=== PATIENT | female | born 1985 | race Caucasian/White ===

== ENCOUNTER 2023-08-30 12:51 | Outpatient (CLI) | payer OTHER, SELFPAY ==
--- NOTE | ~2023-08-30 | CT_ITS ---
EXAMINATION: CT brain wo con DATE: 08/30/2023 13:06 INDICATION: Head injury TECHNIQUE: Computed tomography (CT) of the head was performed without intravenous contrast. Sagittal and coronal reconstructions were performed. The mA was adjusted according to patient size. Iterative reconstruction technique was employed. The dose-length product was 645.69 mGy-cm. COMPARISON: None FINDINGS: No fracture. No acute intracranial hemorrhage, acute infarction or abnormal extra axial fluid collect ion. Ventricles are normal and symmetric. No mass/mass effect. The orbits, paranasal sinuses and mast oid air cells are normal. IMPRESSION: 1. Normal head CT. Reviewed, dictated and finalized at location A. IMPRESSION: 1. Normal head CT.
== END 2023-08-30 12:52 ==
PROVIDERS: PCP Physician Assistant; Visit Provider Physician Assistant
DX: S09.90XA Unspecified injury of head, initial encounter (principal); X58.XXXA Exposure to other specified factors, initial encounter
CPT/HCPCS: 70450

== ENCOUNTER 2024-01-24 11:50 | Outpatient (CLI) | payer OTHER, SELFPAY ==
--- NOTE | 2024-01-24 12:30 | ECG_ITS ---
Test Date: 2024-01-24 12:40:45 Measurements Intervals [place] Rate: 63 P: 43 [place]: 117 QRS: 28 QRSD: 87 T: 9 QT: 393 QTc: 403 Interpretive Statements SINUS RHYTHM WITH SHORT [place] INTERVAL WARNING: DATA QUALITY MAY AFFECT INTERPRETATION No previous ECG available for comparison Electronically Signed On 01-24-2024 16:20:16 MOBILE QA TESTER by Elian Larsen
[2024-01-24 14:17] LABS: Basophils Absolute Auto 0.1 K/mm3 (0.0-0.1); Basophils Percent Auto 0.7 % (0.2-1.2); Eosinophils Absolute Auto 0.1 K/mm3 (0-0.3); Eosinophils Percent Auto 0.8 % (0-4.4); Hematocrit 42.5 % (37.0-47.0); Hemoglobin 14.6 g/dL (12.0-15.0); Immature Granulocyte Absolute 0.03 K/mm3 (0.00-0.031); Immature Granulocyte Percent A 0.4 % (0-0.5); Lymphocytes Absolute Auto 2.58 K/mm3 (0.9-3.2); Lymphocytes Percent Auto 30.3 % (18.3-44.2); Mean Corpuscular HGB Conc 34.4 g/dl (32-36); Mean Corpuscular Hemoglobin 31.1 pg (26-34); Mean Corpuscular Volume 90.6 fl (80-100); Mean Platelet Volume 9.5 fl (7.4-10.4); Monocytes Absolute Auto 0.6 K/mm3 (0.1-0.6); Monocytes Percent Auto 6.8 % (2.6-8.5); Neutrophils Absolute Auto 5.2 K/mm3 (1.3-6.7); Platelet Count Result 283 k/mm3 (150-375); Red Blood Count 4.69 M/mm3 (4.2-5.4); Red Cell Distribution Width 11.9 % (11.5-14.5); White Blood Count 8.5 K/mm3 (4.5-10.0)
[2024-01-24 14:33] LABS: Alanine Aminotransferase 20 U/L (6-35); Albumin Level 4.9 g/dL (3.5-5.1); Alkaline Phosphatase 57 U/L (38-126); Anion Gap 7 mmol/L (4-12); Aspartate Amino Transferase 29 U/L (14-36); Bilirubin,Total 2.3 mg/dL (0.2-1.3); Blood Urea Nitrogen 11 mg/dL (7-17); Calcium 9.6 mg/dL (8.4-10.2); Carbon Dioxide 26 mmol/L (22-30); Chloride 105 mmol/L (98-107); Estimated Glomerular Filt Rate > 60; Glucose 80 mg/dL (65-110); Potassium 4.1 mmol/L (3.4-5.0); Sodium 138 mmol/L (137-145)
[2024-01-24 14:36] LABS: INR 1.1; Prothrombin Time 14.1 Seconds (11.1-14.7)
== END 2024-01-24 11:51 | disposition home or self-care (01) ==
LOC: ANHSURGERY 11:54
PROVIDERS: PCP Physician Assistant; Visit Provider Urology
DX: Z01.818 Encounter for other preprocedural examination (principal); N81.4 Uterovaginal prolapse, unspecified
CPT/HCPCS: 36415; 80053; 85025; 85610; 85730; 86850; 86900; 86901; 93005

== ENCOUNTER 2024-02-05 00:21 | Day surgery (SDC) | payer OTHER, SELFPAY ==
--- NOTE | 2024-01-24 09:03 | PC.NURSE ---
Report to the Outpatient Waiting Room, entrance under the green pavilion located off [facility], at time _6am on date 02/05/24 . Planned Procedure Time: _7:30 am .? Time changes happen often and if your time is changed the preop area will call you the afternoon before. - You and your visitor will be asked to self-screen and do not enter if you have any COVID symptoms. Please call surgeon if you need to reschedule. - A mask is optional within the hospital at this time. Patients may have clear liquids (water, carbonated beverages, clear teas, apple juice) until 3 hours prior to surgery ( 4:30 am)with a maximum of 20 ounces. - No food from midnight until time of surgery and no smoking. This includes no chewing gum, candy or mints. - Infants may have breast milk until 4 hours before surgery, infant formula 6 hours prior to surgery. - Children will be allowed to drink immediately following surgery.? If applicable, please bring a bottle or sippy cup to assist with drinking. Juice, water, soda, and popsicles are readily available.? For infants on formula, please bring formula the day of surgery.? Pacifiers are allowed. Take only the following medications with a SIP of water on the morning of surgery: ___none DO NOT STOP ANY OF YOUR OTHER PRESCRIPTION MEDICATIONS PRIOR TO SURGERY EXCEPT THE FOLLOWING Medications to discontinue per physician none Please no make-up, nail persian, hairspray, perfume, deodorant, or body powder the day of surgery.? No jewelry (including any body piercings) or valuables the day of surgery, leave them at home.? Please take a shower or bath the night before, or the morning of, surgery with an antibacterial soap.? Wear comfortable, loose fitting clothing.? Children are encouraged to wear pajamas. - Jewelry must be removed prior to entering the operating room.? Rings and piercings that are not removed may be cut off. - The hospital will not accept responsibility for valuables.? - Please leave all valuables, including medications, at home the day of surgery. If you are going home after surgery, a licensed dedicated driver must drive you home.? - NO public transportation without another adult if you receive anesthesia. - We recommend that an adult stay with you for 24 hours following discharge. - We also recommend that you do not drive, make important decision, drink alcoholic beverages, or take any drugs that were not prescribed by your health care provider for at least 24 hours after your discharge time. Follow any additional instructions given to you from your surgeon. VERBAL AND WRITTEN instructions given to __PATIENT and asked if any additional questions and then verbalized understanding. Patient advised to call surgeon office or pre surgery nurse liaison [phone] if any additional questions.
--- NOTE | 2024-01-24 09:09 | PC.NURSE ---
Report to the Outpatient Waiting Room, entrance under the green pavilion located off [facility], at time _6AM on date __02/05/24 . Planned Procedure Time: .? Time changes happen often and if your time is changed the preop area will call you the afternoon before. - You and your visitor will be asked to self-screen and do not enter if you have any COVID symptoms. Please call surgeon if you need to reschedule. - A mask is optional within the hospital at this time. Patients may have clear liquids (water, carbonated beverages, clear teas, apple juice) until 3 hours prior to surgery with a maximum of 20 ounces. - No food from midnight until time of surgery and no smoking. This includes no chewing gum, candy or mints. - Infants may have breast milk until 4 hours before surgery, infant formula 6 hours prior to surgery. - Children will be allowed to drink immediately following surgery.? If applicable, please bring a bottle or sippy cup to assist with drinking. Juice, water, soda, and popsicles are readily available.? For infants on formula, please bring formula the day of surgery.? Pacifiers are allowed. Take only the following medications with a SIP of water on the morning of surgery: DO NOT STOP ANY OF YOUR OTHER PRESCRIPTION MEDICATIONS PRIOR TO SURGERY EXCEPT THE FOLLOWING Medications to discontinue per physician Date to take last dose Please no make-up, nail maori, hairspray, perfume, deodorant, or body powder the day of surgery.? No jewelry (including any body piercings) or valuables the day of surgery, leave them at home.? Please take a shower or bath the night before, or the morning of, surgery with an antibacterial soap.? Wear comfortable, loose fitting clothing.? Children are encouraged to wear pajamas. - Jewelry must be removed prior to entering the operating room.? Rings and piercings that are not removed may be cut off. - The hospital will not accept responsibility for valuables.? - Please leave all valuables, including medications, at home the day of surgery. If you are going home after surgery, a licensed long haul truck driver must drive you home.? - NO public transportation without another adult if you receive anesthesia. - We recommend that an adult stay with you for 24 hours following discharge. - We also recommend that you do not drive, make important decision, drink alcoholic beverages, or take any drugs that were not prescribed by your health care provider for at least 24 hours after your discharge time. For Pediatric surgeries, we recommend two adults accompany the child home. Follow any additional instructions given to you from your surgeon. Telephone instructions given to and asked if any additional questions and then verbalized understanding. Patient advised to call surgeon office or pre surgery nurse liaison [phone] if any additional questions.
--- NOTE | 2024-01-24 09:09 | PC.NURSE ---
Report to the Outpatient Waiting Room, entrance under the green pavilion located off [facility], at time __,[id number] on date . Planned Procedure Time: .? Time changes happen often and if your time is changed the preop area will call you the afternoon before. - You and your visitor will be asked to self-screen and do not enter if you have any COVID symptoms. Please call surgeon if you need to reschedule. - A mask is optional within the hospital at this time. Patients may have clear liquids (water, carbonated beverages, clear teas, apple juice) until 3 hours prior to surgery with a maximum of 20 ounces. - No food from midnight until time of surgery and no smoking. This includes no chewing gum, candy or mints. - Infants may have breast milk until 4 hours before surgery, formula 6 hours prior to surgery. - Children will be allowed to drink immediately following surgery.? If applicable, please bring a bottle or sippy cup to assist with drinking. Juice, water, soda, and popsicles are readily available.? For infants on formula, please bring formula the day of surgery.? Pacifiers are allowed. Take only the following medications with a SIP of water on the morning of surgery: DO NOT STOP ANY OF YOUR OTHER PRESCRIPTION MEDICATIONS PRIOR TO SURGERY EXCEPT THE FOLLOWING Medications to discontinue per physician Date to take last dose Please no make-up, nail citizen of [place], hairspray, perfume, deodorant, or body powder the day of surgery.? No jewelry (including any body piercings) or valuables the day of surgery, leave them at home.? Please take a shower or bath the night before, or the morning of, surgery with an antibacterial soap.? Wear comfortable, loose fitting clothing.? Children are encouraged to wear pajamas. - Jewelry must be removed prior to entering the operating room.? Rings and piercings that are not removed may be cut off. - The hospital will not accept responsibility for valuables.? - Please leave all valuables, including medications, at home the day of surgery. If you are going home after surgery, a licensed solid waste truck driver must drive you home.? - NO public transportation without another adult if you receive anesthesia. - We recommend that an adult stay with you for 24 hours following discharge. - We also recommend that you do not drive, make important decision, drink alcoholic beverages, or take any drugs that were not prescribed by your health care provider for at least 24 hours after your discharge time. For Pediatric surgeries, we recommend two adults accompany the child home. Follow any additional instructions given to you from your surgeon. Telephone instructions given to and asked if any additional questions and then verbalized understanding. Patient advised to call surgeon office or pre surgery nurse liaison [phone] if any additional questions.
[2024-01-24 11:57] VITALS: BMI 27.3
[2024-01-24 12:29] VITALS: BP 139/86; PULSE 68; RESP 18; TEMP 37; O2SAT 100
--- NOTE | 2024-02-04 04:44 | P.HP_ITS ---
H&P: HPI History of Present Illness Date/Time: 02/04/24 04:44 Chief Complaint: uterine prolapse Narrative: uterine prolapse. Worsening for years Review of Systems Review of Systems: All systems reviewed & are unremarkable except as noted in HPI and below PMFSH Surgical History Surgical History H/O removal of cyst [place] teeth extracted Family History Family History Other Carcinoma of colon Diabetes mellitus Hypertension Melanoma Social History Social History Smoking status: Never smoker Alcohol intake: current Alcohol use details: socially Substance use: never Substance use type: does not use Do You Feel Safe in your Home?: Yes Lack of Transportation: No Lack of Food: Never True Current Housing: I Have Housing Concerned About Future Housing: No Difficulty Paying Gas/Electric Bills: No Difficulty Paying for Meds: No Currently Unemployed: No Education: Master's Degree or Higher Difficulty w/ Childcare or Family Care: No Living arrangements: with family Occupation/Education: occupation Gender identity (if verbalized by the patient): Female Sexual Orientation (if Verbalized by the Patient): Straight or Heterosexual Spiritual care concerns: No Meds Home Medications and Allergies Home Medications ?Medication ?Instructions ?Recorded ?Confirmed ?Type No Home Medications 06/02/21 01/24/24 History Allergies Allergy/AdvReac Type Severity Reaction Status Date / Time No Known Allergies Allergy Verified 01/24/24 11:58 Exam Narrative: apex at +1 Assessment and Plan Assessment and plan (1) Uterine prolapse: Code(s): N81.4 - Uterovaginal prolapse, unspecified Status: Acute Assessment and Plan: Robotic Colpopexy. Have previously discussed issues surrounding POP repair in young patients. Risks, benefits and alternatives discussed
--- NOTE | 2024-02-04 13:21 | P.HP_ITS ---
H&P: HPI History of Present Illness Date/Time: 02/04/24 13:21 Chief Complaint: prolapse Narrative: Debi is a 38yo P2002, who presents for surgical management of prolapse. She has a normal pap 07/2023. She denies any issues. 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 She is sexually active w/o issue; has vasectomy. She denies a [place] breast issues. Has known prolapse and has seen Dr. Cruz and was recommended to have sacrocolpopexy. No major issues emptying bladder/rectum or bulge symptoms now. Review of Systems Constitutional: Constitutional: Denies chills, Denies fever(s) and Denies headache(s) Eyes: Eyes: Denies change in vision ENT: Denies dizziness and Denies headache(s) Cardiovascular: Cardiovascular: Denies chest pain and Denies dyspnea Respiratory: Respiratory: Denies cough and Denies dyspnea Gastrointestinal: Gastrointestinal: Denies abdominal pain and Denies change in stool character Genitourinary: Genitourinary: Denies abnormal menses, Denies pelvic pain, Reports prolapse symptoms, Denies urinary incontinence, Denies vaginal discharge, Denies vaginal odor and Denies vaginal pruritus Neurologic: Denies dizziness and Denies headache(s) Psychiatric: Psychiatric: Denies anxiety and Denies depression [facility] Surgical History Surgical History H/O removal of cyst [place] teeth extracted Family History Family History Other Carcinoma of colon Diabetes mellitus Hypertension Melanoma Social History Social History Smoking status: Never smoker Alcohol intake: current Alcohol use details: socially Substance use: never Substance use type: does not use Do You Feel Safe in your Home?: Yes Lack of Transportation: No Lack of Food: Never True Current Housing: I Have Housing Concerned About Future Housing: No Difficulty Paying Gas/Electric Bills: No Difficulty Paying for Meds: No Currently Unemployed: No Education: Master's Degree or Higher Difficulty w/ Childcare or Family Care: No Living arrangements: with family Occupation/Education: occupation Gender identity (if verbalized by the patient): Female Sexual Orientation (if Verbalized by the Patient): Straight or Heterosexual Spiritual care concerns: No Meds Home Medications and Allergies Home Medications ?Medication ?Instructions ?Recorded ?Confirmed ?Type No Home Medications 06/02/21 01/24/24 History Allergies Allergy/AdvReac Type Severity Reaction Status Date / Time No Known Allergies Allergy Verified 01/24/24 11:58 Exam Const: General: cooperative, healthy appearing, comfortable and no acute distress Orientation/consciousness: patient oriented x3 Resp: Effort & Inspection: normal respiratory effort Cardio: Rate: regular rate GI: Inspection: normal to inspection GI Palp: No abdominal tenderness and Yes Soft to palpation : Other: deferred to OR Skin: General skin exam: normal color Neuro: General: patient oriented x3 Extrem: General: normal to inspection Psych: Appearance: grossly normal Affect: normal affect Attitude: cooperative Assessment and Plan Assessment and plan (1) Uterine prolapse: Code(s): N81.4 - Uterovaginal prolapse, unspecified Status: Acute Plan - Proceed with robotic assisted laparoscopic supracervical hysterectomy with bilateral salpingectomy - This is a combined case with Dr. Cruz who will fix her prolapse - Risks and benefits of surgery discussed in detail including but not limited to pain, bleeding, injury to nearby structures (bowel, bladder, ureter, ovary, blood vessels, nerves) or infection (skin, vaginal, pelvic). - I have also discussed the recommended time off and natural course of healing/downtime
[2024-02-05] VITALS (9 sets, daily range): BP systolic 120–135; BP diastolic 70–106; PULSE 66–99; RESP 16–18; TEMP 36.4–36.5; O2SAT 97–100
--- NOTE | 2024-02-05 06:25 | WPDHPUPDATE1 ---
History and Physical Update Update Date/Time: 02/05/24 06:25 History and Physical has been reviewed, including an updated exam of the patient. There are NO changes in the patient's condition. Risks, benefits, and alternatives have been discussed and questions answered. Patient agrees to proceed with procedure.
[2024-02-05] MEDS: KETOROLAC 15 MG/ML VIAL (*BKC) IV PUSH (06:35)
[2024-02-05] MEDS: LACTATED RINGERS 1,000 ML 30 ML IV CONT ×2 (06:40→10:48)
[2024-02-05] MEDS: ACETAMINOPHEN 500 MG TABLET 1000 MG PO (06:45)
[2024-02-05 06:59] LABS: BEDSIDEPREGUCG Negative (Negative)
--- NOTE | 2024-02-05 07:08 | WPDANESEPPF ---
Anes - Initial Pre Proc Eval Procedure: Operation Date: 02/05/24 07:30 Proposed Procedures p Robotic Sacrocolpopexy, Urethral Sling - Ayan Cruz MD s Robotic Assisted Laparoscopic Supracervical Hysterectomy with Bilateral Salpingectomy - Adilene Li MD Date/Time: 02/05/24 07:08 Surgeon: Ayan Cruz MD Pre Op Diagnosis: complete uterine prolapse, stress incont Patient Data Age: 38 Gender: F Height: 1.63 m Weight: 71.2 kg Last Vital Signs Temp 97.6 F 02/05/24 06:15 Pulse 84 02/05/24 06:15 Resp 16 02/05/24 06:15 BP 128/77 02/05/24 06:15 Pulse Ox 99 02/05/24 06:15 O2 Del Method Room Air 02/05/24 06:15 Allergies Allergy/AdvReac Type Severity Reaction Status Date / Time No Known Allergies Allergy Verified 02/05/24 06:48 Home Medications ?Medication ?Instructions ?Recorded ?Confirmed ?Type No Home Medications 06/02/21 01/24/24 History Laboratory Tests 02/05/24 06:57 POC Urine HCG, Qual Negative (Negative) Patient hx anesthesia problems: none Family hx anesthesia problems: none Results Review: All pre-operative results and documents have been reviewed as part of the pre-operative evaluation. [facility] Surgical History Surgical History H/O removal of cyst [place] teeth extracted Family History Family History Other Carcinoma of colon Diabetes mellitus Hypertension Melanoma Social History Social History Smoking status: Never smoker Alcohol intake: current Alcohol use details: socially Substance use: never Substance use type: does not use Do You Feel Safe in your Home?: Yes Lack of Transportation: No Lack of Food: Never True Current Housing: I Have Housing Concerned About Future Housing: No Difficulty Paying Gas/Electric Bills: No Difficulty Paying for Meds: No Currently Unemployed: No Education: Master's Degree or Higher Difficulty w/ Childcare or Family Care: No Living arrangements: with family Occupation/Education: occupation Gender identity (if verbalized by the patient): Female Sexual Orientation (if Verbalized by the Patient): Straight or Heterosexual Anes - Eval Final PreProcedure Day of Procedure 02/05/24 07:08 Patient weight: normal Heart: regular rate and rhythm Lungs: clear to auscultation Airway: Mallampati scale class II Neurological: alert and oriented Last oral intake: >/= 8 hours ASA classification: I Emergent: no Anesthetic plan: proceed Anesthesia type and monitoring: general ETT and standard monitoring Results Review: All pre-operative results and documents have been reviewed as part of the pre-operative evaluation. Pt active doing [employer] HIIT workouts, no cp or sob. Informed Consent: The patient's anesthetic plan and its attendant risks and benefits were discussed with the patient/family/POA. Questions were solicited and answers provided to the satisfaction of the patient/family/POA.
--- NOTE | 2024-02-05 07:13 | WPDHPUPDATE1 ---
History and Physical Update Update Date/Time: 02/05/24 07:13 History and Physical has been reviewed, including an updated exam of the patient. There are NO changes in the patient's condition. Risks, benefits, and alternatives have been discussed and questions answered. Patient agrees to proceed with robotic assisted laparoscopic supracervical hysterectomy with bilateral salpingectomy.
[2024-02-05] MEDS: ceFAZolin 2 GM/D5W 50 ML 2 GM/50 ML BAG IVPB (07:40)
[2024-02-05] MEDS: metroNIDAZOLE 500 MG/ISO 100ML 500 MG/100 ML BAG 100 MG IVPB (07:50)
[2024-02-05] MEDS: BUPIVACAINE/EPINEPHRINE 0.5% 30 ML VIAL INFILTRATE (07:58)
--- NOTE | 2024-02-05 09:10 | W.PM.PROC2 ---
Procedure Note - Detailed Date of Procedure 02/05/24 Pre-op Diagnosis complete uterine prolapse Post-op Diagnosis Same Procedure Performed Robotic assisted supracervical hysterectomy with bilateral salpingectomy Surgeon Adilene Li MD Junior Project Coordinator Pablo Anesthesia General Findings Uterine prolapse; slightly enlarged uterus with posterior fibroid. Normal bilateral fallopian tubes and ovaries. Good hemostasis at end of case. Description of Procedure Debi was taken to the operating room where she was placed under general anesthesia without issues. She received 2 g Ancef and 500mg Metronidazole. She was then prepped and draped in the usual sterile fashion in the dorsal lithotomy position with her legs in low Mayco stirrups, her arms tucked at her side, with a strap over her chest. A time-out was performed with both Dr. Cruz and I in the room. Dr. Cruz then scrubbed in and placed the 5 laparoscopic ports. The patient was then placed in steep Trendelenburg, with the legs slightly lowered. Dr. Cruz then docked the robot and placed the instruments intra-abdominally under direct visualization. A White catheter was then placed and a sponge on a stick was placed within the vagina. I then went to the robotic console. I then started my hysterectomy on the right side. The ureter was easily identified transperitoneally and well out of the surgical field. The fallopian tube was elevated and the mesosalpinx was coagulated and transected. The round ligament was clamped, coagulated, and transected. The uterine ovarian artery was then serially clamped, coagulated, and transected with good hemostasis. The broad ligament was then dissected anteriorly and posteriorly skeletonizing the uterine artery. The bladder flap was then developed on the left side and carried around the right, anteriorly. The uterine artery was then serially clamped and coagulated. Once the vessel was adequately coagulated, it was then transected with good hemostasis. The same procedure was then performed on the left side without complications. All pedicles were found to be hemostatic. The uterus was noted to be devascularized. The bladder flap was verified out of the surgical field and the uterus was then cut into 4 pieces. The remaining uterus stump was then transected from the cervix. Good hemostasis was noted. The uterus and bilateral fallopian tubes were placed within a bag. All pedicles were once again examined and found to be hemostatic. Dr. Cruz then took over the robot and continued his case to repair the prolapse. At the end of the case, my EBL was 100cc. Estimated Blood Loss 100 Pathology Yes (uterus and bilateral fallpian tubes) Complications No immediate complications Condition Stable Disposition No change [facility] Billing Surgery - Charge Forward: Surgery Billing
--- NOTE | 2024-02-05 10:29 | P.OP_ITS ---
Procedure Note - Detailed Date of Procedure 02/05/24 Pre-op Diagnosis complete uterine prolapse Post-op Diagnosis Same Procedure Performed Robotic sacral colpopexy, cystoscopy Surgeon Ayan Cruz MD Anesthesia General Indications Woman with with uterine prolapse without stress incontinence. She desires calabrese rgical correction. She is here for the above. She understands risks of bleeding, infection, diskitis, damage to surrounding organs, bowel injury, bowel obstruction, mesh related complications including exposure and extrusion, postoperative voiding dysfunction including incontinence and retention, need for ancillary procedures, dyspareunia, recurrence of prolapse, and other perioperative intraoperative postoperative complications. She agrees to proceed. Findings See below Description of Procedure She was correctly identified. Informed consent obtained. She from the operating room. She was given general anesthesia. She was given appropriate perioperative antibiotics. She was placed a low lithotomy position. Pressure points were padded. A time-out performed. I marked out the skin 3 fingerbreadths cephalad to the umbilicus. I anesthetized the skin. I incised the skin. I dissected down to the fascia. I grasped the fascia with Flynn clamps. I entered the fascia sharply in a Stewart type technique. I placed sutures for later fascial closure. I placed a midline trocar. I examined the abdomen. There is no sign of any injury. Under direct vision I placed 2 additional trocars in the right upper quadrant and 2 additional trocars the left upper quadrant. She was placed in steep Trendelenburg. The robot was docked. Her popcorn candy maker completed their portion of the procedure. Please see that operative report for details. I then sat at the console. The Sizer in the vagina created plane on the anterior and posterior vaginal wall. I took great care not to injure the vagina, bladder, or rectum. I introduced the mesh into the abdomen. I sewed the anterior leaflet of mesh on the anterior vaginal wall. I sewed the posterior leaflet of mesh on the posterior vaginal wall. This was done with several sutures of 2 0 Kouts-Magdaleno. I reflected the colon laterally. I opened the posterior peritoneum over the sacral promontory. I carried this into the cul-de-sac. I freed up the edges for later retroperitonealization. I located the anterior longitudinal ligament the sacrum. I cleaned off all fatty tissues. I then tensioned my mesh appropriately. I did a vaginal exam the bedside. I assured prolapse reduction without undue tension. I then sewed the proximal bryce flet of mesh onto the anterior longitudinal ligament of the sacrum with 4 sutures of 2 0 Kouts-Magdaleno. I then used a 2 0 Monocryl to completely and meticulously retroperitonealized all mesh. I allowed the colon to go back to its normal anatomic location. There is no sign of any impingement. The specimen was then removed. All ports removed. Fascia was tied down. Additional sutures were placed fully close the fascia Skin was closed with Monocryl and surgical glue. I then performed cystoscopy. There was no tumors or surgical artifact. Both ureters were seen to excrete clear yellow urine. There is no surgical artifact in the bladder or urethra. I cut the excess sling material. Close incision with glue. She was awakened and transferred to PACU in stable condition. Implants Sacral colpopexy mesh Estimated Blood Loss 20 Packing No Pathology None sent Complications No immediate complications Condition Stable Disposition PACU
[2024-02-05] MEDS: fentaNYL CITRATE INJ (*CRX) 100 MCG/2 ML VIAL 25 MCG IV PUSH (11:11)
[2024-02-05] MEDS: ONDANSETRON INJ 4 MG/2 ML VIAL IV PUSH (11:11)
[2024-02-05] MEDS: oxyCODONE HCL (*CRX) 5 MG TAB IR PO (11:56)
--- OUTSIDE RECORDS SUMMARY | 2024-02-12 02:17 | XMS_ITS | Referral Summary ---
Author Organization [facility] Address [address] [place] [id number] Care Team Providers Care Elementary Art Teacher Name Role Phone Lay Hurst Primary Care Pr ovider Allergies No known active allergies Medications norethindrone (MICRONOR) 0.35 mg tablet norethindrone (contraceptive) 0.35 mg tablet TAKE 1 TAB BY MOUTH DAILY. 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 Gender Identity Not on file Sexual Orientation Not on file Last Filed Vital Signs Vital Sign Reading Time Taken Comments Blood Pressure - - Pulse - - Temperature - - Respiratory Rate - - Oxygen Saturation - - Inhaled Oxygen Concentration - - Weight 65.8 kg (145 lb) 05/09/2022 10:41 AM CDT Height 162.6 cm (5' 4 ) 05/09/2022 10:41 AM CDT Body Mass Index 24.89 05/09/2022 10:41 AM CDT Plan of Treatment Not on file Insurance [facility] PPO [facility] H[facility] Care Teams Elementary Art Teacher Relationship Specialty Start Date End Date Lay Hurst PA PCP - General Physician Appointment Setter 02/24/22
--- OUTSIDE RECORDS SUMMARY | 2024-02-12 02:17 | XMS_ITS | Clinical Summary ---
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 Gender Identity Not on file Sexual Orientation Not on file Plan of Treatment Health Maintenance Due Date Last Done Comments Hepatitis C Virus (HCV) Screening 1985 Hepatitis B Immunization (1 of 3 - 19+ 3-dose series) 2004 HPV/Cotest 2015 Cervical Cancer Screening (CCS) 01/25/2021 Pap Smear 01/25/2021 01/25/2018 Influenza Immunization (#1) 10/14/202311/13, 12/05/2017, 02/12/2014, Additional history exists SARS-COV-2 Immunization ( season) 2023 01/26/2021, 06/23/2020, 06/02/2020 Respiratory Syncytial Virus (RSV) Immunization (Adult) (1 - 1-dose 75+ series) 2060 DTaP/Tdap/Td Immunization Discontinued 01/19/2011 TdaP Immunization Completed 01/19/2011 Meningococcal Immunization (ACWY) Aged Out No longer eligible based on patient's age to complete this topic Pneumococcal Immunization Combined Aged Out No longer eligible based on patient's age to complete this topic Rotavirus Immunization Aged Out No lo nger eligible based on patient's age to complete this topic
--- OUTSIDE RECORDS SUMMARY | 2024-02-12 02:17 | XMS_ITS | Encounter Summary ---
Author Organization [facility] Address [address] [place] [address] Phone Care Team Providers Care Sales Executive Name Role Phone Lay Hurst Primary Care Pr ovider Reason for Visit * Reason Comments Follow-up Encounter Details Date Type Department Care Team (Latest Contact Info) Description 05/09/2022 10:15 AM CDT Office Visit [facility] Orthopaedic Surgery [address] [place] [address] [place] [address] [place], [place] [id number] Right lateral epicondylitis (Primary Dx) Social History Tobacco Use Types Packs/Day Years Used Date Smoking Tobacco: Never Smokeless Tobacco: Never Tobacco Cessation:Counseling Given: Not Answered Comments Unknown Sex and Gender Information Value Date Recorded Sex Assigned at Not on file Legal Sex Female 2:29 AM RN VISITING Gender Identity Not on file Sexual Orientation Not on file documented as of this encounter Last Filed Vital Signs Vital Sign Reading Time Taken Comments Blood Pressure - - Pulse - - Temperature - - Respiratory Rate - - Oxygen Saturation - - Inhaled Oxygen Concentration - - Weight 65.8 kg (145 lb) 05/09/2022 10:41 AM CDT Height 162.6 cm (5' 4 ) 05/09/2022 10:41 AM CDT Body Mass Index 24.89 05/09/2022 10:41 AM CDT documented in this encounter Patient Instructions * Patient Instructions* Senthil Wade PA - 05/09/2022 10:15 AM CDT Debi Carrera 1985 1. Right lateral epicondylitis RECOMMENDATIONS: Stop the [id number] anti-inflammatory medication like ibuprofen. Begin meloxicam 15 mg once daily with food for the next 10-14 days to control pain and inflammation. Ice the elbow region 15-20 minutes at the end the day and after activities. Maintain exercises for range of motion stretching and strengthening of the right elbow. Use the tennis elbow band with daily activities. Modify activities trying to avoid repetitive use the right upper extremity if possible. Follow up in 6 weeks if symptoms persist. If your symptoms worsen, please reach your provider through the office at . If you need to reschedule your appointment, please call [phone]. Diana Wade PA-C [facility] Department of Orthopaedics Working in collaborative practice with Denis Sherman M.D. documented in this encounter Ordered Prescriptions Prescription Sig Dispense Quantity Refills Last Filled Start Date End Date meloxicam (MOBIC) 15 mg tablet Take 1 tablet (15 mg total) by mouth daily with breakfast Take 1 daily with food 30 tablet 05/09/2022 documented in this encounter Progress Notes * Senthil Wade PA - 05/09/2022 10:15 AM CDT RETURN PATIENT VISIT INTERVAL HISTORY Debi Carrera is a 37 y.o. who presents today in follow up of her right elbow lateral epicondylitis. She is been treating conservatively with ibuprofen which she mentions that she does not take on a regular basis. When she does take it does provide her some relief. She is iced on occasion she is beenusing a tennis elbow band. She is maintain some stretching and strengthening exercises at home. Overall she reports mild improvement over the past several weeks. States overall she is maybe 50% improved. She reports her symptoms are mostly nuisance like. States the sharp pain has improved. PAST MEDICAL HISTORY She has no past medical history on file. REVIEW OF MEDICATIONS She has a current medication list which includes the following prescription(s): norethindrone. ALLERGIES She has No Known Allergies. REVIEW OF SYSTEMS No change since last visit. PHYSICAL EXAMINATION CONSTITUTIONAL: Well-appearing, in no apparent distress EYES: No scleral icterus or conjunctival hemorrhage CARDIOVASCULAR: Skin warm and well-perfused, no peripheral edema RESPIRATORY: Breathing unlabored without accessory muscle use PSYCHIATRIC: Alert, cooperative, appropriate mood and affect SKIN: No lesions or rashes on exposed skin. MUSCULOSKELETAL: The right elbow is without swelling ecchymosis or deformity. She is minimal tenderness over the lateral epicondyle. She is adequate range of motion the elbow to flexion extension supination pronation. She is good strength 5/5 to resisted elbow flexion extension supination pronation. Her symptoms are mildly reproduced with resisted wrist extension and supination of the forearm along with mild discomfort with resisted middle finger extension with the arm extended. NEUROLOGIC: Sensation is intact distally in the involved extremity. VASCULAR: Brisk capillary refill is intact distally in the involved extremity. REVIEW OF IMAGING/STUDIES None taken today. IMPRESSION/DIAGNOSIS Right elbow lateral epicondylitis TREATMENT/PLAN I spoke with the patient today regarding her condition and reviewed all treatment options. She would like to stay conservative. I have asked her to stop her ibuprofen and try a course of meloxicam 15mg once daily with food for the next 10-14 days. I recommended icing the elbow 15-20 minutes at theend of the day and after activities. We discussed use of a tennis elbow band with daily activities.I have offered formal therapy she declined she would just like to do exercises on her own at home. She voiced comfortable doing the stretching and strengthening exercises. I have asked her to modify activities avoiding repetitive use the right upper extremity if possible. I will see her back in 6 weeks for re-evaluation if symptoms persist. The patient is in agreement with above treatment plan and all questions are answered today. Diana Wade PA-C [facility] Department of Orthopaedics Working in collaboration with Denis Sherman M.D. Portions of this note were dictated using [employer] Direct speech recognition software. Please excuse any supervisor whipped topping errors. documented in this encounter Plan of Treatment Not on file documented as of this encounter Visit Diagnoses Diagnosis Right lateral epicondylitis- Primary documented in this encounter Care Teams Sales Executive Relationship Specialty Start Date End Date MenLay man PA PCP - General Physician Mentally Retarded Teacher 02/24/22 documented as of this encounter
--- OUTSIDE RECORDS SUMMARY | 2024-02-12 02:17 | XMS_ITS | Data Portability ---
Author Organization [facility] The Editorialist, Main Office Address [address] [place] [address] Assessment No assessment recorded. Plan of Treatment Reminders Order Date Submit Date Provider Last Modified By Organization Details Last Modified Time Details Appointments None recorded . Lab TSH + free T4, serum 023 01/23/20 JUAN [facility], [address] [facility], [address], [place], [address], 3 17:05:07 lipid panel, serum 023 01/23/20 23 [email or web address] [facility], [address] [facility], [facility] [address], [place], [address], 3 17:04:51 HbA1c (hemoglo bin A1c), blood 023 01/23/20 23 [email or web address] [facility], [address] [facility], [address], [place], [address], 3 17:04:42 CMP, serum or plasma 023 01/23/20 23 [email or web address] [facility], [address] [facility], [address], [place], [address], 3 17:03:58 CBC w/ auto diff 023 01/23/20 23 [email or web address] [facility], [address] [facility], [address], [place], [address], 3 17:04:22 Referral None recorded . Procedures None recorded . Surgeries None recorded . Imaging None recorded . Medication Orders None recorded . Patient TargetsNo targets recorded. Patient InstructionsNo instructions recorded. Reason for Referral None Reported. Results Created Date Observation Date Name Description Value Unit Range Abnormal Flag Note LastModifiedBy Organization Detail LastModifiedTime 05/26/19 21 05/26/2020 pap, LB + HR HPV diagnosis: danial mcintosh NEGAT MICKI FOR INTRA EPITH ELIAL LESIO N OR [place] . Not Available [facility] [place], [address], 05/27/2020 07:10:41 05/26/19 21 05/26/2020 pap, LB + HR HPV specimen adequacy: danial mcintosh Satis facto ry for evalu ation . Endoc ervic al and/o r squam ous metap lasti c cells (endo cervi dequan compo nent) are prese nt. Not Available [facility] [address] [place], [address], 05/27/2020 07:10:41 05/26/19 21 05/26/2020 pap, LB + HR HPV clinician provided ICD10: danial mcintosh Z01.4 19 Not Available [facility] [place], [address], 05/27/2020 07:10:41 05/26/19 21 05/26/2020 pap, LB + HR HPV performed by: Snehal Esquivel (ASCP ) Not Available [facility] [place], [address], 05/27/2020 07:10:41 05/26/19 21 05/26/2020 pap, LB + HR HPV . . [facility] [address] [facility] [place], [address], 05/27/2020 07:10:41 05/26/19 21 05/26/2020 pap, LB + HR HPV note: danial mcintosh The Pap smear is a scree arline test chris bear to aid in the detec tion of jose elias ligna nt and malig nant condi tions of the uteri ne cervi x. It is not a diagn ostic proce dure and shoul d not be used as the sole means of detec ting cervi dequan cance r. Both false -posi tive and false -nega tive repor ts do occur . Not Available [facility] [address] [place], [address], 05/27/2020 07:10:41 05/26/19 21 05/26/2020 pap, LB + HR HPV test methodology: commen t This liqui d based ThinP rep(R ) pap test was marily bear with the use of an image guide jim bradley. Not Available [facility] [address] [place], [address], 05/27/2020 07:10:41 05/26/19 21 05/27/2020 pap, LB + HR HPV HPV aptima negati ve negati ve This nucle ic acid ampli ficat ion test detec ts fourt een high- risk HPV types (16,1 8,31, 33,35 ,39,4 5,51, 52,56 ,58,5 9,66, 68) witho ut diffe renti ation . Not Available [facility] [place], [address], 05/27/2020 07:10:41 07/15/19 21 07/14/2020 XR, toe(s ) No observ ation record ed. [id number], [place], [address], 04/12/2022 17:28:33 11/01/19 23 10/31/2022 MAMMO , marily nunn, digit al, bilat eral No observ ation record ed. [email or web address] Not Available 2022 13:05:29 Result Notes None recorded. 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 Procedures Surgical History Date Name Laterality Status Provider Name and Address Organization Details Recorded Time 02/12/19 08 Date of Last Colonoscopy completed Not Available [facility] 04/12/2022 17:28:01 02/12/19 08 other completed Not Available [facility] 3 17:28:01 02/12/19 08 Colonoscopy completed Not Available [facility] 04/13/19 23 17:28:01 [place] Teeth completed Not Available [facility] 04/12/2022 17:28:01 Cyst Removal completed Not Available [facility] 04/12/2022 17:28:01 Imaging Results Imaging Date Name Status LastModified by Organiz ation Details LastModified Time 07/14/2020 XR, toe(s) completed [id number] , [place], [address], 04/12/2022 17:28:33 10/31/2022 MAMMO, screening, digital, bilateral completed [email or web address] Information not available 01/22/2023 13:05:29 Procedure Notes None recorded. Medical Equipment None Reported. Allergies No known drug allergies Medications Name Sig Start Date Stop Date Status Note LastModified by Organization Details LastModified Time amoxicillin 500 mg capsule TAKE 2 CAPSULE BY MOUTH TWICE A DAY FOR 10 DAYS. 10/26 completed Not Available Not Available Not Available azithromyci n 250 mg tablet TAKE 2 TABLETS BY MOUTH TODAY, THEN TAKE 1 TABLET DAILY FOR 4 DAYS 10/26 completed Not Available Not Available Not Available benzonatate 200 mg capsule TAKE 1 CAPSULE THREE TIMES A DAY NEEDED 10/26 completed Not Available Not Available Not Available valacyclovi r 1 gram tablet TAKE 2 TABS BY MOUTH EVERY 12 HOURS X 1 DAY NEEDED FOR COLD SORE ONSET active Not Available Not Available No t Available meloxicam 15 mg tablet TAKE 1 TABLET (15 MG TOTAL) BY MOUTH DAILY WITH BREAKFAST TAKE 1 DAILY WITH FOOD active Not Available Not Available No t Available diphenoxyla te-atropine 2.5 mg-0.025 mg tablet TAKE 1 TABLET BY MOUTH 4 TIMES A DAY NEEDED FOR DIARRHEA 10/27 completed Not Available Not Available Not Available phenazopyri dine 100 mg tablet TAKE 2 TABLETS BY ORAL ROUTE 3 TIMES PER DAY FOR 2 DAYS 01/19 completed Not Available Not Available Not Available Cheratussin AC 10 mg-100 mg/5 mL oral liquid TAKE 5 ML BY MOUTH EVERY 4 TO 6 HOURS NEEDED 10/26 completed Not Available Not Available Not Available methylpredn isolone 4 mg tablets in a dose pack TAKE DIRECTED 10/26 completed Not Available Not Available Not Available norethindro ne (contracept micki) 0.35 mg tablet TAKE 1 TAB BY MOUTH DAILY. active Not Available Not Available No t Available doxycycline hyclate 100 mg tablet TAKE ONE TAB DAILY AT DINNER TIME WITH FOOD X 1 MONTH 01/18 completed Not Available Not Available Not Available nitrofurant oin monohydrate /macrocryst als 100 mg capsule TAKE 100 MILLIGRAM S BY ORAL ROUTE EVERY 12 HOURS FOR 5 DAYS 01/19 completed Not Available Not Available Not Available OneTouch Delica Lancets 33 gauge USE TO TEST BLOOD SUGAR 4 TIMES A DAY NEEDED active Not Available Not Available No t Available Orsythia 0.1 mg-20 mcg tablet TAKE 1 TABLET BY MOUTH EVERY DAY 10/27 completed Not Available Not Available Not Available OneTouch Verio test strips USE TO TEST BLOOD SUGAR 4 TIMES A DAY NEEDED active Not Available Not Available No t Available Vitals Date Recorded Body mass index (BMI) Body height Body weight Systolic blood pressure Diastolic blood pressure Provider Name and Address Organization Details Last Updated DateTime 05/25/2020 29 kg/m2 162.56 cm 48448.83 g 108 mm[Hg] 74 mm[Hg] Not Available [facility] 3 17:28:04 Date Recorded Body mass index (BMI) Body height Oxygen saturation Oxygen saturation in Arterial blood by Pulse oximetry Heart rate Body temperature Body weight Systolic blood pressure Diastolic blood pressure Provider Name and Address Organization Details Last Updated DateTime 2 26.6 kg/m2 162.56 cm 98 % 98 % 72 /min 97.6 [degF] 82642.8 2 g 110 mm[Hg] 68 mm[Hg] Not Available [facility] 3 17:28:04 Date Recorded Body height Body temperature Body mass index (BMI) Body weight Respiratory rate Oxygen saturation Oxygen saturation in Arterial blood by Pulse oximetry Heart rate Systolic blood pressure Diastolic blood pressure Provider Name and Address Organization Details Last Updated DateTime 3 162.56 cm 97.3 [degF] 26.6 kg/m2 47003.8 2 g 16 /min 99 % 99 % 78 /min 120 mm[Hg] 70 mm[Hg] Aurea HortamanLORRAINECharito [facility] [employer] 3 12:56:11 Date Recorded Systolic blood pressure Diastolic blood pressure Provider Name and Address Organization Details Last Updated DateTime 01/22/2023 126 mm[Hg] 70 mm[Hg] ANDREW Perez [address] [facility], [facility] [address], [place], [address], [place] [facility] 01/22/2023 13:19:13 Social History Question Answer Notes LastModified by Organizat ion Details LastModified Time Tobacco Smoking Status Never Smoker Not Available [facility] 04/12/2022 17:27:59 Do You Have An Advance Directive? No [id number] Information not available 04/12/2022 What Is Your Level Of Alcohol Consumption? Moderate MIGRATION.[id number] 2771 Information not available 04/12/2022 What Is Your Level Of Caffeine Consumption? None MIGRATION.[id number] 7679 Information not available 04/12/2022 How Much Tobacco Do You Chew? None MIGRATION.[id number] 8122 Information not available 04/12/2022 In The 14 Days Before Symptom Onset, Have You Had Close Contact With A Laboratory-confir med COVID-19 While That Case Was Ill? No MIGRATION.[id number] 7432 Information not available 04/12/2022 In The 14 Days Before Symptom Onset, Have You Had Close Contact With A Person Who Is Under Investigation For COVID-19 While That Person Was Ill? No MIGRATION.627430 4868 Information not available 04/12/2022 Are You Currently Employed? Yes [email or web address] Information not available 01/18/2023 What Type Of Diet Are You Following? REGULAR MIGRATION.[id number] 8379 Information not available 04/12/2022 Which Illicit Or Recreational Drugs Have You Used? No MIGRATION.480956 9384 Information not available 04/12/2022 Do You Or Have You Ever Used E-cigarettes Or Vape? 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 No MIGRATION.708887 6066 Information not available 04/12/2022 Are There Any Guns Present In Your Home? Yes MIGRATION.847150 5822 Information not available 04/12/2022 Do You Use Insect Repellent Routinely? No MIGRATION.411372 0055 Information not available 04/12/2022 Do You Have A Medical Power Of College Hire? No MIGRATION.268549 2557 Information not available 04/12/2022 What Is Your Relationship Status? MIGRATION.791202 1037 Information not available 04/12/2022 Do You Use Your Seat Belt Or Car Seat Routinely? Yes [email or web address] Information not available 01/18/2023 Do You Have Smoke And Carbon Monoxide Detectors In Your Home? Yes MIGRATION.186736 9434 Information not available 04/12/2022 Do You Or Have You Ever Used Smokeless Tobacco? Never Used Smokeless Tobacco MIGRATION.175883 0747 Information not available 04/12/2022 How Much Tobacco Do You Smoke? No MIGRATION.255439 8790 Information not available 04/12/2022 Do You Use Any Illicit Or Recreational Drugs? No MIGRATION.671632 8561 Information not available 04/12/2022 Do You Use Sunscreen Routinely? Yes MIGRATION.582974 9529 Information not available 04/12/2022 Have You Recently Traveled Abroad? No MIGRATION.186159 9829 Information not available 04/12/2022 Do You Have Any Dietary Restrictions? No MIGRATION.651644 1606 Information not available 04/12/2022 Do You Or Have You Ever Used Any Other Forms Of Tobacco Or Nicotine? No MIGRATION.396797 9751 Information not available 04/12/2022 Sex: Unknown Functional Status Question Answer Note LastModified by Organizat ion Details LastModified Time What is your exercise level? Occasional [id number] 26 Information not available 04/12/2022 Mental Status None recorded. Family History Relationship Description Onset Age of this Age Resolved Age Notes LastModified by Organization Details LastModified Time Paternal Grandfather Malignant tumor of colon [id number] Not available 04/12/2022 17:28:01 Unspecified Relation Diabetes mellitus MIGRATION.970 [id number] Not available 04/12/2022 17:28:02 Unspecified Relation Hypertensive disorder MIGRATION.060 [id number] Not available 04/12/2022 17:28:02 Mother Osteoporosis no hx of fractu res MIGRATION.255 [id number] Not available 04/12/2022 17:28:02 Medical History Condition Response DIABETES, TYPE Y HYPERTENSION Y Gynecological History Statement/Question Response Abnormal Pap N Date of Last Colonoscopy 02/12/2007 Date of LMP 05/19/2020 Date of Last Pap Smear Current Control Method Partner Vas ectomy Age at Menarche 12 Most Recent Mammogram Breast Problems no Obstetrics History GPAL:G 2 P 2 0 0 2 Type Value Full Term 2 Living 2 Total 2 Immunizations Vaccine Type Date Status Note Provider Nam e and Address Organization Details Recorded Time influenza, unspecified formulation 5 completed Not Available [facility] 04/12/2022 17:28:31 influenza, unspecified formulation 4 completed Not Available [facility] 04/12/2022 17:28:31 tetanus toxoid, unspecified formulation 0 completed Not Available [facility] 04/12/2022 17:28:31 Influenza, split virus, quadrivalent, PF 2 completed Not Available [facility] 04/12/2022 17:28:32 Influenza, split virus, quadrivalent, PF 9 completed Not Available [facility] 04/12/2022 17:28:32 Influenza, split virus, quadrivalent, PF 8 completed Not Available [facility] 04/12/2022 17:28:32 Past Encounters Encounter ID Performer Location Encounter Start Date Encounter Closed Date Diagnosis/Indication Diagnosis SNOMED-CT Code Diagnosis ICD10 Code [id number] _ATHENA_M IGRATION_ DEFAULT_1 _1 , 05/25/2020 00:00:00 05/25/2020 13:41:44 [id number] [facility] [place] [address] [place] [address] 01/19/2022 00:00:00 02/10/2022 00:54:04 [id number] ANDREW Perez [facility] [place] [address] [place] [address] 01/22/2023 12:50:46 01/22/2023 13:36:36 Adult health examination 783646654 Z00.00 Past pregn la history of gestational diabetes mellitus 894321090 Z86.32 Cholesterol screening 27 0482013 Z13.220 Thyroid di sorder screening 167092780 Z13.29 Health Concerns Section Related Observation LastModified by Organization Detai ls LastModified Time None Recorded Concern Status LastModified by Organization Details LastModified Time None Recorded Advance Directives Directive N: Payers Encounter Date Sequence Insurance Name Policy Number Policy Cazares Covered Member ID Cazares Member ID Guarantor Name 01/22/2023 1 [employer] [id number] Debi Carrera [id number] Debi Carrera Notes Date Note Type Note Provider Name and Address Organization Details Recorded Time 01/22/2023 text/html Generic HPI TemplateReported bypatient.Notes:Pt is here for her check up and has no chronic problems. ANDREW Perez [address] [place] [address] [address], [place], [address], [place] - [facility] [employer] 02/08/2023 09:26:03 OBGyn Episode No OBEpisode recorded.
--- OUTSIDE RECORDS SUMMARY | 2024-02-12 02:17 | XMS_ITS | Encounter Summary ---
Author Organization [facility] Healthcare Address [address] [place] [address] Care Team Providers Care Care Team Assistant Name Role Phone Lay Hurst Primary Care Pr ovider Reason for Referral * Diagnostic Imaging (Routine) - Closed Specialty Diagnoses / Procedures Referred By Donta mcintosh Referred To Contact Diagnoses Screening mammogram for breast cancer Procedures Screening Mammogram Bilateral W Lay Cates PA Phone: tel: fax: [facility] [id number] [place] [address] Referral ID Status Reason Start Date Expiration Date Visits Re quested Visits Authorized [id number] Closed 10/31/2022 11/30/2023 1 1 Reason for Visit * Diagnostic Imaging (Routine) - Closed Specialty Diagnoses / Procedures Referred By Donta mcintosh Referred To Contact Diagnoses Screening mammogram for breast cancer Procedures Screening Mammogram Bilateral W Lay Cates PA Phone: tel: fax: [facility] [id number] [place] [address] Referral ID Status Reason Start Date Expiration Date Visits Re quested Visits Authorized [id number] Closed 10/31/2022 11/30/2023 1 1 Encounter Details Date Type Department Care Team (Latest Contact Info) Description 10/31/2022 10:46 AM CDT - 10/31/2022 11:59 PM CDT Hospital Encounter [facility] Mammography [place], [place] [phone] Screening mammogram for breast cancer Discharge Disposition: Discharge to home or self care Social History Tobacco Use Types Packs/Day Years Used Date Smoking Tobacco: Never Smokeless Tobacco: Never Comments Unknown Sex and Gender Information Value Date Recorded Sex Assigned at Not on file 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 documented as of this encounter Discharge Disposition Disposition Code Departure Means Destination Discharge to home or self care documented in this encounter Plan of Treatment Not on file documented as of this encounter Procedures Procedure Name Priority Date/Time Associated Diagnosis Comments SCREENING MAMMOGRAM BILATERAL W SETH Schedule Routine, Read Routine (OP Routine) 10/31/2022 11:03 AM CDT Screening mammogram for breast cancer documented in this encounter Results * Screening Mammogram Bilateral W Seth (10/31/2022 11:03 AM CDT) Anatomical Region Laterality Modality Breast Bilateral Mammography Narrative 10/31/2022 3:19 PM CDT Examination: Screening Mammogram Bilateral W Seth: 10/31/22 Clinical: Screening mammogram for breast cancer. ?? Prior Study Comparisons: None. ??This is a baseline study. Findings: Bilateral No significant masses, malignant type calcifications, skin thickening, nipple retraction, or significant lymphadenopathy is noted in either breast. ??The CAD review showed no significant findings. The breasts are heterogeneously dense, which may obscure small masses. The patient will be notified of results by letter. Impression: BI-RADS?? ATLAS category (overall): 1 - Negative ?? There is no mammographic evidence of malignancy. Routine Screening Mammogram in 1 Yr is recommended for bilateral Overall Assessment: 1 - Negative us Lay MORALES IMG MAMMO PROCED URES Final Result documented in this encounter Visit Diagnoses Diagnosis Screening mammogram for breast cancer documented in this encounter Care Teams Care Team Assistant Relationship Specialty Start Date End Date Lay Hurst PA PCP - General Physician Rn Cvicu 02/24/22 documented as of this encounter
--- OUTSIDE RECORDS SUMMARY | 2024-02-12 02:17 | XMS_ITS | Clinical Summary ---
Author Organization [facility] Address [address] [place] [address] Care Team Providers Care Bush Regenerator Name Role Phone Lay Hurst Primary Care [...] diagnosis of hypertension 12/18/2011 Pilonidal cyst 05/31/2007 Family History Medical History Relation Name Comments Arthritis Father Heart disease Father Hypertension Father Diabetes Mother Heart disease Mother Hypertension Mother Cancer Other 1 Cancer - (Added by TW Conv) Colon cancer Other 2 Malignant Neopl asm, Colon - paternal grandfather - colon cancer; aunt - lung cancer; grandmother - skin cancer ; heart disease (Added by TW Conv) Relation Name Status Comments Father Mother Other 1 Other 2 Social History Tobacco Use Types Packs/Day Years Used Date Smoking Tobacco: Never Smokeless Tobacco: Never Tobacco Cessation:Counseling Given: Not Answered Comments Unknown Sex and Gender Information Value Date Recorded Sex Assigned at Not on file 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 Gender Identity Not on file Sexual Orientation Not on file Obstetrics History Last Filed Vital Signs Vital Sign Reading Time Taken Comments Blood Pressure - - Pulse - - Temperature - - Respiratory Rate - - Oxygen Saturation - - Inhaled Oxygen Concentration - - Weight 65.8 kg (145 lb) 05/09/2022 10:41 AM CDT Height 162.6 cm (5' 4 ) 05/09/2022 10:41 AM CDT Body Mass Index 24.89 05/09/2022 10:41 AM CDT Plan of Treatment Health Maintenance Due Date Last Done Comments Cervical Cancer Screening 1985 Depression Screening 1985 Hepatitis C Screening 1985 Varicella Vaccines (1 of 2 - 13+ 2-dose series) 1998 Hepatitis B Screening 2003 Regular Well Visit/Exam 18-64 2003 DTaP/Tdap/Td Vaccine (2 - Td or Tdap) 01/19/2021 01/19/2011 Covid-19 Vaccine (2023-2 5 season) 2023 01/26/2021, 06/23/2020, 06/02/2020 Influenza Vaccine (#1) 2023 4, 09/27/2011 HPV Vaccines Aged Out No longer eligi ble based on patient's age to complete this topic Pneumococcal vaccine <65 Aged Out No longer eligible based on patient's age to complete this topic Insurance [facility] [place] [facility] Care Teams Bush Regenerator Relationship Specialty Start Date End Date Lay Hurst PA PCP - General Physician Eligibility Worker 02/24/22
--- OUTSIDE RECORDS SUMMARY | 2024-02-12 02:17 | XMS_ITS | Encounter Summary ---
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 Name Role Phone Unavailable Primary Care Provider Unavailabl e Encounter Details Date Type Department Care Team (Latest Contact Info) Description 01/26/2021 12:30 PM HOME HEALTH SPECIALIST Immunization [place] [facility] Mobile Immunization [address] [place] [address] Need for vaccination (Primary Dx) Social History Tobacco Use Types Packs/Day Years Used Date Smoking Tobacco: Never Assessed Comments Unknown Sex and Gender Information Value Date Recorded Sex Assigned at Not on file Legal Sex Female 12:22 PM 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
--- OUTSIDE RECORDS SUMMARY | 2024-02-12 02:18 | XMS_ITS | Encounter Summary ---
Author Organization [facility] Address [address] [place] [address] Care Team Providers Care Work Order Clerk Name Role Phone Ervin Tejada MD Primary Care Provider [phone] Reason for Referral * Outpatient Services (Routine) - Closed Specialty Diagnoses / Procedures Referred By Donta t Referred To Contact Radiology Diagnoses Abnormal maternal glucose tolerance, antepartum Procedures US OB LIMITED + NST Ervin Gregg MD NO ADDRESS ON FILE [facility] Maternal And Hc Ground Fl [address] [place] [address] Referral ID Status Reason Start Date Expiration Date Visits Requested Visits Authorized [id number] Closed Performing Department To Schedule (STL) 05/26/2014 06/26/2015 1 1 Reason for Visit * Outpatient Services (Routine) - Closed Specialty Diagnoses / Procedures Referred By Donta cmintosh Referred To Contact Radiology Diagnoses Abnormal maternal glucose tolerance, antepartum Procedures US OB LIMITED + NST Ervin Gregg MD NO ADDRESS ON FILE [facility] Maternal And Hc Ground Fl [address] [place] [address] Referral ID Status Reason Start Date Expiration Date Visits Requested Visits Authorized [id number] Closed Performing Department To Schedule (STL) 05/26/2014 06/26/2015 1 1 Encounter Details Date Type Department Care Team (Latest Contact Info) Description 06/11/2014 8:18 AM CDT - 06/11/2014 11:59 PM CDT Hospital Encounter [facility] [address] [place] [address] Ervin Gregg MD NO ADDRESS ON FILE Discharge Disposition: Home or Self Care Social History Tobacco Use Types Packs/Day Years Used Date Smoking Tobacco: Never Smokeless Tobacco: Never Alcohol Use Standard Drinks/Week Comments No 0 (1 standard drink = 0.6 oz pur e alcohol) social Comments Yes Sex and Gender Information Value Date Recorded Sex Assigned at Not on file Gender Identity Not on file Sexual Orientation Not on file documented as of this encounter Plan of Treatment Not on file documented as of this encounter Procedures Procedure Name Priority Date/Time Associated Diagnosis Comments OB LIMITED + NST Routine 06/11/2014 9 :13 AM CDT Abnormal maternal glucose tolerance, antepartum documented in this encounter Results * US OB LIMITED + NST (06/11/2014 9:13 AM CDT) Anatomical Region Laterality Modality Pelvis Ultrasound 06/11/2014 8:39 AM CDT Impressions 06/11/2014 9:15 AM CDT IMPRESSION ----- Reactive NST. Narrative 06/11/2014 9:15 AM CDT Modified BPP Study ----- Pat. Name: DEBI CARRERA Study Date: 06/11/2014 8:39am Pat. NO: [id number] Referring ??: GEMMA AGUILERA MD Site: [facility] Net[employer] Admin: : 1985 Age: 29 ----- INDICATION ----- Gestational Diabetes-Insulin. Poor Obstetrical History. Small for Dates. CODING ----- Diagnosis ? 648.83: Diabetes - Gestational. ?V23.49: Poor OB History. ?656.53: Small for Dates. Procedures ?08613: NST/ monitoring. ?33182: Limited 1 or more - VON, FHR, position (modifier 59 for MBPP). HISTORY ----- OB History ?: 2. Para: 1. ?T1L1. ?Children born living (T): 1. MATERNAL ASSESSMENT ----- Physical Exam ? Weight 72 kg. BMI 27.10 kg/m?. Blood pressure 109 / 65 mmHg. Heart rate 71 bpm. METHOD ----- EFM, Transabdominal ultrasound examination. ----- Carlson . Number of fetuses: 1. DATING ----- Stated dating by: Outside US [place] by stated dating 37 w + 2 d FRANTZ by stated dating : 06/30/2014 Assigned: Dating performed on 06/11/2014, based on the stated dating (by Outside US) Assigned GA 37 w + 2 d Assigned FRANTZ: 06/30/2014 GENERAL EVALUATION ----- Cardiac activity: present. movements: visualized. Presentation: cephalic. NON STRESS TEST ----- Reactive FHR: yes. Baseline rate 130 bpm. Duration 28 min. Acceleration: 15 bpm for 15 sec. Deceleration: absent. Uterine activity: irritability. AMNIOTIC FLUID ASSESSMENT ----- MVP 4.7 cm. VON 13.3 cm. Q1 4.1 cm, Q2 3.3 cm, Q3 4.7 cm, Q4 1.3 cm. COMMENT ----- Patient states positive movement and a few mild contractions. Patient denies vaginal bleeding or leaking of amniotic fluid. Patient states fasting blood sugar 88 today. Rescheduled twice a week. Procedure Note Ervin Gregg MD - 06/11/2014 Modified BPP Study ----- Pat. Name:Laura CARRERA Date:06/11/2014 8:39am Pat. NO: [id number] :GEMMA AGUILERA MD [facility]1985Age:29 ----- INDICATION ----- Gestational Diabetes-Insulin. Poor Obstetrical History. Small for Dates. CODING ----- Diagnosis 648.83: Diabetes - Gestational. V23.49: Poor OB History. 656.53: Small for Dates. Procedures 17291: NST/ monitoring. 06241: Limited 1 or more - VON, FHR, position(modifier 59 for MBPP). HISTORY ----- OB History : 2. Para: 1. T1L1. Children born living (T): 1. MATERNAL ASSESSMENT ----- Physical Exam Weight 72 kg. BMI 27.10 kg/m?. Blood pressure 109/ 65 mmHg. Heart rate 71 bpm. METHOD ----- EFM, Transabdominal ultrasound examination. ----- Carlson . Number of fetuses: 1. DATING ----- Stated dating by:Outside GA by stated dating 37 w + 2 d FRANTZ by stated dating :06/30/2014 Assigned:Dating performed on 06/11/2014, based on the stated dating ([facility]) Assigned GA37 w + 2 d Assigned FRANTZ:06/30/2014 GENERAL EVALUATION ----- Cardiac activity: present. movements: visualized. Presentation: cephalic. NON STRESS TEST ----- Reactive FHR: yes. Baseline rate 130 bpm. Duration 28 min. Acceleration:15 bpm for 15 sec. Deceleration: absent. Uterine activity: irritability. AMNIOTIC FLUID ASSESSMENT ----- MVP 4.7 cm. VON 13.3 cm. Q1 4.1 cm, Q2 3.3 cm, Q3 4.7 cm, Q4 1.3 cm. COMMENT ----- Patient states positive movement and a few mild contractions.Patient denies vaginal bleeding or leaking of amniotic fluid. Patient states fasting blood sugar 88 today. Rescheduled twice a week. IMPRESSION IMPRESSION ----- Reactive NST. Ervin Gregg MD ORDERABLES documented in this encounter Visit Diagnoses Diagnosis Abnormal maternal glucose tolerance, antepartum documented in this encounter Care Teams Work Order Clerk Relationship Specialty Start Date End Date Ervin Tejada MD PCP - General 01/17/08 documented as of this encounter
--- OUTSIDE RECORDS SUMMARY | 2024-02-12 02:18 | XMS_ITS | Encounter Summary ---
Author Organization [facility] Address [address] [place] [address] Care Team Providers Care Director Of Ancillary Services Name Role Phone Ervin Tejada MD Primary Care Provider [phone] Reason for Referral * Outpatient Services (Routine) - Closed Specialty Diagnoses / Procedures Referred By Donta t Referred To Contact Radiology Diagnoses Abnormal maternal glucose tolerance, antepartum Procedures US OB LIMITED + NST Ervin Gregg MD NO ADDRESS ON FILE [facility] Maternal And Hc Ground Fl [address] [place] [address] Referral ID Status Reason Start Date Expiration Date Visits Requested Visits Authorized [id number] Closed Performing Department To Schedule (STL) 05/26/2014 06/26/2015 1 1 Reason for Visit * Outpatient Services (Routine) - Closed Specialty Diagnoses / Procedures Referred By Donta mcintosh Referred To Contact Radiology Diagnoses Abnormal maternal glucose tolerance, antepartum Procedures US OB LIMITED + NST Ervin Gregg MD NO ADDRESS ON FILE [facility] Maternal And Hc Ground Fl [address] [place] [address] Referral ID Status Reason Start Date Expiration Date Visits Requested Visits Authorized [id number] Closed Performing Department To Schedule (STL) 05/26/2014 06/26/2015 1 1 Encounter Details Date Type Department Care Team (Latest Contact Info) Description 06/08/2014 7:41 AM CDT - 06/08/2014 11:59 PM CDT Hospital Encounter [facility] [address] [place] [address] Ervin Gregg MD NO ADDRESS [...] Procedure Name Priority Date/Time Associated Diagnosis Comments US OB LIMITED + NST Routine 06/08/2014 9 :04 AM CDT Abnormal maternal glucose tolerance, antepartum documented in this encounter Results * US OB LIMITED + NST (06/08/2014 9:04 AM CDT) Anatomical Region Laterality Modality Pelvis Ultrasound 06/08/2014 8:29 AM CDT Impressions 06/08/2014 9:50 AM CDT IMPRESSION ----- AMNIOTIC FLUID IS NORMAL NON-STRESS TEST IS REACTIVE. Narrative 06/08/2014 9:50 AM CDT Modified BPP Study ----- Pat. Name: FREA, DEBI Study Date: 06/08/2014 8:29am Pat. NO: [id number] Referring ??: GEMMA AGUILERA MD Site: [facility] Privacy Officer: : 1985 Age: 29 ----- INDICATION ----- Gestational Diabetes-Insulin. Small AC 14%. CODING ----- Diagnosis ? 648.83: Diabetes - Gestational. ?656.53: Small for Dates. ?V23.49: Poor OB History. Procedures ?73342: NST/ monitoring. ?49210: Limited 1 or more - VON, FHR, position (modifier 59 for MBPP). HISTORY ----- OB History ?: 2. Para: 1. ?T1L1. ?Children born living (T): 1. MATERNAL ASSESSMENT ----- Physical Exam ? Weight 73 kg. BMI 27.48 kg/m?. Blood pressure 111 / 70 mmHg. Heart rate 77 bpm. METHOD ----- EFM, Transabdominal ultrasound examination. ----- Carlson . Number of fetuses: 1. DATING ----- Stated dating by: Outside US [place] by stated dating 36 w + 6 d FRANTZ by stated dating : 06/30/2014 Assigned: Dating performed on 06/08/2014, based on the stated dating (by Outside US) Assigned GA 36 w + 6 d Assigned FRANTZ: 06/30/2014 GENERAL EVALUATION ----- Cardiac activity: present. Presentation: cephalic. NON STRESS TEST ----- Reactive FHR: yes. Baseline rate 125 bpm. Duration 35 min. Acceleration: 15 bpm for 15 sec. Deceleration: absent. Uterine activity: absent. AMNIOTIC FLUID ASSESSMENT ----- MVP 4.1 cm. VON 13.5 cm. Q1 4.1 cm, Q2 2.6 cm, Q3 3.5 cm, Q4 3.3 cm. COMMENT ----- Patient states positive movement and denies contractions, vaginal bleeding or leaking of amniotic fluid. breathing observed during VON. Report sent with patient to physician appointment. Rescheduled twice a week. FOLLOW-UP ----- MBPP SCHEDULED TWICE WEEKLY. Procedure Note iLly Coles MD - 06/08/2014 Modified BPP Study ----- Pat. Name:Laura CARRERA Date:06/08/2014 8:29am Pat. NO: [id number] :GEMMA AGUILERA MD [facility]1985Age:29 ----- INDICATION ----- Gestational Diabetes-Insulin. Small AC 14%. CODING ----- Diagnosis 648.83: Diabetes - Gestational. 656.53: Small for Dates. V23.49: Poor OB History. Procedures 99293: NST/ monitoring. 53656: Limited 1 or more - VON, FHR, position(modifier 59 for MBPP). HISTORY ----- OB History : 2. Para: 1. T1L1. Children born living (T): 1. MATERNAL ASSESSMENT ----- Physical Exam Weight 73 kg. BMI 27.48 kg/m?. Blood pressure 111/ 70 mmHg. Heart rate 77 bpm. METHOD ----- EFM, Transabdominal ultrasound examination. ----- Carlson . Number of fetuses: 1. DATING ----- Stated dating by:Outside GA by stated dating 36 w + 6 d FRANTZ by stated dating :06/30/2014 Assigned:D[facility] 06[facility]08/2014[facility] Ass[facility] GA36 w + 6 d Assigned FRANTZ:06/30/2014 GENERAL EVALUATION ----- Cardiac activity: present. Presentation: cephalic. NON STRESS TEST ----- Reactive FHR: yes. Baseline rate 125 bpm. Duration 35 min. Acceleration:15 bpm for 15 sec. Deceleration: absent. Uterine activity: absent. AMNIOTIC FLUID ASSESSMENT ----- MVP 4.1 cm. VON 13.5 cm. Q1 4.1 cm, Q2 2.6 cm, Q3 3.5 cm, Q4 3.3 cm. COMMENT ----- Patient states positive movement and denies contractions, vaginalbleeding or leaking of amniotic fluid. breathing observed during VON. Report sent with patient to physician appointment.Rescheduled twice a week. FOLLOW-UP ----- MBPP SCHEDULED TWICE WEEKLY. IMPRESSION IMPRESSION ----- AMNIOTIC FLUID IS NORMAL NON-STRESS TEST IS REACTIVE. Ervin Gregg MD ORDERABLES documented in this encounter Visit Diagnoses Diagnosis Abnormal maternal glucose tolerance, antepartum documented in this encounter Care Teams Director Of Ancillary Services Relationship Specialty Start Date End Date Ervin Tejada MD PCP - General 01/17/08 documented as of this encounter
--- OUTSIDE RECORDS SUMMARY | 2024-02-12 02:18 | XMS_ITS | Encounter Summary ---
Author Organization [facility] Address [address] [place] [address] Care Team Providers Care Phlebotomy Manager Name Role Phone Ervin Tejada MD Primary Care Provider [phone] Reason for Referral * Outpatient Services (Routine) - Closed Specialty Diagnoses / Procedures Referred By Contac t Referred To Contact Radiology Diagnoses Abnormal maternal glucose tolerance, antepartum Procedures US MONITORING NST Sriram Grimes MD NO ADDRESS ON FILE [facility] Maternal And Hc Ground Fl [address] [place] [address] Referral ID Status Reason Start Date Expiration Date Visits Re quested Visits Authorized [id number] Closed 05/25/2014 06/25/2015 1 1 Reason for Visit * Outpatient Services (Routine) - Closed Specialty Diagnoses / Procedures Referred By Contac t Referred To Contact Radiology Diagnoses Abnormal maternal glucose tolerance, antepartum Procedures US MONITORING NST Sriram Grimes MD NO ADDRESS ON FILE [facility] Maternal And Hc Ground Fl [address] [place] [address] Referral ID Status Reason Start Date Expiration Date Visits Re quested Visits Authorized [id number] Closed 05/25/2014 06/25/2015 1 1 Encounter Details Date Type Department Care Team (Latest Contact Info) Description 05/26/2014 8:06 AM CDT - 05/26/2014 11:59 PM CDT Hospital Encounter [facility] Maternal and Ground Floor [address] [place] [address] Sriram Grimes MD NO ADDRESS ON FILE Discharge Disposition: [...] Name Priority Date/Time Associated Diagnosis Comments US MONITORING NST Routine 05/26/2014 9:32 AM CDT Abnormal maternal glucose tolerance, antepartum documented in this encounter Results * US MONITORING NST (05/26/2014 9:32 AM CDT) Anatomical Region Laterality Modality Ultrasound 05/26/2014 9:27 AM CDT Impressions 05/26/2014 9:33 AM CDT IMPRESSION ----- NON-STRESS TEST IS REACTIVE. Narrative 05/26/2014 9:33 AM CDT Non Stress Test Study ----- Pat. Name: DEBI CARRERA Study Date: 05/26/2014 9:27am Pat. NO: [id number] Referring ??MD: GEMMA AGUILERA MD Site: [facility] Real Estate Associate Attorney: : 1985 Age: 29 ----- INDICATION ----- Gestational Diabetes. History Gestational Hypertension. CODING ----- Diagnosis ? 648.83: Diabetes - Gestational. ?V23.49: Poor OB History. Procedures ?61807: NST/ monitoring. HISTORY ----- OB History ?: 2. Para: 1. ?T1L1. ?Children born living (T): 1. MATERNAL ASSESSMENT ----- Physical Exam ? Weight 73 kg. BMI 27.46 kg/m?. Blood pressure 116 / 68 mmHg. Heart rate 76 bpm. METHOD ----- EFM. ----- Carlson . Number of fetuses: 1. DATING ----- Stated dating by: Outside US [place] by stated dating 35 w + 0 d FRANTZ by stated dating : 06/30/2014 Assigned: Dating performed on 05/26/2014, based on the stated dating (by Outside US) Assigned GA 35 w + 0 d Assigned FRANTZ: 06/30/2014 NON STRESS TEST ----- Reactive FHR: yes. Baseline rate 120 bpm. Duration 34 min. Acceleration: 15 bpm for 15 sec. Deceleration: absent. Uterine activity: absent. COMMENT ----- Patient states positive movement and a few mild contractions. Patient denies vaginal bleeding or leaking of amniotic fluid. Patient states fasting blood sugar 85 today. Rescheduled twice a week. Procedure Note Sriram Grimes MD - 05/26/2014 Non Stress Test Study ----- Pat. Name:Laura CARRERA Date:05/26/2014 9:27am Pat. NO: [id number] :GEMMA AGUILERA MD [facility]1985Age:29 ----- INDICATION ----- Gestational Diabetes. History Gestational Hypertension. CODING ----- Diagnosis 648.83: Diabetes - Gestational. V23.49: Poor OB History. Procedures 98927: NST/ monitoring. HISTORY ----- OB History : 2. Para: 1. T1L1. Children born living (T): 1. MATERNAL ASSESSMENT ----- Physical Exam Weight 73 kg. BMI 27.46 kg/m?. Blood pressure 116/ 68 mmHg. Heart rate 76 bpm. METHOD ----- EFM. ----- Carlson . Number of fetuses: 1. DATING ----- Stated dating by:Outside GA by stated dating 35 w + 0 d FRANTZ by stated dating :06/30/2014 Assigned:Dating [facility] 05/26/2014[facility] Ass[facility] GA35 w + 0 d Assigned FRANTZ:06/30/2014 NON STRESS TEST ----- Reactive FHR: yes. Baseline rate 120 bpm. Duration 34 min. Acceleration:15 bpm for 15 sec. Deceleration: absent. Uterine activity: absent. COMMENT ----- Patient states positive movement and a few mild contractions.Patient denies vaginal bleeding or leaking of amniotic fluid. Patient states fasting blood sugar 85 today. Rescheduled twice a week. IMPRESSION IMPRESSION ----- NON-STRESS TEST IS REACTIVE. Sriram Grimes MD ORDERABLES documented in this encounter Visit Diagnoses Diagnosis Abnormal maternal glucose tolerance, antepartum documented in this encounter Care Teams Phlebotomy Manager Relationship Specialty Start Date End Date Ervin Tejada MD PCP - General 01/17/08 documented as of this encounter
--- OUTSIDE RECORDS SUMMARY | 2024-02-12 02:18 | XMS_ITS | Encounter Summary ---
Author Organization [facility] Address [address] [place] [address] Care Team Providers Care Raw Sampler Name Role Phone Ervin Tejada MD Primary Care Provider [phone] Reason for Visit * Reason Comments Routine Visit Encounter Details Date Type Department Care Team (Latest Contact Info) Description 06/09/2014 9:15 AM CDT visit [facility] ENGINEER - [address] [place] [address] Hazel Larsen, [facility] [address] [place] [address] Supervision of other normal , third trimester (Primary Dx) Social History Tobacco Use Types [...] Sign Reading Time Taken Comments Blood Pressure 112/70 06/09/2014 7:00 AM CDT Pulse - - Temperature - - Respiratory Rate - - Oxygen Saturation - - Inhaled Oxygen Concentration - - Weight 72.1 kg (159 lb) 06/09/2014 7:00 AM CDT Height 162.6 cm (5' 4 ) 06/09/2014 7:00 AM CDT Body Mass Index 27.29 06/09/2014 7:00 AM CDT documented in this encounter Progress Notes * Hazel Larsen CNM - 06/09/2014 9:31 AM CDT S: Here for return OB visit. Denies contractions, vaginal bleeding, vaginal discharge or LOF. Denies DREW, dizziness, blurred vision or SOB. Reports positive movement. O: IUP at 37w0d See flowsheet A/P: Supervision of other normal GDM - NPH 16u. Twice weekly mBPP GBS negative F/U in 1 week Labor Precautions reviewed, kick counts reviewed documented in this encounter Plan of Treatment Not on file documented as of this encounter Visit Diagnoses Diagnosis Supervision of other normal , third trimester- Primary documented in this encounter Care Teams Raw Sampler Relationship Specialty Start Date End Date Ervin Tejada MD PCP - General 01/17/08 documented as of this encounter
--- OUTSIDE RECORDS SUMMARY | 2024-02-12 02:18 | XMS_ITS | Encounter Summary ---
Author Organization [facility] Address [address] [place] [address] Care Team Providers Care Machine Designer Name Role Phone Ervin Tejada MD Primary Care Provider [phone] Reason for Referral * Outpatient Services (Routine) - Closed Specialty Diagnoses / Procedures Referred By Juan Pabloac t Referred To Contact Radiology Diagnoses Abnormal maternal glucose tolerance, antepartum Procedures US OB LIMITED + NST Ervin Gregg MD NO ADDRESS ON FILE [facility] Fl [address] [place] [address] Referral ID Status Reason Start Date Expiration Date Visits Requested Visits Authorized [id number] Closed Performing Department To Schedule (STL) 05/26/2014 06/26/2015 1 1 Reason for Visit * Outpatient Services (Routine) - Closed Specialty Diagnoses / Procedures Referred By Donta mcintosh Referred To Contact Radiology Diagnoses Abnormal maternal glucose tolerance, antepartum Procedures US OB LIMITED + NST Ervin Gregg MD NO ADDRESS ON FILE [facility] Fl [address] [place] [address] Referral ID Status Reason Start Date Expiration Date Visits Requested Visits Authorized [id number] Closed Performing Department To Schedule (STL) 05/26/2014 06/26/2015 1 1 Encounter Details Date Type Department Care Team (Latest Contact Info) Description 06/04/2014 2:50 PM CDT - 06/04/2014 11:59 PM CDT Hospital [facility] [address] [place] [address] Ervin Gregg MD NO ADDRESS [...] Comments US OB LIMITED + NST Routine 06/04/2014 4 :04 PM CDT Abnormal maternal glucose tolerance, antepartum documented in this encounter Results * US OB LIMITED + NST (06/04/2014 4:04 PM CDT) Anatomical Region Laterality Modality Pelvis Ultrasound 06/04/2014 3:36 PM CDT Impressions 06/04/2014 3:55 PM CDT IMPRESSION ----- NST reactive. AFV normal. Narrative 06/04/2014 3:55 PM CDT Modified BPP Study ----- Pat. Name: DEBI CARRERA Study Date: 06/04/2014 3:36pm Pat. NO: [id number] Referring ??: GEMMA AGUILERA MD Site: [facility] Lead Radiation Therapist: : 1985 Age: 29 ----- INDICATION ----- Gestational Diabetes Poor Growth (A/C 14%). CODING ----- Diagnosis ? 648.83: Diabetes - Gestational. ?656.53: Small for Dates. Procedures ?65522: NST/ monitoring. ?05589: Limited 1 or more - VON, FHR, position (modifier 59 for MBPP). HISTORY ----- OB History ?: 2. Para: 1. ?T1L1. ?Children born living (T): 1. MATERNAL ASSESSMENT ----- Physical Exam ? Weight 73 kg. BMI 27.48 kg/m?. Blood pressure 114 / 69 mmHg. Heart rate 76 bpm. METHOD ----- EFM, Transabdominal ultrasound examination. Good view. ----- Carlson . Number of fetuses: 1. DATING ----- Stated dating by: Outside US [place] by stated dating 36 w + 2 d FRANTZ by stated dating : 06/30/2014 Assigned: Dating performed on 06/04/2014, based on the stated dating (by Outside US) Assigned GA 36 w + 2 d Assigned FRANTZ: 06/30/2014 GENERAL EVALUATION ----- Cardiac activity: present. movements: visualized. Presentation: cephalic. NON STRESS TEST ----- Reactive FHR: yes. Baseline rate 125 bpm. Duration 23 min. Acceleration: 15 bpm for 15 sec. Deceleration: absent. Uterine activity: present, 1 contraction noted. Variability: moderate (6-25 bpm). AMNIOTIC FLUID ASSESSMENT ----- MVP 4.7 cm. VON 13.2 cm. Q1 1.1 cm, Q2 3.1 cm, Q3 4.4 cm, Q4 4.7 cm. COMMENT ----- Nursing notes:,?Patient states fetus is active. ?Patient denies vaginal bleeding or leaking of amniotic fluid.,?Pt. feeling an occasional mild contraction. FBS = 102 this am. Patient scheduled twice weekly. Procedure Note Guillermo Garcia MD - 06/04/2014 Modified BPP Study ----- Pat. Name:Laura CARRERA Date:06/04/2014 3:36pm Pat. NO: [id number] MD:GEMMA AGUILERA MD Site:[facility]: :1985Age:29 ----- INDICATION ----- Gestational Diabetes Poor Growth (A/C 14%). CODING ----- Diagnosis 648.83: Diabetes - Gestational. 656.53: Small for Dates. Procedures 67929: NST/ monitoring. 59209: Limited 1 or more - VON, FHR, position(modifier 59 for MBPP). HISTORY ----- OB History : 2. Para: 1. T1L1. Children born living (T): 1. MATERNAL ASSESSMENT ----- Physical Exam Weight 73 kg. BMI 27.48 kg/m?. Blood pressure 114/ 69 mmHg. Heart rate 76 bpm. METHOD ----- EFM, Transabdominal ultrasound examination. Good view. ----- Carlson . Number of fetuses: 1. DATING ----- Stated dating by:Outside GA by stated dating 36 w + 2 d FRANTZ by stated dating :06/30/2014 Assigned:Dating performed on 06/04/2014, based on the stated dating ([facility]) Assigned GA36 w + 2 d Assigned FRANTZ:06/30/2014 GENERAL EVALUATION ----- Cardiac activity: present. movements: visualized. Presentation: cephalic. NON STRESS TEST ----- Reactive FHR: yes. Baseline rate 125 bpm. Duration 23 min. Acceleration:15 bpm for 15 sec. Deceleration: absent. Uterine activity: present, 1 contraction noted. Variability: moderate (6-25 bpm). AMNIOTIC FLUID ASSESSMENT ----- MVP 4.7 cm. VON 13.2 cm. Q1 1.1 cm, Q2 3.1 cm, Q3 4.4 cm, Q4 4.7 cm. COMMENT ----- Nursing notes:,?Patient states fetus is active. ?Patient denies vaginalbleeding or leaking of amniotic fluid.,?Pt. feeling an occasional mild contraction. FBS = 102 this am. Patient scheduled twice weekly. IMPRESSION IMPRESSION ----- NST reactive. AFV normal. Ervin Gregg MD ORDERABLES documented in this encounter Visit Diagnoses Diagnosis Abnormal maternal glucose tolerance, antepartum documented in this encounter Care Teams Machine Designer Relationship Specialty Start Date End Date Ervin Tejada MD PCP - General 01/17/08 documented as of this encounter
--- OUTSIDE RECORDS SUMMARY | 2024-02-12 02:18 | XMS_ITS | Encounter Summary ---
Author Organization [facility] Address [address] [place] [address] Care Team Providers Care Environmental Solutions Engineer Name Role Phone Ervin Tejada MD Primary Care Provider [phone] Reason for Referral * Outpatient Services (Routine) - Closed Specialty Diagnoses / Procedures Referred By Donta t Referred To Contact Radiology Diagnoses Abnormal maternal glucose tolerance, antepartum Procedures US OB LIMITED + NST Ervin Gregg MD NO ADDRESS ON FILE [facility] Maternal [facility] Hc Ground Fl [address] [place] [address] Referral ID Status Reason Start Date Expiration Date Visits Requested Visits Authorized [id number] Closed Performing Department To Schedule (STL) 05/26/2014 06/26/2015 1 1 Reason for Visit * Outpatient Services (Routine) - Closed Specialty Diagnoses / Procedures Referred By Donta mcintosh Referred To Contact Radiology Diagnoses Abnormal maternal glucose tolerance, antepartum Procedures US OB LIMITED + NST Ervin Gregg MD NO ADDRESS ON FILE [facility] Hc Ground Fl [address] [place] [address] Referral ID Status Reason Start Date Expiration Date Visits Requested Visits Authorized [id number] Closed Performing Department To Schedule (STL) 05/26/2014 06/26/2015 1 1 Encounter Details Date Type Department Care Team (Latest Contact Info) Description 06/01/2014 7:48 AM CDT - 06/01/2014 11:59 PM CDT [facility] [address] [place] [address] Ervin Gregg MD NO ADDRESS [...] Comments US OB LIMITED + NST Routine 06/01/2014 8 :42 AM CDT Abnormal maternal glucose tolerance, antepartum documented in this encounter Results * US OB LIMITED + NST (06/01/2014 8:42 AM CDT) Anatomical Region Laterality Modality Pelvis Ultrasound 06/01/2014 8:35 AM CDT Impressions 06/01/2014 9:00 AM CDT IMPRESSION ----- NST reactive. AFV normal. Narrative 06/01/2014 9:00 AM CDT Modified BPP Study ----- Pat. Name: DEBI CARRERA Study Date: 06/01/2014 8:35am Pat. NO: [id number] Referring ??: GEMMA AGUILERA MD Site: [facility] Unhairer: : 1985 Age: 29 ----- INDICATION ----- Gestational Diabetes Poor Growth (A/C 14%). CODING ----- Diagnosis ? 648.83: Diabetes - Gestational. ?656.53: Small for Dates. Procedures ?98711: Limited 1 or more - VON, FHR, position (modifier 59 for MBPP). ?86512: NST/ monitoring. HISTORY ----- OB History ?: 2. Para: 1. ?T1L1. ?Children born living (T): 1. MATERNAL ASSESSMENT ----- Physical Exam ? Weight 73 kg. Blood pressure 120 / 73 mmHg. Heart rate 78 bpm. METHOD ----- EFM, Transabdominal ultrasound examination. Good view. ----- Carlson . Number of fetuses: 1. DATING ----- Stated dating by: Outside US [place] by stated dating 35 w + 6 d FRANTZ by stated dating : 06/30/2014 Assigned: Dating performed on 06/01/2014, based on the stated dating (by Outside US) Assigned GA 35 w + 6 d Assigned FRANTZ: 06/30/2014 GENERAL EVALUATION ----- Cardiac activity: present. movements: not visualized. Presentation: cephalic. NON STRESS TEST ----- Reactive FHR: yes. Baseline rate 130 bpm. Duration 26 min. Acceleration: 15 bpm for 15 sec. Deceleration: absent. Uterine activity: absent. AMNIOTIC FLUID ASSESSMENT ----- Amount of AF: normal amount. MVP 4.3 cm. VON 12.5 cm. Q1 4.3 cm, Q2 4.1 cm, Q3 1.6 cm, Q4 2.5 cm. COMMENT ----- Patient reports + movement and no bleeding, leaking or agustina. Fasting blood sugar was 89, continues with insulin. Patient scheduled twice weekly. Procedure Note Guillermo Garcia MD - 07/01/2014 Modified BPP Study ----- Pat. Name:Laura CARRERA Date:06/01/2014 8:35am Pat. NO: [id number] MD:GEMMA AGUILERA [facility]1985Age:29 ----- INDICATION ----- Gestational Diabetes Poor Growth (A/C 14%). CODING ----- Diagnosis 648.83: Diabetes - Gestational. 656.53: Small for Dates. Procedures 37066: Limited 1 or more - VON, FHR, position(modifier 59 for MBPP). 88742: NST/ monitoring. HISTORY ----- OB History : 2. Para: 1. T1L1. Children born living (T): 1. MATERNAL ASSESSMENT ----- Physical Exam Weight 73 kg. Blood pressure 120 / 73 mmHg. Heartrate 78 bpm. METHOD ----- EFM, Transabdominal ultrasound examination. Good view. ----- Carlson . Number of fetuses: 1. DATING ----- Stated dating by:Outside US [place] by stated dating 35 w + 6 d FRANTZ by stated dating :06/30/2014 Assigned:Dating performed on 06/01/2014, based on the stated dating ([facility]) Assigned GA35 w + 6 d Assigned FRANTZ:06/30/2014 GENERAL EVALUATION ----- Cardiac activity: present. movements: not visualized. Presentation: cephalic. NON STRESS TEST ----- Reactive FHR: yes. Baseline rate 130 bpm. Duration 26 min. Acceleration:15 bpm for 15 sec. Deceleration: absent. Uterine activity: absent. AMNIOTIC FLUID ASSESSMENT ----- Amount of AF: normal amount. MVP 4.3 cm. VON 12.5 cm. Q1 4.3 cm, Q2 4.1 cm, Q3 1.6 cm, Q4 2.5 cm. COMMENT ----- Patient reports + movement and no bleeding, leaking or agustina.Fasting blood sugar was 89, continues with insulin. Patient scheduled twice weekly. IMPRESSION IMPRESSION ----- NST reactive. AFV normal. Ervin Gregg MD ORDERABLES documented in this encounter Visit Diagnoses Diagnosis Abnormal maternal glucose tolerance, antepartum documented in this encounter Care Teams Environmental Solutions Engineer Relationship Specialty Start Date End Date Ervin Tejada MD PCP - General 01/17/08 documented as of this encounter
--- OUTSIDE RECORDS SUMMARY | 2024-02-12 02:18 | XMS_ITS | Encounter Summary ---
Author Organization [facility] Address [address] [place] [address] Care Team Providers Care Vehicle Delivery Worker Name Role Phone Ervin Tejada MD Primary Care Provider [phone] Reason for Visit * Outpatient Services (Routine) - Closed Specialty Diagnoses / Procedures Referred By Donta t Referred To Contact Laboratory Diagnoses - Procedures LAB Merrick Mir MD [address] [place] [address] [place] [phone] [facility] [place] [address] [place] [address] Referral ID Status Reason Start Date Expiration Date Visits Re quested Visits Authorized [id number] Closed 08/31/2014 10/01/2015 1 1 Encounter Details Date Type Department Care Team (Latest Contact Info) Description 08/31/2014 9:00 AM CDT - 08/31/2014 11:59 PM T Hospital Encounter [facility] Laboratory Services [place] [address] [place] [address] Merrick Mir MD [address] [place] [address] [place] [address] Discharge Disposition: Home or Self Care Social History Tobacco Use Types Packs/Day Years Used Date Smoking Tobacco: Never Smokeless Tobacco: Never Alcohol Use Standard Drinks/Week Comments No 0 (1 standard drink = 0.6 oz pur e alcohol) social Sex and Gender Information Value Date Recorded Sex Assigned at Not on file Gender Identity Not on file Sexual Orientation Not on file documented as of this encounter Plan of Treatment Scheduled Orders Name Type Priority Associated Diagnoses Orde r Schedule GLUCOSE TOLERANCE NON GESTATIONAL 2 HR Lab Routine exam Added to HDF configuration to grandchildren will have ORD item 7061 populate with time. for 1 Occurrences starting 08/31/2014 until 08/31/2014 documented as of this encounter Procedures Procedure Name Priority Date/Time Associated Diagnosis Comments GLUCOSE MERCEDES NON-GEST FOR DIABETES 2 HR Routine 08/31/2014 11:09 AM CDT exam GLUCOSE TOLERANCE,FASTING NON GEST Routine 08/31/2014 9:07 AM CDT exam documented in this encounter Results * (ABNORMAL) GLUCOSE MERCEDES NON-GEST FOR DIABETES 2 HR (08/31/2014 11:09 AM CDT) GLUCOSE, 2HR, NON-GEST 207(H) 50 - 139 mg/dL 08/31/2014 3:22 PM CDT [facility] [employer] [place] [facility] Blood Venipuncture - L ab Collect / Unknown 08/31/2014 11:09 AM CDT 08/31/2014 11:09 AM CDT Narrative [facility] - 08/31/2014 3:22 PM CDT Based on 75 g dose Type 1 or 2 Diabetes Mellitus Criteria ??Fasting (Baseline) ?>=126 mg/dL ??or ??2 hour specimen ? >=200 mg/dL Impaired Glucose Metabolism Criteria ??Fasting (Baseline) ?100 - 125 mg/dL or ??2 hour specimen ? 140 - 199 mg/dL Merrick Mir MD CHEMISTRY ORDERABLES Performing Organization Address City/[facility] Co de Phone Number [facility] [employer] [place] [facility]# [id number] [address] [place] [address] * (ABNORMAL) GLUCOSE TOLERANCE,FASTING NON GEST (08/31/2014 9:07 AM CDT) GLUCOSE, FASTING, NON-GEST 62(L) 74 - 99 mg/dL 08/31/2014 12:01 PM CDT [facility] Blood Venipuncture - L ab Collect / Unknown 08/31/2014 9:07 AM CDT 08/31/2014 11:17 AM CDT Merrick Mir MD CHEMISTRY ORDERABLES Performing Organization Address [facility] Co de Phone Number [facility] [employer] [place] [facility]# [id number] [address] [place] [address] documented in this encounter Visit Diagnoses Diagnosis exam Routine follow-up documented in this encounter Care Teams Vehicle Delivery Worker Relationship Specialty Start Date End Date Ervin Tejada MD PCP - General 01/17/08 documented as of this encounter
--- OUTSIDE RECORDS SUMMARY | 2024-02-12 02:18 | XMS_ITS | Encounter Summary ---
Author Organization [facility] Address [address] [place] [address] Care Team Providers Care Chief Client Officer Name Role Phone Ervin Tejada MD Primary Care Provider [phone] Reason for Visit * Reason Comments Routine Visit Encounter Details Date Type Department Care Team (Latest Contact Info) Description 06/02/2014 3:30 PM CDT visit [facility] JEWELRY DRILL OPERATOR - [address] [address] Merrick Mir MD [address] [place] [address] [place] [phone] Supervision of other normal , third trimester [...] Sign Reading Time Taken Comments Blood Pressure 110/70 06/02/2014 3:32 PM CDT Pulse - - Temperature - - Respiratory Rate - - Oxygen Saturation - - Inhaled Oxygen Concentration - - Weight 73 kg (161 lb) 06/02/2014 3:32 PM CDT Height 162.6 cm (5' 4 ) 06/02/2014 3:32 PM CDT Body Mass Index 27.64 06/02/2014 3:32 PM CDT documented in this encounter Progress Notes * Merrick Mir MD - 06/02/2014 3:48 PM CDT NPH 12u; growth 27%; GBS done; BADW documented in this encounter Plan of Treatment Not on file documented as of this encounter Results * (BROTH-ENRICHED) GROUP B STREP DETECTION (06/02/2014 3:41 PM CDT) CULTURE No Group B Streptococcus detected by culture or PCR 06/04/2014 9:44 AM CDT [facility] Other, specify (Vaginal) Collection / Unknown 06/02/2014 3:41 PM CDT 06/02/2014 8:18 PM CDT Merrick Mir MD MICROBIOLOGY - GENER AL ORDERABLES [facility] CLIA# [id number] [address] [facility] [address] [address] documented in this encounter Visit Diagnoses Diagnosis Supervision of other normal , third trimester- Primary documented in this encounter Care Teams Chief Client Officer Relationship Specialty Start Date End Date Ervin Tejada MD PCP - General 01/17/08 documented as of this encounter
--- OUTSIDE RECORDS SUMMARY | 2024-02-12 02:18 | XMS_ITS | Encounter Summary ---
Author Organization [facility] Address [address] [place] [address] Care Team Providers Care Field Cashier Name Role Phone Ervin Tejada MD Primary Care Provider [phone] Encounter Details Date Type Department Care Team (Latest Contact Info) Description 06/02/2014 8:17 PM CDT - 06/02/2014 11:59 PM CDT Hospital Encounter [facility] Laboratory Services [id number] [place] [address] Merrick Mir MD [address] [address] Discharge Disposition: Home or Self Care [...] Procedure Name Priority Date/Time Associated Diagnosis Comments (BROTH-ENRICHED) GROUP B STREP DETECTION Routine 06/02/2014 3:41 PM CDT Supervision of other normal , third trimester documented in this encounter Results * (BROTH-ENRICHED) GROUP B STREP DETECTION (06/02/2014 3:41 PM CDT) CULTURE No Group B Streptococcus detected by culture or PCR 06/04/2014 9:44 AM CDT [facility] Other, specify (Vaginal) Collection / Unknown 06/02/2014 3:41 PM CDT 06/02/2014 8:18 PM CDT Merrick Mir MD MICROBIOLOGY - GENER AL ORDERABLES [facility] SERVICES [facility]# [id number] [address] [place] [address] documented in this encounter Visit Diagnoses Diagnosis Supervision of other normal , third trimester documented in this encounter Care Teams Field Cashier Relationship Specialty Start Date End Date Ervin Tejada MD PCP - General 01/17/08 documented as of this encounter
--- OUTSIDE RECORDS SUMMARY | 2024-02-12 02:18 | XMS_ITS | Encounter Summary ---
Author Organization [facility] Address [address] [place] [address] Care Team Providers Care Crutch Maker Name Role Phone Ervin Tejada MD Primary Care Provider [phone] Reason for Visit * Auth/Cert - Closed Specialty Diagnoses / Procedures Referred By Contac t Referred To Contact Obstetrics Diagnoses CTX [facility] [address]c [address] [place] [address] Referral ID Status Reason Start Date Expiration Date Visits Re quested Visits Authorized [id number] Closed 1 1 Encounter Details Date Type Department Care Team (Late st Contact Info) Description 06/21/2014 2:29 PM CDT - 06/23/2014 11:27 AM CDT Hospital Encounter [facility] Mother/Baby [address]C [address] [place] [address] Merrick Mir MD [facility] [address] [place] [phone] Lluvia Olvera MD [facility] [address] [address] Discharge Disposition: Home or Self Care Social [...] Sign Reading Time Taken Comments Blood Pressure 100/64 06/23/2014 8:00 AM CDT Pulse 78 06/23/2014 8:00 AM CDT Temperature 36.6 ??C (97.9 ??F) 06/23/2014 8:00 AM CD T Respiratory Rate 18 06/23/2014 8:00 AM CDT Oxygen Saturation 100% 06/21/2014 3:06 PM CDT Inhaled Oxygen Concentration - - Weight - - Height - - Body Mass Index - - documented in this encounter Discharge Summaries * Silver Houston MD - 06/23/2014 7:34 AM CDT Physician Discharge Summary - Vaginal Delivery Patient: Debi Montoya Frea / 29 y.o. / female : 1985 Admit date: 06/21/2014 Discharge date: 06/23/2014 Attending Physician: Adeola Principal and Secondary Diagnosis 1. 29 y.o. at 38w5d 2. Gest DM Principal and Secondary Procedures 1. spontaneous vaginal Pertinent History & Physical See H&P. Hospital Course Patient was admitted to labor and delivery. She underwent a vaginal delivery. Please see delivery note for further details. Post- the patient was voiding spontaneously, tolerating a regular diet, ambulating, and analgesia controlled with oral pain medications. She was discharged home in a stable condition post- day #2. Discharge Labs Lab Results Component Value Date/Time WBC 8.6 04/14/2014 8:00 AM HGB 12.8 04/14/2014 8:00 AM HCT 36.9 04/14/2014 8:00 AM PLT 197 04/14/2014 8:00 AM MCV 89.3 04/14/2014 8:00 AM Lab Results Component Value Date/Time ABO/RH TYPE B Positive 11/12/2013 10:45 AM Immunization History Administered Date(s) Administered ??? Influenza Vaccine 09/27/2011 ??? Influenza Vaccine Quad Split 3+ Yrs Pf Im 12/19/2013 ? ? TDAP Vaccine > 7 YO IM 01/19/2011 Discharge Condition: stable. Disposition She is discharged to home. She was advised to call if she developed fever, signs of infection, or change in bleeding. Appropriate instructions were reviewed with the patient including no lifting >10 lbs & nothing per vagina x 6 wks. She'll followup in the office in 6 wks. Discharge Medications Medication List START taking these medications ibuprofen 600 mg tablet Commonly known as: MOTRIN Take 1 Tab (600 mg) by mouth every 6 hours as needed for Pain. Signed by: Silver Houston Quantity: 40 Tab Refills: 0 oxyCODONE-acetaminophen 5-325 mg tablet Commonly known as: PERCOCET Take 1 Tab by mouth every 4 hours as needed for Pain, Moderate (For Pain Scale 4-6). Max Daily Amount: 6 Tabs Signed by: Silver Houston Quantity: 20 Tab Refills: 0 sennosides-docusate sodium 8.6-50 mg tablet Commonly known as: SENNA-S Take 1 Tab by mouth 2 times daily as needed for Constipation. Signed by: Silver Houston Quantity: 20 Tab Refills: 0 CONTINUE taking these medications PNV #26-IRON PS-FOLIC ACID-DHA ORAL Take 1 Tab by mouth. Refills: 0 Where to Get Your Medications Information on where to get these meds is not yet available. Ask your nurse or doctor. - ibuprofen 600 mg tablet - oxyCODONE-acetaminophen 5-325 mg tablet - sennosides-docusate sodium 8.6-50 mg tablet documented in this encounter Discharge Instructions * Discharge Instructions* Jacqueline Freed RN - 06/23/2014 8:02 AM CDT PRESCRIPTIONS Prescriptions given? Yes ACTIVITY/EXERCISE Recovery is a progressive process. It may take 6 to 8 weeks to return to pre- activity levels. Take time to rest each day. Limit visitors for the first few weeks. If you smoke you are advised to quit. Avoid second-hand smoke exposure and do not let people smoke in your home. Ask your health care provider for advice if you need assistance to stop smoking. EPISIOTOMY/STITCHES The stitches are absorbable and do not need to be removed. Rinse area with warm water after going to the bathroom. Gently dry perineal area from front to back. Change perineal pads frequently. You may use a plastic sitz bath kit or sit in a tub of 6 to 8 inches of warm water for 30 minutes 1 to 3 times per day. You may apply Tucks when you change your pad. BREAST CARE Wear a well fitting support bra, day and night. IF : ?? Wash breasts with warm water only during your daily shower ?? Do not wash breast before or after each feeding as this may cause dry, cracked nipples ?? For sore nipples, apply colostrum or breast milk to promote healing. Purified lanolin may also be applied to nipple and cover with breast pad. Lanolin does not need to be washed off prior to next feeding. ?? If breasts are engorged, regularly remove milk from the breasts every 1 1/2 - 3 hours (via or use of a hospital grade pump). For additional comfort, apply cold compresses for 10 - 15minutes as needed. ?? If using breast pads, change with each feeding ?? For advice call: [phone] IF BOTTLE FEEDING ?? Avoid breast stimulation, such as showers and pumping breasts. ?? If breasts are painful and engorged, apply ice packs for 15 - 20 minutes to the breasts or underthe arms. VAGINAL DISCHARGE Bleeding diminishes in amount each day. The color will change from red to pink to yellow-white. Thedischarge may last 2 - 5 weeks. It may increase and become bright red with activity but rest shouldrelieve this. Do not douche or use tampons. HEMORRHOIDS If they appear in or at the time of delivery, they will slowly disappear. Use of Tucks, sitz baths, or local medication will give relief. Avoid constipation. ABDOMINAL CRAMPS After- pains may be felt when . Talk with your doctor about pain medication. MENSTRUATION You may start to menstruate in 6 - 10 weeks if you are not or within 6 months if you are . The first two periods are often irregular and may be very heavy with clots. It may take a few months to establish a regular cycle and it may be somewhat different in length from before . SEXUAL INTERCOURSE You may resume intercourse after approximately four weeks or when the perineal area is not tender and vaginal bleeding has subsided. control measures should be used when you resume sexual intercourse. SIGNS/SYMPTOMS TO REPORT Call your doctor if you have any of the following: ?? Fever higher than 100 degrees or chills ?? Fainting ?? Frequency or burning with urination ?? Heavy (more than 1 pad per hour), prolonged or foul smelling vaginal bleeding or discharge ?? Swelling, redness, tenderness in breasts ?? Swelling, redness, tenderness in legs ?? Severe mood swings ?? Thoughts of harming yourself or your baby ?? documented in this encounter Progress Notes * Jacqueline Freed RN - 06/23/2014 11:00 AM CDT Debi Carrera will be discharged via wheelchair to home. Debi Carrera is accompanied by spouse and will be transported via private vehicle. * Silver Houston MD - 06/23/2014 7:32 AM CDT Ambulating. Voiding. Tolerating diet. Good pain control. Blood pressure 118/68, pulse 80, temperature 97.7 ??F (36.5 ??C), temperature source Oral, resp. rate 18, last menstrual period 09/23/2013, SpO2 100 %, currently . abd soft Fundus firm Ext non tender PPD#2 doing well Home today Instructions given Questions answered * Jacob Gama MD - 06/22/2014 8:03 AM CDT Progress Note Subjective: Day 1: Vaginal Delivery The patient feels well. The patient denies emotional concerns. Pain is well controlled with currentmedications. The baby is well. Baby is feeding via breast. The patient is ambulating well. The patient is tolerating a normal diet. Objective: BP 120/60 Pulse 65 Temp(Src) 98.2 ??F (36.8 ??C) (Oral) Resp 18 SpO2 100% LMP 09/23/2013 ? Yes General: alert, in no distress Abdomen: benign non-tender, without masses or organomegaly palpable Uterine Fundus: firm DVT Evaluation: No evidence of DVT seen on physical exam. Results for orders placed during the hospital encounter of 06/21/14 (from the past 24 hour(s)) BLOOD BANK DRAW ONLY Result Value Ref Range SPECIMEN HOLD, BLOOD Order Complete Assessment/Plan Status post Vaginal Delivery. Doing well postoperatively. Vital signs stable. * Leatha Sheriff RN - 06/21/2014 9:00 PM CDT Patient has been assisted up to the bathroom twice, is stable, and able to ambulate on her own. * Tomeka Mckee RN - 06/21/2014 6:07 PM CDT Patient admitted from L&D. Patient verbalized understanding of all admission teaching points. * Lety Mcfarlane RN - 06/21/2014 5:25 PM CDT SLCBB ID NMDP ID Reviewed by/Date: Disposition Tech/Date: -63= Total Weight Cord Blood Volume Labor Room: @location@ Tech/Date: [facility] [phone] or [phone] FAX [phone] [address] [address] [place], [place] [address] LABOR AND DELIVERY DATA Mother's Name: Debi Carrera Mother's Date of : 1985 [facility] [address] Patient Location: Information for the patient's : Michael Carrera [[id number]] Customs Compliance Specialist/Certified Nurse Doubler Operator: Anna (06/21/14 8044) Identity of donor above confirmed by verifying two identifiers (name, birthdate): yes Lety Mcfarlane RN Name of person who collected maternal samples of blood: Lety Mcfarlane RN Person completing labor and delivery data: Lety Mcfarlane RN Within one hour prior to collection of the 3 maternal tubes, did the mother receive more than 2,000ml of IV fluids: NO Were any abnormal or remarkable findings detected on mother's physical assessment: no If yes, please comment: none Information: EGA: 38w5d Estimated Date of Delivery: 06/30/14 NOTE: Date/Time information in parentheses ( ) is documentation date/time Labor: yes If Yes, Length of Labor: 3 hours Labor Induced: no Intrapartum Events: Other (Comment) (GDM) (06/21/141524) Blood Transfusion in Labor: no Membrane Rupture Date: 06/21/14 (06/21/141522) Membrane Rupture Time: 1509 (06/21/14 152) Amniotic Fluid Color: clear (06/21/141524) Odor: normal (06/21/14 152) Delivery Date : 06/21/14 (06/21/141522)Delivery Time : 1512 (06/21/14 152) Number of Infants Delivered: 1 (CORD BLOOD COLLECTIONS ARE FOR [facility] BIRTHS ONLY) No data found. MATERNAL LAB DATA Maternal labs if manually entered by nursing: Blood Type: B (06/21/14 1550) RH: Positive (06/21/14 1550) Rubella Status: Immune (06/21/141549) VDRL/RPR: Non-reactive (06/21/141549) HbsAg: Negative (06/21/141549) HIV Status: Negative (06/21/141549) Group B Strep Culture: Negative (06/21/141549) [facility] or if drawn during patient hospitalization ( No results found for this basename displays if no data exists) Lab Results Component Value Date/Time ABO/RH TYPE B Positive 11/12/2013 10:45 AM RUBELLA IGG Reactive 11/12/2013 10:45 AM RPR Nonreactive 11/12/2013 10:45 AM Lab Results Component Value Date/Time HEPATITIS B SURFACE AG Nonreactive 11/12/2013 10:45 AM HIV-1 AND 2 ABS NON-REACTIVE 05/15/2011 4:15 PM RUBELLA IGG Reactive 11/12/2013 10:45 AM MATERNAL MEDICATIONS CURRENT HOSPITALIZATION Medications oxytocin in lactated ringers (PITOCIN) 20 unit/1,000 mL infusion Solution (0 mL/hr IV Stopped 06/21/14 1617) oxytocin in lactated ringers (PITOCIN) 20 unit/1,000 mL infusion Solution (not administered) methylergonovine maleate (METHERGINE) 0.2 mg/mL (1 mL) injection 0.2 mg (not administered) carboprost tromethamine (HEMABATE) 250 mcg/mL injection 1 mL (not administered) misoprostol (CYTOTEC) tablet 800 mcg (not administered) oxyCODONE-acetaminophen (PERCOCET) 5-325 mg per tablet 1 Tab (not administered) ibuprofen (MOTRIN) tablet 600 mg (not administered) fentaNYL PF (SUBLIMAZE) 15 mcg/0.3 mL syringe 15 mcg (15 mcg See Admin Instructions Given 06/21/14 2142) INFANT INFORMATION Ethnicity of the Manti: White Information for the patient's : Debi [id number] [[id number]] Type of Delivery: Vaginal, Spontaneous Delivery (06/21/14 154) Information for the patient's : Debi [id number] [[id number]] Weight: 6 lb 2 oz (2.778 kg) (06/21/14 154) 5 Minute Score: 9 (06/21/141540) Anomalies: No observed anomalies (06/21/141540) Meconium Below Vocal Cords? : No (06/21/141540) Evidence of Infection? no Temp (>100 degrees)? no Information for the patient's : Michael Carrera [[id number]] Patient Vitals for the past 24 hrs: Temp Temp src Pulse Resp Height Weight 06/21/14 1653 98.3 ??F (36.8 ??C) Axillary 136 64 - - 06/21/14 1620 97.8 ??F (36.6 ??C) Axillary 148 52 19.75 (50.2 cm) 6 lb 2 oz (2.778 kg) 06/21/14 1542 98.8 ??F (37.1 ??C) Skin 145 39 - - Comments: THE FOLLOWING ITEMS ARE ENCLOSED IN THE COLLECTION BOX MATERNAL BLOOD [x] Red Top Tube [x] Purple Top Tube [x] White Top Tube CORD BLOOD [x] Cord Blood Collection Bag COMPLETED PAPER WORK [x] Consent Form [x] Labor and Delivery Data Sheet [x] Medical History Questionnaire (if not sent in) * Lety Mcfarlane RN - 06/21/2014 3:[address] Castillo and RN to for delivery, no report received. documented in this encounter H&P Notes * Lluvia Olvera MD - 06/21/2014 3:41 PM CDT OB History & Physical CC: Contractions HPI: Debi Carrera is a 29 y.o. @ 38w5d who presents to L&D in labor. She reports good movement, denies leakage of fluid or vaginal bleeding. Her has been complicated by GDMA2 (insulin dependent 16 units qhs) and well controlled. Her baby has been growing well (last PNC scan 05/26, 2,347 g (29%ile). Her primary OB is Merrick Mir MD. ROS: As above. Denies nausea, vomiting, chest pain, shortness of breath, headache, or vision symptoms. OB Hx: - @ term, 7lb 3oz PATIENT CARE TECHNICIAN INSTRUCTOR Hx: denies history of abnormal Pap smears or STIs. PMHx: Past Medical History Diagnosis Date ??? Patient denies relevant medical history PSHx: Past Surgical History Procedure Laterality Date ??? Hx cyst removal 12/2007 pilonidial ??? Hx wisdom teeth extraction 2001 FHx: Negative for breast, colon, or PATIENT CARE TECHNICIAN INSTRUCTOR cancer. Negative for genetic tendencies, frequent miscarriage or bleeding disorders SHx: Denies tobacco, alcohol, or illicit drug use Medications: No current facility-administered medications on file prior to encounter. Current Outpatient Prescriptions on File Prior to Encounter Medication Sig Dispense Refill ??? PNV#26/IRON POLY/FA/DHA (PNV #26-IRON PS-FOLIC ACID-DHA ORAL) Take 1 Tab by mouth. Allergies No Known Allergies Physical Exam: See vitals in EPIC General: Well-developed, well-nourished female in NAD but appears uncomfortable HEENT: NCAT, moist mucus membranes Heart: RRR Lungs: CTAB Abdomen: Gravid, NT Extremities: No clubbing, cyanosis, or edema. No calf tenderness. SVE: 10/100/+1, BBOW FHR: 120, mod variability, + accels [place]: irritable on monitor but patient feeling every few minutes No results found for this visit on 06/21/14 (from the past 24 hour(s)). Assessment/Plan: 29 y.o. @ 38w5d in labor 1. Labor - patient is getting epidural and currently complete - Anticipate - pelvis proven to 7lb 3oz 2. status - reassuring and reactive - PNC 05/26: vtx, 2,347 g (29%ile) 3. GDMA2 - insulin dependent - NPH 16 units qhs - no insulin pp 4. PNL - RN verifyting PNL RN discussed with Dr. Castillo who is on his way for delivery. Lluvia Olvera MD PGY-3 documented in this encounter Consult Notes * Ana Streeter RN - 06/22/2014 10:15 AM CDTAssociated Order(s): IP CONSULT TO Follow up: Mom states first child 2 1/2 had difficulty latching and she pumped exclusive.Assisted with latch. Infant noted with recessed chin, clenches/bites when brought to breast. Mom breast tissue soft, nipples flat and retract with areola compression. Mom has been using a # 24 shield. Educated and demonstrated suck/finger training. positioned several different ways. Latch achieved in cross-cradle hold,shield collapsed. Adjusted chin and latch deepened, nutritive sucking pattern present. Audible swallowing. Reviewed normal feeding patterns of , encourage use of feeding diary .Breast feeding basics discussed.Given number and encourage to call for further concerns or questions.([phone]) documented in this encounter Miscellaneous Notes * Care Plan - Leatha Sheriff RN - 06/22/2014 10:55 PM CDT Problem: General Plan of Care (Adult, Obstetrics) Goal: Plan of Care Review (Adult, Obstetrics) The patient and/or their inbound customer service representative will communicate an understanding of their plan of care. Outcome: Progressing Problem: Following Vaginal Delivery (Obstetrics) Goal: Prevent/Manage Potential Problems Signs and symptoms of listed problems will be absent or manageable. Outcome: Progressing * Care Plan - Dora Perez RN - 06/22/2014 10:39 AM CDT PW OBG: LABOR, DELIVERY, AND - VAGINAL Day of Delivery Pathway Step 2 (2 - 24 Hours) ??? Hemodynamics: Patient will maintain temperature greater than 96.7F and less than 100.4F, Pulse less than 110, RR 16-24 and unlabored, BP less than or equal to 140/90 and greater thanor equal to 90/50. With no evidence of headache, dizziness, light-headedness, visual disturbance, epigastric pain. Met ??? Pain Management: Patient verbalizes acceptable pain level that will allow for maximal participation in self and infant care. Met ??? Bladder and Bowel Movement: Patient voids appropriate amount spontaneously within 6 hours of delivery and ongoing. Bladder should not be palpable. Met ??? Activity/Rehab: Patient up with assistance without difficulty 1-6 hours after delivery. Met ??? Nutrition Management: Patient will tolerate PO fluids and regular diet within 2 hours of delivery. Met ??? : Patient will attempt to breastfeed every 2-3 hours. Met ??? Maternal Infant Attachment: Patient will display infant attachment behavior as evidenced by participating in infant care, participating in learning care, holding , speaking to . Met ??? Reproductive: Lochia Rubra with absent to minimal clotting, no trickling or gushing of blood from the vagina, non-malodorous odor present and less than one peripad per hour saturated. Met ??? Reproductive: Uterus is firm and midline ranging from 1 cm above the umbilicus (at 12 hours) to1 cm below the umbilicus (by 24 hours). Met ??? Reproductive: Perineum: Intact/episiotomy or laceration repair with possible slight swelling, well approximated with evidence of wound healing (no redness, hematoma, or purulent drainage). Hemorrhoids may be present but should not be markedly swollen or increasing in size. Met PW OBG: LABOR, DELIVERY, AND - VAGINAL Day of Delivery Pathway Step 2 (2 - 24 Hours) ??? Hemodynamics: Patient will maintain temperature greater than 96.7F and less than 100.4F, Pulse less than 110, RR 16-24 and unlabored, BP less than or equal to 140/90 and greater thanor equal to 90/50. With no evidence of headache, dizziness, light-headedness, visual disturbance, epigastric pain. Met ??? Pain Management: Patient verbalizes acceptable pain level that will allow for maximal participation in self and care. Met ??? Bladder and Bowel Movement: Patient voids appropriate amount spontaneously within 6 hours of delivery and ongoing. Bladder should not be palpable. Met ??? Activity/Rehab: Patient up with assistance without difficulty 1-6 hours after delivery. Met ??? Nutrition Management: Patient will tolerate PO fluids and regular diet within 2 hours of delivery. Met ??? : Patient will attempt to breastfeed every 2-3 hours. Met ??? Maternal Infant Attachment: Patient will display infant attachment behavior as evidenced by participating in care, participating in learning infant care, holding infant, speaking to infant. Met ??? Reproductive: Lochia Rubra with absent to minimal clotting, no trickling or gushing of blood from the vagina, non-malodorous odor present and less than one peripad per hour saturated. Met ??? Reproductive: Uterus is firm and midline ranging from 1 cm above the umbilicus (at 12 hours) to1 cm below the umbilicus (by 24 hours). Met ??? Reproductive: Perineum: Intact/episiotomy or laceration repair with possible slight swelling, well approximated with evidence of wound healing (no redness, hematoma, or purulent drainage). Hemorrhoids may be present but should not be markedly swollen or increasing in size. Met Day of Delivery Pathway Step 2 (2 - 24 Hours) ??? Hemodynamics: Patient will maintain temperature greater than 96.7F and less than 100.4F, Pulse less than 110, RR 16-24 and unlabored, BP less than or equal to 140/90 and greater thanor equal to 90/50. With no evidence of headache, dizziness, light-headedness, visual disturbance, epigastric pain. Met ??? Pain Management: Patient verbalizes acceptable pain level that will allow for maximal participation in self and infant care. Met ??? Bladder and Bowel Movement: Patient voids appropriate amount spontaneously within 6 hours of delivery and ongoing. Bladder should not be palpable. Met ??? Activity/Rehab: Patient up with assistance without difficulty 1-6 hours after delivery. Met ??? Nutrition Management: Patient will tolerate PO fluids and regular diet within 2 hours of delivery. Met ??? : Patient will attempt to breastfeed every 2-3 hours. Met ??? Maternal Infant Attachment: Patient will display attachment behavior as evidenced by participating in care, participating in learning infant care, holding infant, speaking to infant. Met ??? Reproductive: Lochia Rubra with absent to minimal clotting, no trickling or gushing of blood from the vagina, non-malodorous odor present and less than one peripad per hour saturated. Met ??? Reproductive: Uterus is firm and midline ranging from 1 cm above the umbilicus (at 12 hours) to1 cm below the umbilicus (by 24 hours). Met ??? Reproductive: Perineum: Intact/episiotomy or laceration repair with possible slight swelling, well approximated with evidence of wound healing (no redness, hematoma, or purulent drainage). Hemorrhoids may be present but should not be markedly swollen or increasing in size. Met * Care Plan - Leatha Sheriff RN - 06/22/2014 5:56 AM CDT Problem: General Plan of Care (Adult, Obstetrics) Goal: Plan of Care Review (Adult, Obstetrics) The patient and/or their inbound customer service representative will communicate an understanding of their plan of care. Outcome: Progressing Problem: Following Vaginal Delivery (Obstetrics) Goal: Prevent/Manage Potential Problems Signs and symptoms of listed problems will be absent or manageable. Outcome: Progressing * Care Plan - Tomeka Mckee RN - 06/21/2014 6:15 PM CDT Problem: General Plan of Care (Adult, Obstetrics) Goal: Plan of Care Review (Adult, Obstetrics) The patient and/or their inbound customer service representative will communicate an understanding of their plan of care. Outcome: Progressing Problem: Following Vaginal Delivery (Obstetrics) Goal: Prevent/Manage Potential Problems Signs and symptoms of listed problems will be absent or manageable. Outcome: Progressing * Delivery - Manas Castillo MD - 06/21/2014 3:35 PM CDT Delivery Note Patient: Debi Montoya Frea / 29 y.o. / female : 1985 Customs Compliance Specialist: Merrick Mir MD Delivering OB: Dr. Castillo Resident: Lluvia Olvera MD PGY-3 Pre-Delivery Diagnosis: 1. IUP @ 38w5d 2. Spontaneous labor 3. GDMA2 (insulin dependent, NPH 16 units qhs) Post-Delivery Diagnosis: Male living named Femi Procedure: Delivery vaginal spontaneous Delivery Date/Time: 06/21/2014 Information for the patient's : Michael Carrera [[id number]] Delivery Time: 1513 (06/21/14 1542) Anesthesia: epidural Episiotomy or Incision: none Laceration/Repair: 1st degree (small and to the right), right periurethral laceration repaired with3-0 Vicryl/Polysorb with figure of eight stitches. Left periurethral abrasion (not bleeding, did not require a stitch) Position: occiput anterior Wt: Information for the patient's : Michael Carrera [[id number]] Weight: 6 lb 2 oz (2.778 kg) (06/21/14 1541) Apgars: Information for the patient's : Michael Carrera [[id number]] 1 Minute Score: 9 (06/21/14 1541) 5 Minute Score: 9 (06/21/14 1541) Placenta and Cord: Mechanism: spontaneous Description: complete Nuchal cord: none. Estimated Blood Loss: 250 cc Specimens: cord blood donation Complications: none Condition: stable Commentary: See H&P and notes for details on patient's admission and labor. She progressed to complete cervical dilation and at the appropriate time began pushing. With adequate expulsive effortsby the mother, the baby's head was delivered without difficulty. The infant's nose and mouth were suctioned at the perineum. The baby's left shoulder was anterior and delivered under the pubic symphysis without difficulty. The posterior shoulder and the rest of the baby delivered without difficulty. The umbilical cord was doubly clamped and cut. Care of the was then assumed by the nursing staff. Mother and infant are at this time in stable condition and doing well. Lluvia Olvera MD PGY-3 documented in this encounter Plan of Treatment Not on file documented as of this encounter Procedures Procedure Name Priority Date/Time Associated Diagnosis Comments BLOOD BANK DRAW ONLY Timed Study 06/21/2014 2:40 PM CDT documented in this encounter Results * BLOOD BANK DRAW ONLY (06/21/2014 2:40 PM CDT) SPECIMEN HOLD, BLOOD Order Complete 06/21/2014 3:55 PM CDT [facility] Blood specimen (specimen) Venipuncture - Floor Collect / Unknown 06/21/2014 2:40 PM CDT 06/21/2014 3:07 PM CDT Manas Castillo MD BLOOD BANK ORDERABLE S [facility] CLIA# [id number] [address] [place] [address] documented in this encounter Visit Diagnoses Diagnosis s/p 06/21, boy Femi Normal delivery documented in this encounter Administered Medications Inactive Administered Medications - up to 3 most recent administrations Medication Order MAR Action Action Date Dose Rate Site ibuprofen (MOTRIN) tablet 600 mg 600 mg, Oral, EVERY 6 HOURS PRN, Starting on 06/21/14 at 1657, Until Tu06/23/14 at 1327, Pain, Routine, Given 06/23/2014 9:21 AM CDT 600 mg Given 06/23/2014 3:01 AM CDT 600 mg Given 06/22/2014 8:03 PM CDT 600 mg lactated ringers solution IV, at 125 mL/hr, CONTINUOUS, Starting on 06/21/14 at 1500, Until 06/21/14 at 1657, Routine Started by Another Clinician 06/21/2014 3:00 PM CDT 125 mL/hr lanolin (LANSINOH) 100 % topical ointment Ointment Topical, SEE ADMIN INSTRUCTIONS, Starting on 06/21/14 at 1804, Until Sun06/23/14 at 1327, Routine, Given 06/22/2014 8:10 PM CDT 7 Grams Other (Comment) oxytocin in lactated ringers (PITOCIN) 20 unit/1,000 mL infusion Solution IV, at 500 mL/hr, SEE ADMIN INSTRUCTIONS, Starting on 06/21/14 at 1658, Until 06/21/14 at 1857, Routine, New Bag 06/21/2014 3:17 PM CDT 20 Units OXYTOCIN IN LACTATED RINGERS 20 UNIT/1,000 ML INTRAVENOUS SOLUTION 1 dose, Starting on 06/21/14 at 1451, Until 06/21/14 at 1517, [facility] OMNICELL: cabinet override vit-iron fumarate-fa (NICHOLE ) 28-0.8 mg per tablet 1 Tab 1 Tablet, Oral, DAILY, First dose on 06/21/14 at 1815, Until Discontinued, Routine, Given 06/23/2014 9:21 AM CDT 1 Tablet Given 06/22/2014 7:56 AM CDT 1 Tablet sennosides-docusate sodium (SENNA-S) 8.6-50 mg per tablet 1 Tab 1 Tablet, Oral, TWO TIMES DAILY PRN, Starting on 06/21/14 at 1804, Until 06/23/14 at 1327, Constipation, Routine, Given 06/22/2014 8:03 PM CDT 1 Tablet documented in this encounter Active and Recently Administered Medications Times are shown in CDT. Scheduled Medication Order 06/21/2014 06/22/2014 06/23/2014 fentaNYL PF (SUBLIMAZE) 15 mcg/0.3 mL syringe 15 mcg (COMPLETED) 15 mcg, See Admin Instructions, INTRA-PROCEDURE ONCE, 1 dose, Starting on 06/21/14 at 1440, Until 06/21/14 at 1455, Routine 1455 (Given - Provider: Nicole Love MD) lanolin (LANSINOH) 100 % topical ointment Ointment (CANCELED) Topical, SEE ADMIN INSTRUCTIONS, Starting on 06/21/14 at 1804, Until 06/23/14 at 1327, Routine, 2009 (Given - Provider: Leatha Sheriff RN - Comment: breasts) oxytocin in lactated ringers (PITOCIN) 20 unit/1,000 mL infusion Solution () IV, at 500 mL/hr, SEE ADMIN INSTRUCTIONS, Starting on 06/21/14 at 1658, Until 06/21/14 at 1857, Routine, 1517 (New Bag - Provider: Lety Mcfarlane RN)1617 (Stopped - Provider: Lety Mcfarlane RN) vit-iron fumarate-fa (NICHOLE ) 28-0.8 mg per tablet 1 Tab (CANCELED) 1 Tablet, Oral, DAILY, First dose on 06/21/14 at 1815, Until Discontinued, Routine, 1815 (Not Given - Provider: Tomeka Mckee RN - Reason: Clarify-Other (Comment) - Comment: Defer to AM dose) 0756 (Given - Provider: Dora Perez RN)0900 (Not Given - Provider: Dora Perez RN - Reason: Medication already given) 0921 (Given - Provider: Jacqueline Freed, KARINE) Continuous Medication Order 06/21/2014 06/22/2014 06/23/2014 lactated ringers solution (CANCELED) IV, at 125 mL/hr, CONTINUOUS, Starting on 06/21/14 at 1500, Until 06/21/14 at 1657, Routine 1500 (Started by Another Clinician - Provider: Lety Mcfarlane, KARINE)1516 (Stopped - Provider: Lety Mcfarlane RN) PRN Medication Order 06/21/2014 06/22/2014 06/23/2014 ibuprofen (MOTRIN) tablet 600 mg 600 mg, Oral, EVERY 6 HOURS PRN, Starting on 06/21/14 at 1657, Until 06/23/14 at 1327, Pain, Routine, 1858 (Given - Provider: Nicole Suarez RN) 0051 (Given - Provider: Leatha Sheriff, KARINE)0755 (Given - Provider: Dora Perez RN)1439 (Given - Provider: Dora Perez RN)2002 (Given - Provider: Leatha Sheriff, KARINE) 0301 (Given - Provider: Nicole Hernandez, KARINE)0921 (Given - Provider: Jacqueline Freed, KARINE) oxyCODONE-acetaminophe n (PERCOCET) 5-325 mg per tablet 1 Tab 1 Tablet, Oral, EVERY 4 HOURS PRN, Starting on 06/21/14 at 1657, Until 06/23/14 at 1327, Pain, Moderate, For Pain Scale 4-6, Routine, sennosides-docusate sodium (SENNA-S) 8.6-50 mg per tablet 1 Tab 1 Tablet, Oral, TWO TIMES DAILY PRN, Starting on 06/21/14 at 1804, Until 06/23/14 at 1327, Constipation, Routine, 2002 (Given - Provider: Leatha Sheriff RN) documented in this encounter Care Teams Crutch Maker Relationship Specialty Start Date End Date Ervin Tejada MD PCP - General 01/17/08 documented as of this encounter
--- OUTSIDE RECORDS SUMMARY | 2024-02-12 02:18 | XMS_ITS | Clinical Summary ---
Author Organization [facility] Address [address] [place] [address] Care Team Providers Care Tie Maker Name Role Phone Ervin Tejada MD Primary Care Provider [phone] Allergies No known active allergies Medications No known medications Active Problems Problem Noted Date Diagnosed Date Elevated blood pressure read ing without diagnosis of hypertension 12/18/2011 Pilonidal cyst without mention of abscess 2007 Resolved Problems Problem Noted Date Diagnosed Date Resolved Date s/p 06/21, boy Femi 06/21/2014 0 06/26/2016 11.15 12/28/2011 11/12/2013 SimpleMist. BPs, pre-e labs wnl, B+, GBS-, AROM(0230) 12/27/2011 12/28/2011 Other, multiple, and unspeci fied sites, insect bite, nonvenomous, without mention of infection(919.4) 11/17/2005 03/28/2010 Immunizations Name Administration Dates Next Due (ADACEL/BOOSTRIX)(10 YR UP) TDAP VACCINE, 0.5ML, IM 01/19/2011 INFLUENZA VACCINE QUADRIVALENT 3 YR UP PF IM 08/2013 Influenza Seasonal Unspecified Formulation IM Family History Medical History Relation Name Comments Hypertension Father Diabetes Maternal Grandfather Heart Disease Maternal Grandfather Hypertension Mother Colon Cancer Paternal Grandfather dx 49 o r 50 Diabetes Paternal Grandmother Healthy Sister Breast Cancer Neg Hx Ovarian Cancer Neg Hx Relation Name Status Comments Father Alive Maternal Grandfather Maternal Grandmother Mother Alive Paternal Grandfather Paternal Grandmother Sister Alive Son 1 Kenn Alive Son 2 Femi Alive Social History Tobacco Use Types Packs/Day Years [...] Sign Reading Time Taken Comments Blood Pressure 120/78 01/25/2018 8:58 AM SCHOOL PSYCHOLOGIST Pulse 78 06/23/2014 8:00 AM CDT Temperature 36.6 ??C (97.9 ??F) 06/23/2014 8:00 AM CD T Respiratory Rate 18 06/23/2014 8:00 AM CDT Oxygen Saturation 100% 06/21/2014 3:06 PM CDT Inhaled Oxygen Concentration - - Weight 58.1 kg (128 lb) 01/25/2018 8:58 AM SCHOOL PSYCHOLOGIST Height 162.6 cm (5' 4 ) 01/25/2018 8:58 AM SCHOOL PSYCHOLOGIST Body Mass Index 21.97 01/25/2018 8:58 AM SCHOOL PSYCHOLOGIST Plan of Treatment Health Maintenance Due Date Last Done Comments HEPATITIS B VACCINES (1 of 3 - 19+ 3-dose series) 2004 DTAP/TDAP/TD VACCINES (2 - Td or Tdap) 01/19/2021 01/19/2011 CERVICAL CANCER SCREENING 01/25/20212017, 01/25/2018, 06/26/2016, Additional history exists INFLUENZA VACCINE (#1) 2023 12/19/2013, 2011 HPV VACCINES Aged Out No longer eligi ble based on patient's age to complete this topic PNEUMOCOCCAL VACCINE 0-64 YEARS Aged Out No longer eligible based on patient's age to complete this topic Procedures Procedure Name Priority Date/Time Associated Diagnosis Comments CERV/VAG CYTO AGE BASED SCREEN PAP Routine 01/25/2018 9:16 AM SCHOOL PSYCHOLOGIST Well woman exam with routine gynecological exam from Last 3 Months or Most Recently Relevant to Health Maintenance Results * CERV/VAG CYTO AGE BASED SCREEN PAP (01/25/2018 9:16 AM SCHOOL PSYCHOLOGIST) COMMENT (PAP): SEE COMMENT 8 5:37 PM SCHOOL PSYCHOLOGIST [facility] Comment: This order for age-based cervical cancer and STI screening follows ACOG guidelines(PB 168, 140, JXU062). See individual assays for performing site location. CLINICAL INFORMATION Routine exam 01/30/2018 5:37 PM SCHOOL PSYCHOLOGIST [facility] LAST MENSTRUAL PERIOD INFORMATION NOT PROVIDED 01/30/2018 5:37 PM SCHOOL PSYCHOLOGIST [facility] PREV PAP: 06/26/16 NIL 01/30/2018 5:37 PM SCHOOL PSYCHOLOGIST [facility] PREV BX: INFORMATION NOT PROVIDED 01/30/2018 5:37 PM SCHOOL PSYCHOLOGIST [facility] SOURCE Endocervix 01/30/2018 5:37 PM SCHOOL PSYCHOLOGIST [facility] ADEQUACY: SEE COMMENT 01/30/2018 5:37 PM SCHOOL PSYCHOLOGIST [facility] Comment: Satisfactory for evaluation. Endocervical/transformation zone component present. Age and/or menstrual status not provided PAP INTERP Negative for intraepithelial lesion or malignancy. 01/30/2018 5:37 PM SCHOOL PSYCHOLOGIST [facility] COMMENT This Pap test has been evaluated with computer assisted technology. 01/30/2018 5:37 PM SCHOOL PSYCHOLOGIST [facility] FOURDRINIER MACHINE TENDER: SEE COMMENT 2017 5:37 PM SCHOOL PSYCHOLOGIST [facility] Comment: ABC, CT(ASCP) CT screening location: [place] [address] [place] [address] EXPLANATORY NOTE SEE COMMENT 018 5:37 PM SCHOOL PSYCHOLOGIST [facility] Comment: EXPLANATORY NOTE: The Pap is a screening test for cervical cancer. It is not a diagnostic test and is subject to false negative and false positive results. It is most reliable when a satisfactory sample, regularly obtained, is submitted with relevant clinical findings and history, and when the Pap result is evaluated along with historic and current clinical information. HPV E6/E7 Not Detected Not Detected 01/30/2018 5:37 PM SCHOOL PSYCHOLOGIST [facility] Comment: This test was performed using the APTIMA HPV Assay ([employer] This assay detects E6/E7 viral messenger RNA (mRNA) from 14 high-risk HPV types (16,18,31,33,35,39,45,51,52,56,58,59,66,68). The analytical performance characteristics of this assay have been determined by [employer]. The modifications have not been cleared or approved by the FDA. This assay has been validated pursuant to the CLIA regulations and is used for clinical purposes. Genital SWAB OF ENDOCERVIX / Unknown Collection / Unknown 01/25/2018 9:16 AM SCHOOL PSYCHOLOGIST 01/25/2018 11:05 AM SCHOOL PSYCHOLOGIST Narrative [facility] - 01/30/2018 5:37 PM SCHOOL PSYCHOLOGIST Performing Organization Information: ?Site ID: [id number] ?Name: [facility] ?Address: [address] [id number] ?Director: Ervin Cohen D.O., MPH ?Site ID: ?Name: [facility] ?Address: [facility] [place] [address] ?Director: Susy Lowery Elza Rogers SUPERINTENDENT DISTRIBUTION PATHOLOGY/CYTOLOGY O RDERABLES [facility] from Last 3 Months or Most Recently Relevant to Health Maintenance Advance Directives For more information, please contact: [phone] * Full Code (Latest Code Status on File) Date Activated Date Inactivated Comments 06/21/2014 6:04 PM 06/23/2014 1:28 PM * Full Code Date Activated Date Inactivated Comments 06/21/2014 2:46 PM 06/21/2014 4:57 PM * Full Code Date Activated Date Inactivated Comments 12/28/2011 3:53 PM 12/30/2011 2:47 PM * Full Code Date Activated Date Inactivated Comments 12/27/2011 11:07 PM 12/28/2011 3:53 PM * Full Code Date Activated Date Inactivated Comments 12/27/2011 10:10 PM 12/27/2011 11:07 PM Care Teams Tie Maker Relationship Specialty Start Date End Date Ervin Tejada MD PCP - General 01/17/08"
--- OUTSIDE RECORDS SUMMARY | 2024-02-12 02:18 | XMS_ITS | Encounter Summary ---
Author Organization [facility] Address [address] [place] [address] Care Team Providers Care Press Tender Star Signal Name Role Phone Ervin Tejada MD Primary Care Provider [phone] Reason for Visit * Reason Comments Routine Visit Encounter Details Date Type Department Care Team (Latest Contact Info) Description 06/16/2014 11:00 AM CDT visit [facility] BUILDING SERVICES COORDINATOR - [address] [address] Merrick Mir MD [address] [place] [address] [place] [phone] Supervision of other normal , third [...] Sign Reading Time Taken Comments Blood Pressure 120/80 06/16/2014 11:02 AM CDT Pulse - - Temperature - - Respiratory Rate - - Oxygen Saturation - - Inhaled Oxygen Concentration - - Weight 72.6 kg (160 lb) 06/16/2014 11:02 AM CDT Height 162.6 cm (5' 4 ) 06/16/2014 11:02 AM CDT Body Mass Index 27.46 06/16/2014 11:02 AM CDT documented in this encounter Progress Notes * Merrick Mir MD - 06/16/2014 11:17 AM CDT BADW; twice weekly MBPP; NPH 12 U QHS; plan MIL next documented in this encounter Plan of Treatment Not on file documented as of this encounter Visit Diagnoses Diagnosis Supervision of other normal , third trimester- Primary documented in this encounter Care Teams Press Tender Star Signal Relationship Specialty Start Date End Date Ervin Tejada MD PCP - General 01/17/08 documented as of this encounter
--- OUTSIDE RECORDS SUMMARY | 2024-02-12 02:18 | XMS_ITS | Encounter Summary ---
Author Organization [facility] Address [address] [place] [address] Care Team Providers Care Bed Rubber Name Role Phone Ervin Tejada MD Primary Care Provider [phone] Reason for Visit * Reason Comments Routine Visit Encounter Details Date Type Department Care Team (Latest Contact Info) Description 05/12/2014 3:30 PM CDT visit [facility] BROOCH AND BRACELET MAKER - [address] [address] Merrick Mir MD [address] [place] [address] [place] [phone] Supervision of other normal , third [...] Reading Time Taken Comments Blood Pressure 110/70 05/12/2014 3:54 PM CDT Pulse - - Temperature - - Respiratory Rate - - Oxygen Saturation - - Inhaled Oxygen Concentration - - Weight 72.1 kg (159 lb) 05/12/2014 3:54 PM CDT Height 162.6 cm (5' 4 ) 05/12/2014 3:54 PM CDT Body Mass Index 27.29 05/12/2014 3:54 PM CDT documented in this encounter Progress Notes * Merrick Mir MD - 05/12/2014 4:08 PM CDT GDM, starting insulin for elevated 1 hour; discussed early delivery documented in this encounter Plan of Treatment Not on file documented as of this encounter Visit Diagnoses Diagnosis Supervision of other normal , third trimester- Primary documented in this encounter Care Teams Bed Rubber Relationship Specialty Start Date End Date Ervin Tejada MD PCP - General 01/17/08 documented as of this encounter
--- OUTSIDE RECORDS SUMMARY | 2024-02-12 02:18 | XMS_ITS | Encounter Summary ---
Author Organization [facility] Address [address] [place] [address] Care Team Providers Care Head Buyer Tobacco Name Role Phone Ervin Tejada MD Primary Care Provider [phone] Reason for Visit * Reason Comments Well Woman Exam Encounter Details Date Type Department Care Team (Latest Contact Info) Description 01/25/2018 9:00 AM LIFE ADVISOR Office Visit [facility] CUSTOMS AND BORDER PROTECTION OFFICER - Medical Dana [address] [facility] [address] [address] Elza Rogers, MICHAEL [address] [facility] [address] [place] [address] Well woman exam with routine gynecological exam (Primary Dx) Social History Tobacco Use Types [...] Comments Blood Pressure 120/78 01/25/2018 8:58 AM LIFE ADVISOR Pulse - - Temperature - - Respiratory Rate - - Oxygen Saturation - - Inhaled Oxygen Concentration - - Weight 58.1 kg (128 lb) 01/25/2018 8:58 AM LIFE ADVISOR Height 162.6 cm (5' 4 ) 01/25/2018 8:58 AM LIFE ADVISOR Body Mass Index 21.97 01/25/2018 8:58 AM LIFE ADVISOR documented in this encounter Progress Notes * Elza Robles, RECORDER OF DEEDS - 01/25/2018 9:01 AM CST CC: Well Woman Subjective: Debi Carrera is a 32 y.o. female patient who presents for her annual well woman exam. Her last pap smear approximate date 06/26/16 and was normal. She has never had a mammoogram. Patient's last menstrual period was 01/11/2018 (within days). She uses vasectomy for contraception and is satisfied with this method. Soc. Hx. - Works at [employer], two sons GynHx: Her periods are regular every month without intermenstrual spotting, usually lasting 4 to 5 days, with minimal cramping, normal flow. She is heterosexual and is sexually active. Pap Hx: deniesabnormal pap history. STD history: no past history. No concerns about domestic violence. Patient Active Problem List Diagnosis Date Noted ??? Elevated blood pressure reading without diagnosis of hypertension 12/18/2011 ??? Pilonidal cyst without mention of abscess 05/31/2007 , No current outpatient prescriptions on file prior to visit. No current facility-administered medications on file prior to visit. , No Known Allergies, Past Medical History: Diagnosis Date ??? Patient denies relevant medical history , Past Surgical History: Procedure Laterality Date ??? HX CYST REMOVAL 12/2007 pilonidial ??? HX WISDOM TEETH EXTRACTION 2001 , Family History Problem Relation Age of Onset ??? Hypertension Father ??? Hypertension Mother ??? Healthy Sister ??? Colon Cancer Paternal Grandfather dx 49 or 50 ??? Diabetes Paternal Grandmother ??? Diabetes Maternal Grandfather ??? Heart Disease Maternal Grandfather ??? Breast Cancer Neg Hx ??? Ovarian Cancer Neg Hx and Social History Substance Use Topics ??? Smoking status: Never Smoker ??? Smokeless tobacco: Never Used ??? Alcohol use No Comment: social ROS: Feeling well. No dyspnea or chest pain on exertion. No abdominal pain, change in bowel habits.No excessive fatigue or significant changes in weight. Denies any burning, frequency, urgency or pain with urination. STRADDLE BUG OPERATOR ROS: normal menses, no abnormal bleeding, pelvic pain or discharge, no breast pain or new or enlarging lumps on self exam. Objective: The patient appears well groomed, well nourished and in no apparent distress. BP 120/78 (BP Location: Right arm, Patient Position (BP): Sitting, BP Cuff Size: Adult) Ht 5' 4 (1.626 m) Wt 58.1 kg (128 lb) LMP 01/11/2018 (Within Days) ? No BMI 21.97 kg/m?? Pysch: A&O, no distress Resp: even and unlabored Abdomen: soft, non-tender; no rebound or guarding Lower extremities: no edema Back: no CVAT BREAST EXAM: breasts appear normal, no suspicious masses, no skin or nipple changes or axillary nodes PELVIC EXAM: normal external genitalia, vulva, vagina, cervix, uterus and adnexa Assessment: ICD-10-CM ICD-9-CM 1. Well woman exam with routine gynecological exam Z01.419 V72.31 CERV/VAG CYTO AGE BASED SCREEN PAP Plan: Discussed pap guidelines- pt desires pap today. Mammogram @ age 40. Encouraged self breast examinations. Encouraged CA from diet and Vit. D supplements Contraception: had vasectomy Return annually or prn. ADVISOR documented in this encounter Plan of Treatment Not on file documented as of this encounter Procedures Procedure Name Priority Date/Time Associated Diagnosis Comments CERV/VAG CYTO AGE BASED SCREEN PAP Routine 01/25/2018 9:16 AM LIFE ADVISOR Well woman exam with routine gynecological exam documented in this encounter Results * CERV/VAG CYTO AGE BASED SCREEN PAP (01/25/2018 9:16 AM LIFE ADVISOR) COMMENT (PAP): SEE COMMENT 8 5:37 PM LIFE ADVISOR [facility] Comment: This order for age-based cervical cancer and STI screening follows ACOG guidelines(PB 168, 140, [id number]). See individual assays for performing site location. CLINICAL INFORMATION Routine exam 01/30/2018 5:37 PM LIFE ADVISOR [facility] LAST MENSTRUAL PERIOD INFORMATION NOT PROVIDED 01/30/2018 5:37 PM LIFE ADVISOR [facility] PREV PAP: 06/26/16 NIL 01/30/2018 5:37 PM LIFE ADVISOR [facility] PREV BX: INFORMATION NOT PROVIDED 01/30/2018 5:37 PM LIFE ADVISOR [facility] SOURCE Endocervix 01/30/2018 5:37 PM LIFE ADVISOR [facility] ADEQUACY: SEE COMMENT 01/30/2018 5:37 PM LIFE ADVISOR [facility] Comment: Satisfactory for evaluation. Endocervical/transformation zone component present. Age and/or menstrual status not provided PAP INTERP Negative for intraepithelial lesion or malignancy. 01/30/2018 5:37 PM LIFE ADVISOR [facility] COMMENT This Pap test has been evaluated with computer assisted technology. 01/30/2018 5:37 PM LIFE ADVISOR [facility] CLIPPER AND TURNER: SEE COMMENT 2017 5:37 PM LIFE ADVISOR [facility] Comment: ABC, CT(ASCP) CT screening location: [place] [address] [place] [address] EXPLANATORY NOTE SEE COMMENT 018 5:37 PM LIFE ADVISOR [facility] Comment: EXPLANATORY NOTE: The [...] Not Detected Not Detected 01/30/2018 5:37 PM LIFE ADVISOR [facility] Comment: This test was performed using the APTIMA HPV Assay ([employer] This assay detects E6/E7 viral messenger RNA (mRNA) from 14 high-risk HPV types (16,18,31,33,35,39,45,51,52,56,58,59,66,68). The analytical performance characteristics of this assay have been determined by [employer] The modifications have not been cleared or approved by the FDA. This assay has been validated pursuant to the CLIA regulations and is used for clinical purposes. Genital SWAB OF ENDOCERVIX / Unknown Collection / Unknown 01/25/2018 9:16 AM LIFE ADVISOR 01/25/2018 11:05 AM LIFE ADVISOR [facility] - 01/30/2018 5:37 PM LIFE ADVISOR Performing Organization Information: ?Site ID: [id number] ?Name: [employer] ?Address: [id number] [id number] ?Director: Ervin Cohen D.O., MPH ?Site ID: ?Name: [employer] ?Address: [facility] [place] [address] ?Director: Susy Lowery Elza Rogers NP PATHOLOGY/CYTOLOGY O RDERABLES [facility] documented in this encounter Visit Diagnoses Diagnosis Well woman exam with routine gynecological exam- Primary Routine gynecological examination documented in this encounter Care Teams Head Buyer Tobacco Relationship Specialty Start Date End Date Ervin Tejada MD PCP - General 01/17/08 documented as of this encounter
--- OUTSIDE RECORDS SUMMARY | 2024-02-12 02:18 | XMS_ITS | Encounter Summary ---
Author Organization [employer] [facility] Address [address] [place] [address] Care Team Providers Care Pre Sales Network Engineer Name Role Phone Ervin Tejada MD Primary Care Provider [phone] Reason for Referral * Outpatient Services (Routine) - Closed Specialty Diagnoses / Procedures Referred By Contac t Referred To Contact Radiology Diagnoses Abnormal maternal glucose tolerance, antepartum Procedures US OB LIMITED + BALBIRT Lily Coles MD [address] [place] [address] [facility] [address] [place] [address] Referral ID Status Reason Start Date Expiration Date Visits Re quested Visits Authorized [id number] Closed 06/08/2014 07/09/2015 1 1 Reason for Visit * Outpatient Services (Routine) - Closed Specialty Diagnoses / Procedures Referred By Contac t Referred To Contact Radiology Diagnoses Abnormal maternal glucose tolerance, antepartum Procedures US OB LIMITED + Lily Otto MD [address] [place] [address] [facility] [address] [place] [address] Referral ID Status Reason Start Date Expiration Date Visits Re quested Visits Authorized [id number] Closed 06/08/2014 07/09/2015 1 1 Encounter Details Date Type Department Care Team (Latest Contact Info) Description 06/15/2014 7:33 AM CDT - 06/15/2014 11:59 PM CDT Hospital Encounter [facility] [address] [place] [phone] Lily Coles MD [address] [place] [address] Discharge Disposition: Home or Self Care Social [...] Comments US OB LIMITED + NST Routine 06/15/2014 8 :30 AM CDT Abnormal maternal glucose tolerance, antepartum documented in this encounter Results * US OB LIMITED + NST (06/15/2014 8:30 AM CDT) Anatomical Region Laterality Modality Pelvis Ultrasound 06/15/2014 7:45 AM CDT Impressions 06/15/2014 8:49 AM CDT IMPRESSION ----- NON-STRESS TEST IS REACTIVE AMNIOTIC FLUID VOLUME IS NORMAL. Narrative 06/15/2014 8:49 AM CDT Modified BPP Study ----- Pat. Name: DEBI CARRERA Study Date: 06/15/2014 7:45am Pat. 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 CODING ----- Diagnosis ? 648.83: Diabetes - Gestational. ?656.53: Small for Dates. Procedures ?19164: NST/ monitoring. ?30164: Limited 1 or more - VON, FHR, position (modifier 59 for MBPP). HISTORY ----- OB History ?: 2. Para: 1. ?T1L1. ?Children born living (T): 1. MATERNAL ASSESSMENT ----- Physical Exam ? Weight 72 kg. BMI 27.10 kg/m?. Blood pressure 106 / 67 mmHg. Heart rate 72 bpm. METHOD ----- EFM Transabdominal ultrasound examination. ----- Carlson . Number of fetuses: 1. DATING ----- Stated dating by: Outside US GA by stated dating 37 w + 6 d FRANTZ by stated dating : 06/30/2014 Assigned: Dating performed on 06/11/2014, based on the stated dating (by Outside US) Assigned GA 37 w + 6 d Assigned FRANTZ: 06/30/2014 GENERAL EVALUATION ----- Cardiac activity: present. movements: present. Presentation: cephalic. NON STRESS TEST ----- Reactive FHR: yes. Baseline rate 130 bpm. Duration 20 min. Acceleration: 15 bpm for 15 sec. Deceleration: absent. Uterine activity: absent. Variability: moderate (6-25 bpm). AMNIOTIC FLUID ASSESSMENT ----- Amount of AF: normal amount. MVP 3.3 cm. VON 9.3 cm. Q1 2.4 cm, Q2 1.8 cm, Q3 3.3 cm, Q4 1.8 cm. COMMENT ----- Nursing notes: Patient states fetus is active. Patient denies vaginal bleeding or leaking of amniotic fluid. Patient reports occasional contractions. Patient reports FBS = 70 this am. Patient denies complaint. Patient is rescheduled twice weekly. FOLLOW-UP ----- MBPP SCHEDULED TWICE WEEKLY. Procedure Note Sriram Grimes MD - 06/15/2014 Modified BPP Study ----- Pat. Name:Laura CARRERA Date:06/15/2014 7:45am Pat. NO: [id number] MD:GEMMA AGUILERA [facility]1985Age:29 ----- INDICATION ----- Gestational Diabetes - Insulin Poor Growth. CODING ----- Diagnosis 648.83: Diabetes - Gestational. 656.53: Small for Dates. Procedures 26162: NST/ monitoring. 77687: Limited 1 or more - VON, FHR, position(modifier 59 for MBPP). HISTORY ----- OB History : 2. Para: 1. T1L1. Children born living (T): 1. MATERNAL ASSESSMENT ----- Physical Exam Weight 72 kg. BMI 27.10 kg/m?. Blood pressure 106/ 67 mmHg. Heart rate 72 bpm. METHOD ----- EFM Transabdominal ultrasound examination. ----- Carlson . Number of fetuses: 1. DATING ----- Stated dating by:[facility] [place] by stated dating 37 w + 6 d FRANTZ by stated dating :06/30/2014 Assigned:Dating performed on 06/11/2014, based on the stated dating ([facility]) Assigned GA37 w + 6 d Assigned FRANTZ:06/30/2014 GENERAL EVALUATION ----- Cardiac activity: present. movements: present. Presentation: cephalic. NON STRESS TEST ----- Reactive FHR: yes. Baseline rate 130 bpm. Duration 20 min. Acceleration:15 bpm for 15 sec. Deceleration: absent. Uterine activity: absent. Variability: moderate (6-25 bpm). AMNIOTIC FLUID ASSESSMENT ----- Amount of AF: normal amount. MVP 3.3 cm. VON 9.3 cm. Q1 2.4 cm, Q2 1.8 cm, Q3 3.3 cm, Q4 1.8 cm. COMMENT ----- Nursing notes: Patient states fetus is active. Patient denies vaginalbleeding or leaking of amniotic fluid. Patient reports occasional contractions. Patient reports FBS = 70 this am. Patient deniescomplaint. Patient is rescheduled twice weekly. FOLLOW-UP ----- MBPP SCHEDULED TWICE WEEKLY. IMPRESSION IMPRESSION ----- NON-STRESS TEST IS REACTIVE AMNIOTIC FLUID VOLUME IS NORMAL. Lily Coles MD ORDERABLES documented in this encounter Visit Diagnoses Diagnosis Abnormal maternal glucose tolerance, antepartum documented in this encounter Care Teams Pre Sales Network Engineer Relationship Specialty Start Date End Date Ervin Tejada MD PCP - General 01/17/08 documented as of this encounter
--- OUTSIDE RECORDS SUMMARY | 2024-02-12 02:18 | XMS_ITS | Encounter Summary ---
Author Organization [facility] Address [address] [place] [address] Care Team Providers Care Kinesiologist Name Role Phone Ervin Tejada MD Primary Care Provider [phone] Reason for Visit * Reason Comments Routine Visit Encounter Details Date Type Department Care Team (Latest Contact Info) Description 05/25/2014 3:40 PM CDT visit [facility] PROPELLANT CHARGE ZONE ASSEMBLER - [address] [address] Merrick Mir MD [address] [place] [address] [place] [address] Supervision of other normal , third [...] Reading Time Taken Comments Blood Pressure 112/70 05/25/2014 3:36 PM CDT Pulse - - Temperature - - Respiratory Rate - - Oxygen Saturation - - Inhaled Oxygen Concentration - - Weight 72.6 kg (160 lb) 05/25/2014 3:36 PM CDT Height 162.6 cm (5' 4 ) 05/25/2014 3:36 PM CDT Body Mass Index 27.46 05/25/2014 3:36 PM CDT documented in this encounter Progress Notes * Merrick Mir MD - 05/25/2014 3:50 PM CDT On NPH 12u HS; start weekly MBPP; growth scan tomorrow documented in this encounter Plan of Treatment Not on file documented as of this encounter Visit Diagnoses Diagnosis Supervision of other normal , third trimester- Primary documented in this encounter Care Teams Kinesiologist Relationship Specialty Start Date End Date Ervin Tejada MD PCP - General 01/17/08 documented as of this encounter
--- OUTSIDE RECORDS SUMMARY | 2024-02-12 02:18 | XMS_ITS | Encounter Summary ---
Author Organization [facility] Address [address] [place] [address] Care Team Providers Care Rail Specialist Name Role Phone Ervin Tejada MD Primary Care Provider [phone] Reason for Visit * Reason Onset Date Comments General 12/16/2015 Encounter Details Date Type Department Care Team (Late st Contact Info) Description 12/16/2015 Patient Outreach [facility] ACOUSTICAL TILE PATTERNMAKER - Medical [address] [address] Merrick Mir MD [address] [place] [address] General Social History Tobacco Use Types Packs/Day Years Used Date Smoking Tobacco: Never Smokeless Tobacco: Never Alcohol Use Standard Drinks/Week Comments No 0 (1 standard drink = 0.6 oz pur e alcohol) social Sex and Gender Information Value Date Recorded Sex Assigned at Not on file Gender Identity Not on file Sexual Orientation Not on file documented as of this encounter Miscellaneous Notes * Telephone Encounter - Jhoana Vale - 12/16/2015 10:22 AM CDT RECALL LETTER SENT TO REMIND PATIENT IT IS TIME FOR A WELL WOMAN APPOINTMENT. documented in this encounter Plan of Treatment Not on file documented as of this encounter Visit Diagnoses Not on filedocumented in this encounter Care Teams Rail Specialist Relationship Specialty Start Date End Date Ervin Tejada MD PCP - General 01/17/08 documented as of this encounter
--- OUTSIDE RECORDS SUMMARY | 2024-02-12 02:18 | XMS_ITS | Encounter Summary ---
Author Organization Address [address] [place] [address] Care Team Providers Care Communications Clerk Name Role Phone Ervin Tejada MD Primary Care Provider [phone] Reason for Visit * Reason Onset Date Comments Abnormal Lab Results 09/01/2014 Encounter Details Date Type Department Care Team (Late st Contact Info) Description 09/01/2014 Telephone [facility] BARREL TESTER - Medical [address] [address] Merrick Mir MD [address] [place] [address] Abnormal Lab Results Social History Tobacco Use Types Packs/Day Years [...] encounter Miscellaneous Notes * Telephone Encounter - Brionna Macias RN - 09/01/2014 2:27 PM CDT Called pt & notified. KP * Telephone Encounter - Brionna Macias RN - 09/01/2014 2:27 PM CDT ----- Message from Merrick Mir MD sent at 09/01/2014 1:58 PM CDT ----- Her glucose testing remains high, should follow up with a primary care doctor documented in this encounter Plan of Treatment Not on file documented as of this encounter Visit Diagnoses Not on filedocumented in this encounter Care Teams Communications Clerk Relationship Specialty Start Date End Date Ervin Tejada MD PCP - General 01/17/08 documented as of this encounter
--- OUTSIDE RECORDS SUMMARY | 2024-02-12 02:18 | XMS_ITS | Encounter Summary ---
Author Organization [facility] Address [address] [place] [address] Care Team Providers Care Boilermaker Loftsman Name Role Phone Ervin Tejada MD Primary Care Provider [phone] Reason for Referral * Outpatient Services (Routine) - Closed Specialty Diagnoses / Procedures Referred By Contac t Referred To Contact Radiology Diagnoses Abnormal maternal glucose tolerance, antepartum Procedures US OB 14+ WKS SINGLE Sriram Koenig MD NO ADDRESS ON FILE [facility] [address] [place] [address] Referral ID Status Reason Start Date Expiration Date Visits Re quested Visits Authorized [id number] Closed 04/21/2014 05/22/2015 1 1 Reason for Visit * Outpatient Services (Routine) - Closed Specialty Diagnoses / Procedures Referred By Contac t Referred To Contact Radiology Diagnoses Abnormal maternal glucose tolerance, antepartum Procedures US OB 14+ WKS SINGLE Sriram Koenig MD NO ADDRESS ON FILE [facility] [address] [place] [address] Referral ID Status Reason Start Date Expiration Date Visits Re quested Visits Authorized [id number] Closed 04/21/2014 05/22/2015 1 1 Encounter Details Date Type Department Care Team (Latest Contact Info) Description 04/28/2014 1:48 PM CDT - 04/28/2014 11:59 PM CDT Hospital Encounter [facility] [employer] [address] [address] Sriram Grimes MD NO ADDRESS [...] Priority Date/Time Associated Diagnosis Comments US OB 14+ WKS SINGLE GEST Routine 04/28/2014 2:41 PM CDT Abnormal maternal glucose tolerance, antepartum documented in this encounter Results * US OB 14+ WKS SINGLE GEST (04/28/2014 2:41 PM CDT) Anatomical Region Laterality Modality Pelvis Ultrasound 04/28/2014 2:05 PM CDT Impressions 04/28/2014 2:39 PM CDT IMPRESSION ----- - AGA growth with normal fluid - No obvious abnormalities were seen on today's scan. Narrative 04/28/2014 2:39 PM CDT Basic Study ----- Pat. Name: DEBI CARRERA Study Date: 04/28/2014 2:05pm Pat. NO: [id number] Referring ??MD: GEMMA AGUILERA MD Site: [facility] Router Tender: Greer Kimble [facility] : 1985 Age: 29 ----- INDICATION ----- Gestational diabetes. Hx gestational hypertension. CODING ----- Diagnosis ? 648.83: Diabetes - Gestational. Procedures ?19921: OB >14 wks (1st Basic). HISTORY ----- OB History ?: 2. Para: 1. ?T1L1. ?Children born living (T): 1. MATERNAL ASSESSMENT ----- Physical Exam ? Weight 73 kg. BMI 27.62 kg/m?. METHOD ----- Transabdominal ultrasound examination. ----- Carlson . Number of fetuses: 1. DATING ----- GA by stated dating 31 w + 0 d FRANTZ by stated dating : 06/30/2014 Ultrasound examination on: 04/28/2014 GA by U/S based upon: AC, BPD, Femur, HC GA by U/S 31 w + 1 d FRANTZ by U/S: 06/29/2014 Assigned: Dating performed on 04/28/2014, based on the stated dating Assigned GA 31 w + 0 d Assigned FRANTZ: 06/30/2014 BIOMETRY ----- Main Biometry: BPD ?76.5 ? mm ?29% ? 30w 4d ? Hadlock HC ? 291.5 ?mm ?44% ? 32w 0d ? Hadlock AC ? 262.9 ?mm ?29% ? 30w 2d ? Hadlock Femur ?60.4 ? mm ?47% ? 31w 2d ? Hadlock Cerebellum tr ?36.2 ? mm ?35% ? 31w 3d ? Gayle CM ? 7.0 ?mm ?47% ?Nicolaides Humerus ?53.4 ? mm ?57% ? 31w 0d ? Tyrone Weight Calculation: EFW ?1,666 ?g ? 48% ?Blayne EFW (lb,oz) ?3 lb ? oz ? 11 Calculated by ?Hadlock (DNA-IR-BW-FL) Proportionality Ratios: HC / AC ?1.11 ? 73% ?Nicolaides FL / BPD ? 0.79 ? FL / AC ?0.23 ? Extremities / Bony Struc Biometry: Tibia ?55.4 ? mm ?92% ? 32w 4d ? Tyrone Amniotic Fluid / FHR: AF MVP ? 5.6 ?cm ? VON ?16.1 ? cm ?61% ?Beverly FHR ?130 ?bpm ? GENERAL EVALUATION ----- Cardiac activity: present. FHR 130 bpm. Presentation: cephalic. Placenta: Placental site: anterior. Umbilical cord: Cord vessels: 3 vessel cord. Amniotic fluid: MVP 5.6 cm. VON 16.1 cm. Q1 3.8 cm, Q2 3.0 cm, Q3 3.6 cm, Q4 5.6 cm. ANATOMY ----- The following structures were visualized with normal appearance: Head ?Head size. Head shape. Brain ? Lateral cerebral ventricles. Cisterna magna. Posterior fossa. Cerebellum. Face ?Profile. Nose. Lips. Spine ? Cervical spine. Thoracic spine. Lumbar spine. Sacral spine. Thorax ?Diaphragm. Heart ? Situs. Four chamber view. Left ventricular outflow tract. Right ventricular outflow tract. Bicaval view. ?Aortic arch view. Ductal arch view. Cardiac rhythm. Abdominal wall ?Umbilical cord insertion site. Stomach GI tract ?Bowel. Kidneys ? Right kidney. Left kidney. Bladder Upper extrem. ? Right upper extremity. Right upper arm. Right forearm. Right hand. Left upper extremity. Left upper arm. ?Left forearm. Left hand. Lower extrem. ? Right lower extremity. Right upper leg. Right lower leg. Right foot. Left lower extremity. Left upper ?leg. Left lower leg. Left foot. The following structures could not be adequately visualized: Brain ? Choroid plexus. Cavum septi pellucidi. Face ?Palate. Neck ?Nuchal fold. FOLLOW-UP ----- Scheduled for a growth scan in 4 weeks. Procedure Note Ervin Gregg MD - 04/28/2014 Basic Study ----- Pat. Name:Laura CARRERA Date:04/28/2014 2:05pm Pat. NO: [id number] MD:GEMMA AGUILERA MD [facility]Greer Kimble RDMS :1985Age:29 ----- INDICATION ----- Gestational diabetes. Hx gestational hypertension. CODING ----- Diagnosis 648.83: Diabetes - Gestational. Procedures 47973: OB >14 wks (1st Basic). HISTORY ----- OB History : 2. Para: 1. T1L1. Children born living (T): 1. MATERNAL ASSESSMENT ----- Physical Exam Weight 73 kg. BMI 27.62 kg/m?. METHOD ----- Transabdominal ultrasound examination. ----- Carlson . Number of fetuses: 1. DATING ----- GA by stated dating 31 w + 0 d FRANTZ by stated dating :06/30/2014 Ultrasound examination on:04/28/2014 GA by U/S based upon:AC, BPD, Femur, HC GA by U/S31 w + 1 d FRANTZ by U/S:06/29/2014 Assigned:Dating performed on 04/28/2014, based on the stated dating Assigned GA31 w + 0 d Assigned FRANTZ:06/30/2014 BIOMETRY ----- Main Biometry: BPD 76.5 mm 29% 30w 4dHadlock HC 291.5 mm 44% 32w 0dHadlock AC 262.9 mm 29% 30w 2dHadlock Femur 60.4 mm 47% 31w 2dHadlock Cerebellum tr 36.2 mm 35% 31w 3dGoldstein CM 7.0 mm 47%Nicolaides Humerus 53.4 mm 57% 31w 0dJeanty Weight Calculation: EFW 1,666 g 48%Blayne EFW (lb,oz) 3 lb oz 11 Calculated by Ankush (USU-YX-KS-FL) Proportionality Ratios: HC / AC 1.11 73%Nicolaides FL / BPD 0.79 FL / AC 0.23 Extremities / Bony Struc Biometry: Tibia 55.4 mm 92% 32w 4dJeanty Amniotic Fluid / FHR: AF MVP 5.6 cm VON 16.1 cm 61%Beverly FHR 130 bpm GENERAL EVALUATION ----- Cardiac activity: present. FHR 130 bpm. Presentation: cephalic. Placenta: Placental site: anterior. Umbilical cord: Cord vessels: 3 vessel cord. Amniotic fluid: MVP 5.6 cm. VON 16.1 cm. Q1 3.8 cm, Q2 3.0 cm, Q3 3.6 cm,Q4 5.6 cm. ANATOMY ----- The following structures were visualized with normal appearance: Head Head size. Head shape. Brain Lateral cerebral ventricles. Cisterna magna.Posterior fossa. Cerebellum. Face Profile. Nose. Lips. Spine Cervical spine. Thoracic spine. Lumbar spine.Sacral spine. Thorax Diaphragm. Heart Situs. Four chamber view. Left ventricular outflowtract. Right ventricular outflow tract. Bicaval view. Aortic arch view. Ductal arch view. Cardiacrhythm. Abdominal wall Umbilical cord insertion site. Stomach GI tract Bowel. Kidneys Right kidney. Left kidney. Bladder Upper extrem. Right upper extremity. Right upper arm. Rightforearm. Right hand. Left upper extremity. Left upper arm. Left forearm. Left hand. Lower extrem. Right lower extremity. Right upper leg. Rightlower leg. Right foot. Left lower extremity. Left upper leg. Left lower leg. Left foot. The following structures could not be adequately visualized: Brain Choroid plexus. Cavum septi pellucidi. Face Palate. Neck Nuchal fold. FOLLOW-UP ----- Scheduled for a growth scan in 4 weeks. IMPRESSION IMPRESSION ----- - AGA growth with normal fluid - No obvious abnormalities were seen on today's scan. Sriram Charito Grimes MD ORDERABLES documented in this encounter Visit Diagnoses Diagnosis Abnormal maternal glucose tolerance, antepartum documented in this encounter Care Teams Boilermaker Loftsman Relationship Specialty Start Date End Date Ervin Tejada MD PCP - General 01/17/08 documented as of this encounter
--- OUTSIDE RECORDS SUMMARY | 2024-02-12 02:18 | XMS_ITS | Encounter Summary ---
Author Organization [facility] Address [address] [place] [address] Phone Care Team Providers Care Jeeper Operator Name Role Phone Lay Hurst Primary Care Pr ovider Reason for Referral * Diagnostic Imaging (Routine) - Closed Specialty Diagnoses / Procedures Referred By Donta mcintosh Referred To Contact Diagnoses Right elbow pain Procedures XR Elbow Right 3+ [place] [address] [place] [address] Phone: tel: fax: [facility] Referral ID Status Reason Start Date Expiration Date Visits Re quested Visits Authorized [id number] Closed 03/23/2022 04/22/2023 1 1 COATER Reason for Visit * Reason Comments Pain Encounter Details Date Type Department Care Team (Latest Contact Info) Description 03/28/2022 10:30 AM FRIT COATER Office Visit [facility] Orthopaedic Surgery [address] 2[address] [place] [address] [place] [address] [place] [address] Right lateral epicondylitis (Primary Dx); Right elbow pain Social History Tobacco Use Types Packs/Day Years Used Date Smoking Tobacco: Never Smokeless Tobacco: Never Tobacco Cessation:Counseling Given: Not Answered Comments Unknown Sex and Gender Information Value Date Recorded Sex Assigned at Not on file Legal Sex Female 2:29 AM FRIT COATER Gender Identity Not on file Sexual Orientation Not on file documented as of this encounter Last Filed Vital Signs Vital Sign Reading Time Taken Comments Blood Pressure - - Pulse - - Temperature - - Respiratory Rate - - Oxygen Saturation - - Inhaled Oxygen Concentration - - Weight 65.8 kg (145 lb) 03/28/2022 10:59 AM FRIT COATER Height 162.6 cm (5' 4 ) 03/28/2022 10:59 AM FRIT COATER Body Mass Index 24.89 03/28/2022 10:59 AM FRIT COATER documented in this encounter Patient Instructions * Patient Instructions* Senthil Wade PA - 03/28/2022 10:30 AM FRIT COATER Images from the original note were not included. Debi Carrera 1985 1. Right lateral epicondylitis 2. Right elbow pain RECOMMENDATIONS: Begin ibuprofen 600 mg twice daily with food for the next 3 weeks to control pain and inflammation. Consider icing 15-20 minutes at the end of the day and after activities. Use a tennis elbow band with daily activities until symptoms have resolved. I have provided you with home exercises for stretching and strengthening. Consider formal therapy if symptoms are not improving. Follow up in 6 weeks. If symptoms persist we could consider an injection. Lateral Epicondylitis (Tennis Elbow) Description Lateral epicondylitis (tennis elbow) is the most common painful condition of the elbow. Inflammation and pain occur on the outer side of the elbow where muscles and tendons attach to the bone. The structures involved are the muscles or tendons of the forearm that bring your wrist back (extend the wrist). This occurs not only in tennis players but also in anyone who performs repeated resisted motions of the wrist. Without proper intervention, this may develop into a chronic, recurrent problem. ??? Common Signs and Symptoms Pain and tenderness on the outer side of the elbow Pain or weakness with gripping activities Pain with twisting motions of the wrist (playing tennis, using a screwdriver, opening a door or a jar) Pain with lifting objects, including a coffee cup ??? Causes Chronic repetitive stress and strain to the muscles and tendons that attach the forearm muscles to the elbow Sudden change in activity level or intensity Incorrect coal screener ??? Risk Increases With Sports or occupations that require repetitive and strenuous forearm and wrist movements (tennis, carpentry) Sports that require strenuous or repetitive forearm movement (tennis, ???lead arm?? in golf) Poor physical conditioning (strength and flexibility) Inadequate warm-up before practice or play Resumption of activity before healing and rehabilitation and conditioning are complete ??? Preventive Measures Appropriately warm up and stretch before practice or competition. Maintain appropriate conditioning: Wrist and forearm flexibility Muscle strength and endurance Cardiovascular fitness Ensure proper equipment fit. Maintain proper technique and have a job coach/job developer correct improper technique. Wear a tennis elbow (counterforce) brace. ??? Expected Outcome Acute cases, in which symptoms are present less than 4 weeks, are usually resolvable in 2 to 6 weeks. Chronic (repetitive) cases, in which symptoms have been present for more than 8 weeks, may require 3 to 6 months to resolve and often require referral to a physical therapist or call center trainer. ??? Possible Complications Frequent recurrence of symptoms, resulting in a chronic problem; appropriately addressing the problem the first time decreases frequency of recurrence Chronic inflammation, scarring tendon degeneration, and partial tendon tear, requiring surgery Delayed healing or resolution of symptoms ??? General Treatment Considerations Initial treatment consists of medications and ice to relieve pain, stretching and strengthening exercises, and modification of the activity that initially caused the problem. These can all be carriedout at home for acute cases. Chronic cases often require referral to a physical therapist or call center trainer for treatment. A counterforce (tennis elbow) brace may be recommended to reduce the forces to the damaged tendon. A splint to immobilize the wrist may be useful early. If symptoms persist, an injection of cortisone and anesthetics or surgical intervention may be required. ??? Medication Nonsteroidal anti-inflammatory medications, such as aspirin and ibuprofen (do not take within 7 days before surgery), or other minor pain relievers, such as acetaminophen, are often recommended. Takethese as directed by your physician. Contact your physician immediately if any bleeding, stomach upset, or signs of an allergic reaction occur. Cortisone injections reduce inflammation. However, this is done only in extreme cases; there is a limit to the number of times cortisone may be given due to the fact that it weakens muscle and tendontissue. Cortisone may also cause skin and subcutaneous fat atrophy (shrinkage and thinning) and skin depigmentation (switchboard operator receptionist skin). Anesthetics temporarily relieve pain. ??? Heat and Cold Cold is used to relieve pain and reduce inflammation for acute and chronic cases. Cold should be applied for 10 to 15 minutes every 2 to 3 hours for inflammation and pain and immediately after any activity that aggravates your symptoms. Use ice packs or an ice massage. Heat may be used before performing stretching and strengthening activities prescribed by your physician, physical therapist, or call center trainer. Use a heat pack or a warm soak. ??? Notify Our Office If Symptoms get worse or do not improve in 2 weeks despite treatment HOME EXERCISE PROGRAM ? RANGE OF MOTION AND STRETCHING EXERCISES Epicondylitis, Lateral (Tennis Elbow) These are some of the initial exercises you may start your rehabilitation program with until you see your physician, physical therapist, or call center trainer again or until your symptoms are resolved.Please remember: Flexible tissue is more tolerant of the stresses placed on it during activities. Each stretch should be held for 20 to 30 seconds. A gentle stretching sensation should be felt. RANGE OF MOTION Wrist Flexion Hold your affected wrist with the fingers pointing down toward the floor. Pull down on the back of your hand until you feel a stretch. Hold this position for seconds. Repeat exercise 10 times, 1-2 times per day. This exercise should be done with the elbow bent to 90 degrees / straight. (Physician, physical therapist, or call center trainer should kletsel dehe wintun one of these.) RANGE OF MOTION Wrist Extension Place the palm of your affected hand flat on the top of a table. Your fingers should be pointing backward. Press down, bending your wrist and straightening your elbow until you feel a stretch. Hold this position for 10 seconds. Repeat exercise 10 times, 1-2 times per day. RANGE OF MOTION Wrist Extension Hold your affected wrist with the fingers pointing away from the floor. Pull up on the palm of your hand until you feel a stretch. Hold this position for 10 seconds. Repeat exercise 10 times, 1-2 times per day. This exercise should be done with the elbow bent to 90 degrees / straight. (Physician, physical therapist, or call center trainer should kletsel dehe wintun one of these.) RANGE OF MOTION Wrist Flexion Place the back of your affected hand flat on the top of a table. Your shoulder should be turned in and your fingers facing away from your body. Press down, bending your wrist and straightening your elbow until your feel a stretch. Hold this position for 10 seconds. Repeat exercise 10 times, 1-2 times per day. ? STRENGTHENING EXERCISES Epicondylitis,Lateral (Tennis Elbow) These are some of the initial exercises you may start your rehabilitation program with until you see your physician, physical therapist, or call center trainer again or until your symptoms are resolved.Please remember: Strong muscles with good endurance tolerate stress better. Do the exercises as initially prescribed by your physician, physical therapist, or call center trainer. Progress slowly with each exercise, gradually increasing the number of repetitions and weight usedunder their guidance. STRENGTH Wrist Flexors Sit or stand with your forearm supported on a table/counter, palm up to ceiling. Using a 1 or 2 pound weight in your hand, bend your wrist slowly upward toward you. Hold this position for 5 seconds and then slowly lower the wrist back to the starting position. 4. Repeat exercise 10 times, 1-2 times per day. STRENGTH Wrist Extensors Sit or stand with your forearm supported on a table/counter, palm towards floor. Using a 1-2 pound weight in your hand, bend your wrist slowly upward toward you. 3. Hold this position for 5 seconds and then slowly lower the wrist back to the starting position. 4. Repeat exercise 10 times, 1-2 times per day. STRENGTH Wrist, Supination Stand with a 1-2 pound weight in your hand, palm toward floor and elbow at your side, bent at 90 degrees. Rotate your hand up toward ceiling, keeping elbow at your side. Hold this position for 5 seconds and then slowly lower the wrist back to the starting position. 4. Repeat exercise 10 times, 1-2 times per day. STRENGTH Wrist, Pronation Stand with a 1-2 pound weight in your hand, palm toward ceiling and elbow at your side, bent at 90 degrees. Rotate your hand down toward floor, keeping elbow at your side. 3. Hold this position for 5 seconds and then slowly lower the wrist back to the starting position. 4. Repeat exercise 10 times, 1-2 times per day. STRENGTH Dictating Machine Typist Hold a wad of putty, soft modeling dai, a large sponge, asoft rubber ball, or a soft tennis ball in your hand. Squeeze as hard as you can. 3.Hold this position for 5 seconds. 4. Repeat exercise 10 times, 1-2 times per day. If your symptoms worsen, please reach your provider through the office at . If you need to reschedule your appointment, please call [phone]. Diana Wade PA-C [facility] Department of Orthopaedics Working in collaborative practice with Dneis Sherman M.D. COATER documented in this encounter Progress Notes * Senthil Wade PA - 03/28/2022 10:30 AM CST NEW PATIENT VISIT [facility] ORTHOPEDICS CHIEF COMPLAINT Right nondominant lateral elbow pain REFERRING PROVIDER Lay Mariee Sd* HISTORY OF PRESENT ILLNESS Debi Carrera is a 37 y.o. who presents to the orthopedic clinic with a 2 to three-month history of right nondominant lateral elbow pain. She recalls no distinct injury or trauma that would have causedthe onset of her symptoms. Initially her symptoms with a mild. She describes a dull aching pain over the an occasional burning sensation over the lateral aspect of the right elbow. More recently her symptoms have somewhat increased but are still more of a nuisance than significant pain. Her symptoms increased with activities especially grasping objects and lifting objects with her right upper extremity. Her pain is localized to lateral aspect of the elbow. She denies any numbness and tingling. She is treated with occasional heat without much benefit. PAST MEDICAL HISTORY She has no past medical history on file. PAST SURGICAL HISTORY She has no past surgical history on file. INITIAL REVIEW OF MEDICATIONS She has a current medication list which includes the following prescription(s): norethindrone. ALLERGIES She has No Known Allergies. SOCIAL HISTORY She reports that she has never smoked. She has never used smokeless tobacco. No alcohol history on file. FAMILY HISTORY Her family history includes Arthritis in her father; Cancer in an other family member; Colon cancerin an other family member; Diabetes in her mother; Heart disease in her father and mother; Hypertension in her father and mother. REVIEW OF SYSTEMS Review of Systems has been reviewed. PHYSICAL EXAMINATION CONSTITUTIONAL: Well-appearing, in no apparent distress Height: 162.6 cm (5' 4 ) Weight: 65.8 kg (145 lb) HEENT: Normocephalic. EOMI. No scleral icterus or conjunctival hemorrhage. Hearing is intact to spoken word. CARDIOVASCULAR: Skin warm and well-perfused, no peripheral edema RESPIRATORY: Breathing unlabored without accessory muscle use PSYCHIATRIC: Alert, cooperative, appropriate mood and affect SKIN: Intact. No lesions or rashes on exposed skin. MUSCULOSKELETAL: Right elbow is without swelling ecchymosis or deformity. She has tenderness directly over the lateral epicondyle. She is full range of motion of the elbow to flexion extension supination pronation. She is good strength 5/5 resisted elbow flexion extension supination pronation. Her symptoms are reproduced with resisted wrist extension resisted supination of the forearm and resisted middle finger extension with the arm extended. She is good stability to varus and valgus challengeof the elbow. NEUROLOGIC: Sensation is intact to light touch in the involved extremity. VASCULAR: Brisk capillary refill intact distally in the involved extremity. REVIEW OF IMAGING/STUDIES X-rays ordered and interpreted by myself in the office today including three views right elbow AP lateral oblique shows normal findings. There is no obvious acute osseous abnormality. IMPRESSION/DIAGNOSIS Right elbow lateral epicondylitis TREATMENT/PLAN I spoke with the patient today regarding her condition and reviewed treatment options. I recommended conservative care. I have recommended ibuprofen 600 mg twice daily with food for the next 3 weeks to control pain and inflammation. Recommended icing the elbow 15-20 minutes at the end of the day and after activities. We discussed use of a tennis elbow band with daily activities to control symptoms. I have provided her with home exercises after discussion regarding formal physical therapy. She would like to try to do exercises on her own at home. If these are not proving her symptoms we would consider formal physical therapy. She will let us know. I have asked her follow up in 6 weeks. If her symptoms persist we could consider an injection either cortisone or PRP. The patient is in agreement with above treatment plan and all questions are answered today. Diana Wade PA-C [facility] Department of Orthopaedics Working in collaboration with Denis Sherman MD Portions of this note were dictated using M*Modal Fluency Direct speech recognition software. Please excuse any telephone cleaner errors. COATER documented in this encounter Plan of Treatment Not on file documented as of this encounter Results * XR Elbow Right 3+ View (03/28/2022 11:07 AM FRIT COATER) Anatomical Region Laterality Modality Upper Extremities, Elbow Right Compute d Radiography 03/28/2022 11:2 8 AM FRIT COATER Impressions 03/28/2022 11:28 AM FRIT COATER Normal right elbow radiographs. Electronically signed by: Jorge Dias M.D. Narrative 03/28/2022 11:28 AM FRIT COATER EXAMINATION: XR ELBOW RIGHT 3 OR MORE VIEWS HISTORY: Right elbow pain FINDINGS: 3 views of the right elbow were performed without comparison. ??Alignment of the elbow is normal. ??There is no joint effusion or acute fracture. ??Joint spaces are normal. Procedure Note Jorge Dias MD PhD - 03/28/2022 EXAMINATION: XR ELBOW RIGHT 3 OR MORE VIEWS HISTORY: Right elbow pain FINDINGS: 3 views of the right elbow were performed without comparison. Alignment of the elbow is normal. There is no joint effusion or acute fracture. Joint spaces are normal. IMPRESSION: Normal right elbow radiographs. Electronically signed by: Jorge Dias M.D. Senthil MORALES IMG XR PROCEDURES Final Result documented in this encounter Visit Diagnoses Diagnosis Right lateral epicondylitis- Primary Right elbow pain Pain in joint, upper arm Right elbow pain Pain in joint, upper arm documented in this encounter Historical Medications * This list may reflect changes made after this encounter. norethindrone (MICRONOR) 0.35 mg tablet norethindrone (contraceptive) 0.35 mg tablet TAKE 1 TAB BY MOUTH DAILY. added in this encounter Care Teams Jeeper Operator Relationship Specialty Start Date End Date Lay Hurst PA PCP - General Physician Commercial Announcer 02/24/22 documented as of this encounter
--- OUTSIDE RECORDS SUMMARY | 2024-02-12 02:18 | XMS_ITS | Encounter Summary ---
Author Organization [facility] Address [address] [place] [address] Care Team Providers Care Time Study Analyst Name Role Phone Ervin Tejada MD Primary Care Provider [phone] Reason for Visit * Reason Onset Date Comments Abnormal Lab Results 04/17/2014 Encounter Details Date Type Department Care Team (Late st Contact Info) Description 04/17/2014 Telephone [facility] FLATWORK ASSEMBLER - Medical [address] [place] [address] Hazel Larsen, [facility] [address] [place] [address] Abnormal Lab Results Social History Tobacco Use [...] encounter Miscellaneous Notes * Telephone Encounter - Lin Murphy RN - 04/17/2014 3:45 PM CST Informed pt of results. Referral faxed to [facility]. VM EMENT RIDE OPERATOR * Telephone Encounter - Lin Murphy RN - 04/17/2014 3:38 PM CST ----- Message from Hazel Larsen CNM sent at 04/17/2014 3:36 PM AMUSEMENT RIDE OPERATOR ----- Please notify Dr Mir's pt she failed her 3 hour gtt. thanks EMENT RIDE OPERATOR documented in this encounter Plan of Treatment Not on file documented as of this encounter Visit Diagnoses Not on filedocumented in this encounter Care Teams Time Study Analyst Relationship Specialty Start Date End Date Ervin Tejada MD PCP - General 01/17/08 documented as of this encounter
--- OUTSIDE RECORDS SUMMARY | 2024-02-12 02:18 | XMS_ITS | Encounter Summary ---
Author Organization [facility] Healthcare Address [address] [place] [address] Care Team Providers Care Contract Law Specialist Name Role Phone Lay Hurst Primary Care Pr ovider Reason for Referral * Diagnostic Imaging (Routine) - Closed Specialty Diagnoses / Procedures Referred By Contac t Referred To Contact Diagnoses Right elbow pain Procedures XR Elbow Right 3+ [place] [address] [place] [address] Phone: tel: fax: [facility] Referral ID Status Reason Start Date Expiration Date Visits Re quested Visits Authorized [id number] Closed 03/23/2022 04/22/2023 1 1 ITURE REMOVALIST Reason for Visit * Diagnostic Imaging (Routine) - Closed Specialty Diagnoses / Procedures Referred By Contac t Referred To Contact Diagnoses Right elbow pain Procedures XR Elbow Right 3+ [place] [address] [place] [address] Phone: tel: fax: [facility] Referral ID Status Reason Start Date Expiration Date Visits Re quested Visits Authorized [id number] Closed 03/23/2022 04/22/2023 1 1 Encounter Details Date Type Department Care Team (Latest Contact Info) Description 03/28/2022 10:50 AM FURNITURE REMOVALIST - 03/28/2022 11:59 PM FURNITURE REMOVALIST Hospital Encounter [facility] [address] [place] [address] Right elbow pain Discharge Disposition: Discharge to home or self care Social History Tobacco Use Types Packs/Day Years Used Date Smoking Tobacco: Never Smokeless Tobacco: Never Comments Unknown Sex and Gender Information Value Date Recorded Sex Assigned at Not on file Legal Sex Female 2:29 AM FURNITURE REMOVALIST Gender Identity Not on file Sexual Orientation Not on file documented as of this encounter Medications at Time of Discharge norethindrone (MICRONOR) 0.35 mg tablet norethindrone (contraceptive) 0.35 mg tablet TAKE 1 TAB BY MOUTH DAILY. documented as of this encounter Discharge Disposition Disposition Code Departure Means Destination Discharge to home or self care documented in this encounter Plan of Treatment Not on file documented as of this encounter Procedures Procedure Name Priority Date/Time Associated Diagnosis Comments XR ELBOW RIGHT 3 OR MORE VIEWS Schedule Routine, Read Routine (OP Routine) 03/28/2022 11:07 AM FURNITURE REMOVALIST Right elbow pain documented in this encounter Results * XR Elbow Right 3+ View (03/28/2022 11:07 AM FURNITURE REMOVALIST) Anatomical Region Laterality Modality Upper Extremities, Elbow Right Compute d Radiography 03/28/2022 11:2 8 AM FURNITURE REMOVALIST Impressions 03/28/2022 11:28 AM FURNITURE REMOVALIST Normal right elbow radiographs. Electronically signed by: Jorge Dias M.D. Narrative 03/28/2022 11:28 AM FURNITURE REMOVALIST EXAMINATION: XR ELBOW RIGHT 3 OR MORE [...] in this encounter Visit Diagnoses Diagnosis Right elbow pain Pain in joint, upper arm documented in this encounter Care Teams Contract Law Specialist Relationship Specialty Start Date End Date Lay Hurst PA PCP - General Physician Manager Title 02/24/22 documented as of this encounter
--- OUTSIDE RECORDS SUMMARY | 2024-02-12 02:18 | XMS_ITS | Encounter Summary ---
Author Organization [facility] Address [address] [place] [address] Care Team Providers Care Gold Cutter Name Role Phone Ervin Tejada MD Primary Care Provider [phone] Reason for Visit * Reason Comments Well Woman Exam Encounter Details Date Type Department Care Team (Latest Contact Info) Description 06/26/2016 8:30 AM CDT Office Visit [facility] CIGARETTE SELLER - [address] [place] [address] Kisha Garcia NP [address] [facility] [address] [place] [phone] Well woman exam with routine gynecological [...] Reading Time Taken Comments Blood Pressure 112/70 06/26/2016 8:56 AM CDT Pulse - - Temperature - - Respiratory Rate - - Oxygen Saturation - - Inhaled Oxygen Concentration - - Weight 64 kg (141 lb) 06/26/2016 8:56 AM CDT Height 162.6 cm (5' 4 ) 06/26/2016 8:56 AM CDT Body Mass Index 24.2 06/26/2016 8:56 AM CDT documented in this encounter Progress Notes * Kisha Garcia NP - 06/26/2016 9:06 AM CDT SUBJECTIVE: 31 y.o. female for annual routine Pap and checkup. Patient's last menstrual period was 06/05/2016 (approximate).. 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 No neurological complaints. Domestic Violence: Pt feels safe in her environment Patient Active Problem List Diagnosis Date Noted ??? Elevated blood pressure reading without diagnosis of hypertension 12/18/2011 ??? Pilonidal cyst without mention of abscess 05/31/2007 No current outpatient prescriptions on file prior to visit. No current facility-administered medications on file prior to visit. No Known Allergies Past Medical History: Diagnosis Date ??? Patient denies relevant medical history Past Surgical History: Procedure Laterality Date ??? HX CYST REMOVAL 12/2007 pilonidial ??? HX WISDOM TEETH EXTRACTION 2001 Family History Problem Relation Age of Onset ??? Hypertension Father ??? Hypertension Mother ??? Healthy Sister ??? Colon Cancer Paternal Grandfather dx 49 or 50 ??? Diabetes Paternal Grandmother ??? Diabetes Maternal Grandfather ??? Heart Disease Maternal Grandfather ??? Breast Cancer Neg Hx ??? Ovarian Cancer Neg Hx Social History Substance Use Topics ??? Smoking status: Never Smoker ??? Smokeless tobacco: Never Used ??? Alcohol use No Comment: social ROS: Feeling well. No dyspnea or chest pain on exertion. No abdominal pain, change in bowel habits,black or bloody stools. No urinary tract symptoms. No oab or incontinence concerns OBJECTIVE: The patient appears well, alert, oriented x 3, in no distress. BP 112/70 Ht 5' 4 (1.626 m) Wt 64 kg (141 lb) LMP 06/05/2016 (Approximate) BMI 24.2 kg/m2 Head normocephalic, atraumatic Neck supple. No adenopathy or thyromegaly. Resp: normal effort. Abdomen soft without tenderness, guarding, mass or organomegaly. BREAST EXAM: breasts appear normal, no suspicious masses, no skin or nipple changes or axillary nodes PELVIC EXAM: VULVA: normal appearing vulva with no masses, tenderness or lesions, VAGINA: normal appearing vagina with normal color and discharge, no lesions, CERVIX: normal appearing cervix without discharge or lesions, UTERUS: uterus is normal size, shape, consistency and nontender, ADNEXA: normal adnexa in size, nontender and no masses Extremities show no edema. Skin warm and dry ASSESSMENT: well woman PLAN: pap smear counseled on breast self exam, osteoporosis and adequate intake of calcium and vitamin D return annually or prn documented in this encounter Plan of Treatment Not on file documented as of this encounter Procedures Procedure Name Priority Date/Time Associated Diagnosis Comments CERV/VAG CYTO SCREEN PAP W/HPV Routine 06/26/2016 8:58 AM CDT Well woman exam with routine gynecological exam documented in this encounter Results * CERV/VAG CYTOPATH, THIN PREP LINE HELPER AND HPV (06/26/2016 8:58 AM CDT) CLINICAL INFORMATION SEE COMMENT 06/30/2016 12:04 PM CDT [facility] Comment: Information not provided SCREENING LAST MENSTRUAL PERIOD SEE COMMENT 06/30/2016 12:04 PM CDT [facility] Comment:INFORMATION NOT PROV IDED PREV PAP: SEE COMMENT 06/30/2016 12:04 PM CDT [facility] Comment:INFORMATION NOT PROV IDED PREV BX: SEE COMMENT 06/30/2016 12:04 PM CDT [facility] Comment:INFORMATION NOT PROV IDED SOURCE Endocervix 06/30/2016 12:04 PM CDT [facility] ADEQUACY: SEE COMMENT 06/30/2016 12:04 PM CDT [facility] Comment: Satisfactory for evaluation. Endocervical/transformation zone component present. Age and/or menstrual status not provided PAP INTERP SEE COMMENT 06/30/2016 12:04 PM CDT [facility] Comment:Negative for intraep ithelial lesion or malignancy. COMMENT SEE COMMENT 06/30/2016 12:04 PM CDT [facility] Comment: This Pap test has been evaluated with computer assisted technology. BUSINESS MGR: SEE COMMENT 2016 12:04 PM CDT [facility] Comment: TMK, CT(ASCP) CT screening location: [place] [address] [place] [address] HPV E6/E7 Not Detected Not Detected 06/30/2016 12:04 PM CDT [facility] Comment: This test was performed using the APTIMA HPV Assay ([employer] ? This assay detects E6/E7 viral messenger RNA (mRNA) from 14 high-risk HPV types (16,18,31,33,35,39,45,51,52,56,58,59,66,68). Genital SWAB OF ENDOCERVIX / Unknown Collection / Unknown 06/26/2016 8:58 AM CDT 06/26/2016 1:09 PM CDT Narrative [facility] - 06/30/2016 12:04 PM CDT Performing Organization Information: ?Site ID: [id number] ?Name: [facility] ?Address: [facility] [address] [place] [id number] ?Director: Susy Lowery MD Kisha Garcia KETTLE TENDER PATHOLOGY/CYTOLOGY O RDERABLES [facility] documented in this encounter Visit Diagnoses Diagnosis Well woman exam with routine gynecological exam- Primary Routine gynecological examination documented in this encounter Care Teams Gold Cutter Relationship Specialty Start Date End Date Ervin Tejada MD PCP - General 01/17/08 documented as of this encounter
--- OUTSIDE RECORDS SUMMARY | 2024-02-12 02:18 | XMS_ITS | Encounter Summary ---
Author Organization [facility] Address [address] [place] [address] Care Team Providers Care Enterprise Sales Executive Name Role Phone Ervin Tejada MD Primary Care Provider [phone] Reason for Visit * Reason Onset Date Comments Medication Refill 02/29/2016 Encounter Details Date Type Department Care Team (Late st Contact Info) Description 02/29/2016 Refill [facility] DIRECTOR REGULATORY COMPLIANCE - Medical [address] [address] Merrick Mir MD [address] [place] [phone] Surveillance of previously prescribed contraceptive pill Social History Tobacco Use Types Packs/Day Years [...] encounter Miscellaneous Notes * Telephone Encounter - Alecia Andrade RN - 02/29/2016 2:12 PM CST Rx request for Orsythia. Last WWE 03/02/2015. No future appt schedule. Refill given with appt reminder. LW COMMISSIONER documented in this encounter Plan of Treatment Not on file documented as of this encounter Visit Diagnoses Diagnosis Surveillance of previously prescribed contraceptive pill documented in this encounter Care Teams Enterprise Sales Executive Relationship Specialty Start Date End Date Ervin Tejada MD PCP - General 01/17/08 documented as of this encounter
--- OUTSIDE RECORDS SUMMARY | 2024-02-12 02:18 | XMS_ITS | Encounter Summary ---
Author Organization [facility] Address [address] [place] [address] Care Team Providers Care Gold Leaf Laborer Name Role Phone Ervin Tejada MD Primary Care Provider [phone] Reason for Visit * Reason Comments Post- Care 6 wks vag del / male Encounter Details Date Type Department Care Team (Late st Contact Info) Description 08/05/2014 9:20 AM CDT Office Visit [facility] GREEN JOBS TRAINER - Medical [address] [address] Merrick Mir MD [address] [place] [phone] exam (Primary Dx) Social History Tobacco Use [...] Sign Reading Time Taken Comments Blood Pressure 118/70 08/05/2014 9:32 AM CDT Pulse - - Temperature - - Respiratory Rate - - Oxygen Saturation - - Inhaled Oxygen Concentration - - Weight 62.6 kg (138 lb) 08/05/2014 9:32 AM CDT Height 162.6 cm (5' 4 ) 08/05/2014 9:32 AM CDT Body Mass Index 23.69 08/05/2014 9:32 AM CDT documented in this encounter Progress Notes * Merrick Mir MD - 08/05/2014 9:46 AM CDT SUBJECTIVE: Debi Carrera is a 29 y.o. year old, who presents for her 6 week exam. She had a normal spontaneous vaginal delivery. complications: none. Since giving , she has done well. Has not had a menstrual cycle. No irregular bleeding. without problems. No evidence of post depression. OBJECTIVE: Abdomen: Soft, nontender, no masses. Pelvic: External normal without lesions or discharge, vagina normal, cervix without lesions or discharge, uterus well involuted and nontender, no adnexal masses or tenderness ASSESSMENT: Normal 6-week exam PLAN: Follow-up in 3-4 months for annual. Resume normal activities and exercise. Plans to use oral progesterone-only contraceptive for contraception. documented in this encounter Plan of Treatment Scheduled Orders Name Type Priority Associated Diagnoses Orde r Schedule GLUCOSE TOLERANCE NON GESTATIONAL 2 HR Lab Routine exam 1 Occurrences starting 08/05/2014 until 08/06/2015 documented as of this encounter Visit Diagnoses Diagnosis exam- Primary Routine follow-up documented in this encounter Care Teams Gold Leaf Laborer Relationship Specialty Start Date End Date Ervin Tejada MD PCP - General 01/17/08 documented as of this encounter
--- OUTSIDE RECORDS SUMMARY | 2024-02-12 02:18 | XMS_ITS | Encounter Summary ---
Author Organization [facility] Address [address] [place] [address] Care Team Providers Care Shoeshiner Name Role Phone Ervin Tejada MD Primary Care Provider [phone] Reason for Visit * Outpatient Services (Routine) - Closed Specialty Diagnoses / Procedures Referred By Donta t Referred To Contact Laboratory Diagnoses - Procedures LAB Merrick Mir MD [address] [place] [address] [address] [place] [address] [facility] [place] [address] [facility] [address] [address] [place] [address] Referral ID Status Reason Start Date Expiration Date Visits Re quested Visits Authorized [id number] Closed 04/17/2014 05/18/2015 1 1 Encounter Details Date Type Department Care Team (Latest Contact Info) Description 04/17/2014 7:53 AM TRAILER SECTIONS ASSEMBLER - 04/17/2014 11:59 PM [facility] Hospital Encounter [facility] Laboratory Services [place] [address] [place] [address] Merrick Mir MD [address] [place] [address] [place] [phone] Discharge Disposition: Home or Self Care [...] Name Priority Date/Time Associated Diagnosis Comments GLUCOSE TOLERANCE, FASTING Routine 04/17/2014 7:56 AM TRAILER SECTIONS ASSEMBLER GLUCOSE TOLERANCE, 3 HR Routine 04/17/2014 7:56 AM TRAILER SECTIONS ASSEMBLER GLUCOSE TOLERANCE, 2 HR Routine 04/17/2014 7:56 AM TRAILER SECTIONS ASSEMBLER GLUCOSE TOLERANCE, 1 HR Routine 04/17/2014 7:56 AM TRAILER SECTIONS ASSEMBLER GLUCOSE TOLERANCE GESTATIONAL 3 HR Routine 04/17/2014 7:56 AM TRAILER SECTIONS ASSEMBLER Glucose tolerance test abnormal documented in this encounter Results * (ABNORMAL) GLUCOSE TOLERANCE, 3 HR (04/17/2014 7:56 AM TRAILER SECTIONS ASSEMBLER) GLUCOSE, 3HR 155(H) <=139 mg/dL [facility] Blood 04/17/2014 7:56 AM TRAILER SECTIONS ASSEMBLER 04/17/2014 1:44 PM TRAILER SECTIONS ASSEMBLER Hazel Larsen CNM CHEMISTRY ORDERABLES Performing Organization Address [facility]/ZIP Co de Phone Number [facility] CLIA# [id number] [address] [place] [address] * (ABNORMAL) GLUCOSE TOLERANCE, 2 HR (04/17/2014 7:56 AM TRAILER SECTIONS ASSEMBLER) GLUCOSE, 2HR 159(H) <=154 mg/dL [facility] Blood 04/17/2014 7:56 AM TRAILER SECTIONS ASSEMBLER 04/17/2014 1:39 PM TRAILER SECTIONS ASSEMBLER Comment:Blood Hazel Larsen CNM CHEMISTRY ORDERABLES [facility] CLIA# [id number] [address] [place] [address] * GLUCOSE TOLERANCE, 1 HR (04/17/2014 7:56 AM TRAILER SECTIONS ASSEMBLER) GLUCOSE, 1HR 167 <=179 mg/dL [facility] Blood 04/17/2014 7:56 AM TRAILER SECTIONS ASSEMBLER 04/17/2014 10:25 AM TRAILER SECTIONS ASSEMBLER Hazel GARRIDO CHEMISTRY ORDERABLES Performing Organization Address [facility] Co de Phone Number [facility] CLIA# [id number] [address] [place] [address] * GLUCOSE TOLERANCE, FASTING (04/17/2014 7:56 AM TRAILER SECTIONS ASSEMBLER) GLUCOSE FASTING 77 <=94 mg/dL [facility] GLUCOSE TOLERANCE INTERP Based on 100 g. dose, GDM criteria: ??2 or more specimens must meet or exceed the following: Fasting: ?95 mg/dL 1 hour: ?180 mg/dL 2 hour: ?155 mg/dL 3 hour: ?140 mg/dL [facility] Blood 04/17/2014 7:56 AM TRAILER SECTIONS ASSEMBLER 04/17/2014 10:26 AM TRAILER SECTIONS ASSEMBLER Hazel GARRIDO CHEMISTRY ORDERABLES Performing Organization Address City/[facility]/ZIP Co de Phone Number [facility] CLIA# [id number] [address] [place] [address] * GLUCOSE TOLERANCE GESTATIONAL 3 HR (04/17/2014 7:56 AM TRAILER SECTIONS ASSEMBLER) COMMENT See Additional Orderables [facility] Blood 04/17/2014 7:56 AM TRAILER SECTIONS ASSEMBLER 04/17/2014 1:44 PM TRAILER SECTIONS ASSEMBLER Hazel Larsen CNM CHEMISTRY ORDERABLES [facility]# [id number] [address] [place] [address] documented in this encounter Visit Diagnoses Diagnosis Glucose tolerance test abnormal Impaired glucose tolerance test documented in this encounter Care Teams Shoeshiner Relationship Specialty Start Date End Date Ervin Tejada MD PCP - General 01/17/08 documented as of this encounter
--- OUTSIDE RECORDS SUMMARY | 2024-02-12 02:18 | XMS_ITS | Encounter Summary ---
Author Organization [facility] Address [address] [place] [address] Care Team Providers Care Nurse Practitioner Physicians Assistant Name Role Phone Ervin Tejada MD Primary Care Provider [phone] Reason for Visit * Reason Comments Well Woman Exam Encounter Details Date Type Department Care Team (Latest Contact Info) Description 03/02/2015 3:20 PM DRIVERS' CASH CLERK Office Visit [facility] CAP SEWER - [address] [place] [address] Merrick Mir MD [address] [place] [address] [place] [phone] Well woman exam with routine gynecological exam (Primary Dx); Surveillance of previously prescribed contraceptive pill Social [...] Reading Time Taken Comments Blood Pressure 110/70 03/02/2015 3:19 PM DRIVERS' CASH CLERK Pulse - - Temperature - - Respiratory Rate - - Oxygen Saturation - - Inhaled Oxygen Concentration - - Weight 64 kg (141 lb) 03/02/2015 3:19 PM DRIVERS' CASH CLERK Height - - Body Mass Index 24.2 08/05/2014 9:32 AM CDT documented in this encounter Progress Notes * Merrick Mir MD - 03/02/2015 3:25 PM CST SUBJECTIVE Debi Carrera is a 29 y.o. female presenting for annual Well Woman exam. Patient's last menstrual period was 02/23/2015. Current outpatient prescriptions: levonorgestrel-ethinyl estrad (AVIANE) 0.1-20 mg-mcg tablet, Take1 Tablet by mouth daily., Disp: 1 Package, Rfl: 12; PNV#26/IRON POLY/FA/DHA (PNV #26-IRON PS-FOLIC ACID-DHA ORAL), Take 1 Tab by mouth., Disp: , Rfl: Contraception:OCP Last pap smear: Results for orders placed or performed in visit on 11/12/13 CERV/VAG CYTOPATH, THIN PREP IMAGR RFLX HPV Result Value Ref Range CLINICAL INFORMATION LAST MENSTRUAL PERIOD PREV PAP: PREV BX: SOURCE ADEQUACY: INTERPRETATION COMMENT AVIONICS REPAIR TECHNICIAN: REVIEW AVIONICS REPAIR TECHNICIAN: Results for orders placed or performed in visit on 05/15/11 CERV/VAG CYTOPATH, SUREPATH W/RFLX HPV Result Value Ref Range CLINICAL INFORMATION LAST MENSTRUAL PERIOD PREV PAP: PREV BX: SOURCE ADEQUACY: INTERPRETATION COMMENT AVIONICS REPAIR TECHNICIAN: Smoker: History Smoking status ??? Never Smoker Smokeless tobacco ??? Never Used Trail Maintenance Worker complaints: none Past Medical History Diagnosis Date ??? Patient denies relevant medical history Past Surgical History Procedure Laterality Date ??? Hx cyst removal 12/2007 pilonidial ??? Hx wisdom teeth extraction 2001 Family History Problem Relation Age of Onset ??? Hypertension Father ??? Hypertension Mother ??? Healthy Sister ??? Colon Cancer Paternal Grandfather dx 49 or 50 ??? Diabetes Paternal Grandmother ??? Diabetes Maternal Grandfather ??? Heart Disease Maternal Grandfather ??? Breast Cancer Neg Hx ??? Ovarian Cancer Neg Hx ROS Feeling well. No dyspnea or chest pain on exertion. No abdominal pain, change in bowel habits. No excessive fatigue or significant changes in weight. No urinary tract symptoms. MANAGER WATER ROS: normal menses, no abnormal bleeding, pelvic pain or discharge, no breast pain or new or enlarging lumps on self exam. OBJECTIVE BP 110/70 mmHg Wt 141 lb (63.957 kg) LMP 02/23/2015 General: The patient appears well, alert, and in no distress. HEENT: normocephalic. No thyromegaly palpated. Resp: Lungs are clear to auscultation bilaterally. CV: regular rate and rhythm, no murmurs auscultated Abdomen: soft without tenderness, guarding, mass or organomegaly. Extremities: no edema, nontender. BREAST EXAM: breasts appear normal, no suspicious masses, no skin or nipple changes or axillary nodes PELVIC EXAM: normal external genitalia, vulva, vagina, cervix, uterus and adnexa Assessment: well woman no contraindication to begin use of oral contraceptives No depression or domestic violence concerns Plan: pap smear return annually or prn Orders Placed This Encounter ??? CERV/VAG CYTOPATH, THIN PREP CAMPAIGN ASSOCIATE W/RFLX HPV ??? levonorgestrel-ethinyl estrad (AVIANE) 0.1-20 mg-mcg tablet ERS' CASH CLERK documented in this encounter Plan of Treatment Not on file documented as of this encounter Procedures Procedure Name Priority Date/Time Associated Diagnosis Comments CERV/VAG CYTO SCREEN PAP RLFX HPV Routine 03/02/2015 3:21 PM DRIVERS' CASH CLERK Well woman exam with routine gynecological exam documented in this encounter Results * CERV/VAG CYTOPATH, THIN PREP IMAGR RFLX HPV (CP) (03/02/2015 3:21 PM DRIVERS' CASH CLERK) CLINICAL INFORMATION SEE COMMENT 03/05/2015 12:25 PM DRIVERS' CASH CLERK [facility] Comment:Information not prov ided LAST MENSTRUAL PERIOD [id number]/05/2015 12:25 PM DRIVERS' CASH CLERK [facility] PREV PAP: 11/12/2013 03/05/2015 12:25 PM DRIVERS' CASH CLERK [facility] PREV BX: SEE COMMENT 03/05/2015 12:25 PM DRIVERS' CASH CLERK [facility] Comment:INFORMATION NOT PROV IDED SOURCE Endocervix 03/05/2015 12:25 PM DRIVERS' CASH CLERK [facility] ADEQUACY: SEE COMMENT 03/05/2015 12:25 PM DRIVERS' CASH CLERK [facility] Comment: Satisfactory for evaluation. Endocervical/transformation zone component present. INTERPRETATION SEE COMMENT 03/05/2015 12:25 PM DRIVERS' CASH CLERK [facility] Comment:Negative for intraep ithelial lesion or malignancy. COMMENT SEE COMMENT 03/05/2015 12:25 PM DRIVERS' CASH CLERK [facility] Comment: This Pap test has been evaluated with computer assisted technology. AVIONICS REPAIR TECHNICIAN: SEE COMMENT 03/05/2015 12:25 PM DRIVERS' CASH CLERK [facility] Comment: LMT, CT(ASCP) CT screening location: [place] [address] [address] [address] Endocervical Collection / Unknown 03/02/2015 3:21 PM DRIVERS' CASH CLERK 03/02/2015 9:43 PM DRIVERS' CASH CLERK Narrative [facility] - 03/05/2015 12:25 PM DRIVERS' CASH CLERK Performing Organization Information: ?Site ID: ?Name: [facility] ?Address: [facility] [address] [place] [phone] ?Director: Susy Lowery MD Merrick Mir MD PATHOLOGY/CYTOLOGY O RDERABLES [facility] [id number] documented in this encounter Visit Diagnoses Diagnosis Well woman exam with routine gynecological exam- Primary Routine gynecological examination Surveillance of previously prescribed contraceptive pill documented in this encounter Care Teams Nurse Practitioner Physicians Assistant Relationship Specialty Start Date End Date Ervin Tejada MD PCP - General 01/17/08 documented as of this encounter
--- OUTSIDE RECORDS SUMMARY | 2024-02-12 02:18 | XMS_ITS | Encounter Summary ---
Author Organization [facility] Address [address] [place] [address] Care Team Providers Care Spinner Continuous Name Role Phone Ervin Tejada MD Primary Care Provider [phone] Reason for Referral * Outpatient Services (Routine) - Closed Specialty Diagnoses / Procedures Referred By Contac t Referred To Contact Radiology Diagnoses Abnormal maternal glucose tolerance, antepartum Procedures US OB FOLLOW UP PER FETUS Ervin Gregg MD NO ADDRESS ON FILE [facility] Fl [address] [place] [address] Referral ID Status Reason Start Date Expiration Date Visits Requested Visits Authorized [id number] Closed Performing Department To Schedule (STL) 04/28/2014 05/29/2015 1 1 Reason for Visit * Outpatient Services (Routine) - Closed Specialty Diagnoses / Procedures Referred By Donta mcintosh Referred To Contact Radiology Diagnoses Abnormal maternal glucose tolerance, antepartum Procedures US OB FOLLOW UP PER FETUS Ervin Gregg MD NO ADDRESS ON FILE [facility] Fl [address] [place] [address] Referral ID Status Reason Start Date Expiration Date Visits Requested Visits Authorized [id number] Closed Performing Department To Schedule (STL) 04/28/2014 05/29/2015 1 1 Encounter Details Date Type Department Care Team (Latest Contact Info) Description 05/26/2014 8:05 AM CDT - 05/26/2014 11:59 PM CDT Hospital [facility] [address] [place] [address] Ervin Gregg MD NO ADDRESS [...] Priority Date/Time Associated Diagnosis Comments US OB FOLLOW UP PER FETUS Routine 05/26/2014 8:43 AM CDT Abnormal maternal glucose tolerance, antepartum documented in this encounter Results * US OB FOLLOW UP PER FETUS (05/26/2014 8:43 AM CDT) Anatomical Region Laterality Modality Pelvis Ultrasound 05/26/2014 8:17 AM CDT Impressions 05/26/2014 8:41 AM CDT IMPRESSION ----- Viable intrauterine at 35 weeks. Measurements consistent with prior dating. Normal anatomy, growth, placentation, and fluid growth at the 29th percentile. abdominal circumference at the 14th percentile Normal umbilical blood flow. Narrative 05/26/2014 8:41 AM CDT Follow Up Basic ----- Pat. Name: DEBI CARRERA Study Date: 05/26/2014 8:17am Pat. NO: [id number] Referring ??MD: GEMMA AGUILERA MD Site: [facility] Hair Designer: Jess Franklin RDMS : 1985 Age: 29 ----- INDICATION ----- Gestational diabetes on insulin. CODING ----- Diagnosis ? 648.83: Diabetes - Gestational. Procedures ?25924: OB follow-up/Target per fetus. ?59720: Umbilical Artery Doppler. HISTORY ----- OB History ?: 2. Para: 1. ?T1L1. ?Children born living (T): 1. MATERNAL ASSESSMENT ----- Physical Exam ? Weight 73 kg. BMI 27.45 kg/m?. METHOD ----- Transabdominal ultrasound examination. ----- Carlson . Number of fetuses: 1. DATING ----- GA by stated dating 35 w + 0 d FRANTZ by stated dating : 06/30/2014 Ultrasound examination on: 05/26/2014 GA by U/S based upon: AC, BPD, Femur, HC GA by U/S 34 w + 2 d FRANTZ by U/S: 07/05/2014 Assigned: Dating performed on 05/26/2014, based on the stated dating Assigned GA 35 w + 0 d Assigned FRANTZ: 06/30/2014 BIOMETRY ----- Main Biometry: BPD ?84.2 ? mm ?22% ? 33w 6d ? Hadlock HC ? 313.1 ?mm ?19% ? 35w 0d ? Hadlock AC ? 293.5 ?mm ?14% ? 33w 2d ? Hadlock Femur ?68.4 ? mm ?46% ? 35w 0d ? Hadlock CM ? 6.1 ?mm ?15% ?Nicolaides Weight Calculation: EFW ?2,347 ?g ? 29% ?Blayne EFW (lb,oz) ?5 lb 3 ? oz Calculated by ?Hadlock (MAI-FH-MV-FL) Proportionality Ratios: HC / AC ?1.07 ? 71% ?Nicolaides FL / BPD ? 0.81 ? FL / AC ?0.23 ? Amniotic Fluid / FHR: AF MVP ? 5.1 ?cm ? VON ?17.5 ? cm ?70% ?Beverly FHR ?134 ?bpm ? GENERAL EVALUATION ----- Cardiac activity: FHR 134 bpm. Presentation: cephalic. Placenta: Placental site: anterior. Amniotic fluid: MVP 5.1 cm. VON 17.5 cm. Q1 3.0 cm, Q2 5.1 cm, Q3 4.7 cm, Q4 4.8 cm. ANATOMY ----- The following structures were visualized with normal appearance: Brain ? Lateral cerebral ventricles. Cisterna magna. Choroid plexus. Thalami. Cavum septi pellucidi. Face ?Profile. Spine Thorax ?Diaphragm. Heart ? Four chamber view. Left ventricular outflow tract. Right ventricular outflow tract. Stomach Kidneys ? Right kidney. Left kidney. Bladder The following structures could not be adequately visualized: Face ?Palate. Other findings: Abdominal wall: previously seen. Upper extremities: previously seen. Lower extremities: previously seen. DOPPLER ----- Umbilical Artery S / D ?2.70 ? 64% ?Tariq FOLLOW-UP ----- MBPP SCHEDULED TWICE WEEKLY. Procedure Note Sriram Grimes MD - 05/26/2014 Follow Up Basic ----- Pat. Name:Laura CARRERA Date:05/26/2014 8:17am Pat. NO: [id number] MD:GEMMA AGUILERA [facility] Franklin RDMS :1985Age:29 ----- INDICATION ----- Gestational diabetes on insulin. CODING ----- Diagnosis 648.83: Diabetes - Gestational. Procedures 96794: OB follow-up/Target per fetus. 31831: Umbilical Artery Doppler. HISTORY ----- OB History : 2. Para: 1. T1L1. Children born living (T): 1. MATERNAL ASSESSMENT ----- Physical Exam Weight 73 kg. BMI 27.45 kg/m?. METHOD ----- Transabdominal ultrasound examination. ----- Carlson . Number of fetuses: 1. DATING ----- GA by stated dating 35 w + 0 d FRANTZ by stated dating :06/30/2014 Ultrasound examination on:05/26/2014 GA by U/S based upon:AC, BPD, Femur, HC GA by U/S34 w + 2 d FRANTZ by U/S:07/05/2014 Assigned:Dating performed on 05/26/2014, based on the stated dating Assigned GA35 w + 0 d Assigned FRANTZ:06/30/2014 BIOMETRY ----- Main Biometry: BPD 84.2 mm 22% 33w 6dHadlock HC 313.1 mm 19% 35w 0dHadlock AC 293.5 mm 14% 33w 2dHadlock Femur 68.4 mm 46% 35w 0dHadlock CM 6.1 mm 15%Nicolaides Weight Calculation: EFW 2,347 g 29%Blayne EFW (lb,oz) 5 lb 3 oz Calculated by Ankush (AOV-VD-AF-FL) Proportionality Ratios: HC / AC 1.07 71%Nicolaides FL / BPD 0.81 FL / AC 0.23 Amniotic Fluid / FHR: AF MVP 5.1 cm VON 17.5 cm 70%Beverly FHR 134 bpm GENERAL EVALUATION ----- Cardiac activity: FHR 134 bpm. Presentation: cephalic. Placenta: Placental site: anterior. Amniotic fluid: MVP 5.1 cm. VON 17.5 cm. Q1 3.0 cm, Q2 5.1 cm, Q3 4.7 cm,Q4 4.8 cm. ANATOMY ----- The following structures were visualized with normal appearance: Brain Lateral cerebral ventricles. Cisterna magna.Choroid plexus. Thalami. Cavum septi pellucidi. Face Profile. Spine Thorax Diaphragm. Heart Four chamber view. Left ventricular outflow tract.Right ventricular outflow tract. Stomach Kidneys Right kidney. Left kidney. Bladder The following structures could not be adequately visualized: Face Palate. Other findings: Abdominal wall: previously seen. Upper extremities: previously seen. Lowerextremities: previously seen. DOPPLER ----- Umbilical Artery S / D 2.70 64%Tariq FOLLOW-UP ----- MBPP SCHEDULED TWICE WEEKLY. IMPRESSION IMPRESSION ----- Viable intrauterine at 35 weeks. Measurements consistent with prior dating. Normal anatomy, growth, placentation, and fluid growth at the 29th percentile. abdominal circumference at the 14thpercentile Normal umbilical blood flow. Ervin Gregg MD ORDERABLES documented in this encounter Visit Diagnoses Diagnosis Abnormal maternal glucose tolerance, antepartum documented in this encounter Care Teams Spinner Continuous Relationship Specialty Start Date End Date Ervin Tejada MD PCP - General 01/17/08 documented as of this encounter
--- OUTSIDE RECORDS SUMMARY | 2024-02-12 02:18 | XMS_ITS | Encounter Summary ---
Author Organization [facility] Address [address] [place] [address] Care Team Providers Care Disability Insurance Hearing Officer Name Role Phone Ervin Tejada MD Primary Care Provider [phone] Reason for Referral * Outpatient Services (Routine) - Closed Specialty Diagnoses / Procedures Referred By Contac t Referred To Contact Radiology Diagnoses Abnormal maternal glucose tolerance, antepartum Procedures US OB LIMITED + NST Lily Coles MD [address] [place] [address] [facility] [address] [place] [address] Referral ID Status Reason Start Date Expiration Date Visits Requested Visits Authorized [id number] Closed Performing Department To Schedule (ST) 06/08/2014 07/09/2015 1 1 Reason for Visit * Outpatient Services (Routine) - Closed Specialty Diagnoses / Procedures Referred By Contac t Referred To Contact Radiology Diagnoses Abnormal maternal glucose tolerance, antepartum Procedures US OB LIMITED + BALBIRT Lily Coles MD [address] [place] [address] [facility] [address] [place] [address] Referral ID Status Reason Start Date Expiration Date Visits Requested Visits Authorized [id number] Closed Performing Department To Schedule (STL) 06/08/2014 07/09/2015 1 1 Encounter Details Date Type Department Care Team (Latest Contact Info) Description 06/18/2014 7:45 AM CDT - 06/18/2014 11:59 PM CDT Hospital Encounter [facility] [address] [place] [address] Lily Coles MD [address] [place] [address] Discharge Disposition: Home or Self [...] Comments US OB LIMITED + NST Routine 06/18/2014 8 :58 AM CDT Abnormal maternal glucose tolerance, antepartum documented in this encounter Results * US OB LIMITED + NST (06/18/2014 8:58 AM CDT) Anatomical Region Laterality Modality Pelvis Ultrasound 06/18/2014 8:03 AM CDT Impressions 06/18/2014 9:11 AM CDT IMPRESSION ----- NON-STRESS TEST IS REACTIVE AMNIOTIC FLUID VOLUME IS NORMAL. Narrative 06/18/2014 9:11 AM CDT Modified BPP Study ----- Pat. Name: DEBI CARRERA Study Date: 06/18/2014 8:03am Pat. NO: [id number] Referring ??MD: GEMMA AGUILERA MD Site: 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 CODING ----- Diagnosis ? 648.83: Diabetes - Gestational. Procedures ?90432: NST/ monitoring. ?21587: Limited 1 or more - VON, FHR, position (modifier 59 for MBPP). HISTORY ----- OB History ?: 2. Para: 1. ?T1L1. ?Children born living (T): 1. MATERNAL ASSESSMENT ----- Physical Exam ? Weight 72 kg. BMI 27.10 kg/m?. Blood pressure 107 / 66 mmHg. Heart rate 72 bpm. METHOD ----- EFM, Transabdominal ultrasound examination. ----- Carlson . Number of fetuses: 1. DATING ----- Stated dating by: Outside US GA by stated dating 38 w + 2 d FRANTZ by stated dating : 06/30/2014 Assigned: Dating performed on 06/18/2014, based on the stated dating (by Outside US) Assigned GA 38 w + 2 d Assigned FRANTZ: 06/30/2014 GENERAL EVALUATION ----- Cardiac activity: present. Presentation: cephalic. NON STRESS TEST ----- Reactive FHR: yes. Baseline rate 130 bpm. Acceleration: 15 bpm for 15 sec. Deceleration: absent. Uterine activity: present, 1 in 39 minutes. Variability: moderate (6-25 bpm). AMNIOTIC FLUID ASSESSMENT ----- VON 8.2 cm. Q1 2.7 cm, Q2 3.6 cm, Q4 1.9 cm. COMMENT ----- Reports good movement and occasional contractions. Denies leaking or bleeding. FBS 91 today. Rescheduled for Sunday. FOLLOW-UP ----- MBPP SCHEDULED TWICE WEEKLY. Procedure Note Sriram Grimes MD - 06/18/2014 Modified BPP Study ----- Pat. Name:Laura CARRERA Date:06/18/2014 8:03am Pat. NO: [id number] :GEMMA AGUILERA MD [facility]1985Age:29 ----- INDICATION ----- Gestational Diabetes (Insulin). CODING ----- Diagnosis 648.83: Diabetes - Gestational. Procedures 47210: NST/ monitoring. 89943: Limited 1 or more - VON, FHR, position(modifier 59 for MBPP). HISTORY ----- OB History : 2. Para: 1. T1L1. Children born living (T): 1. MATERNAL ASSESSMENT ----- Physical Exam Weight 72 kg. BMI 27.10 kg/m?. Blood pressure 107/ 66 mmHg. Heart rate 72 bpm. METHOD ----- EFM, Transabdominal ultrasound examination. ----- Carlson . Number of fetuses: 1. DATING ----- Stated dating by:[facility] GA by stated dating 38 w + 2 d FRANTZ by stated dating :06/30/2014 Assigned:Dating performed on 06/18/2014, [facility] Assigned GA38 w + 2 d Assigned FRANTZ:06/30/2014 GENERAL EVALUATION ----- Cardiac activity: present. Presentation: cephalic. NON STRESS TEST ----- Reactive FHR: yes. Baseline rate 130 bpm. Acceleration: 15 bpm for 15 sec.Deceleration: absent. Uterine activity: present, 1 in 39 minutes. Variability: moderate (6-25 bpm). AMNIOTIC FLUID ASSESSMENT ----- VON 8.2 cm. Q1 2.7 cm, Q2 3.6 cm, Q4 1.9 cm. COMMENT ----- Reports good movement and occasional contractions. Denies leaking orbleeding. FBS 91 today. Rescheduled for Sunday. FOLLOW-UP ----- MBPP SCHEDULED TWICE WEEKLY. IMPRESSION IMPRESSION ----- NON-STRESS TEST IS REACTIVE AMNIOTIC FLUID VOLUME IS NORMAL. Lily Coles MD ORDERABLES documented in this encounter Visit Diagnoses Diagnosis Abnormal maternal glucose tolerance, antepartum documented in this encounter Care Teams Disability Insurance Hearing Officer Relationship Specialty Start Date End Date Ervin Tejada MD PCP - General 01/17/08 documented as of this encounter
--- OUTSIDE RECORDS SUMMARY | 2024-02-12 02:18 | XMS_ITS | Encounter Summary ---
Author Organization [facility] Address [address] [place] [address] Care Team Providers Care Tire Servicer Name Role Phone Ervin Tejada MD Primary Care Provider [phone] Reason for Visit * Auth/Cert - Closed Specialty Diagnoses / Procedures Referred By Contac t Referred To Contact Obstetrics Diagnoses CTX [facility] Mother Baby 5c [address] [place] [address] Referral ID Status Reason Start Date Expiration Date Visits Re quested Visits Authorized [id number] Closed 1 1 Encounter Details Date Type Department Care Team (Late st Contact Info) Description 06/21/2014 2:47 PM CDT Anesthesia Event [facility] OB Anesthesia [address] [place] [address] Nicole Love MD [address] [facility] [address] [place] [address] Anesthesia Record Procedure Summary Procedure Name Responsible Anesthesiologist Anesthesia Start Time Anesthesia Stop Time LABOR ANALGESIA Nicole Love MD 06/21/14 1447 5 1513 Events Date Time Event Comment 06/21/2014 1447 An Start 1447 AN Equip Check Anesthesia eq uipment and materials checked in accordance with local policy. 1447 Procedure 1447 Start Out of OR Vitals 1450 Pre-Induction Immediate pre- induction anesthetic assessment performed. Vital signs as noted on graphic. 1510 Stop Out of OR Vitals 1513 An Stop Meds Name Total fentaNYL PF (SUBLIMAZE) 15 mcg/0.3 mL sy ringe 15 mcg 15 mcg bupivacaine (SENSORCAINE MPF WITH EPI) 0.25%-EPINEPHrine 1:200,000 PF injection 1 mL lactated ringers solution 0 mL * Agents No agents on file. * Blood No blood administrations on file. Lines, Drains, and Airways Type Details Placement Removal Peripheral IV Pre-Hospital Start: No; Orientation: Left; Location: Arm; Device: Angiocath; Gauge: 18 gauge; Needle Length: 1.25 in length; Insertion Attempts: 1; Patient Tolerance: tolerated well; Power Injectable Compatible: No; Removal Indication: no longer indicated 06/21/14 1459 by Jess Hinds RN 06/21/14 1710 by Lety Mcfarlane RN documented in this encounter Social History Tobacco Use Types Packs/Day Years [...] Sign Reading Time Taken Comments Blood Pressure 118/76 06/21/2014 3:10 PM CDT Pulse - - Temperature - - Respiratory Rate - - Oxygen Saturation 100% 06/21/2014 3:06 PM CDT Inhaled Oxygen Concentration - - Weight - - Height - - Body Mass Index - - documented in this encounter OR Notes * Anesthesia Procedure Notes - Nicole Love MD - 06/21/2014 3:01 PM CDT Associated Order(s): CSE BLOCK Anesthesia CSE Block Patient location during procedure: OB Start time: 06/21/2014 2:51 PM Reason for block: primary analgesia Staffing Performed by: NICOLE LOVE Preanesthetic Checklist Completed: patient identified, pre-op evaluation, timeout performed, IV checked, risks and benefitsdiscussed and monitors and equipment checked CSE Hand hygiene performed prior to procedure Patient was prepped and draped in usual sterile fashion Time out performed Mask worn Patient position: Sitting Prep: ChloraPrep and site prepped and draped Local anesthetic: Lidocaine 1% without epinephrine Patient monitoring: Continuous pulse oximetry and Non-invasive blood pressure Approach: Midline Sutherlin Identification: palpation technique Number of Attempts: 1 Spinal Needle Needle type: Pencil-tip Needle gauge: 26 G Needle length: 5 in CSF visualized Epidural Needle Identification Technique: ANAYA saline Needle Type: Tuohy Needle Gauge: 17 G Needle Length: 10 cm Needle Insertion Depth (cm): 5 Location: Lumbar (1-5) Catheter Catheter Type: Side hole and Spring woundCatheter Size: 19 GSkin Depth (cm): 10 Test dose: Lidocaine 1.5% with epinephrine 1-to-200,000 and Negative Test dose: 3 Events: easy and well tolerated and no block eventsSecured with: Tegaderm and Tape * Anesthesia Preprocedure Evaluation - Nicole Love MD - 06/21/2014 2:41 PM CDT Anesthesia Evaluation Patient summary reviewed Airway Mallampati: II TM distance: >3 FB Neck ROM: full Dental - normal exam Pulmonary - negative ROS and normal exam breath sounds clear to auscultation Cardiovascular - negative ROS and normal exam Rhythm: regular Rate: normal Neuro/Psych - negative ROS GI/Hepatic/Renal - negative ROS Endo/Other (+) diabetes mellitus (gestational, on insulin), Abdominal Anesthesia History No history of anesthetic complications. Anesthesia Plan ASA 2 Combined Spinal Epidural N/A induction NPO status N/A Anesthetic plan and risks discussed with Patient. documented in this encounter Plan of Treatment Not on file documented as of this encounter Procedures Procedure Name Priority Date/Time Associated Diagnosis Comments AL ANESTHESIA BLOCK PB PLACEHOLDER CHARGE Routine 06/21/2014 3:02 PM CDT documented in this encounter Results * AL ANESTHESIA BLOCK PB PLACEHOLDER CHARGE (06/21/2014 3:02 PM CDT) Narrative Nicole Love MD - 06/21/2014 3:02 PM CDT Nicole Love MD ? 06/21/2014 ??3:02 PM Anesthesia CSE Block Patient location during procedure: OB Start time: 06/21/2014 2:51 PM Reason for block: primary analgesia Staffing Performed by: NICOLE LOVE ?? Preanesthetic Checklist Completed: patient identified, pre-op evaluation, timeout performed, IV checked, risks and benefits discussed and monitors and equipment checked CSE Hand hygiene performed prior to procedure Patient was prepped and draped in usual sterile fashion Time out performed Mask worn Patient position: Sitting Prep: ChloraPrep and site prepped and draped ?? Local anesthetic: Lidocaine 1% without epinephrine Patient monitoring: Continuous pulse oximetry and Non-invasive blood pressure Approach: Midline S[place]lin Identification: palpation technique Number of Attempts: 1 Spinal Needle Needle type: Pencil-tip Needle gauge: 26 G Needle length: 5 in CSF visualized Epidural Needle Identification Technique: ANAYA saline Needle Type: Tuohy Needle Gauge: 17 G Needle Length: 10 cm Needle Insertion Depth (cm): 5 Location: Lumbar (1-5) Catheter Catheter Type: Side hole and Spring woundCatheter Size: 19 GSkin Depth (cm): 10 Test dose: Lidocaine 1.5% with epinephrine 1-to-200,000 and Negative ?? Test dose: 3 Events: easy and well tolerated and no block eventsSecured with: Tegaderm and Tape Nicole Love MD PROCEDURE/MINOR SURG ICAL ORDERABLES documented in this encounter Visit Diagnoses Not on filedocumented in this encounter Administered Medications Inactive Administered Medications - up to 3 most recent administrations Medication Order MAR Action Action Date Dose Rate Site bupivacaine-EPINEPHrine (PF) (SENSORCAINE MPF WITH EPI) 0.25 %-1:200,000 injection INTRA-PROCEDURE PRN, Starting on 06/21/14 at 1455, Until 06/21/14 at 1541, Routine, Anesthesia Intra-op Given 06/21/2014 2:55 PM CDT 1 mL fentaNYL PF (SUBLIMAZE) 15 mcg/0.3 mL syringe 15 mcg 15 mcg, See Admin Instructions, INTRA-PROCEDURE ONCE, 1 dose, Starting on 06/21/14 at 1440, Until 06/21/14 at 1455, Routine Given 06/21/2014 2:55 PM CDT 15 mcg documented in this encounter Care Teams Tire Servicer Relationship Specialty Start Date End Date Ervin Tejada MD PCP - General 01/17/08 documented as of this encounter
--- OUTSIDE RECORDS SUMMARY | 2024-02-12 02:19 | XMS_ITS | Encounter Summary ---
Author Organization [facility] Address [address] [place] [address] Care Team Providers Care Senior Technical Analyst Name Role Phone Ervin Tejada MD Primary Care Provider [phone] Reason for Visit * Reason Comments Routine Visit Encounter Details Date Type Department Care Team (Latest Contact Info) Description 11/21/2011 4:30 PM CDT visit [facility] CASH ANALYST - [address] [address] Merrick Mir MD [address] [place] [address] [place] [address] Supervision of other normal (Primary Dx) Social History Tobacco Use Types Packs/Day Years Used Date Smoking Tobacco: Never Smokeless Tobacco: Never Alcohol Use Standard Drinks/Week Comments Yes 0 (1 standard drink = 0.6 oz pur e alcohol) social Comments Yes Sex and Gender Information Value Date Recorded Sex Assigned at Not on file Gender Identity Not on file Sexual Orientation Not on file documented as of this encounter Last Filed Vital Signs Vital Sign Reading Time Taken Comments Blood Pressure 120/80 11/21/2011 4:28 PM CDT Pulse - - Temperature - - Respiratory Rate - - Oxygen Saturation - - Inhaled Oxygen Concentration - - Weight 74.4 kg (164 lb) 11/21/2011 4:28 PM CDT Height - - Body Mass Index 28.15 06/19/2011 9:24 AM CDT documented in this encounter Plan of Treatment Not on file documented as of this encounter Visit Diagnoses Diagnosis Supervision of other normal - Primary documented in this encounter Care Teams Senior Technical Analyst Relationship Specialty Start Date End Date Ervin Tejada MD PCP - General 01/17/08 documented as of this encounter
--- OUTSIDE RECORDS SUMMARY | 2024-02-12 02:19 | XMS_ITS | Encounter Summary ---
Author Organization [facility] Address [address] [place] [address] Care Team Providers Care Fancy Needleworker Name Role Phone Ervin Tejada MD Primary Care Provider [phone] Encounter Details Date Type Department Care Team (Late st Contact Info) Description 04/17/2014 Orders Only [facility] Admitting [address] [place] [address] Merrick Mir MD [address] [facility] [address] [facility] [place] [address] Social History Tobacco Use Types Packs/Day Years [...] on filedocumented in this encounter Care Teams Fancy Needleworker Relationship Specialty Start Date End Date Ervin Tejada MD PCP - General 01/17/08 documented as of this encounter
--- OUTSIDE RECORDS SUMMARY | 2024-02-12 02:19 | XMS_ITS | Encounter Summary ---
Author Organization [facility] Address [address] [place] [address] Care Team Providers Care Manager Product Marketing Name Role Phone Ervin Tejada MD Primary Care Provider [phone] Encounter Details Date Type Department Care Team (Latest Contact Info) Description 12/19/2011 12:48 PM BACK PANEL PADDER - 12/19/2011 11:59 PM BACK PANEL PADDER Hospital Encounter [facility] [address] [phone] Merrick Mir MD [address] [place] [phone] Discharge Disposition: Home or Self Care [...] Procedure Name Priority Date/Time Associated Diagnosis Comments CREATININE, 24 HR URINE Routine 12/19/2011 12:59 PM BACK PANEL PADDER PROTEIN, 24 HR URINE Routine 12/19/2011 12:59 PM BACK PANEL PADDER Elevated blood pressure reading without diagnosis of hypertension CBC WITH DIFFERENTIAL Routine 12/19/2011 12:52 PM BACK PANEL PADDER Elevated blood pressure reading without diagnosis of hypertension AST Routine 12/19/2011 12:52 PM BACK PANEL PADDER Elevated blood pressure reading without diagnosis of hypertension LACTATE DEHYDROGENASE Routine 12/19/2011 12:52 PM BACK PANEL PADDER Elevated blood pressure reading without diagnosis of hypertension documented in this encounter Results * CREATININE, 24 HR URINE (12/19/2011 12:59 PM BACK PANEL PADDER) CREATININE, 24 HR URINE 1.39 0.72 - 1.51 g/[address] [facility] [employer] [facility] VOLUME, 24 HR URINE [address] [facility] [employer] [facility] LENGTH OF COLLECTION 24 23 - 25 hr [employer] [facility] START TIME 24 HR UR 1200 time [facility] START DATE 24 HR UR [id number] [facility] [employer] [facility] 12/19/2011 12:5 9 PM BACK PANEL PADDER 12/19/2011 1:41 PM BACK PANEL PADDER Comment:URINE, 24 HR Merrick Mir MD URINE ORDERABLES [facility] [employer] [facility] CLIA# [id number] [address] [place] [address] * PROTEIN, 24 HR URINE (12/19/2011 12:59 PM BACK PANEL PADDER) PROTEIN CONCENTRATION 6 mg/dL [facility] [employer] [facility] PROTEIN TOTAL, 24 HR URINE 0.12 0.00 - 0.15 g/[address] [facility] [employer] [facility] 24 hour urine specimen (specimen) 12/19/2011 12:59 PM BACK PANEL PADDER 12/19/2011 1:41 PM BACK PANEL PADDER Comment:URINE, 24 HR Merrick Mir MD URINE ORDERABLES [facility] [employer] [facility] CLIA# [id number] [address] [place] [address] * (ABNORMAL) LACTATE DEHYDROGENASE (12/19/2011 12:52 PM BACK PANEL PADDER) Pathologist [facility] LD (LACTATE DEHYDROGENASE) 229(H) 135 - 214 U/L [employer] [facility] Blood specimen (specimen) 12/19/2011 12:52 PM BACK PANEL PADDER 12/19/2011 3:56 PM BACK PANEL PADDER Merrick Mir MD CHEMISTRY ORDERABLES [employer] [facility] CLIA# [id number] [address] [facility] [place] [address] * (ABNORMAL) CBC WITH DIFFERENTIAL (12/19/2011 12:52 PM BACK PANEL PADDER) Pathologist [facility] WBC 10.7(H) 4.0 - 9.8 K/uL [facility] RBC 4.23 3.90 - 4.90 M/uL [employer] [facility] - [facility] HEMOGLOBIN 13.2 11.8 - 14.8 g/dL [employer] [facility] HEMATOCRIT 38.2 35.5 - 44.0 % [facility] MCV 90.3 82.0 - 99.0 fL [employer] [facility] - [facility] MCH 31.2 27.2 - 32.6 pg [facility] MCHC 34.6 31.5 - 35.5 % [facility] PLATELETS 191 140 - 350 K/uL [facility] MPV 10.2 9.3 - 12.4 fL [employer] [facility] RDW 13.2 11.5 - 14.5 % [facility] RDW-STDEV 42.8 37.1 - 48.7 fL [facility] NEUTROPHILS 72(H) 45 - 70 % [facility] . [facility] LYMPHOCYTES 20 16 - 45 % [facility] . [facility] MONOCYTES 7 3 - 13 % [facility] . [facility] EOSINOPHILS 0 0 - 7 % [facility] . [facility] BASOPHILS 0 0 - 2 % [facility] . [facility] NEUTROPHIL ABSOLUTE 7.76(H) 1.90 - 7.00 K/uL [facility] LYMPHOCYTE ABSOLUTE 2.16 0.70 - 4.50 K/uL [facility] MONOCYTE ABSOLUTE 0.73 0.10 - 1.30 K/uL [facility] EOSINOPHIL ABSOLUTE 0.05 0.00 - 0.70 K/uL [facility] BASOPHILS ABSOLUTE 0.02 0.00 - 0.20 K/uL [facility] Blood specimen (specimen) 12/19/2011 12:52 PM BACK PANEL PADDER 12/19/2011 3:57 PM BACK PANEL PADDER Merrick Mir MD HEMATOLOGY ORDERABLE S [facility]AT[facility] - [facility] CLIA# [id number] [address] [place] [address] * AST (12/19/2011 12:52 PM BACK PANEL PADDER) AST 20 12 - 32 U/L [facility] [place] [facility] - [facility] Blood specimen (specimen) 12/19/2011 12:52 PM BACK PANEL PADDER 12/19/2011 4:46 PM BACK PANEL PADDER Merrick Mir MD CHEMISTRY ORDERABLES [facility]ATORY [facility] - [facility] CLIA# [id number] [address] [place] [address] documented in this encounter Visit Diagnoses Diagnosis Elevated blood pressure reading without diagnosis of hypertension documented in this encounter Care Teams Manager Product Marketing Relationship Specialty Start Date End Date Ervin Tejada MD PCP - General 01/17/08 documented as of this encounter
--- OUTSIDE RECORDS SUMMARY | 2024-02-12 02:19 | XMS_ITS | Encounter Summary ---
Author Organization [facility] Address [address] [place] [address] Care Team Providers Care Admissions Representative Name Role Phone Ervin Tejada MD Primary Care Provider [phone] Reason for Visit * Reason Onset Date Comments Results 11/25/2013 Encounter Details Date Type Department Care Team (Late st Contact Info) Description 11/25/2013 Telephone [facility] COMMUNICATION CENTER OPERATOR - Medical [address] [phone] Merrick Mir MD [address] [place] [phone] Results Social History Tobacco Use Types Packs/Day [...] encounter Miscellaneous Notes * Telephone Encounter - Nicole Hillman RN - 11/25/2013 4:17 PM CDT Informed of results. Has an appt 12/19 * Telephone Encounter - Nicole Hillman RN - 11/25/2013 3:51 PM CDT Lm to cb * Telephone Encounter - Nicole Hillman RN - 11/25/2013 3:51 PM CDT Message copied by NICOLE HILLMAN on SunNov 25, 2013 3:51 PM ------ Message from: NGHIA PATTON Created: SunNov 25, 2013 2:[address] Mir's patient Unable to interpret pap d/t insufficient number of squamous cells Please have her come in for repeat pap. Patient is Thanks! ------ documented in this encounter Plan of Treatment Not on file documented as of this encounter Visit Diagnoses Not on filedocumented in this encounter Care Teams Admissions Representative Relationship Specialty Start Date End Date Ervin Tejada MD PCP - General 01/17/08 documented as of this encounter
--- OUTSIDE RECORDS SUMMARY | 2024-02-12 02:19 | XMS_ITS | Encounter Summary ---
Author Organization [facility] Address [address] [place] [address] Care Team Providers Care Inspector Assembly Name Role Phone Ervin Tejada MD Primary Care Provider [phone] Reason for Visit * Auth/Cert - Closed Specialty Diagnoses / Procedures Referred By Contac t Referred To Contact Obstetrics Diagnoses ctx Stlo Labor [address] [place] [address] Referral ID Status Reason Start Date Expiration Date Visits Re quested Visits Authorized [id number] Closed 1 1 Encounter Details Date Type Department Care Team (Latest Contact Info) Description 12/27/2011 9:35 PM HEARING DOG TRAINER - 12/30/2011 12:47 PM HEARING DOG TRAINER Hospital Encounter [facility] Mother/Baby [address]C [address] [place] [address] Merrick Mir MD [facility] [address] [place] [phone] Discharge Disposition: Home or Self Care [...] Sign Reading Time Taken Comments Blood Pressure 120/82 12/30/2011 8:59 AM HEARING DOG TRAINER Pulse 82 12/30/2011 8:59 AM HEARING DOG TRAINER Temperature 37.1 ??C (98.7 ??F) 12/30/2011 8:59 AM CS T Respiratory Rate 16 12/30/2011 8:59 AM HEARING DOG TRAINER Oxygen Saturation 95% 12/29/2011 12:38 PM HEARING DOG TRAINER Inhaled Oxygen Concentration - - Weight 79.4 kg (175 lb) 12/27/2011 9:54 PM HEARING DOG TRAINER Height 162.6 cm (5' 4 ) 12/27/2011 9:54 PM HEARING DOG TRAINER Body Mass Index 30.04 12/27/2011 9:54 PM HEARING DOG TRAINER documented in this encounter Discharge Summaries * Jacob Gama MD - 12/30/2011 8:33 AM CST Physician Discharge Summary - Vaginal Delivery Patient: Debi Carrera / 26 y.o. / female : 1985 Admit date: 12/27/2011 Discharge date: 12/30/2011 Attending Physician: Jacob Gama MD for merrick Mir MD Principal and Secondary Diagnosis 1. 26 y.o. at 37w6d 2. Delivered Principal and Secondary Procedures 1. Delivery via vaginal delivery, midline episiotomy/repair Pertinent History & Physical See H&P. Hospital Course Patient was admitted to labor and delivery. She underwent a vaginal delivery. Please see delivery note for further details. Post- the patient was voiding spontaneously, tolerating a regular diet, ambulating, and analgesia controlled with oral pain medications. Patient is breast feeding. She was discharged home in a stable condition post- day #2. Discharge Labs Lab Results Component Value Date WBC 12.1* 12/27/2011 HEMOGLOBIN 13.5 12/27/2011 HEMATOCRIT 37.3 12/27/2011 PLATELETS 173 12/27/2011 MCV 88.8 12/27/2011 Lab Results Component Value Date ABO/RH TYPE B Positive 05/15/2011 Immunization History Administered Date(s) Administered ??? Influenza Vaccine 09/27/2011 ? ? TDAP Vaccine > 7 YO IM 01/19/2011 Discharge Condition: stable. Disposition She is discharged to home. See discharge instructions. Appropriate instructions were reviewed with the patient including no lifting >10 lbs & nothing per vagina x 6 wks. She'll followup in theoffice in 6 wks. Discharge Medications Current Discharge Medication List START taking these medications Details oxyCODONE-acetaminophen (PERCOCET) 5-325 mg Oral tablet Take 1 Tab by mouth every 6 hours as neededfor Pain, Moderate (For Pain Scale 4-6). Qty: 30 Tab, Refills: 0 ibuprofen (MOTRIN) 600 mg Oral tablet Take 1 Tab by mouth every 6 hours as needed for Pain. Qty: 30 Tab, Refills: 1 CONTINUE these medications which have NOT CHANGED Details PNV#26/IRON POLY/FA/DHA (PNV #26-IRON PS-FOLIC ACID-DHA ORAL) Take 1 Tab by mouth. ING DOG TRAINER documented in this encounter Discharge Instructions * Discharge Instructions* Milka Vega RN - 12/30/2011 11:18 AM HEARING DOG TRAINER PRESCRIPTIONS Prescriptions given? Yes ACTIVITY/EXERCISE Recovery is [...] with each feeding ?? For advice call: office [phone] IF BOTTLE FEEDING ?? Avoid breast stimulation, [...] of harming yourself or your baby ?? ING DOG TRAINER documented in this encounter Progress Notes * Milka Vega RN - 12/30/2011 12:50 PM CST Debi Carrera will be discharged via wheelchair to home. Debi Carrera is accompanied by spouse and will be transported via private vehicle. ING DOG TRAINER * Milka Vega RN - 12/30/2011 11:23 AM CST Into room to provide discharge teaching and give AVS. Discharge pending per order ING DOG TRAINER * Jacob Gama MD - 12/30/2011 8:30 AM CST Progress Note Subjective: Day 2: Vaginal Delivery The patient feels well. The patient denies emotional concerns. Pain is well controlled with currentmedications. The baby iswell. Baby is feeding via breast. Urinary output is adequate. The patient is ambulating well. The patient is tolerating a normal diet. Flatus has been passed. Objective: BP 112/65 Pulse 83 Temp(Src) 98.5 ??F (36.9 ??C) (Oral) Resp 16 Ht 5' 4 (1.626 m) Wt 175lb (79.379 kg) BMI 30.04 kg/m2 SpO2 95% LMP 04/07/2011 ? Yes General: alert, in no distress Breast Exam normal appearance, no masses or tenderness Bowel Sounds: active Lochia: appropriate Uterine Fundus: firm Perineum: healing well, no significant drainage, no dehiscence, no significant erythema DVT Evaluation: No evidence of DVT seen on physical exam. No results found for this visit on 12/27/11 (from the past 24 hour(s)). Assessment: Status post Vaginal Delivery. Doing well postoperatively.. Pain scale is 3 /10. Plan: Continue current intermediate with instructions. Jacob Gama MD, 12/30/2011 8:31 AM ING DOG TRAINER * Sammie Woods RN - 12/29/2011 1:28 PM CST Pt. Will call for assessment when finished breast feeding. ING DOG TRAINER * Manas Castillo MD - 12/29/2011 8:27 AM CST PPD # 1 Pt feeling well. Pain controlled. VB normal. AF VSS UO good Abd: FF, appropriately tender Ext: nontender A/P: PPD # 1 from Doing well Continue care ING DOG TRAINER * Cary Kent MD - 12/28/2011 2:27 AM CST Subjective: Called to see patient for AROM per attending. Patient comfortable with contractions. GBS negative. No complaints. Objective: BP 119/69 Pulse 86 Temp(Src) 98 ??F (36.7 ??C) (Oral) Resp 18 Ht 5' 4 (1.626 m) Wt 175 lb (79.379 kg) BMI 30.04 kg/m2 SpO2 98% LMP 04/07/2011 ? No heart rate 135, mod, positive accels [place] q 2-4 min SVE 5/80/-1, head well applied, no parts/pulsations/cord Assessment/Plan: 26 y.o. IUP @ 37w6d 1. AROM with amniohook. Clear fluid returned. 2. status reassuring. FHR category I. 3. Anticipate . Cary Kent MD PGY-1 ING DOG TRAINER * Trenton Russell MD - 12/28/2011 2:10 AM CST R4 strip round note 2:11 AM 15 minutes of FHT reviewed with in-house attending and L&D charge nurse. 130/mod varia/ with accels Category I Action: none Trenton Russell MD ING DOG TRAINER * Bart Archer RN - 12/28/2011 1:20 AM CST Epidural placed without difficulty. Patient states relief of pain. ING DOG TRAINER * Bart Archer RN - 12/28/2011 1:07 AM CST Estefania Mckeon CRNA at bedside to place epidural. Patient assisted into sitting position. ING DOG TRAINER * Bart Archer RN - 12/28/2011 12:55 AM CST Patient requesting epidural for pain relief. Currently watching epidural video. Dr. Snyder called forepidural approval. Epidural approved. ING DOG TRAINER * Cary Kent MD - 12/27/2011 11:45 PM CST [facility] to L&D Transfer Note Subjective: Patient transferred safely from the [facility]U to Labor & Delivery for labor. iscomplicated by increased BPs in the last week. Pre-e labs today wnl. Patient comfortable with contractions. No complaints at this time. Objective: BP 141/86 Pulse 86 Temp(Src) 96.9 ??F (36.1 ??C) (Oral) Resp 18 Ht 5' 4 (1.626 m) Wt 175lb (79.379 kg) BMI 30.04 kg/m2 LMP 04/07/2011 ? No FHR: 125, mod variability, +accels [place]: ctx q 2-3 mins SVE: 380/-2 per resistance brazer/Plan: 26 y.o. IUP @ 37w5d 1. Vital signs stable, afebrile 2. Contractions - early labor -Admit to L&D 3. GHTN -Pre-e labs wnl -Patient asymptomatic 4. status: cat I 5. GBS neg 6. Dr. Mir aware 7. Anticipate Cary Kent MD PGY1 ING DOG TRAINER * Traci Green RN - 12/27/2011 11:[address] Mir called and updated on pt status. L&D orders received. ING DOG TRAINER documented in this encounter H&P Notes * Zee Jean Baptiste CNM - 12/27/2011 10:19 PM CST OB H&P HPI Debi Carrera is a 26 y.o. female with 37w5d weeks gestation who is being observed in the Women's Evaluation Unit for contractions since 1930, every 5-7 minutes. No bleeding or loss of fluid. Denies nausea, vomiting or diarrhea. She last ate at 1730. She has been on bedrest for high blood pressure since last Sunday. Denies headaches, blurred vision or flashing lights. Labs were last done 12/19/11. Her primary commercial pilot is Dr. Mir. Active Problems: Irregular contractions Past Medical History Diagnosis Date ??? Patient denies relevant medical history Past Surgical History Procedure Date ??? Hx cyst removal 12/2007 pilonidial ??? Hx wisdom teeth extraction 2001 History Social History ??? Marital Status: Spouse Name: N/A Number of Children: N/A ??? Years of Education: N/A Occupational History ??? Social History Main Topics ??? Smoking status: Never Smoker ??? Smokeless tobacco: Never Used ??? Alcohol Use: No social ??? Drug Use: No ??? Sexually Active: Yes -- Male partner(s) Control/ Protection: Pill Other Topics Concern ??? Seat Belt Yes Social History Narrative ??? No narrative on file Family History Problem Relation Age of Onset ??? Hypertension Father ??? Hypertension Mother ??? Healthy Sister ??? Colon Cancer Paternal Grandfather dx 49 or 50 ??? Diabetes Paternal Grandmother ??? Diabetes Maternal Grandfather ??? Heart Disease Maternal Grandfather ??? Breast Cancer Neg Hx ??? Ovarian Cancer Neg Hx OB History Grav Para Term Abortions TAB SAB Ect Mult Living 1 # Outc Date GA Lbr Danial/2nd Wgt Sex Del Anes PTL Lv 1 CUR GYNHX/ Allergies Allergen Reactions ??? No Known Allergies Prescriptions prior to admission Medication Sig Dispense Refill ??? PNV#26/IRON POLY/FA/DHA (PNV #26-IRON PS-FOLIC ACID-DHA ORAL) Take 1 Tab by mouth. The above has been reviewed with the patient & documented in the electronic record. Review of Systems No fever, SOB, no dysuria, or GI complaints. Exam: Filed Vitals: 12/27/11 2154 BP: 152/93 Pulse: 90 Temp: 96.9 ??F (36.1 ??C) TempSrc: Oral Resp: 18 Height: 5' 4 (1.626 m) Weight: 175 lb (79.379 kg) General: alert, no distress Lungs: clear to auscultation bilaterally Heart: Regular rate & rhythm, no murmur Abdomen: Soft, gravid, no fundal tenderness Extremities: mild pitting edema pretibial bilaterally FHT: 140 BPM reactive; toco: Contractions every 3-4 minutes Presentations: cephalic Cervix: Dilation: 3 cm Effacement: 80% Station: -2 Lab Review: Results for orders placed during the hospital encounter of 12/27/11 (from the past 24 hour(s)) CBC WITH DIFFERENTIAL Component Value Range WBC 12.1 (*) 4.0 - 9.8 K/uL RBC 4.20 3.90 - 4.90 M/uL HEMOGLOBIN 13.5 11.8 - 14.8 g/dL HEMATOCRIT 37.3 35.5 - 44.0 % MCV 88.8 82.0 - 99.0 fL MCH 32.1 27.2 - 32.6 pg MCHC 36.2 (*) 31.5 - 35.5 % PLATELETS 173 140 - 350 K/uL MPV 10.2 9.3 - 12.4 fL RDW 13.3 11.5 - 14.5 % RDW-STDEV 41.9 37.1 - 48.7 fL NEUTROPHILS, SEG 70 45 - 70 % LYMPHOCYTES 21 16 - 45 % MONOCYTES 7 3 - 13 % EOSINOPHILS 1 0 - 7 % BASOPHILS 1 0 - 2 % PLATELET EST. Consistent w/ count Normal NEUTROPHIL ABSOLUTE 8.47 (*) 1.90 - 7.00 K/uL LYMPHOCYTE ABSOLUTE 2.54 0.70 - 4.50 K/uL MONOCYTE ABSOLUTE 0.85 0.10 - 1.30 K/uL EOSINOPHIL ABSOLUTE 0.12 0.00 - 0.70 K/uL BASOPHILS ABSOLUTE 0.12 0.00 - 0.20 K/uL RBC MORPHOLOGY Normal Normal CLUMPED PLATELETS Present REVIEWED ON SMEAR WBC & Plt Reviewed AST Component Value Range AST 18 12 - 32 U/L ALT Component Value Range ALT 15 0 - 31 U/L URIC ACID Component Value Range URIC ACID 4.8 2.3 - 6.6 mg/dL LACTATE DEHYDROGENASE Component Value Range LD (LACTATE DEHYDROGENASE) 170 135 - 214 U/L URINALYSIS WITH MICROSCOPIC Component Value Range COLOR UA Pale Yellow CLARITY UA Clear Clear SPECIFIC GRAVITY UA 1.008 1.001 - 1.035 PH UA 7.0 5.0 - 8.0 LEUKOCYTE ESTERASE UA Negative Negative NITRITE UA Negative Negative PROTEIN UA Negative Negative GLUCOSE UA Negative Negative KETONES UA Negative Negative UROBILINOGEN UA <1 <=1 mg/dL BILIRUBIN UA Negative Negative BLOOD UA 2+ (*) Negative WBC UA 1 0 - 5 /HPF RBC UA 1 0 - 4 /HPF EPITHELIAL CELLS, URINE 0-2 GBBS: negative Sterile Speculum Exam: deferred [place]: deferred Ultrasound: not indicated Assessment: 37w5d weeks gestation. Rule out labor and pre-eclampsia Plan: Observe in [facility]U.see orders Orders Placed This Encounter ??? CBC WITH DIFFERENTIAL ??? AST ??? ALT ??? URINALYSIS WITH MICROSCOPIC ??? URIC ACID ??? LACTATE DEHYDROGENASE ??? Vital Signs per Protocol ??? Notify Physician - Blood Pressure Changes ??? Notify Physician - Blood Pressure Changes ??? Education, Smoking Cessation and Second Hand Smoke Avoidance ??? BEDREST With Bathroom Privileges ??? Electronic Monitoring ??? Nonstress Test Labs are WNL. Blood pressures are 140s over 80s. RN discussed with Dr. Mir. Admit to L&D inearly labor. ING DOG TRAINER documented in this encounter OR Notes * OR Anesthesia - Stl Scanning, [facility] - 01/07/2012 9:16 PM CST Electronically signed by Garett [facility] Stl Graphics Specialist Incoming at 01/07/2012 9:16 PM HEARING DOG TRAINER documented in this encounter Miscellaneous Notes * Scanned Form - Stl Scanning, [facility] - 01/07/2012 9:16 PM CST ING DOG TRAINER * Delivery - Stl Scanning, [facility] - 01/07/2012 9:16 PM CST ING DOG TRAINER * Assessment & Plan Note - Stl Scanning, [facility] - 01/07/2012 9:16 PM CST ING DOG TRAINER * Patient Instructions - Stl Scanning, [facility] - 01/07/2012 9:16 PM CST ING DOG TRAINER * Scanned Form - Stl Scanning, [facility] - 01/07/2012 9:16 PM CST Electronically signed by Interface, [facility] Stl Graphics Specialist Incoming at 01/07/2012 9:16 PM HEARING DOG TRAINER * Delivery - Shahnaz York MD - 12/28/2011 1:32 PM CST Delivery Note Patient: Debi Carrera / 26 y.o. / female : 1985 Book Sorter: Merrick Mir MD Loss Prevention Specialist: Shahnaz York MD Pre-Delivery Diagnosis: 1. IUP @ 37w6d Post-Delivery Diagnosis: male living Procedure: Midline episiotomy and repair or Spontaneous vaginal delivery Delivery Date/Time: 12/28/2011 Information for the patient's : Michael Carrera [[id number]] Delivery Time: 1306 (12/28/11 1335) Anesthesia: epidural Episiotomy or Incision: midline without extension Laceration/Repair: 3rd degree, repaired with 3-0 Vicryl in the usual fashion Position: left occiput anterior Wt: Information for the patient's : Michael Carrera [[id number]] Weight: 7 lb 3 oz (3.26 kg) (12/28/11 1333) Apgars: Information for the patient's : Michael Carrera [[id number]] 1 Minute Score: 8 (12/28/11 1333) 5 Minute Score: 9 (12/28/11 1333) Placenta and Cord: Mechanism: spontaneous Description: complete, 3 vessel cord Nuchal cord: none. Estimated Blood Loss: 300 ml Specimens: none Complications: none Condition: stable Commentary: The patient presented for spontaneous labor. She received labor augmentation with oxytocin and amniotomy. She progressed to complete cervical dilation and at the appropriate time began pushing. With adequate expulsive efforts by the mother, the baby's head was delivered without difficulty. No nuchal cord. The infant's nose and mouth were suctioned at the perineum. The baby's right shoulder was anterior and delivered under the pubic symphysis without difficulty. The posterior shoulder and the rest of the baby delivered without difficulty. The umbilical cord was doubly clamped and cut. Care of the infant was then assumed by the nursing staff. Mother and infant are at this time in stable condition and doing well. Shahnaz York MD ING DOG TRAINER * Treatment Plan - Dm Rodas PHARMACIST - 12/28/2011 5:02 AM HEARING DOG TRAINER Images from the [place] [address] [facility] Labor and Delivery Hemorrhage Protocol Nursing Orders: Administration Instructions: o Physician consultation required before administration for appropriate medication selection Medication Orders: o Oxytocin 20 units in 1000mL of lactated Ringer???s IV at bolus rate until satisfactory uterine response is achieved as needed after consultation with resident or attending physician o Methylergonovine (METHERGINE) 0.2mg IM every 15 minutes as needed for excessive bleeding in the immediate period as needed after consultation with resident or attending physician. Maximum of 2 doses. o Carboprost tromethamine (HEMABATE) 250 micrograms IM every 15 minutes as needed for excessive bleeding in the immediate period as needed after consultation with resident or attending physician. Maximum of 8 doses. o Mistoprostol (CYTOTEC) 200micrograms tablets, administer 800mirograms (4 tabs) per RECTUM one time as needed for excessive bleeding in the immediate period after consultation with resident of attending physician. Maximum of 1 dose. o ING DOG TRAINER documented in this encounter Plan of Treatment Not on file documented as of this encounter Procedures Procedure Name Priority Date/Time Associated Diagnosis Comments URINALYSIS WITH MICROSCOPIC Stat 12/27/2011 10:25 PM HEARING DOG TRAINER CBC WITH DIFFERENTIAL Stat 12/27/2011 10:05 PM HEARING DOG TRAINER URIC ACID Stat 12/27/2011 10:05 PM HEARING DOG TRAINER ALT Stat 12/27/2011 10:05 PM HEARING DOG TRAINER AST Stat 12/27/2011 10:05 PM HEARING DOG TRAINER LACTATE DEHYDROGENASE Stat 12/27/2011 10:05 PM HEARING DOG TRAINER documented in this encounter Results * (ABNORMAL) URINALYSIS WITH MICROSCOPIC (12/27/2011 10:25 PM HEARING DOG TRAINER) COLOR UA Pale Yellow [facility] CLARITY UA Clear Clear [facility] SPECIFIC GRAVITY UA 1.008 1.001 - 1.035 [facility] PH UA 7.0 5.0 - 8.0 [facility] LEUKOCYTE ESTERASE UA Negative Negative [facility] NITRITE UA Negative Negative [facility] PROTEIN UA Negative Negative [facility] GLUCOSE UA Negative Negative [facility] KETONES UA Negative Negative [facility] UROBILINOGEN UA <1 <=1 mg/dL [facility] BILIRUBIN UA Negative Negative [facility] BLOOD UA 2+(A) Negative [facility] - [facility] WBC UA 1 0 - 5 /HPF [facility] RBC UA 1 0 - 4 /HPF [facility] - [facility] EPITHELIAL CELLS, URINE 0-2 /HPF [facility] Urine, clean catch URINE SPECIMEN OBTAINED BY CLEAN CATCH PROCEDURE / Unknown 12/27/2011 10:25 PM HEARING DOG TRAINER 12/27/2011 10:36 PM HEARING DOG TRAINER Comment:URINE Zee Regaladowood HEMA URINE ORDERABLES [facility] CLIA# [id number] [address], [place] [address] * LACTATE DEHYDROGENASE (12/27/2011 10:05 PM HEARING DOG TRAINER) LD (LACTATE DEHYDROGENASE) 170 135 - 214 U/L [facility] Blood specimen (specimen) 12/27/2011 10:05 PM HEARING DOG TRAINER 12/27/2011 10:21 PM HEARING DOG TRAINER [facility] CHEMISTRY ORDERABLES Performing Organization Address [facility]/ZIP Co de Phone Number [facility] CLIA# [id number] [address], [place] [address] * URIC ACID (12/27/2011 10:05 PM HEARING DOG TRAINER) URIC ACID 4.8 2.3 - 6.6 mg/dL [facility] Blood specimen (specimen) 12/27/2011 10:05 PM HEARING DOG TRAINER 12/27/2011 10:21 PM HEARING DOG TRAINER [facility] CHEMISTRY ORDERABLES Performing Organization Address City/[facility]/ZIP Co de Phone Number [facility] CLIA# [id number] [address] [place] [address] * ALT (12/27/2011 10:05 PM HEARING DOG TRAINER) ALT 15 0 - 31 U/L [facility] - [facility] Blood specimen (specimen) 12/27/2011 10:05 PM HEARING DOG TRAINER 12/27/2011 10:21 PM HEARING DOG TRAINER Zee GARRIDO CHEMISTRY ORDERABLES [facility] - [facility] CLIA# [id number] [address] [place] [address] * AST (12/27/2011 10:05 PM HEARING DOG TRAINER) Pathologist [facility] AST 18 12 - 32 U/L [facility] Blood specimen (specimen) 12/27/2011 10:05 PM HEARING DOG TRAINER 12/27/2011 10:21 PM HEARING DOG TRAINER [facility] CHEMISTRY ORDERABLES Performing Organization Address [facility] Co de Phone Number [facility] - [facility] CLIA# [id number] [address] [place] [address] * (ABNORMAL) CBC WITH DIFFERENTIAL (12/27/2011 10:05 PM HEARING DOG TRAINER) Pathologist [facility] WBC 12.1(H) 4.0 - 9.8 K/uL [facility] - [facility] RBC 4.20 3.90 - 4.90 M/uL [facility] - [facility] HEMOGLOBIN 13.5 11.8 - 14.8 g/dL [facility] - [facility] HEMATOCRIT 37.3 35.5 - 44.0 % [facility] - [facility] MCV 88.8 82.0 - 99.0 fL [facility] - [facility] MCH 32.1 27.2 - 32.6 pg [facility] MCHC 36.2(H) 31.5 - 35.5 % [facility] - [facility] PLATELETS 173 140 - 350 K/uL [facility] - [facility] MPV 10.2 9.3 - 12.4 fL [facility] - [facility] RDW 13.3 11.5 - 14.5 % [facility] - [facility] RDW-STDEV 41.9 37.1 - 48.7 fL [facility] - [facility] NEUTROPHILS, SEG 70 45 - 70 % [facility] LYMPHOCYTES 21 16 - 45 % [facility] - [facility] MONOCYTES 7 3 - 13 % [facility] - . [facility] EOSINOPHILS 1 0 - 7 % [facility] - . [facility] BASOPHILS 1 0 - 2 % [facility] - . [facility] PLATELET EST. Consistent w/ count Normal [facility] NEUTROPHIL ABSOLUTE 8.47(H) 1.90 - 7.00 K/uL [facility] - . [facility] LYMPHOCYTE ABSOLUTE 2.54 0.70 - 4.50 K/uL [facility] - . [facility] MONOCYTE ABSOLUTE 0.85 0.10 - 1.30 K/uL [facility] - . [facility] EOSINOPHIL ABSOLUTE 0.12 0.00 - 0.70 K/uL [facility] - . [facility] BASOPHILS ABSOLUTE 0.12 0.00 - 0.20 K/uL [facility] - . [facility] RBC MORPHOLOGY Normal Normal [facility] CLUMPED PLATELETS Present [facility] Comment: Platelet clumps are present on smear review. ??Platelet count may be higher than indicated. REVIEWED ON SMEAR WBC & Plt Reviewed [facility] Blood specimen (specimen) 12/27/2011 10:05 PM HEARING DOG TRAINER 12/27/2011 10:21 PM HEARING DOG TRAINER Zee [facility] HEMATOLOGY ORDERABLE S [facility] CLIA# [id number] [address] [place] [address] documented in this encounter Visit Diagnoses Diagnosis Labor, inc. BPs, pre-e labs wnl, B+, GBS-, AROM(0230) Other and unspecified uterine inertia, unspecified as to episode of care 11.15 Normal delivery documented in this encounter Administered Medications Inactive Administered Medications - up to 3 most recent administrations Medication Order MAR Action Action Date Dose Rate Site docusate sodium (COLACE) capsule 100 mg 100 mg, Oral, TWO TIMES DAILY, First dose on Marycruz 12/28/11 at 2100, Until Discontinued, Routine Given 12/30/2011 9:14 AM HEARING DOG TRAINER 100 mg Given 12/29/2011 9:31 PM HEARING DOG TRAINER 100 mg Given 12/29/2011 8:59 AM HEARING DOG TRAINER 100 mg fentaNYL PF (SUBLIMAZE) 50 mcg/mL injection 15 mcg 15 mcg, IntraTHEcal, ONE TIME ONLY, 1 dose, On Marycruz 12/28/11 at 0115, Routine, (ANESTHESIA LABOR ORDER) Given 12/28/2011 1:15 AM HEARING DOG TRAINER 15 mcg fentanyl-ropivacaine in sodium chloride 0.9% (PF) 2-0.1 mcg/mL-% epidural 8 mL/hr, Epidural, TITRATE, Starting on Marycruz 12/28/11 at 0115, Until Marycruz 12/28/11 at 1553 New Bag 12/28/2011 1:15 AM HEARING DOG TRAINER 8 mL/hr 8 mL/hr ferrous sulfate (FEOSOL) tablet 325 mg 325 mg, Oral, DAILY, First dose on Marycruz 12/28/11 at 1600, Until Discontinued, Routine Given 12/30/2011 9:14 AM HEARING DOG TRAINER 325 mg Given 12/29/2011 8:59 AM HEARING DOG TRAINER 325 mg ibuprofen (MOTRIN) tablet 600 mg 600 mg, Oral, EVERY 6 HOURS PRN, Starting on Marycruz 12/28/11 at 1504, Until 12/30/11 at 1447, Pain, Routine Given 12/30/2011 9:15 AM HEARING DOG TRAINER 600 mg Given 12/30/2011 1:17 AM HEARING DOG TRAINER 600 mg Given 12/29/2011 5:34 PM HEARING DOG TRAINER 600 mg lactated ringers solution IV, at 125 mL/hr, CONTINUOUS, Starting on Sun12/27/11 at 2315, Until Marycruz 12/28/11 at 1553, Routine New Bag 12/28/2011 10:46 AM HEARING DOG TRAINER 125 mL/hr New Bag 12/28/2011 1:24 AM HEARING DOG TRAINER 125 mL/hr oxyCODONE-acetaminophen (PERCOCET) 5-325 mg per tablet 1 Tab 1 Tablet, Oral, EVERY 4 HOURS PRN, Starting on Marycruz 12/28/11 at 1526, Until 12/30/11 at 1447, Pain, Moderate, For Pain Scale 4-6, Routine Given 12/30/2011 9:15 AM HEARING DOG TRAINER 1 Tablet Given 12/30/2011 5:31 AM HEARING DOG TRAINER 1 Tablet Given 12/30/2011 1:17 AM HEARING DOG TRAINER 1 Tablet OXYCODONE-ACETAMINOPHEN 5 MG-325 MG TABLET 1 dose, Starting on Marycruz 12/28/11 at 1518, Until Marycruz 12/28/11 at 1525, Walker OMNICELL: cabinet override oxytocin (PITOCIN) 30 units in lactated ringers 500 mL infusion 1 luba-units/min (rounded to 1 mL/hr), IV, TITRATE, Starting on Sun12/27/11 at 2315, Until Marycruz 12/28/11 at 1553, Routine Rate Change 12/28/2011 12:30 PM HEARING DOG TRAINER 5 luba-units/min 5 mL/hr Rate Change 12/28/2011 12:00 PM HEARING DOG TRAINER 3 luba-units/min 3 mL /hr New Bag 12/28/2011 11:31 AM HEARING DOG TRAINER 1 luba-units/min 1 mL/ hr oxytocin in lactated ringers (PITOCIN) 20 unit/1,000 mL infusion Soln IV, at 999 mL/hr, SEE ADMIN INSTRUCTIONS, Starting on Sun12/28/11 at 0501, Until Marycruz 12/28/11 at 1553, Routine Given 12/28/2011 1:34 PM HEARING DOG TRAINER mL/hr 999 m L/hr vit-iron fumarate-fa (NICHOLE ) 28-0.8 mg per tablet 1 Tab 1 Tablet, Oral, DAILY, First dose on Marycruz 12/28/11 at 1600, Until Discontinued, Routine Given 12/30/2011 1:17 AM HEARING DOG TRAINER 1 Tablet documented in this encounter Active and Recently Administered Medications Times are shown in HEARING DOG TRAINER. Scheduled Medication Order 12/28/2011 12/29/2011 12/30/2011 docusate sodium (COLACE) capsule 100 mg (CANCELED) 100 mg, Oral, TWO TIMES DAILY, First dose on Marycruz 12/28/11 at 2100, Until Discontinued, Routine 2107 (Given - Provider: Radha Bhatia, KARINE) 0859 (Given - Provider: Argenis James)213 (Given - Provider: Lucina Lebron RN) 0914 (Given - Provider: Milka Vega RN) fentaNYL PF (SUBLIMAZE) 50 mcg/mL injection 15 mcg (COMPLETED) 15 mcg, IntraTHEcal, ONE TIME ONLY, 1 dose, On Marycruz 12/28/11 at 0115, Routine, (ANESTHESIA LABOR ORDER) 0115 (Given - Provider: Arnold Mckeon CRNA) ferrous sulfate (FEOSOL) tablet 325 mg (CANCELED) 325 mg, Oral, DAILY, First dose on Marycruz 12/28/11 at 1600, Until Discontinued, Routine 1600 (Not Given - Provider: Sammie Woods RN - Reason: Patient condition) 0859 (Given - Provider: Argenis James) 0914 (Given - Provider: Milka Vega, KARINE) oxytocin in lactated ringers (PITOCIN) 20 unit/1,000 mL infusion Soln (CANCELED) IV, at 999 mL/hr, SEE ADMIN INSTRUCTIONS, Starting on Marycruz 12/28/11 at 0501, Until Marycruz 12/28/11 at 1553, Routine 1334 (Given - Provider: Luma Phelan, KARINE) vit-iron fumarate-fa (NICHOLE ) 28-0.8 mg per tablet 1 Tab (CANCELED) 1 Tablet, Oral, DAILY, First dose on Marycruz 12/28/11 at 1600, Until Discontinued, Routine 1600 (Not Given - Provider: Sammie Woods RN - Reason: Patient condition) 2100 (Not Given - Provider: Lucina Lebron RN - Reason: Patient asleep) 0117 (Given - Provider: Lucina Lebron, KARINE) Continuous Medication Order 12/28/2011 12/29/2011 12/30/2011 fentanyl-ropivacaine in sodium chloride 0.9% (PF) 2-0.1 mcg/mL-% epidural (CANCELED) 8 mL/hr, Epidural, TITRATE, Starting on Marycruz 12/28/11 at 0115, Until Marycruz 12/28/11 at 1553 0115 (New Bag - Provider: Arnold Mckeon CRNA) lactated ringers solution (CANCELED) IV, at 125 mL/hr, CONTINUOUS, Starting on Sun12/27/11 at 2315, Until Marycruz 12/28/11 at 1553, Routine 0124 (New Bag - Provider: Bart Archer, KARINE)1046 (New Bag - Provider: Luma Phelan, KARINE) oxytocin (PITOCIN) 30 units in lactated ringers 500 mL infusion (CANCELED) 1 luba-units/min (rounded to 1 mL/hr), IV, TITRATE, Starting on Sun12/27/11 at 2315, Until Marycruz 12/28/11 at 1553, Routine 1131 (New Bag - Provider: Luma Phelan RN)1200 (Rate Change - Provider: Luma Phelan, RN)1230 (Rate Change - Provider: Luma Phelan RN) PRN Medication Order 12/28/2011 12/29/2011 12/30/2011 ibuprofen (MOTRIN) tablet 600 mg 600 mg, Oral, EVERY 6 HOURS PRN, Starting on Marycruz 12/28/11 at 1504, Until 12/30/11 at 1447, Pain, Routine 1525 (Given - Provider: Luma Phelan, RN)2108 (Given - Provider: Radha Bhatia, RN) 0439 (Given - Provider: Radha Bhatia, RN)1107 (Given - Provider: Argenis James - Comment: verified by Aneudy Woods Rn)1734 (Given - Provider: Sammie Woods RN) 0117 (Given - Provider: Lucina Lebron, KARINE)0915 (Given - Provider: Milka Vega, KARINE) oxyCODONE-acetaminophe n (PERCOCET) 5-325 mg per tablet 1 Tab 1 Tablet, Oral, EVERY 4 HOURS PRN, Starting on Marycruz 12/28/11 at 1526, Until 12/30/11 at 1447, Pain, Moderate, For Pain Scale 4-6, Routine 1525 (Given - Provider: Luma Phelan RN)2108 (Given - Provider: Radha Bhatia RN) 0053 (Given - Provider: Radha Bhatia, KARINE)0454 (Given - Provider: Radha Bhatia, RN)0859 (Given - Provider: Argenis James)1320 (Given - Provider: Sammie Woods RN)1734 (Given - Provider: Sammie Woods RN)2131 (Given - Provider: Lucina Lebron, KARINE) 0117 (Given - Provider: Lucina Lebron, KARINE)0531 (Given - Provider: Lucina Lebron, KARINE)0915 (Given - Provider: Milka Vega, KARINE) documented in this encounter Care Teams Inspector Assembly Relationship Specialty Start Date End Date Ervin Tejada MD PCP - General 01/17/08 documented as of this encounter
--- OUTSIDE RECORDS SUMMARY | 2024-02-12 02:19 | XMS_ITS | Encounter Summary ---
Author Organization [facility] Address [address] [place] [address] Care Team Providers Care Med Specialist Name Role Phone Ervin Tejada MD Primary Care Provider [phone] Reason for Visit * Reason Comments Initial Visit Encounter Details Date Type Department Care Team (Latest Contact Info) Description 06/19/2011 9:10 AM CDT Initial [facility] FRUIT RAISER - [address] [address] Merrick Mir MD [address] [place] [address] [place] [phone] Supervision of other normal (Primary Dx) [...] Sign Reading Time Taken Comments Blood Pressure 112/80 06/19/2011 9:23 AM CDT Pulse - - Temperature - - Respiratory Rate - - Oxygen Saturation - - Inhaled Oxygen Concentration - - Weight 62.6 kg (138 lb) 06/19/2011 9:23 AM CDT Height 162.6 cm (5' 4 ) 06/19/2011 9:24 AM CDT Body Mass Index 23.69 06/19/2011 9:23 AM CDT documented in this encounter Progress Notes * Merrick Mir MD - 06/19/2011 9:41 AM CDT Reviewed US and labs; questions answered documented in this encounter Plan of Treatment Pending Results Name Type Priority Associated Diagnoses Date /Time POC , URINE Point of Care Testing Routine 06/19/2011 9:20 AM CDT documented as of this encounter Visit Diagnoses Diagnosis Supervision of other normal - Primary documented in this encounter Care Teams Med Specialist Relationship Specialty Start Date End Date Ervin Tejada MD PCP - General 01/17/08 documented as of this encounter
--- OUTSIDE RECORDS SUMMARY | 2024-02-12 02:19 | XMS_ITS | Encounter Summary ---
Author Organization [facility] Address [address] [place] [address] Care Team Providers Care Wellness Nurse Name Role Phone Ervin Tejada MD Primary Care Provider [phone] Reason for Visit * Outpatient Services (Routine) - Closed Specialty Diagnoses / Procedures Referred By Contac t Referred To Contact Laboratory Diagnoses - Procedures LAB Merrick Mir MD [address] [place] [phone] [facility] [address] MATTHEWS [address] [place] [phone] Referral ID Status Reason Start Date Expiration Date Visits Re quested Visits Authorized [id number] Closed 04/14/2014 05/15/2015 1 1 Encounter Details Date Type Department Care Team (Latest Contact Info) Description 04/14/2014 7:53 AM COPYRIGHT CLERK - 04/14/2014 11:59 PM [facility] Hospital Encounter [facility] Laboratory Services [address] MATTHEWS [address] [place] [phone] Merrick Mir MD [address] [place] [phone] Discharge Disposition: Home or Self Care [...] Name Priority Date/Time Associated Diagnosis Comments GLUCOSE TOLERANCE 1 HR GESTATIONAL Routine 04/14/2014 8:00 AM COPYRIGHT CLERK Supervision of other normal , second trimester CBC WITH DIFFERENTIAL Routine 04/14/2014 8:00 AM COPYRIGHT CLERK Supervision of other normal , second trimester documented in this encounter Results * (ABNORMAL) GLUCOSE TOLERANCE 1 HR GESTATIONAL (04/14/2014 8:00 AM COPYRIGHT CLERK) GLUCOSE 1 HR OBSTETRIC 147(H) 65 - 139 mg/dL [facility] Blood 04/14/2014 8:00 AM COPYRIGHT CLERK 04/14/2014 10:45 AM COPYRIGHT CLERK Comment:Blood Merrick Mir MD CHEMISTRY ORDERABLES [facility]# [id number] [address] [place] [id number] * (ABNORMAL) CBC WITH DIFFERENTIAL (04/14/2014 8:00 AM COPYRIGHT CLERK) WBC 8.6 4.0 - 9.8 K/uL [facility] RBC 4.13 3.90 - 4.90 M/uL [facility] HEMOGLOBIN 12.8 11.8 - 14.8 g/dL [facility] HEMATOCRIT 36.9 35.5 - 44.0 % [facility] MCV 89.3 82.0 - 99.0 fL [facility] MCH 31.0 27.2 - 32.6 pg [facility] MCHC 34.7 31.5 - 35.5 % [facility] PLATELETS 197 140 - 350 K/uL [facility] MPV 9.0(L) 9.3 - 12.4 fL [facility] RDW 13.1 11.5 - 14.5 % [facility] RDW-STDEV 42.2 37.1 - 48.7 [place] [facility] NEUTROPHILS 72(H) 45 - 70 % [facility] LYMPHOCYTES 22 16 - 45 % [facility] MONOCYTES 5 3 - 13 % [facility] EOSINOPHILS 1 0 - 7 % [facility] BASOPHILS 0 0 - 2 % [facility] NEUTROPHIL ABSOLUTE 6.17 1.90 - 7.00 K/uL [facility] LYMPHOCYTE ABSOLUTE 1.88 0.70 - 4.50 K/uL [facility] MONOCYTE ABSOLUTE 0.45 0.10 - 1.30 K/uL [facility] EOSINOPHIL ABSOLUTE 0.07 0.00 - 0.70 K/uL [facility] . [facility] BASOPHILS ABSOLUTE 0.03 0.00 - 0.20 K/uL [facility] Blood 04/14/2014 8:00 AM COPYRIGHT CLERK 04/14/2014 10:45 AM COPYRIGHT CLERK Merrick Mir MD HEMATOLOGY ORDERABLE S [facility]# [id number] [address] [place] [place] [address] documented in this encounter Visit Diagnoses Diagnosis Supervision of other normal , second trimester documented in this encounter Care Teams Wellness Nurse Relationship Specialty Start Date End Date Ervin Tejada MD PCP - General 01/17/08 documented as of this encounter
--- OUTSIDE RECORDS SUMMARY | 2024-02-12 02:19 | XMS_ITS | Encounter Summary ---
Author Organization [facility] Address [address] [place] [address] Care Team Providers Care Yard Stocker Name Role Phone Ervin Tejada MD Primary Care Provider [phone] Encounter Details Date Type Department Care Team (Late st Contact Info) Description 12/19/2011 Orders Only [facility] Admitting [address] [place] [address] Ervin Tejada MD [address] [facility] [address] [address] Social History Tobacco Use Types Packs/Day Years [...] on filedocumented in this encounter Care Teams Yard Stocker Relationship Specialty Start Date End Date Ervin Tejada MD PCP - General 01/17/08 documented as of this encounter
--- OUTSIDE RECORDS SUMMARY | 2024-02-12 02:19 | XMS_ITS | Encounter Summary ---
Author Organization [facility] Address [address] [place] [address] Care Team Providers Care Physicist [employer] Name Role Phone Ervin Tejada MD Primary Care Provider [phone] Reason for Visit * Reason Comments Post- Care 5 wks vaginal Male Encounter Details Date Type Department Care Team (Latest Contact Info) Description 01/30/2012 10:45 [address] STREETCAR DISPATCHER Office Visit [facility] INTEGRITY MANAGER - [address] [place] [address] Lillie Newton NP NO ADDRESS ON FILE Routine follow-up (Primary Dx); General counseling for prescription of oral contraceptives Social History Tobacco Use Types Packs/Day Years [...] Reading Time Taken Comments Blood Pressure 120/80 01/30/2012 10:49 [address] STREETCAR DISPATCHER Pulse - - Temperature - - Respiratory Rate - - Oxygen Saturation - - Inhaled Oxygen Concentration - - Weight 68 kg (150 lb) 01/30/2012 10:49 AM STREETCAR DISPATCHER Height 162.6 cm (5' 4 ) 01/30/2012 10:49 AM STREETCAR DISPATCHER Body Mass Index 25.75 01/30/2012 10:49 AM STREETCAR DISPATCHER documented in this encounter Progress Notes * Lillie Flynn CHIEF PASSENGER SHIP STEWARD/STEWARDESS - 01/30/2012 11:17 AM CST HPI Pt presents for routine care. She is doing well, has a good mood and is Breast feeding. Medications - PNV . Complaints - none. She is unsure about contraception. ROS - denies pain, bled for 3 weeks, no breast complaint, no urinary or bowel concerns. Denies depressive symptoms Filed Vitals: 01/30/12 1049 BP: 120/80 Height: 5' 4 (1.626 m) Weight: 150 lb (68.04 kg) PE Mood - normal Axillae - normal, no mass, non-tender Breasts - normal, no mass, non-tender, normal nipple Abdomen -soft, non-distended, non-tender, no mass Extremities - no edema, non-tender, no cord External genitalia - small suture remains, right; clean, no signs of infection Bimanual exam - no CMT, normal non-tender uterus and adnexae Assessment: 1) 5 weeks S/P full term vaginal delivery - normal exam and assessment, Breast feeding 2) Contraception - All available methods discussed, desires oral progesterone- only contraceptive Plan: Start POP now, exact dosing discussed, all hormonal pills, use BUM for first pack Continue vitamins and lanolin prn while lactating. Return to normal activities including work, exercise. Advised to wait for intercourse for 7-10 days more for sutures to heal. Advised may need extra lubricant. Activity precautions reviewed. Schedule an interval WOOD SHOP TEACHER annual exam for May 2012. Menstrual bleeding and mood precautions were reviewed. The contraceptive administration, benefits, risks, alternatives, side-effects, initiation and back-up method were reviewed. ETCAR DISPATCHER documented in this encounter Plan of Treatment Not on file documented as of this encounter Visit Diagnoses Diagnosis Routine follow-up- Primary General counseling for prescription of oral contraceptives documented in this encounter Care Teams Physicist Light [employer] Optics Relationship Specialty Start Date End Date Ervin Tejada MD PCP - General 01/17/08 documented as of this encounter
--- OUTSIDE RECORDS SUMMARY | 2024-02-12 02:19 | XMS_ITS | Encounter Summary ---
Author Organization [facility] Address [address] [place] [address] Care Team Providers Care Farm Adviser Name Role Phone Ervin Tejada MD Primary Care Provider [phone] Encounter Details Date Type Department Care Team (Latest Contact Info) Description 11/12/2013 10:44 AM CDT - 11/12/2013 11:59 PM CDT Hospital Encounter [facility] Laboratory Services [facility] [address] [place] [address] [place] [phone] Merrick Mir MD [address] [facility] [address] [facility] [address] Discharge Disposition: Home or Self Care [...] Procedure Name Priority Date/Time Associated Diagnosis Comments HIV DETECTION W/REFLX CONFIRMATION Routine 11/12/2013 10:45 AM CDT TYPE AND SCREEN, Routine 11/12/2013 10:45 AM CDT TSH REFLEXIVE Routine 11/12/2013 10:45 AM CDT confirmed by positive blood test HEPATITIS B SURFACE ANTIGEN Routine 11/12/2013 10:45 AM CDT RUBELLA IGG Routine 11/12/2013 10:45 AM CDT CBC WITH DIFFERENTIAL Routine 11/12/2013 10:45 AM CDT RPR Routine 11/12/2013 10:45 AM CDT URINALYSIS W/REFLEX MICROSCOPIC Routine 11/12/2013 10:45 AM CDT confirmed by positive blood test OBSTETRIC PANEL Routine 11/12/2013 10:45 AM CDT confirmed by positive blood test URINE CULTURE Routine 11/12/2013 10:45 AM CDT confirmed by positive blood test documented in this encounter Results * HIV ANTIBODY W/REFLX CONFIRMATION (11/12/2013 10:45 AM CDT) HIV-1/2 AG AND AB SCREEN Negative Negative [facility] Amiigo [facility] Comment: Negative result does not rule out HIV infection. If acute HIV infection is suspected in a high-risk individual, submit plasma specimen for HIV-1 RNA quantification test (HIVQU) and/or HIV-2 DNA/RNA test (FHV2Q). Test Performed by: [place] [address] Electrophysiology Scientist: Steve Jose M.D. Blood 11/12/2013 10:4 5 AM CDT 11/12/2013 4:05 PM CDT Merrick Mir MD CHEMISTRY ORDERABLES [facility] Amiigo [facility]# [id number] [address] [facility] [address] [address] * TYPE AND SCREEN, (11/12/2013 10:45 AM CDT) HISTORY CHECK History Checked [facility] Am[facility]igo [facility] ABO/RH TYPE B Positive [facility] LABORATORY [facility] ANTIBODY SCREEN Negative [facility] LABORATORY [facility] 11/12/2013 10:4 5 AM CDT 11/12/2013 11:34 AM CDT Merrick Mir MD BLOOD BANK ORDERABLE S Performing Organization Address [facility]/ZIP Co de Phone Number [facility] CLIA# [id number] [address] [place] [address] * RUBELLA IGG (11/12/2013 10:45 AM CDT) RUBELLA IGG Reactive [facility] LABORATORY [facility] Comment: The presence of IgG antibodies to Rubella virus is an indication of previous exposure to the virus, either by infection or by vaccination. Blood 11/12/2013 10:4 5 AM CDT 11/12/2013 4:05 PM CDT Merrick Mir MD CHEMISTRY ORDERABLES Performing Organization Address City/[facility]/ZIP Co de Phone Number [facility] LABORATORY [facility] CLIA# [id number] [address] [place] [address] * (ABNORMAL) CBC WITH DIFFERENTIAL (11/12/2013 10:45 AM CDT) WBC 9.3 4.0 - 9.8 K/uL [facility] LABORATORY SERVICES [facility] RBC 4.73 3.90 - 4.90 M/uL [facility] LABORATORY SERVICES [facility] HEMOGLOBIN 14.4 11.8 - 14.8 g/dL [facility] LABORATORY SERVICES [facility] HEMATOCRIT 40.5 35.5 - 44.0 % [facility] LABORATORY SERVICES [facility] MCV 85.6 82.0 - 99.0 fL [facility] LABORATORY SERVICES - [facility] MCH 30.4 27.2 - 32.6 pg [facility] LABORATORY SERVICES [facility] MCHC 35.6(H) 31.5 - 35.5 % [facility] LABORATORY SERVICES [facility] PLATELETS 272 140 - 350 K/uL [facility] LABORATORY SERVICES [facility] MPV 9.2(L) 9.3 - 12.4 fL [facility] RDW 12.0 11.5 - 14.5 % [facility] RDW-STDEV 37.5 37.1 - 48.7 [place] [facility] NEUTROPHILS 67 45 - 70 % [facility] LYMPHOCYTES 25 16 - 45 % [facility] MONOCYTES 6 3 - 13 % [facility] EOSINOPHILS 1 0 - 7 % [facility] BASOPHILS 0 0 - 2 % [facility] NEUTROPHIL ABSOLUTE 6.26 1.90 - 7.00 K/uL [facility] LYMPHOCYTE ABSOLUTE 2.35 0.70 - 4.50 K/uL [facility] MONOCYTE ABSOLUTE 0.61 0.10 - 1.30 K/uL [facility] EOSINOPHIL ABSOLUTE 0.08 0.00 - 0.70 K/uL [facility] BASOPHILS ABSOLUTE 0.03 0.00 - 0.20 K/uL [facility] Blood 11/12/2013 10:4 5 AM CDT 11/12/2013 11:34 AM CDT Merrick Mir MD HEMATOLOGY ORDERABLE S [facility] LABORATORY SERVICES [facility] CLIA# [id number] [address] [place] [address] * HEPATITIS B SURFACE ANTIGEN (11/12/2013 10:45 AM CDT) HEPATITIS B SURFACE AG Nonreactive Nonreactive [facility] Blood 11/12/2013 10:4 5 AM CDT 11/12/2013 4:05 PM CDT Merrick Mir MD CHEMISTRY ORDERABLES [facility] LABORATORY SERVICES [facility] CLIA# [id number] [address] [place] [address] * RPR (11/12/2013 10:45 AM CDT) RPR Nonreactive Nonreactive [facility] Comment:Performed by Jono Abreu [facility], [address] [place] [address] Blood 11/12/2013 10:4 5 AM CDT 11/12/2013 4:05 PM CDT Merrick Mir MD CHEMISTRY ORDERABLES Performing Organization Address City/[facility]/ZIP Co de Phone Number [facility] LABORATORY SERVICES [facility] CLIA# [id number] [address] [place] [address] * URINE CULTURE (11/12/2013 10:45 AM CDT) FINAL MICRO REPORT No growth 24 hours [facility] LABORATORY SERVICES [facility] Urine specimen (specimen) URINE SPECIMEN OBTAINED BY CLEAN CATCH PROCEDURE / Unknown 11/12/2013 10:45 AM CDT 11/12/2013 12:40 PM CDT Comment:URINE VOIDED Merrick Mir MD MICROBIOLOGY - [facility] AL ORDERABLES Performing Organization Address City/[facility]/ZIP Co de Phone Number [facility] LABORATORY SERVICES [facility] CLIA# [id number] [address] [place] [address] * URINALYSIS (11/12/2013 10:45 AM CDT) COLOR UA Yellow [facility] CLARITY UA Clear Clear [facility] - . [facility] SPECIFIC GRAVITY UA 1.019 1.001 - 1.035 [facility] - [facility] PH UA 6.5 5.0 - 8.0 [facility] LEUKOCYTE ESTERASE UA Negative Negative [facility] NITRITE UA Negative Negative [facility] PROTEIN UA Negative Negative [facility] GLUCOSE UA Negative Negative [facility] KETONES UA Negative Negative [facility] UROBILINOGEN UA <1 <=1 mg/dL [facility] BILIRUBIN UA Negative Negative [facility] BLOOD UA Negative Negative [facility] Urine URINE SPECIMEN OBTAINED BY CLEAN CATCH PROCEDURE / Unknown 11/12/2013 10:45 AM CDT 11/12/2013 11:34 AM CDT Comment:Urine Merrick Mir MD URINE ORDERABLES [facility] LABORATORY SERVICES [facility] CLIA# [id number] [address] [place] [address] * TSH REFLEXIVE (11/12/2013 10:45 AM CDT) TSH 1.57 0.27 - 4.20 uU/mL [facility] LABORATORY SERVICES [facility] Blood 11/12/2013 10:4 5 AM CDT 11/12/2013 4:05 PM CDT Merrick Mir MD CHEMISTRY ORDERABLES [facility] LABORATORY SERVICES [facility] CLIA# [id number] [address] [place] [address] * OBSTETRIC PANEL (11/12/2013 10:45 AM CDT) COMMENT See Additional Orderables [facility] LABORATORY SERVICES [facility] Blood 11/12/2013 10:4 5 AM CDT 11/12/2013 4:05 PM CDT Merrick Mir MD CHEMISTRY ORDERABLES [facility]ORAT[facility] CLIA# [id number] [address] [place] [place] [address] documented in this encounter Visit Diagnoses Diagnosis confirmed by positive blood test documented in this encounter Care Teams Farm Adviser Relationship Specialty Start Date End Date Ervin Tejada MD PCP - General 01/17/08 documented as of this encounter
--- OUTSIDE RECORDS SUMMARY | 2024-02-12 02:19 | XMS_ITS | Encounter Summary ---
Author Organization [facility] Address [address] [place] [address] Care Team Providers Care Keyboarding Teacher Name Role Phone Ervin Tejada MD Primary Care Provider [phone] Reason for Visit * Reason Comments Routine Visit Encounter Details Date Type Department Care Team (Latest Contact Info) Description 11/06/2011 9:00 AM CDT visit [facility] MANAGER VEHICLE - [address] [address] Merrick Mir MD [address] [place] [address] [place] [phone] Supervision of other normal (Primary Dx) [...] Sign Reading Time Taken Comments Blood Pressure 122/80 11/06/2011 8:57 AM CDT Pulse - - Temperature - - Respiratory Rate - - Oxygen Saturation - - Inhaled Oxygen Concentration - - Weight 73.9 kg (163 lb) 11/06/2011 8:57 AM CDT Height - - Body Mass Index 27.98 06/19/2011 9:24 AM CDT documented in this encounter Progress Notes * Merrick Mir MD - 11/06/2011 9:20 AM CDT BADW; passed 3 hour documented in this encounter Plan of Treatment Not on file documented as of this encounter Visit Diagnoses Diagnosis Supervision of other normal - Primary documented in this encounter Care Teams Keyboarding Teacher Relationship Specialty Start Date End Date Ervin Tejada MD PCP - General 01/17/08 documented as of this encounter
--- OUTSIDE RECORDS SUMMARY | 2024-02-12 02:19 | XMS_ITS | Encounter Summary ---
Author Organization [facility] Address [address] [place] [address] Care Team Providers Care Systems Librarian Name Role Phone Ervin Tejada MD Primary Care Provider [phone] Reason for Visit * Reason Onset Date Comments Diarrhea 02/22/2012 Encounter Details Date Type Department Care Team (Late st Contact Info) Description 02/22/2012 Telephone [facility] Primary Care - [address] [place] [address] Ervin Tejada MD [address] [facility] [address] [address] Diarrhea Social History Tobacco Use Types Packs/Day Years [...] encounter Miscellaneous Notes * Telephone Encounter - Yue Barron - 02/22/2012 9:41 AM CST lmor for pt ECTIVE SIGNAL INSTALLER * Telephone Encounter - Liya Fitzpatrick, WILFRID- - 02/22/2012 9:35 AM PROTECTIVE SIGNAL INSTALLER As long as she has stopped vomiting and is without abdominal pain or worsening fever--this is likely viral. Hydrate as much as possible. I would use metamucil to help bulk up stools. Let me know if symptoms seem worse or needs appt. ECTIVE SIGNAL INSTALLER * Telephone Encounter - Karoline Jones - 02/22/2012 8:56 AM PROTECTIVE SIGNAL INSTALLER Vomiting stopped Sunday, diarrhea continues, no otc med for diarrhea, no fever no chill, ableto keep fluid, pt is nursing,pls advise ECTIVE SIGNAL INSTALLER documented in this encounter Plan of Treatment Not on file documented as of this encounter Visit Diagnoses Not on filedocumented in this encounter Care Teams Systems Librarian Relationship Specialty Start Date End Date Ervin Tejada MD PCP - General 01/17/08 documented as of this encounter
--- OUTSIDE RECORDS SUMMARY | 2024-02-12 02:19 | XMS_ITS | Encounter Summary ---
Author Organization [facility] Address [address] [place] [address] Care Team Providers Care Negative Stripper Name Role Phone Ervin Tejada MD Primary Care Provider [phone] Reason for Visit * Reason Comments Ultrasound Encounter Details Date Type Department Care Team (Late st Contact Info) Description 10/11/2011 11:00 AM CDT Office Visit [facility] SUPERINTENDENT TESTS - Medical [facility] [address] [facility] [address] [phone] Zee Parson Low-lying placenta (Primary Dx) Social History Tobacco Use Types [...] on file documented as of this encounter Progress Notes * Ultrasound - 10/11/2011 9:07 AM CDT Patient seen in office today and Ultrasound exam performed. documented in this encounter Plan of Treatment Not on file documented as of this encounter Procedures Procedure Name Priority Date/Time Associated Diagnosis Comments US OB FOLLOW UP PER FETUS Routine 10/11/2011 Low-lying placenta documented in this encounter Results * US OB FOLLOW UP PER FETUS (10/11/2011) Anatomical Region Laterality Modality Pelvis Other Impressions 10/11/2011 Debianita Carrera is a 26 y.o. female who presents for ultrasound to evaluate placentation, EFW and VON. Today's ultrasound reveals a single fetus in the vertex presentation. ??The placenta is located anteriorly and no longer appears low lying. ?? motion is seen. ??The stomach, kidneys, bladder were imaged. ??The EFW is 2 lbs 5oz(AUA 27w 2d). ??The VON is 14.14 cm. ??Clinical correlation is recommended. Gabriela Mar NP US ORDERABLES documented in this encounter Visit Diagnoses Diagnosis Low-lying placenta- Primary Hemorrhage from placenta previa, unspecified as to episode of care documented in this encounter Care Teams Negative Stripper Relationship Specialty Start Date End Date Ervin Tejada MD PCP - General 01/17/08 documented as of this encounter
--- OUTSIDE RECORDS SUMMARY | 2024-02-12 02:19 | XMS_ITS | Encounter Summary ---
Author Organization [facility] Address [address] [place] [address] Care Team Providers Care Ad Operations Coordinator Name Role Phone Ervin Tejada MD Primary Care Provider [phone] Reason for Visit * Reason Comments Routine Visit Encounter Details Date Type Department Care Team (Latest Contact Info) Description 12/04/2011 9:00 AM CDT visit [facility] ELEVATOR TECHNICIAN - [address] [address] Merrick Mir MD [address] [place] [address] [place] [phone] Supervision of other normal (Primary Dx) [...] Sign Reading Time Taken Comments Blood Pressure 120/70 12/04/2011 8:58 AM CDT Pulse - - Temperature - - Respiratory Rate - - Oxygen Saturation - - Inhaled Oxygen Concentration - - Weight 76.7 kg (169 lb) 12/04/2011 8:58 AM CDT Height - - Body Mass Index 29.01 06/19/2011 9:24 AM CDT documented in this encounter Progress Notes * Merrick Mir MD - 12/04/2011 9:12 AM CDT BADW; got FLUVAX; watch NaCl documented in this encounter Plan of Treatment Not on file documented as of this encounter Visit Diagnoses Diagnosis Supervision of other normal - Primary documented in this encounter Care Teams Ad Operations Coordinator Relationship Specialty Start Date End Date Ervin Tejada MD PCP - General 01/17/08 documented as of this encounter
--- OUTSIDE RECORDS SUMMARY | 2024-02-12 02:19 | XMS_ITS | Encounter Summary ---
Author Organization [facility] Address [address] [place] [address] Care Team Providers Care Circuit Board Assembler Name Role Phone Ervin Tejada MD Primary Care Provider [phone] Encounter Details Date Type Department Care Team (Latest Contact Info) Description 10/13/2011 7:50 AM CDT - 10/13/2011 11:59 PM CDT Hospital Encounter [facility] Laboratory Services [address] [phone] Merrick Mir MD [address] [place] [phone] Discharge Disposition: Home or Self Care [...] Comments GLUCOSE TOLERANCE 1 HR GESTATIONAL Routine 10/13/2011 8:55 AM CDT Supervision of other normal HEMOGLOBIN AND HEMATOCRIT Routine 10/13/2011 8:55 AM CDT Supervision of other normal documented in this encounter Results * HEMOGLOBIN AND HEMATOCRIT (10/13/2011 8:55 AM CDT) HEMOGLOBIN 12.6 11.8 - 14.8 g/dL [facility] HEMATOCRIT 36.6 35.5 - 44.0 % [facility] Blood specimen (specimen) 10/13/2011 8:55 AM CDT 10/13/2011 10:14 AM CDT Merrick Mir MD HEMATOLOGY ORDERABLE S Performing Organization Address City/[facility]/ZIP Co de Phone Number [facility]# [id number] [address] [place] [address] * (ABNORMAL) GLUCOSE TOLERANCE 1 HR GESTATIONAL (10/13/2011 8:55 AM CDT) GLUCOSE 1 HR OBSTETRIC 164(H) 65 - 139 mg/dL [facility] Blood specimen (specimen) 10/13/2011 8:55 AM CDT 10/13/2011 1:21 PM CDT Comment:BLOOD Merrick Mir MD CHEMISTRY ORDERABLES Performing Organization Address [facility] Co de Phone Number [facility]# [id number] [address] [place] [place] [address] documented in this encounter Visit Diagnoses Diagnosis Supervision of other normal documented in this encounter Care Teams Circuit Board Assembler Relationship Specialty Start Date End Date Ervin Tejada MD PCP - General 01/17/08 documented as of this encounter
--- OUTSIDE RECORDS SUMMARY | 2024-02-12 02:19 | XMS_ITS | Encounter Summary ---
Author Organization [facility] Address [address] [place] [address] Care Team Providers Care Vending Machine Operator Name Role Phone Ervin Tejada MD Primary Care Provider [phone] Reason for Visit * Reason Comments Routine Visit Encounter Details Date Type Department Care Team (Latest Contact Info) Description 03/16/2014 3:45 PM SERVICE SECRETARY visit [facility] PASSENGER SERVICE MANAGER - [address] [address] Merrick Mir MD [address] [place] [address] [place] [phone] Supervision of other normal , second trimester (Primary Dx) Social History Tobacco Use [...] - Inhaled Oxygen Concentration - - Weight 69.9 kg (154 lb) 03/16/2014 3:46 PM SERVICE SECRETARY Height 162.6 cm (5' 4 ) 03/16/2014 3:46 PM SERVICE SECRETARY Body Mass Index 26.43 03/16/2014 3:46 PM SERVICE SECRETARY documented in this encounter Progress Notes * Merrick Mir MD - 03/16/2014 4:53 PM CST BADW, no c/o ICE SECRETARY documented in this encounter Plan of Treatment Not on file documented as of this encounter Visit Diagnoses Diagnosis Supervision of other normal , second trimester- Primary documented in this encounter Care Teams Vending Machine Operator Relationship Specialty Start Date End Date Ervin Tejada MD PCP - General 01/17/08 documented as of this encounter
--- OUTSIDE RECORDS SUMMARY | 2024-02-12 02:19 | XMS_ITS | Encounter Summary ---
Author Organization [facility] Address [address] [place] [address] Care Team Providers Care Bilingual Teacher Assistant Name Role Phone Ervin Tejada MD Primary Care Provider [phone] Reason for Visit * Reason Comments Routine Visit Encounter Details Date Type Department Care Team (Latest Contact Info) Description 01/14/2014 9:00 AM WATER FILTERER HELPER visit [facility] CRYPTOGRAPHIC MACHINE OPERATOR - Medical [address] [address] Merrick Mir MD [address] [place] [phone] Supervision of other normal , second [...] Reading Time Taken Comments Blood Pressure 110/70 01/14/2014 9:03 AM WATER FILTERER HELPER Pulse - - Temperature - - Respiratory Rate - - Oxygen Saturation - - Inhaled Oxygen Concentration - - Weight 64.4 kg (142 lb) 01/14/2014 9:03 AM WATER FILTERER HELPER Height 162.6 cm (5' 4 ) 01/14/2014 9:03 AM WATER FILTERER HELPER Body Mass Index 24.37 01/14/2014 9:03 AM WATER FILTERER HELPER documented in this encounter Progress Notes * Merrick Mir MD - 01/14/2014 9:14 AM CST Feeling occasional vaginal pressure, no VB, no LOF; cervix firmly closed, but some uterine descent c/w previous delivery; US next visit R FILTERER HELPER documented in this encounter Plan of Treatment Not on file documented as of this encounter Visit Diagnoses Diagnosis Supervision of other normal , second trimester- Primary documented in this encounter Care Teams Bilingual Teacher Assistant Relationship Specialty Start Date End Date Ervin Tejada MD PCP - General 01/17/08 documented as of this encounter
--- OUTSIDE RECORDS SUMMARY | 2024-02-12 02:19 | XMS_ITS | Encounter Summary ---
Author Organization [facility] Address [address] [place] [address] Care Team Providers Care Theater Technician Name Role Phone Ervin Tejada MD Primary Care Provider [phone] Reason for Visit * Reason Comments Ultrasound Encounter Details Date Type Department Care Team (Late st Contact Info) Description 08/25/2011 9:20 AM CDT Office Visit [facility] DRYING SUPERVISOR - Medical [facility] [address] [facility] [address] [phone] Blank Zee state, incidental (Primary Dx) Social History Tobacco Use Types [...] as of this encounter Progress Notes * Dora Cooney - 08/25/2011 8:30 AM CDT Patient seen in office today and Ultrasound exam performed. documented in this encounter Plan of Treatment Not on file documented as of this encounter Procedures Procedure Name Priority Date/Time Associated Diagnosis Comments US OB 14+ WKS SINGLE GEST Routine 08/25/2011 state, incidental documented in this encounter Results * US OB 14+ WKS SINGLE GEST (08/25/2011) Anatomical Region Laterality Modality Pelvis Other Impressions 08/25/2011 Debi Carrera is a 26 y.o. female who presents for mid trimester ultrasound. IMPRESSION: Today's ultrasound reveals ??single fetus in the BREECH presentation. Placenta is located anteriorly and appears LOW LYING. ??A male gender is suspected. ??The face, heart, spine, stomach, kidneys, bladder were all imaged. ??The heartbeat measured 160 bpm. ??The amniotic fluid volume is normal. ??The cervical length is normal. There are no obvious markers of aneuploidy. ??Ultrasound would validate an EDC of 01/12/2012. Repeat as indicated. Clinical correlation is recommended. Kisha Garcia NP US ORDERABLES documented in this encounter Visit Diagnoses Diagnosis state, incidental- Primary documented in this encounter Care Teams Theater Technician Relationship Specialty Start Date End Date Ervin Tejada MD PCP - General 01/17/08 documented as of this encounter
--- OUTSIDE RECORDS SUMMARY | 2024-02-12 02:19 | XMS_ITS | Encounter Summary ---
Author Organization [facility] Address [address] [place] [address] Care Team Providers Care Activities Concierge Name Role Phone Ervin Tejada MD Primary Care Provider [phone] Reason for Visit * Reason Onset Date Comments Results 10/17/2011 Encounter Details Date Type Department Care Team (Late st Contact Info) Description 10/17/2011 Telephone [facility] APPLICATION SECURITY DEVELOPER - [place] [id number] [facility] [address] [place] [address] Kisha Garcia NP [address] [facility] [address] [place] [phone] Results Social History Tobacco Use Types [...] encounter Miscellaneous Notes * Telephone Encounter - Doreen Bermudez - 10/17/2011 9:22 AM CDT Pt informed. Orders placed. TG * Telephone Encounter - Doreen Bermudez - 10/17/2011 9:14 AM CDT LM to c/b.TG * Telephone Encounter - Doreen Bermudez - 10/17/2011 9:13 AM CDT Message copied by DOREEN BERMUDEZ on SunOct 17, 2011 9:13 AM ------ Message from: KISHA GARCIA Created: SunOct 13, 2011 3:02 PM Needs three hour gtt documented in this encounter Plan of Treatment Not on file documented as of this encounter Results * GLUCOSE TOLERANCE GESTATIONAL 3 HR (10/18/2011 10:30 AM CDT) COMMENT See Additional Orderables [facility] Blood specimen (specimen) 10/18/2011 10:30 AM CDT 10/18/2011 2:19 PM CDT Kisha Garcia LEAD SHIPPER CHEMISTRY ORDERABLES Performing Organization Address City/State/[facility] Co de Phone Number [facility] CLIA# [id number] [address] [facility] [place] [address] documented in this encounter Visit Diagnoses Diagnosis Elevated glucose tolerance test Impaired glucose tolerance test documented in this encounter Care Teams Activities Concierge Relationship Specialty Start Date End Date Ervin Tejada MD PCP - General 01/17/08 documented as of this encounter
--- OUTSIDE RECORDS SUMMARY | 2024-02-12 02:19 | XMS_ITS | Encounter Summary ---
Author Organization [facility] Address [address] [place] [address] Care Team Providers Care Research Environmental Scientist Name Role Phone Ervin Tejada MD Primary Care Provider [phone] Reason for Visit * Reason Comments Routine Visit Encounter Details Date Type Department Care Team (Latest Contact Info) Description 07/17/2011 9:10 AM CDT visit [facility] SECURITY INCIDENT RESPONSE ENGINEER - [address] [address] Merrick Mir MD [address] [place] [address] [place] [phone] Supervision of other normal (Primary Dx) [...] - Inhaled Oxygen Concentration - - Weight 63 kg (139 lb) 07/17/2011 9:13 AM CDT Height - - Body Mass Index 23.86 06/19/2011 9:24 AM CDT documented in this encounter Progress Notes * Merrick Mir MD - 07/17/2011 9:36 AM CDT Order given for TERRANCE, unsure if she will get it documented in this encounter Plan of Treatment Not on file documented as of this encounter Visit Diagnoses Diagnosis Supervision of other normal - Primary documented in this encounter Care Teams Research Environmental Scientist Relationship Specialty Start Date End Date Ervin Tejada MD PCP - General 01/17/08 documented as of this encounter
--- OUTSIDE RECORDS SUMMARY | 2024-02-12 02:19 | XMS_ITS | Encounter Summary ---
Author Organization [facility] Address [address] [place] [address] Care Team Providers Care Crm Marketing Executive Name Role Phone Ervin Tejada MD Primary Care Provider [phone] Encounter Details Date Type Department Care Team (Late st Contact Info) Description 10/18/2011 Orders Only [facility] Admitting [address] [place] [address] Merrick Mir MD [address] [facility] [address] [facility] [place] [address] Social History Tobacco Use Types [...] on filedocumented in this encounter Care Teams Crm Marketing Executive Relationship Specialty Start Date End Date Ervin Tejada MD PCP - General 01/17/08 documented as of this encounter
--- OUTSIDE RECORDS SUMMARY | 2024-02-12 02:19 | XMS_ITS | Encounter Summary ---
Author Organization [facility] Address [address] [place] [address] Care Team Providers Care Dry Cans Operator Name Role Phone Ervin Tejada MD Primary Care Provider [phone] Reason for Visit * Auth/Cert - Closed Specialty Diagnoses / Procedures Referred By Contac t Referred To Contact Obstetrics Diagnoses elev BP [facility] Ob Triage [address] [place] [address] Referral ID Status Reason Start Date Expiration Date Visits Re quested Visits Authorized [id number] Closed 1 1 Encounter Details Date Type Department Care Team (Latest Contact Info) Description 12/18/2011 10:21 AM MANAGER CUSTOMER SERVICE - 12/18/2011 1:30 PM MANAGER CUSTOMER SERVICE Hospital Encounter [facility] OB Triage [address] [place] [address] Merrick Mir MD [address] [address] [place] [phone] Elevated blood pressure reading without diagnosis of hypertension Discharge Disposition: Home or Self Care Social [...] Sign Reading Time Taken Comments Blood Pressure 143/81 12/18/2011 12:35 PM MANAGER CUSTOMER SERVICE Pulse 109 12/18/2011 12:35 PM MANAGER CUSTOMER SERVICE Temperature 36.3 ??C (97.4 ??F) 12/18/2011 10:[address] Respiratory Rate 18 12/18/2011 12:35 PM MANAGER CUSTOMER SERVICE Oxygen Saturation - - Inhaled Oxygen Concentration - - Weight 78.5 kg (173 lb) 12/18/2011 10:43 AM MANAGER CUSTOMER SERVICE Height 162.6 cm (5' 4 ) 12/18/2011 10:43 AM MANAGER CUSTOMER SERVICE Body Mass Index 29.7 12/18/2011 10:43 AM MANAGER CUSTOMER SERVICE documented in this encounter Discharge Instructions * Discharge Instructions* Flavia Ramon RN - 12/18/2011 1:20 PM MANAGER CUSTOMER SERVICE Follow-up: with your doctor on Sunday for urine results. Send 24 hour urine to lab tomorrow afternoon. Follow-up with your doctor at your next scheduled appointment. Prescriptions given? no Return to Labor and Delivery or notify your physician regarding: Contractions: 5-6 in one hour increasing in intensity after drinking plenty of water and lying on side. Vaginal Bleeding: A small amount of spotting after sexual intercourse or vaginal examination is considered normal. Bloody show is a pink-tinged or blood-streaked mucousy discharge that occurs near the onset of labor. If bleeding is heavy enough to require you to wear a pad, saturates your underpants or is accompanied by abdominal pain or cramping, notify your doctor or come to Labor and Delivery. Rupture of Membranes (Bag of Water): You may notice a large gush or continuous leaking of fluid from the vagina. The fluid will normallybe clear and white flecks may be seen. Sometimes the fluid may be greenish or brownish in color. Ifyou think your water has broken, notify your doctor or come to Labor and Delivery. Decreased Movement: If you think your baby is less active than usual, drink a glass of juice and lie down on your side.Count the number of kicks that you feel during a one-hour period. If your baby is still less activethan usual, notify your doctor or come to Labor and Delivery. General: If you experience any of the following signs/symptoms, notify your physician or come to Labor and Delivery: Headache, blurred vision, severe indigestion, abdominal pain, or increased swelling of face, hands, or feet. Additional Instructions: Drink plenty of water Activity: Your activity level is modified bedrest and no smoking. If you smoke you are advised to quit. Ask your health care provider for advice if you need assistance to stop smoking. Avoid second-hand smoke exposure and do not let people smoke in your home. Diet: Your diet is regular GER CUSTOMER SERVICE documented in this encounter Progress Notes * Flavia Ramon RN - 12/18/2011 1:28 PM CST Discharge instructions discussed w/pt. V/U. Questions addressed & answered. 24 hour urine instructions provided & urine sent w/pt. Pt to exit. GER CUSTOMER SERVICE documented in this encounter H&P Notes * Lauren Chamorro CNM - 12/18/2011 12:24 PM CST OB H&P Chief Complaint: HPI: Debi Carrera is a 26 y.o. female 36w3d weeks gestation who presents to the [facility] from the office for the evaluation of elevated blood pressures. Patient reports no headaches, epigastric pain or visual disturbances. She has had a 10# weight gain in the past week. Rates pain at 0 on a scale of 1 to10. Patient reports no contractions leaking of fluid or bleeding. Her primary senior qa engineer is Merrick Mir MD. Current Problem List: 1. OB History Grav Para Term Abortions TAB SAB Ect Mult Living 1 # Outc Date GA Lbr Danial/2nd Wgt Sex Del Anes PTL Lv 1 CUR GYNHX/ Past Medical History Diagnosis Date ??? Patient [...] Smokeless tobacco: Never Used ??? Alcohol Use: Yes social ??? Drug Use: No ??? Sexually [...] Neg Hx ??? Ovarian Cancer Neg Hx Prescriptions prior to admission Medication Sig Dispense Refill ??? PNV#26/IRON POLY/FA/DHA (PNV #26-IRON PS-FOLIC ACID-DHA ORAL) Take 1 Tab by mouth. Allergies Allergen Reactions ??? No Known Allergies The above has been reviewed with the patient & documented in the electronic record. Review of Systems No fever, SOB, no dysuria, or GI complaints. Constitutional: Negative for fever or chills HEENT: Negative for headache, visual changes. Respiratory: Negative for SOB. Cardiovascular: Negative for chest pain. Exam: Filed Vitals: 12/18/11 1131 12/18/11 1146 12/18/11 1201 12/18/11 1205 BP: 126/82 134/95 146/86 155/86 Pulse: 114 91 Temp: TempSrc: Resp: 18 16 16 18 Height: Weight: Additional B/P's Constitutional: alert, no distress Lungs: clear to auscultation bilaterally Heart: regular rate & rhythm, no murmur Abdomen: soft, gravid, no fundal tenderness, vertex per leopolds Musculoskeletal: No clubbing, cyanosis, or edema. No calf tenderness. FHT: 140 on admission TOCO: UC's ocassional Cervix: Dilation: not indicated Effacement: Station: Speculum: Pooling Not done Fern not done Wet prep: not indicated Bedside Ultrasound: VON 10.5cm Lab Review GBS: Labs: Results for orders placed during the hospital encounter of 12/18/11 (from the past 24 hour(s)) URINALYSIS WITH REFLEX CULTURE Component Value Range URINE CULTURE ORDER Culture ordered URINALYSIS Component Value Range COLOR UA Pale Yellow CLARITY UA Clear Clear SPECIFIC GRAVITY UA 1.005 1.001 - 1.035 PH UA 7.5 5.0 - 8.0 LEUKOCYTE ESTERASE UA 1+ (*) Negative NITRITE UA Negative Negative PROTEIN UA Negative Negative GLUCOSE UA Negative Negative KETONES UA Negative Negative UROBILINOGEN UA <1 <=1 mg/dL BILIRUBIN UA Negative Negative BLOOD UA Trace (*) Negative WBC UA <1 0 - 5 /HPF RBC UA <1 0 - 4 /HPF EPITHELIAL CELLS, URINE 2-5 ALT Component Value Range ALT 16 0 - 31 U/L AST Component Value Range AST 18 12 - 32 U/L CREATININE Component Value Range CREATININE 0.68 0.51 - 0.95 mg/dL GFR, >60 >=60 mL/min/1.7 sq meter GFR >60 >=60 mL/min/1.7 sq meter URIC ACID Component Value Range URIC ACID 5.2 2.3 - 6.6 mg/dL CBC WITH DIFFERENTIAL Component Value Range WBC 10.8 (*) 4.0 - 9.8 K/uL RBC 4.22 3.90 - 4.90 M/uL HEMOGLOBIN 13.4 11.8 - 14.8 g/dL HEMATOCRIT 37.7 35.5 - 44.0 % MCV 89.3 82.0 - 99.0 fL MCH 31.8 27.2 - 32.6 pg MCHC 35.5 31.5 - 35.5 % PLATELETS 181 140 - 350 K/uL MPV 9.8 9.3 - 12.4 fL RDW 13.2 11.5 - 14.5 % RDW-STDEV 42.5 37.1 - 48.7 fL NEUTROPHILS 75 (*) 45 - 70 % LYMPHOCYTES 18 16 - 45 % MONOCYTES 6 3 - 13 % EOSINOPHILS 0 0 - 7 % BASOPHILS 0 0 - 2 % NEUTROPHIL ABSOLUTE 8.10 (*) 1.90 - 7.00 K/uL LYMPHOCYTE ABSOLUTE 1.99 0.70 - 4.50 K/uL MONOCYTE ABSOLUTE 0.65 0.10 - 1.30 K/uL EOSINOPHIL ABSOLUTE 0.05 0.00 - 0.70 K/uL BASOPHILS ABSOLUTE 0.02 0.00 - 0.20 K/uL Assessment: 1. 36w3d weeks gestation 2. tracing reactive, no decelerations @ 1300 3. Labile blood pressure Plan: Observe in [facility] Discharge: Notified the attending summons server at 1300 recommends discharge home in stable condition. Reviewed danger and warning signs. Modified bed rest. Continue 24 hour urine turn in tomorrow. Call Dr. Mir Sunday for discussion of labs. GER CUSTOMER SERVICE documented in this encounter Miscellaneous Notes * Assessment & Plan Note - Stl Scanning, Him - 12/24/2011 4:00 PM CST Electronically signed by Interface, [facility] Stl Boat Camp Operator Incoming at 12/24/2011 4:00 PM MANAGER CUSTOMER SERVICE * Patient Instructions - Stl Scanning, Him - 12/24/2011 4:00 PM CST Electronically signed by Interface, [facility] Stl Boat Camp Operator Incoming at 12/24/2011 4:00 PM MANAGER CUSTOMER SERVICE documented in this encounter Plan of Treatment Not on file documented as of this encounter Procedures Procedure Name Priority Date/Time Associated Diagnosis Comments CBC WITH DIFFERENTIAL Stat 12/18/2011 11:09 AM MANAGER CUSTOMER SERVICE URIC ACID Stat 12/18/2011 11:09 AM MANAGER CUSTOMER SERVICE ALT Stat 12/18/2011 11:09 AM MANAGER CUSTOMER SERVICE AST Stat 12/18/2011 11:09 AM MANAGER CUSTOMER SERVICE CREATININE Stat 12/18/2011 11:09 AM MANAGER CUSTOMER SERVICE URINALYSIS WITH REFLEX CULTURE Stat 12/18/2011 10:59 AM MANAGER CUSTOMER SERVICE URINALYSIS W/REFLEX MICROSCOPIC Stat 12/18/2011 10:59 AM MANAGER CUSTOMER SERVICE URINE CULTURE Stat 12/18/2011 10:59 AM MANAGER CUSTOMER SERVICE documented in this encounter Results * (ABNORMAL) CBC WITH DIFFERENTIAL (12/18/2011 11:09 AM MANAGER CUSTOMER SERVICE) WBC 10.8(H) 4.0 - 9.8 K/uL [facility] RBC 4.22 3.90 - 4.90 M/uL [facility] HEMOGLOBIN 13.4 11.8 - 14.8 g/dL [facility] HEMATOCRIT 37.7 35.5 - 44.0 % [facility] MCV 89.3 82.0 - 99.0 fL [facility] MCH 31.8 27.2 - 32.6 pg [facility] MCHC 35.5 31.5 - 35.5 % [facility] PLATELETS 181 140 - 350 K/uL [facility] MPV 9.8 9.3 - 12.4 fL [facility] RDW 13.2 11.5 - 14.5 % [facility] RDW-STDEV 42.5 37.1 - 48.7 fL [facility] NEUTROPHILS 75(H) 45 - 70 % [facility] LYMPHOCYTES 18 16 - 45 % [facility] MONOCYTES 6 3 - 13 % [facility] EOSINOPHILS 0 0 - 7 % [facility] BASOPHILS 0 0 - 2 % [facility] NEUTROPHIL ABSOLUTE 8.10(H) 1.90 - 7.00 K/uL [facility] LYMPHOCYTE ABSOLUTE 1.99 0.70 - 4.50 K/uL [facility] MONOCYTE ABSOLUTE 0.65 0.10 - 1.30 K/uL [facility] EOSINOPHIL ABSOLUTE 0.05 0.00 - 0.70 K/uL [facility] BASOPHILS ABSOLUTE 0.02 0.00 - 0.20 K/uL [facility] - [facility] Blood specimen (specimen) 12/18/2011 11:09 AM MANAGER CUSTOMER SERVICE 12/18/2011 11:12 AM MANAGER CUSTOMER SERVICE Lauren Chamorro CN HEMATOLOGY ORDER ALBERTO [facility] SERVICES [facility] CLIA# [id number] [address] [facility] [address] [place] [address] * URIC ACID (12/18/2011 11:09 AM MANAGER CUSTOMER SERVICE) URIC ACID 5.2 2.3 - 6.6 mg/dL [facility] Blood specimen (specimen) 12/18/2011 11:09 AM MANAGER CUSTOMER SERVICE 12/18/2011 11:12 AM MANAGER CUSTOMER SERVICE Lauren Elvira GARRIDO CHEMISTRY ORDERA BLES Performing Organization Address [facility]/ZIP Co de Phone Number [facility] CLIA# [id number] [address] [place] [address] * CREATININE (12/18/2011 11:09 AM MANAGER CUSTOMER SERVICE) CREATININE 0.68 0.51 - 0.95 mg/dL [facility] GFR, >60 >=60 mL/min/1. 7 sq meter [facility] GFR >60 >=60 mL/min/1. 7 sq meter [facility] Comment: GFR is calculated using the IDMS-Traceable Modification of Diet in Renal Disease (MDRD) Study formula and is only valid for patients 18 years or older. Further interpretative information is available in the Laboratory Services Policy Manual on the [facility] Intranet at: http://[facility]-intranet.[facility]/ Blood specimen (specimen) 12/18/2011 11:09 AM MANAGER CUSTOMER SERVICE 12/18/2011 11:12 AM MANAGER CUSTOMER SERVICE Lauren GARRIDO CHEMISTRY ORDERA BLES Performing Organization Address [facility]/ZIP Co de Phone Number [facility] CLIA# [id number] [address] [place] [address] * AST (12/18/2011 11:09 AM MANAGER CUSTOMER SERVICE) AST 18 12 - 32 U/L [facility] Blood specimen (specimen) 12/18/2011 11:09 AM MANAGER CUSTOMER SERVICE 12/18/2011 11:12 AM MANAGER CUSTOMER SERVICE Lauren GARRIDO CHEMISTRY ORDERA BLES [facility] - [facility] CLIA# [id number] [address] [place] [address] * ALT (12/18/2011 11:09 AM MANAGER CUSTOMER SERVICE) ALT 16 0 - 31 U/L [facility] - [facility] Blood specimen (specimen) 12/18/2011 11:09 AM MANAGER CUSTOMER SERVICE 12/18/2011 11:12 AM MANAGER CUSTOMER SERVICE Lauren Chamorro CNM CHEMISTRY ORDERA BLES Performing Organization Address City/[facility]/ZIP Co de Phone Number [facility] - [facility] CLIA# [id number] [address] [place] [address] * URINE CULTURE (12/18/2011 10:59 AM MANAGER CUSTOMER SERVICE) Pathologist [facility] FINAL MICRO REPORT No growth 24 hours [facility] 12/18/2011 10:5 9 AM MANAGER CUSTOMER SERVICE 12/18/2011 11:59 AM MANAGER CUSTOMER SERVICE Comment:URINE VOIDED Lauren Chamorro CNM MICROBIOLOGY - G ENERAL ORDERABLES Performing Organization Address [facility]/ZIP Co de Phone Number [facility] - [facility] CLIA# [id number] [address] [place] [address] * (ABNORMAL) URINALYSIS (12/18/2011 10:59 AM MANAGER CUSTOMER SERVICE) COLOR UA Pale Yellow [facility] . [facility] CLARITY UA Clear Clear [facility] - . [facility] SPECIFIC GRAVITY UA 1.005 1.001 - 1.035 [facility] - . [facility] PH UA 7.5 5.0 - 8.0 [facility] - . [facility] LEUKOCYTE ESTERASE UA 1+(A) Negative [facility] - . [facility] NITRITE UA Negative Negative [facility] - . [facility] PROTEIN UA Negative Negative [facility] - . [facility] GLUCOSE UA Negative Negative [facility] KETONES UA Negative Negative [facility] UROBILINOGEN UA <1 <=1 mg/dL [facility] LABORATORY SERVICES - [facility] BILIRUBIN UA Negative Negative [facility] - [facility] BLOOD UA Trace(A) Negative [facility] SERVICES - [facility] WBC UA <1 0 - 5 /HPF [facility] SERVICES - [facility] RBC UA <1 0 - 4 /HPF [facility] - [facility] EPITHELIAL CELLS, URINE 2-5 /HPF [facility] SERVICES - [facility] 12/18/2011 10:5 9 AM MANAGER CUSTOMER SERVICE 12/18/2011 11:05 AM MANAGER CUSTOMER SERVICE Comment:URINE VOIDED Lauren GARRIDO URINE ORDERABLES Performing Organization Address [facility] Co de Phone Number [facility]# [id number] [address] [place] [place] [address] * URINALYSIS WITH REFLEX CULTURE (12/18/2011 10:59 AM MANAGER CUSTOMER SERVICE) URINE CULTURE ORDER Culture ordered [facility] Comment: Criteria for a reflex culture include one or more of the following: ??Abnormal nitrite, leukocyte esterase, WBCs or RBCs. ??Lack of qualifying criteria does not exclude the possiblity of a urinary tract infection. ??Dilute urine, drug interference, etc. may decrease the sensitivity of the criteria analytes. Urine, clean catch 12/18/2011 10:59 AM MANAGER CUSTOMER SERVICE 12/18/2011 11:05 AM MANAGER CUSTOMER SERVICE Comment:URINE VOIDED Lauren GARRIDO URINE ORDERABLES Performing Organization Address [facility] Co de Phone Number [facility]# [id number] [address] [place] [address] documented in this encounter Visit Diagnoses Diagnosis Elevated blood pressure reading without diagnosis of hypertension- Primary Elevated blood pressure reading without diagnosis of hypertension documented in this encounter Care Teams Dry Cans Operator Relationship Specialty Start Date End Date Ervin Tejada MD PCP - General 01/17/08 documented as of this encounter
--- OUTSIDE RECORDS SUMMARY | 2024-02-12 02:19 | XMS_ITS | Encounter Summary ---
Author Organization [facility] Address [address] [place] [address] Care Team Providers Care Heel Slugger Name Role Phone Ervin Tejada MD Primary Care Provider [phone] Reason for Visit * Reason Onset Date Comments Breast Problem 01/18/2012 Encounter Details Date Type Department Care Team (Late st Contact Info) Description 01/18/2012 Telephone [facility] ACTUARIAL INTERNSHIP - [address] [place] [address] Merrick Mir MD [address] [place] [address] [place] [address] Breast Problem Social History Tobacco Use Types Packs/Day Years [...] encounter Miscellaneous Notes * Telephone Encounter - Ana Kent - 01/18/2012 8:32 AM CST Pt is 3 weeks PP and is having R breast tenderness and low grade fever. NKDA Dicloxacillin to pharmacy. AB APPLICATION DEVELOPER documented in this encounter Plan of Treatment Not on file documented as of this encounter Visit Diagnoses Not on filedocumented in this encounter Care Teams Heel Slugger Relationship Specialty Start Date End Date Ervin Tejada MD PCP - General 01/17/08 documented as of this encounter
--- OUTSIDE RECORDS SUMMARY | 2024-02-12 02:19 | XMS_ITS | Encounter Summary ---
Author Organization [facility] Address [address] [place] [address] Care Team Providers Care Managed Care Manager Name Role Phone Ervin Tejada MD Primary Care Provider [phone] Reason for Visit * Reason Comments Well Woman Exam ultrasound verified Encounter Details Date Type Department Care Team (Latest Contact Info) Description 11/12/2013 10:30 AM CDT Initial [facility] SCRUB TECH - Medical [address] [address] Merrick Mir MD [address] [place] [phone] Routine gynecological examination (Primary Dx); Screening examination for venereal disease; confirmed by positive blood test Social History Tobacco Use Types Packs/Day Years [...] Reading Time Taken Comments Blood Pressure 112/70 11/12/2013 10:12 AM CDT Pulse - - Temperature - - Respiratory Rate - - Oxygen Saturation - - Inhaled Oxygen Concentration - - Weight 62.6 kg (138 lb) 11/12/2013 10:12 AM CDT Height 162.6 cm (5' 4 ) 11/12/2013 10:12 AM CDT Body Mass Index 23.69 11/12/2013 10:12 AM CDT documented in this encounter Progress Notes * Merrick Mir MD - 11/12/2013 10:30 AM CDT SUBJECTIVE Debi Carrera is a 28 y.o. female presenting for annual Well Woman exam. Patient's last menstrual period was 09/23/2013. Current outpatient prescriptions:PNV#26/IRON POLY/FA/DHA (PNV #26-IRON PS-FOLIC ACID-DHA ORAL), Take 1 Tab by mouth., Disp: , Rfl: Contraception:none Last pap smear: Results for orders placed in visit on 05/15/11 CERV/VAG CYTOPATH, SUREPATH W/RFLX HPV Result Value Range CLINICAL INFORMATION LAST MENSTRUAL PERIOD PREV PAP: PREV BX: SOURCE ADEQUACY: INTERPRETATION COMMENT RAILWAY SIGNAL TECHNICIAN: Smoker: History Smoking status ??? Never Smoker Smokeless tobacco ??? Never Used Feed In Worker complaints: new , feels well Past Medical History Diagnosis Date ??? Patient [...] changes in weight. No urinary tract symptoms. PIERCING ARTIST ROS: no breast pain or new or enlarging lumps on self exam. OBJECTIVE BP 112/70 Ht 5' 4 (1.626 m) Wt 138 lb (62.596 kg) BMI 23.68 kg/m2 LMP 09/23/2013 General: The patient appears well, alert, and [...] cervix, uterus and adnexa Assessment: well woman - MIL at 37+ weeks last for elevated BP Plan: pap smear additional lab tests per orders RTO 5 weeks - getting fluvax at work Orders Placed This Encounter ??? URINE CULTURE ??? CERV/VAG CYTOPATH, THIN PREP ADOLESCENT COORDINATOR W/RFLX HPV ??? CHLAMYDIA AND GC, PAP VIAL ??? URINALYSIS ??? TSH REFLEXIVE ??? OBSTETRIC PANEL documented in this encounter Plan of Treatment Not on file documented as of this encounter Procedures Procedure Name Priority Date/Time Associated Diagnosis Comments CERV/VAG CYTOPATH, THIN PREP IMAGR RFLX HPV Routine 11/12/2013 10:18 AM CDT Routine gynecological examination CHLAMYDIA AND GC, PAP VIAL Routine 11/12/2013 10:18 AM CDT documented in this encounter Results * OBSTETRIC PANEL (11/12/2013 10:45 AM CDT) COMMENT See Additional Orderables [facility] LAB[facility] Blood 11/12/2013 10:4 5 AM CDT 11/12/2013 4:05 PM CDT Merrick Mir MD CHEMISTRY ORDERABLES [id number] [address] [place], [place] [address] * TSH REFLEXIVE (11/12/2013 10:45 AM CDT) TSH 1.57 0.27 - 4.20 uU/mL [facility] Blood 11/12/2013 10:4 5 AM CDT 11/12/2013 4:05 PM CDT Merrick Mir MD CHEMISTRY ORDERABLES Performing Organization Address City/[facility]/ZIP Co de Phone Number [employer] LABORATORY SERVICES - [facility] CLIA# [id number] [address] [place] [address] * URINALYSIS (11/12/2013 10:45 AM CDT) COLOR UA [employer] LABORATORY SERVICES - [facility] CLARITY UA Clear Clear [employer] [facility] - [facility] SPECIFIC GRAVITY UA 1.019 1.001 - 1.035 [employer] [facility] - [facility] PH UA 6.5 5.0 - 8.0 [employer] [facility] - [facility] LEUKOCYTE ESTERASE UA Negative Negative [employer] LABORATORY SERVICES - . [facility] NITRITE UA Negative Negative [employer] LABORATORY SERVICES - . [facility] PROTEIN UA Negative Negative [employer] LABORATORY SERVICES - . [facility] GLUCOSE UA Negative Negative [employer] LABORATORY SERVICES - . [facility] KETONES UA Negative Negative [employer] LABORATORY SERVICES - . [facility] UROBILINOGEN UA <1 <=1 mg/dL [employer] LABORATORY SERVICES - [facility] BILIRUBIN UA Negative Negative [employer] [facility]OR[facility] SERVICES - [facility] BLOOD UA Negative Negative [employer] [facility]OR[facility]ORY SERVICES - . [facility] Urine URINE SPECIMEN OBTAINED BY CLEAN CATCH PROCEDURE / Unknown 11/12/2013 10:45 AM CDT 11/12/2013 11:34 AM CDT Comment:Urine Merrick Mir MD URINE ORDERABLES Performing Organization Address [facility]/ZIP Co de Phone Number [employer] LABORATORY SERVICES - [facility] CLIA# [id number] [address] [place] [address] * URINE CULTURE (11/12/2013 10:45 AM CDT) FINAL MICRO REPORT No growth 24 hours [facility] - [facility] Urine specimen (specimen) URINE SPECIMEN OBTAINED BY CLEAN CATCH PROCEDURE / Unknown 11/12/2013 10:45 AM CDT 11/12/2013 12:40 PM CDT Comment:URINE VOIDED Merrick Mir MD MICROBIOLOGY - GENER AL ORDERABLES [facility] LABORATORY SERVICES [facility] CLIA# [id number] [address] [place] [address] * CHLAMYDIA AND GC, PAP VIAL (11/12/2013 10:18 AM CDT) C TRAC RNA NOT DETECTED NOT DETECTED [facility] N.GONORRHOEAE RNA, TMA NOT DETECTED NOT DETECTED [facility] SEE NOTE [facility] Comment: Component Name: ??SEE NOTE This test was performed using the APTIMA COMBO2 Assay ([employer] The analytical performance characteristics of this assay, when used to test SurePath specimens have been determined by [employer]. Test Performed at: [facility] [id number] [place] [address] ??[phone] GUSTAVO LYONS MD 11/12/2013 10:1 8 AM CDT 11/13/2013 6:50 AM CDT Merrick Mir MD BODY FLUIDS AND STOO LS COM INTERFACE SYSTEM Refer to clinic/hospital department [facility] [address] [place] [address] * CERV/VAG CYTOPATH, THIN PREP IMAGR RFLX HPV (11/12/2013 10:18 AM CDT) Pathologist [facility] CLINICAL INFORMATION [facility] Comment:Routine exam LAST MENSTRUAL PERIOD [facility] Comment:09/23/13 PREV PAP: [facility] Comment:05/15/11 PREV BX: [employer] [facility] Comment:Information not prov ided SOURCE [facility] Comment:[employer]ix ADEQUACY: [facility] Comment: Specimen processed and examined, but unsatisfactory for evaluation due to an insufficient number of squamous cells. INTERPRETATION [facility] [employer] [facility] Comment: Unable to provide interpretation due to unsatisfactory specimen adequacy. COMMENT [facility] [employer] [facility] Comment: This Pap test has been evaluated with computer assisted technology. RAILWAY SIGNAL TECHNICIAN: [employer] [facility] Comment:DDS, CT(ASCP) REVIEW RAILWAY SIGNAL TECHNICIAN: [facility] [employer] [facility] Comment: MVB, CT(ASCP) Test Performed at: [facility] [address] [place], [place] ??[phone] GUSTAVO LYONS MD Endocervical 11/12/2013 10:1 8 AM CDT Merrick Mir MD PATHOLOGY/CYTOLOGY O RDERABLES INTERFACE SYSTEM Refer to clinic/hospital department [facility] [address] [place] [address] documented in this encounter Visit Diagnoses Diagnosis Routine gynecological examination- Primary Screening examination for venereal disease confirmed by positive blood test documented in this encounter Care Teams Managed Care Manager Relationship Specialty Start Date End Date Ervin Tejada MD PCP - General 01/17/08 documented as of this encounter
--- OUTSIDE RECORDS SUMMARY | 2024-02-12 02:19 | XMS_ITS | Encounter Summary ---
Author Organization [facility] Address [address] [place] [address] Care Team Providers Care Laborer Brooder Farm Name Role Phone Ervin Tejada MD Primary Care Provider [phone] Encounter Details Date Type Department Care Team (Late st Contact Info) Description 08/24/2010 Abstract [facility] Primary Care - [address] [place] [address] Ervin Tejada MD [address] [facility] [address] [phone] Social History Tobacco Use Types Packs/Day Years [...] on filedocumented in this encounter Care Teams Laborer Brooder Farm Relationship Specialty Start Date End Date Ervin Tejada MD PCP - General 01/17/08 documented as of this encounter
--- OUTSIDE RECORDS SUMMARY | 2024-02-12 02:19 | XMS_ITS | Encounter Summary ---
Author Organization [facility] Address [address] [place] [address] Care Team Providers Care Legal Referee Name Role Phone Ervin Tejada MD Primary Care Provider [phone] Reason for Visit * Reason Comments Routine Visit Encounter Details Date Type Department Care Team (Latest Contact Info) Description 02/20/2014 9:40 AM WEATHERIZATION ADMINISTRATOR visit [facility] CASING FLUID TENDER - Medical [id number] [address] Hazel Larsen, [facility] [address] [facility] [address] [place] [address] Supervision of other normal , second trimester [...] Sign Reading Time Taken Comments Blood Pressure 112/72 02/20/2014 9:00 AM WEATHERIZATION ADMINISTRATOR Pulse - - Temperature - - Respiratory Rate - - Oxygen Saturation - - Inhaled Oxygen Concentration - - Weight 66.7 kg (147 lb) 02/20/2014 9:00 AM WEATHERIZATION ADMINISTRATOR Height 162.6 cm (5' 4 ) 02/20/2014 9:00 AM WEATHERIZATION ADMINISTRATOR Body Mass Index 25.23 02/20/2014 9:00 AM WEATHERIZATION ADMINISTRATOR documented in this encounter Progress Notes * Hazel Larsen CNM - 02/20/2014 9:42 AM CST S: Here for return OB visit. Here with Raymundo. Denies cramping, contractions, vaginal bleeding, vaginal discharge or LOF. Denies DREW, dizziness, blurred vision or SOB. Reports positive movement. O: IUP at 21w3d See flowsheet A/P: Supervision of other normal Anatomy scan: EDC c/w LMP, VON 12.97cm, male 11/2013 Pap unsatisfactory pt declines repeat pap H/o GHTN with previous F/U in 3-4 weeks HERIZATION ADMINISTRATOR documented in this encounter Plan of Treatment Not on file documented as of this encounter Visit Diagnoses Diagnosis Supervision of other normal , second trimester- Primary documented in this encounter Care Teams Legal Referee Relationship Specialty Start Date End Date Ervin Tejada MD PCP - General 01/17/08 documented as of this encounter
--- OUTSIDE RECORDS SUMMARY | 2024-02-12 02:19 | XMS_ITS | Encounter Summary ---
Author Organization [facility] Address [address] [place] [address] Care Team Providers Care Extrusion Machine Operator Name Role Phone Ervin Tejada MD Primary Care Provider [phone] Reason for Visit * Reason Comments Skin Tag perineal Encounter Details Date Type Department Care Team (Late st Contact Info) Description 03/29/2012 10:15 AM WELDING MACHINE OPERATOR FRICTION Office Visit [facility] NUCLEAR FUELS RECLAMATION ENGINEER - Medical [facility] [address] [facility] [address] [phone] Gabriela Mar NP NO ADDRESS ON FILE Granulation tissue at vaginal vault (Primary Dx) Social History Tobacco Use Types [...] Reading Time Taken Comments Blood Pressure 120/80 03/29/2012 10:03 AM WELDING MACHINE OPERATOR FRICTION Pulse - - Temperature - - Respiratory Rate - - Oxygen Saturation - - Inhaled Oxygen Concentration - - Weight 64.9 kg (143 lb) 03/29/2012 10:03 AM WELDING MACHINE OPERATOR FRICTION Height 162.6 cm (5' 4 ) 03/29/2012 10:03 AM WELDING MACHINE OPERATOR FRICTION Body Mass Index 24.55 03/29/2012 10:03 AM WELDING MACHINE OPERATOR FRICTION documented in this encounter Progress Notes * Gabriela Mar NP - 03/29/2012 10:17 AM CST SUBJECTIVE: Debi Carrera is a 27 y.o. year old, , who presents for vaginal pain with intercourse. She had avaginal delivery with episiotomy on 12/28/11. First intercourse after delivery was about 7 weeks PP. She is , but started to decrease number of feedings. Patient reports that since she has resumed intercourse she has had pain with insertion and during intercourse at vaginal opening. Denies any bleeding. Has not had a period since delivery. Using oral progesterone-only contraceptive for contraception. No evidence of post depression. Past Medical History Diagnosis Date ??? Patient [...] History Narrative ??? No narrative on file OBJECTIVE: BP 120/80 Ht 5' 4 (1.626 m) Wt 143 lb (64.864 kg) BMI 24.55 kg/m2 ? Yes Abdomen: Soft, nontender, no masses. Pelvic exam: VULVA: normal appearing vulva, 2-3mm area of erythematous, tender granulation tissues noted near introitus-silver nitrate applied to tissue VAGINA: normal appearing vagina with normal color and discharge, no lesions, CERVIX: normal appearing cervix without discharge or lesions, UTERUS:uterus is normal size, shape, consistency and nontender, ADNEXA: no masses. uterus well involuted and nontender ASSESSMENT: 1. Granulation tissue at vaginal vault (623.9) PLAN: Discussed estrace cream to area once/day-sample provided Self-care discussed Follow-up in 1 week or PRN. ING MACHINE OPERATOR FRICTION documented in this encounter Plan of Treatment Not on file documented as of this encounter Visit Diagnoses Diagnosis Granulation tissue at vaginal vault- Primary Unspecified noninflammatory disorder of vagina documented in this encounter Care Teams Extrusion Machine Operator Relationship Specialty Start Date End Date Ervin Tejdaa MD PCP - General 01/17/08 documented as of this encounter
--- OUTSIDE RECORDS SUMMARY | 2024-02-12 02:19 | XMS_ITS | Encounter Summary ---
Author Organization [facility] Address [address] [place] [address] Care Team Providers Care Second Operator Name Role Phone Ervin Tejada MD Primary Care Provider [phone] Reason for Visit * Reason Comments Routine Visit Encounter Details Date Type Department Care Team (Latest Contact Info) Description 09/11/2011 9:10 AM CDT visit [facility] SLUBBER TENDER - [address] [address] Merrick Mir MD [address] [place] [address] [place] [address] Supervision of other normal (Primary Dx) [...] Reading Time Taken Comments Blood Pressure 122/80 09/11/2011 9:06 AM CDT Pulse - - Temperature - - Respiratory Rate - - Oxygen Saturation - - Inhaled Oxygen Concentration - - Weight 68 kg (150 lb) 09/11/2011 9:06 AM CDT Height - - Body Mass Index 25.75 06/19/2011 9:24 AM CDT documented in this encounter Progress Notes * Merrick Mir MD - 09/11/2011 9:22 AM CDT US normal MALE ( Kenn Simon ), low placenta, will repeat next visit documented in this encounter Plan of Treatment Not on file documented as of this encounter Visit Diagnoses Diagnosis Supervision of other normal - Primary documented in this encounter Care Teams Second Operator Relationship Specialty Start Date End Date Ervin Tejada MD PCP - General 01/17/08 documented as of this encounter
--- OUTSIDE RECORDS SUMMARY | 2024-02-12 02:19 | XMS_ITS | Encounter Summary ---
Author Organization [facility] Address [address] [place] [address] Care Team Providers Care Ring Attacher Name Role Phone Ervin Tejada MD Primary Care Provider [phone] Reason for Visit * Reason Onset Date Comments Results 12/20/2011 Encounter Details Date Type Department Care Team (Late st Contact Info) Description 12/20/2011 Telephone [facility] BOTTLE ASSEMBLER - [address] [address] Merrick Mir MD [address] [place] [address] [place] [phone] Results Social History Tobacco Use Types [...] * Telephone Encounter - Ana Kent - 12/20/2011 3:14 PM CST Pt states that edema is stable, denies floaters or RUQ pain. Per Kisha~ as long as pt is not havingany more symptoms she can keep appt for next week. Increase fluids and take it easy. AB T SERVICES * Telephone Encounter - Doreen Mark - 12/20/2011 9:50 AM CST Pt is calling for 24 hour Protein results. She was recently in the [facility]. She wants to know when you want to see her back in the office and if there is anything that she should be doing/not doing. TG T SERVICES documented in this encounter Plan of Treatment Not on file documented as of this encounter Visit Diagnoses Not on filedocumented in this encounter Care Teams Ring Attacher Relationship Specialty Start Date End Date Ervin Tejada MD PCP - General 01/17/08 documented as of this encounter
--- OUTSIDE RECORDS SUMMARY | 2024-02-12 02:19 | XMS_ITS | Encounter Summary ---
Author Organization [facility] Address [address] [place] [address] Care Team Providers Care Solderer Barrel Ribs Name Role Phone Ervin Tejada MD Primary Care Provider [phone] Reason for Visit * Reason Comments Routine Visit Encounter Details Date Type Department Care Team (Latest Contact Info) Description 04/13/2014 3:50 PM DISPENSING OPTICIAN visit [facility] DESPATCHING AND RECEIVING CLERK - [address] [address] Merrick Mir MD [address] [place] [address] [place] [address] Supervision of other normal , second [...] Reading Time Taken Comments Blood Pressure 110/70 04/13/2014 4:08 PM DISPENSING OPTICIAN Pulse - - Temperature - - Respiratory Rate - - Oxygen Saturation - - Inhaled Oxygen Concentration - - Weight 73 kg (161 lb) 04/13/2014 4:08 PM DISPENSING OPTICIAN Height 162.6 cm (5' 4 ) 04/13/2014 4:08 PM DISPENSING OPTICIAN Body Mass Index 27.64 04/13/2014 4:08 PM DISPENSING OPTICIAN documented in this encounter Progress Notes * Merrick Mir MD - 04/14/2014 7:32 AM CST BADW, get labs; no complaints other than URI ENSING OPTICIAN documented in this encounter Plan of Treatment Not on file documented as of this encounter Results * (ABNORMAL) GLUCOSE TOLERANCE 1 HR GESTATIONAL (04/14/2014 8:00 AM DISPENSING OPTICIAN) GLUCOSE 1 HR OBSTETRIC 147(H) 65 - 139 mg/dL [facility] LABORATORY SERVICES [facility] Blood 04/14/2014 8:00 AM DISPENSING OPTICIAN 04/14/2014 10:45 AM DISPENSING OPTICIAN Comment:Blood Merrick Mir MD CHEMISTRY ORDERABLES [facility] LABORATORY SERVICES [facility]# [id number] [address] [place] [address] * (ABNORMAL) CBC WITH DIFFERENTIAL (04/14/2014 8:00 AM DISPENSING OPTICIAN) WBC 8.6 4.0 - 9.8 K/uL [facility] [employer] LABORAT[facility] SERVICES [facility] RBC 4.13 3.90 - 4.90 M/uL [employer] LABORATORY SERVICES [facility] HEMOGLOBIN 12.8 11.8 - 14.8 g/dL [employer] LABORATORY SERVICES [facility] HEMATOCRIT 36.9 35.5 - 44.0 % [employer] LABORATORY SERVICES [facility] MCV 89.3 82.0 - 99.0 fL [employer] LABORATORY SERVICES [facility] MCH 31.0 27.2 - 32.6 pg [employer] LABORATORY SERVICES [facility] MCHC 34.7 31.5 - 35.5 % [employer] LABORATORY SERVICES [facility] PLATELETS 197 140 - 350 K/uL [facility]ENTER[facility] [employer] [facility] LABORAT[facility] SERVICES [facility] MPV 9.0(L) 9.3 - 12.4 fL [employer] LABORATORY SERVICES [facility] RDW 13.1 11.5 - 14.5 % [employer] LABORATORY SERVICES [facility] RDW-STDEV 42.2 37.1 - 48.7 fL [facility] NEUTROPHILS 72(H) 45 - 70 % [facility] LYMPHOCYTES 22 16 - 45 % [facility] MONOCYTES 5 3 - 13 % [facility] EOSINOPHILS 1 0 - 7 % [facility] BASOPHILS 0 0 - 2 % [facility] NEUTROPHIL ABSOLUTE 6.17 1.90 - 7.00 K/uL [facility] LYMPHOCYTE ABSOLUTE 1.88 0.70 - 4.50 K/uL [facility] MONOCYTE ABSOLUTE 0.45 0.10 - 1.30 K/uL [facility] EOSINOPHIL ABSOLUTE 0.07 0.00 - 0.70 K/uL [facility] BASOPHILS ABSOLUTE 0.03 0.00 - 0.20 K/uL [facility] Blood 04/14/2014 8:00 AM DISPENSING OPTICIAN 04/14/2014 10:45 AM DISPENSING OPTICIAN Merrick Mir MD HEMATOLOGY ORDERABLE S [facility] - [facility]# [id number] [address] [facility] [place] [address] documented in this encounter Visit Diagnoses Diagnosis Supervision of other normal , second trimester- Primary documented in this encounter Care Teams Solderer Barrel Ribs Relationship Specialty Start Date End Date Ervin Tjeada MD PCP - General 01/17/08 documented as of this encounter
--- OUTSIDE RECORDS SUMMARY | 2024-02-12 02:19 | XMS_ITS | Encounter Summary ---
Author Organization [facility] Address [address] [place] [address] Care Team Providers Care Communications Manager Name Role Phone Ervin Tejada MD Primary Care Provider [phone] Reason for Referral * Outpatient Services (Routine) - Closed Specialty Diagnoses / Procedures Referred By Donta t Referred To Contact Diagnoses Elevated blood pressure reading without diagnosis of hypertension Procedures US OB LIMITED + NST Merrick Mir MD [address] [place] [phone] Referral ID Status Reason Start Date Expiration Date Visits Re quested Visits Authorized Closed 12/26/2011 12/25/2012 1 1 E 1 TUTOR Reason for Visit * Outpatient Services (Routine) - Closed Specialty Diagnoses / Procedures Referred By Contac dayna Referred To Contact Diagnoses Elevated blood pressure reading without diagnosis of hypertension Procedures OB LIMITED + BALBIRT Merrick Mir MD [address] [place] [phone] Referral ID Status Reason Start Date Expiration Date Visits Re quested Visits Authorized Closed 12/26/2011 12/25/2012 1 1 Encounter Details Date Type Department Care Team (Latest Contact Info) Description 12/27/2011 10:53 AM TITLE 1 TUTOR - 12/27/2011 11:59 PM TITLE 1 TUTOR Hospital Encounter [facility] [employer] [address] [place] [address] Merrick Mir MD [address] [facility] [address] [address] Discharge Disposition: Home or Self [...] Comments US OB LIMITED + NST Routine 12/27/2011 12:01 PM TITLE 1 TUTOR Elevated blood pressure reading without diagnosis of hypertension documented in this encounter Results * US OB LIMITED + NST (12/27/2011 12:01 PM TITLE 1 TUTOR) Anatomical Region Laterality Modality Pelvis Ultrasound 12/27/2011 10:5 6 AM TITLE 1 TUTOR Narrative 12/27/2011 12:04 PM TITLE 1 TUTOR ?Modified Biophysical Profile Pat. Name: DEBI CARRERA ?Study Date: ?? 12/27/2011 ??10:56am Pat. No: ?? [id number] ?Referring MD: Merrick Mir MD Site: ?[place] ? Nurse: ?Dominique Martines, [facility] Height: ?64 in ? , Age: ? 1985, 26 Weight: ?173 lb ?Pregnancies: ?? 1, Para 0000 LMP: ? Unknown ? GA Selected: ??37w5d (From Known E) Hist/Ind: ??Gestational Hypertension ? ICD9: ? 642.33 ? CPT4: ? 97629/61159 ? FRANTZ: ?01/12/2012 Amniotic Fluid Index: 11.7cm (07.4-24.0) Q1: 3.3cm ??Q2: 3.7cm ??Q3: 3.0cm ??Q4: 1.8cm ?? CLINICAL SUMMARY Selected GA 37w5d NON STRESS TEST position: ?? Cephalic presentation Baseline heart rate: ?? 135 bpm Variability: ?? Moderate (6-25 bpm) Accelerations: ?? Present (>/=15 bpm) Decelerations: ?? None Impression: ?? Reactive 1 ??contractions in ??25 ??minutes. Time: ?? 1135 BP: ?? 116/75 Pulse: ?? 87 Nursing comments: ?? Patient states fetus active. ??Patient denies contractions, vaginal bleeding, and leaking of amniotic fluid. ??Reviewed signs and symptoms of induced hypertension. ??Rescheduled once a week. IMPRESSION: Reactive NST Ervin Gregg MD, [facility] <Electronic Signature> ??12/27/2011 12:04pm Procedure Note Ervin Gregg MD - 12/27/2011 Modified Biophysical Profile Pat. Name: DEBI CARRERA Study Date: 12/27/201110:56am Pat. No: [id number] Referring MD: Merrick Mir MD Site: [place] Nurse: BENSON Davila Height: 64 in , Age: 01 1985, 26 Weight: 173 lb Pregnancies: 1, [id number] LMP: Unknown GA Selected: 37w5d (From KnownE) Hist/Ind: Gestational Hypertension ICD9: 642.33 CPT4: 93757/50177 FRANTZ: 01/12/2012 Amniotic Fluid Index: 11.7cm (07.4-24.0) Q1: 3.3cm Q2: 3.7cm Q3: 3.0cm Q4: 1.8cm CLINICAL SUMMARY Selected GA 37w5d NON STRESS TEST position: Cephalic presentation Baseline heart rate: 135 bpm Variability: Moderate (6-25 bpm) Accelerations: Present (>/=15 bpm) Decelerations: None Impression: Reactive 1 contractions in 25 minutes. Time: 1135BP: 116/75Pulse: 87 Nursing comments: Patient states fetus active. Patient deniescontractions, vaginal bleeding, and leaking of amniotic fluid. Reviewed signs andsymptoms of induced hypertension. Rescheduled once a week. IMPRESSION: Reactive NST Ervin Gregg MD, [facility] <Electronic Signature> 12/27/2011 12:04pm Merrick Mir MD ORDERABLES documented in this encounter Visit Diagnoses Diagnosis Elevated blood pressure reading without diagnosis of hypertension documented in this encounter Care Teams Communications Manager Relationship Specialty Start Date End Date Ervin Tejada MD PCP - General 01/17/08 documented as of this encounter
--- OUTSIDE RECORDS SUMMARY | 2024-02-12 02:19 | XMS_ITS | Encounter Summary ---
Author Organization [facility] Address [address] [place] [address] Care Team Providers Care Barrel Loader Name Role Phone Ervin Tejada MD Primary Care Provider [phone] Reason for Visit * Reason Comments Ultrasound Encounter Details Date Type Department Care Team (Late st Contact Info) Description 06/06/2011 9:30 AM CDT Office Visit [facility] SALESPERSON PARTS - Medical [facility] [address] [facility] [address] [phone] Zee Parson Establish gestational age, ultrasound (Primary Dx) Social History Tobacco Use Types [...] encounter Progress Notes * Dora Cooney - 06/06/2011 9:46 AM CDT Patient seen in office today and Ultrasound exam performed. documented in this encounter Plan of Treatment Scheduled Orders Name Type Priority Associated Diagnoses Orde r Schedule US OB TRANSVAGINAL Imaging Routine Establish gestational age, ultrasound 06/06/2011 documented as of this encounter Procedures Procedure Name Priority Date/Time Associated Diagnosis Comments US OB TRANSVAGINAL Routine 06/06/2011 documented in this encounter Results * US OB TRANSVAGINAL (06/06/2011) Anatomical Region Laterality Modality Pelvis Other Impressions 06/06/2011 Debi Carrera is a 26 y.o. is here for an Ultrasound Reason for Ultrasound exam: ??dating Intrauterine : ??present Gestational Sac: present Heart Motion: 185 bpm Single fetus with CRL= 2.47 cm. Gestational age this ultrasound: 9w1d EDC by this ultrasound: 01/08/2012 A 23 x 25 x 19 mm right adnexal mass is seen, suggestive of a pedunculated fibroid Repeat ultrasound in 3 months Historical Provider US ORDERABLES documented in this encounter Visit Diagnoses Diagnosis Establish gestational age, ultrasound- Primary Encounter for routine screening for malformation using ultrasonics documented in this encounter Care Teams Barrel Loader Relationship Specialty Start Date End Date Ervin Tejada MD PCP - General 01/17/08 documented as of this encounter
--- OUTSIDE RECORDS SUMMARY | 2024-02-12 02:19 | XMS_ITS | Encounter Summary ---
Author Organization [facility] Address [address] [place] [address] Care Team Providers Care Exercise Scientist Name Role Phone Ervin Tejada MD Primary Care Provider [phone] Reason for Visit * Reason Comments Routine Visit Encounter Details Date Type Department Care Team (Latest Contact Info) Description 12/19/2013 8:40 AM EDUCATION OFFICER visit [facility] ELECTRIC MOTOR CONTROLS ASSEMBLER - Medical [address] [address] Merrick Mir MD [address] [place] [phone] Supervision of other normal , first trimester (Primary Dx); Need for prophylactic vaccination and inoculation against influenza Social History Tobacco Use Types Packs/Day Years [...] Sign Reading Time Taken Comments Blood Pressure 104/68 12/19/2013 8:45 AM EDUCATION OFFICER Pulse - - Temperature - - Respiratory Rate - - Oxygen Saturation - - Inhaled Oxygen Concentration - - Weight 63.5 kg (140 lb) 12/19/2013 8:45 AM EDUCATION OFFICER Height 162.6 cm (5' 4 ) 12/19/2013 8:45 AM EDUCATION OFFICER Body Mass Index 24.03 12/19/2013 8:45 AM EDUCATION OFFICER documented in this encounter Progress Notes * Merrick Mir MD - 12/19/2013 9:09 AM CST Reviewed normal labs and US; FHT heard today; declines genetic screening ATION OFFICER documented in this encounter Miscellaneous Notes * Addendum Note - Gustavo Stahl - 12/19/2013 9:16 AM CSTAddended by: GUSTAVO STAHL on: 12/19/2013 09:16 AM Modules accepted: Orders ATION OFFICER documented in this encounter Plan of Treatment Not on file documented as of this encounter Visit Diagnoses Diagnosis Supervision of other normal , first trimester- Primary Need for prophylactic vaccination and inoculation against influenza documented in this encounter Care Teams Exercise Scientist Relationship Specialty Start Date End Date Ervin Tejada MD PCP - General 01/17/08 documented as of this encounter
--- OUTSIDE RECORDS SUMMARY | 2024-02-12 02:19 | XMS_ITS | Encounter Summary ---
Author Organization [facility] Address [address] [place] [address] Care Team Providers Care Can Line Examiner Name Role Phone Ervin Tejada MD Primary Care Provider [phone] Reason for Visit * Reason Comments Follow Up Encounter Details Date Type Department Care Team (Latest Contact Info) Description 04/12/2012 10:15 AM CLINICAL EDUCATION CONSULTANT Office Visit [facility] FINANCE SPECIALIST - Medical [facility] [address] [facility] [address] [address] Gabriela Mar NP NO ADDRESS ON FILE Granulation tissue at vaginal vault (Primary Dx); Surveillance of previously prescribed contraceptive [...] Sign Reading Time Taken Comments Blood Pressure 112/62 04/12/2012 10:20 AM CLINICAL EDUCATION CONSULTANT Pulse - - Temperature - - Respiratory Rate - - Oxygen Saturation - - Inhaled Oxygen Concentration - - Weight 64.4 kg (142 lb) 04/12/2012 10:20 AM CLINICAL EDUCATION CONSULTANT Height 157.5 cm (5' 2 ) 04/12/2012 10:20 AM CLINICAL EDUCATION CONSULTANT Body Mass Index 25.97 04/12/2012 10:20 AM CLINICAL EDUCATION CONSULTANT documented in this encounter Progress Notes * Gabriela Mar NP - 04/12/2012 10:35 AM CST CC: I am here for follow-up HPI: Debi Carrera 27 y.o. female patient here for a follow-up visit. She was seen on 03/29/12 with c/o pain in vagina. At that time granulation tissues was noted and silver nitrate was used on area. Patient reports she used estrace cream and has not had any more pain or discomfort. She has stopped for almost two weeks and would like to switch to combined OCP's. Denies any history of CV disease or blood clots. Does not smoke. ROS: Constitutional: denies fevers, chills and anorexia Abdominal: denies cramping Past Medical History Diagnosis Date ??? Patient [...] History Narrative ??? No narrative on file EXAM: Blood pressure 112/62, height 5' 2 (1.575 m), weight 142 lb (64.411 kg), not currently . General: No apparent distress Abdominal: soft, nondistended Back: no CVA tenderness Pelvic exam: VULVA: normal appearing vulva with no masses, tenderness or lesions, area of granulation tissue is healed, no redness, no tenderness VAGINA: normal appearing vagina with normal color anddischarge, no lesions, CERVIX: normal appearing cervix without discharge or lesions, UTERUS: uterusis normal size, shape, consistency and nontender, ADNEXA: normal adnexa in size, nontender and no masses. ASSESSMENT: 1. Granulation tissue of vagina (099.2) 2. Surveillance of previously prescribed contraceptive pill (V25.41) levonorgestrel-ethinyl estrad (AVIANE) 0.1-20 mg-mcg Oral tablet PLAN: Orders Placed This Encounter ??? levonorgestrel-ethinyl estrad (AVIANE) 0.1-20 mg-mcg Oral tablet Discussed using back-up method for first two weeks when switching to combined OCP's Call if symptoms not improved RTO as scheduled for routine check up ICAL EDUCATION CONSULTANT documented in this encounter Plan of Treatment Not on file documented as of this encounter Visit Diagnoses Diagnosis Granulation tissue at vaginal vault- Primary Unspecified noninflammatory disorder of vagina Surveillance of previously prescribed contraceptive pill documented in this encounter Care Teams Can Line Examiner Relationship Specialty Start Date End Date Ervin Tejada MD PCP - General 01/17/08 documented as of this encounter
--- OUTSIDE RECORDS SUMMARY | 2024-02-12 02:19 | XMS_ITS | Encounter Summary ---
Author Organization [facility] Address [address] [place] [address] Care Team Providers Care Petroleum Transport Driver Name Role Phone Ervin Tejada MD Primary Care Provider [phone] Reason for Visit * Reason Onset Date Comments Results 10/19/2011 Encounter Details Date Type Department Care Team (Late st Contact Info) Description 10/19/2011 Telephone [facility] BLUEPRINT REPRODUCER - [address] [address] Lillie Newton NP NO ADDRESS ON FILE Results Social History Tobacco Use Types Packs/Day [...] encounter Miscellaneous Notes * Telephone Encounter - Lillie Flynn NP - 10/19/2011 1:55 PM CDT Normal 3 hr gtt. LMOR of normal result. documented in this encounter Plan of Treatment Not on file documented as of this encounter Visit Diagnoses Not on filedocumented in this encounter Care Teams Petroleum Transport Driver Relationship Specialty Start Date End Date Ervin Tejada MD PCP - General 01/17/08 documented as of this encounter
--- OUTSIDE RECORDS SUMMARY | 2024-02-12 02:19 | XMS_ITS | Encounter Summary ---
Author Organization [facility] Address [address] [place] [address] Care Team Providers Care Manager Inventory Name Role Phone Ervin Tejada MD Primary Care Provider [phone] Reason for Visit * Reason Comments Ultrasound Encounter Details Date Type Department Care Team (Late st Contact Info) Description 11/12/2013 10:00 AM CDT Office Visit [facility] COUNTER PROFESSIONAL - Medical [facility] [address] [facility] [address] [address] Zee Parson state, incidental (Primary Dx); Establish gestational age, ultrasound Social History Tobacco Use Types Packs/Day Years [...] this encounter Progress Notes * Ultrasound - 11/12/2013 8:36 AM CDT Patient seen in office today and Ultrasound exam performed. documented in this encounter Plan of Treatment Not on file documented as of this encounter Procedures Procedure Name Priority Date/Time Associated Diagnosis Comments US OB TRANSVAGINAL Routine 11/12/2013 state, incidental Establish gestational age, ultrasound documented in this encounter Results * US OB TRANSVAGINAL (11/12/2013) Anatomical Region Laterality Modality Pelvis Other Impressions 11/12/2013 Debi Carrera is a 28 y.o. is here for an Ultrasound Reason for Ultrasound exam: ??dating Intrauterine : ??present Gestational Sac: present Heart Motion: 155 bpm Single fetus with CRL= 1.23 cm. Gestational age this ultrasound: 7w2d EDC by this ultrasound: 06/29/2014 Repeat ultrasound in 3 months Merrick Mir MD US ORDERABLES documented in this encounter Visit Diagnoses Diagnosis state, incidental- Primary Establish gestational age, ultrasound Encounter for routine screening for malformation using ultrasonics documented in this encounter Care Teams Manager Inventory Relationship Specialty Start Date End Date Ervin Tejada MD PCP - General 01/17/08 documented as of this encounter
--- OUTSIDE RECORDS SUMMARY | 2024-02-12 02:19 | XMS_ITS | Encounter Summary ---
Author Organization [facility] Address [address] [place] [address] Care Team Providers Care Crisis Intervention Counselor Name Role Phone Ervin Tejada MD Primary Care Provider [phone] Reason for Visit * Reason Onset Date Comments Results 04/15/2014 Encounter Details Date Type Department Care Team (Late st Contact Info) Description 04/15/2014 Telephone [facility] RAKING MACHINE OPERATOR - Medical [place] [address] Hazel Larsen CNM [address] [facility] [address] [place] [address] Results Social History Tobacco Use Types Packs/Day [...] Telephone Encounter - Lin Murphy RN - 04/15/2014 3:36 PM CST Informed of results. [employer] * Telephone Encounter - Lin Murphy RN - 04/15/2014 3:26 PM CST ----- Message from Hazel Larsen CNM sent at 04/15/2014 3:21 PM [employer] ----- Please notify Dr Mir's pt failed one hour, needs 3 hour GTT. Thanks! [employer] documented in this encounter Plan of Treatment Not on file documented as of this encounter Results * GLUCOSE TOLERANCE GESTATIONAL 3 HR (04/17/2014 7:56 AM [employer]) COMMENT See Additional Orderables [facility] Blood 04/17/2014 7:56 AM [employer] 04/17/2014 1:44 PM [employer] MANA[employer] Hazel Larsen CNM CHEMISTRY ORDERABLES [facility]# [id number] [address] [facility] [place] [place] [address] documented in this encounter Visit Diagnoses Diagnosis Glucose tolerance test abnormal- Primary Impaired glucose tolerance test documented in this encounter Care Teams Crisis Intervention Counselor Relationship Specialty Start Date End Date Ervin Tejada MD PCP - General 01/17/08 documented as of this encounter
--- OUTSIDE RECORDS SUMMARY | 2024-02-12 02:19 | XMS_ITS | Encounter Summary ---
Author Organization [facility] Address [address] [place] [address] Care Team Providers Care Forklift Picker Name Role Phone Ervin Tejada MD Primary Care Provider [phone] Reason for Visit * Reason Comments Well Woman Exam Test Positive Encounter Details Date Type Department Care Team (Latest Contact Info) Description 05/15/2011 3:15 PM CDT Office Visit [facility] RADIOISOTOPE TECHNICIAN - [address] [place] [address] Merrick Mir MD [address] [place] [address] [place] [phone] examination or test, positive result (Primary Dx); Routine gynecological examination; Screening examination for venereal disease Social History Tobacco Use Types Packs/Day Years [...] Sign Reading Time Taken Comments Blood Pressure 110/80 05/15/2011 3:07 PM CDT Pulse - - Temperature - - Respiratory Rate - - Oxygen Saturation - - Inhaled Oxygen Concentration - - Weight 62.6 kg (138 lb) 05/15/2011 3:07 PM CDT Height 162.6 cm (5' 4 ) 05/15/2011 3:07 PM CDT Body Mass Index 23.69 05/15/2011 3:07 PM CDT documented in this encounter Progress Notes * Merrick Mir MD - 05/15/2011 3:24 PM CDT SUBJECTIVE Debi Carrera is a 26 y.o. female presenting for annual Well Woman exam. Last pap smear: 2010 Smoker: non Contraception:none Patient's last menstrual period was 04/07/2011. Car Rental Deliverer complaints: planned ; ROS Feeling well. No dyspnea or chest pain on exertion. No abdominal pain, change in bowel habits. No excessive fatigue or significant changes in weight. No urinary tract symptoms. MARKETING RESEARCH ANALYST ROS: normal menses, no abnormal bleeding, pelvic pain or discharge, no breast pain or new or enlarging lumps on self exam. OBJECTIVE BP 110/80 Ht 5' 4 (1.626 m) Wt 138 lb (62.596 kg) BMI 23.69 kg/m2 LMP 04/07/2011 General: The patient appears well, alert, and [...] cervix, uterus and adnexa Assessment: well woman New - get labs and US; counseling done; infor given on first look Plan: pap smear Us in 2 weeks Orders Placed This Encounter ??? URINE CULTURE ??? CERV/VAG CYTOPATH, SUREPATH W/RFLX HPV ??? CHLAMYDIA AND GC, PAP VIAL ??? OBSTETRIC PANEL ??? HIV ANTIBODY W/REFLX CONFIRMATION ??? URINALYSIS ??? TSH REFLEXIVE ??? POC , URINE documented in this encounter Plan of Treatment Not on file documented as of this encounter Procedures Procedure Name Priority Date/Time Associated Diagnosis Comments CHLAMYDIA AND GC, PAP VIAL Routine 05/15/2011 3:38 PM CDT CERV/VAG CYTOPATH, SUREPATH W/RFLX HPV Routine 05/15/2011 3:38 PM CDT Routine gynecological examination POC , URINE Routine 05/15/2011 3:09 PM CDT examination or test, positive result documented in this encounter Results * TSH REFLEXIVE (05/15/2011 4:15 PM CDT) Pathologist [facility] TSH 1.46 0.27 - 4.20 uU/mL [facility] Blood specimen (specimen) 05/15/2011 4:15 PM CDT 05/15/2011 8:12 PM CDT Merrick Mir MD CHEMISTRY ORDERABLES Performing Organization Address City/[facility] Co de Phone Number [facility] CLIA# [id number] [address] [place] [address] * OBSTETRIC PANEL (05/15/2011 4:15 PM CDT) [facility] COMMENT See Additional Orderables [facility] Blood specimen (specimen) 05/15/2011 4:15 PM CDT 05/15/2011 8:12 PM CDT Merrick Mir MD CHEMISTRY ORDERABLES Performing Organization Address City/[facility] Co de Phone Number [facility] CLIA# [id number] [address] [place] [address] * CHLAMYDIA AND GC, PAP VIAL (05/15/2011 3:38 PM CDT) Pathologist [facility] CHLAMYDIA TRACHOMATIS DNA NOT DETECTED NOT DETECTED [facility] N GONORAE DNA, SDA NOT DETECTED NOT DETECTED [facility] SEE NOTE [facility] Comment: This test was performed using the BD ProbeTec(TM) Chlamydia trachomatis and Neisseria gonorrhoeae Amplified DNA Assays. Test Performed at: [facility] [address] [place], [place] ??[phone] ERVIN DO DO 05/15/2011 3:38 PM CDT Merrick Mir MD BODY FLUIDS AND STOO LS COM Performing Organization Address [facility] de Phone Number INTERFACE SYSTEM Refer to clinic/hospital department [facility] [address] [place] [address] * CERV/VAG CYTOPATH, SUREPATH W/RFLX HPV (05/15/2011 3:38 PM CDT) CLINICAL INFORMATION [facility] Comment:HEALTHY LAST MENSTRUAL PERIOD [facility] Comment:04 07 2011 PREV PAP: [facility] Comment:03 28 2010 WNL PREV BX: [facility] ApplyMap [facility] Comment:INFORMATION NOT PROV IDED SOURCE [facility] Comment:End[employer] ADEQUACY: [facility] Comment: Satisfactory for evaluation. Endocervical/transformation zone component present. INTERPRETATION [facility] Comment:Negative for intraep ithelial lesion or malignancy. COMMENT [facility] Comment: Based on the cytology result, reflex High Risk HPV DNA testing was not performed. PRESS OPERATOR: [employer] [facility] Comment: MWK, CT(ASCP) Test Performed at: [facility] [address] [place], [place] ??[phone] ERVIN DO DO Endocervical 05/15/2011 3:38 PM CDT Merrick Mir MD PATHOLOGY/CYTOLOGY O RDERABLES Performing Organization Address [facility] de Phone Number INTERFACE SYSTEM Refer to clinic/hospital department [facility] [address] [place] [address] * (ABNORMAL) POC , URINE (05/15/2011 3:09 PM CDT) HCG QUAL URINE NEG [facility] , URINE POC Positive [facility] SPECIFIC GRAVITY UA 1.001 - 1.035 [facility] HCG QUAL URINE COMMENT [facility] Urine specimen (specimen) 05/15/2011 3:09 PM CDT Merrick Mir MD POINT OF CARE TESTIN G [facility] documented in this encounter Visit Diagnoses Diagnosis examination or test, positive result- Primary Routine gynecological examination Screening examination for venereal disease documented in this encounter Care Teams Forklift Picker Relationship Specialty Start Date End Date Ervin Tejada MD PCP - General 01/17/08 documented as of this encounter
--- OUTSIDE RECORDS SUMMARY | 2024-02-12 02:19 | XMS_ITS | Encounter Summary ---
Author Organization [facility] Address [address] [place] [address] Care Team Providers Care Material Control Analyst Name Role Phone Ervin Tejada MD Primary Care Provider [phone] Reason for Visit * Reason Comments Routine Visit Encounter Details Date Type Department Care Team (Latest Contact Info) Description 08/14/2011 9:10 AM CDT visit [facility] RETAIL TRAINING MANAGER - [address] [place] [address] Lillie Newton NP NO ADDRESS ON FILE Supervision of normal first (Primary Dx) Social History Tobacco Use Types [...] Sign Reading Time Taken Comments Blood Pressure 112/78 08/14/2011 9:09 AM CDT Pulse - - Temperature - - Respiratory Rate - - Oxygen Saturation - - Inhaled Oxygen Concentration - - Weight 66.2 kg (146 lb) 08/14/2011 9:09 AM CDT Height - - Body Mass Index 25.06 06/19/2011 9:24 AM CDT documented in this encounter Progress Notes * Lillie Flynn, MANAGER FREELANCE - 08/14/2011 9:25 AM CDT No vb or pain, no N/V. Decided against quad. Hydration reviewed. Schedule anatomy US RTO 4 weeks documented in this encounter Plan of Treatment Not on file documented as of this encounter Visit Diagnoses Diagnosis Supervision of normal first - Primary documented in this encounter Care Teams Material Control Analyst Relationship Specialty Start Date End Date Ervin Tejada MD PCP - General 01/17/08 documented as of this encounter
--- OUTSIDE RECORDS SUMMARY | 2024-02-12 02:19 | XMS_ITS | Encounter Summary ---
Author Organization [employer] [facility] Address [address] [place] [address] Care Team Providers Care Claim Service Representative Name Role Phone Ervin Tejada MD Primary Care Provider [phone] Reason for Visit * Outpatient Services (Routine) - Closed Specialty Diagnoses / Procedures Referred By Contac t Referred To Contact Laboratory Diagnoses - Procedures GLUCOSE 3 HOUR OBSTETRIC LAB Merrick Mir MD [address] [place] [phone] [address] [facility] [address] MATTHEWS [address] [place] [phone] Referral ID Status Reason Start Date Expiration Date Visits Re quested Visits Authorized [id number] Closed 10/18/2011 10/17/2012 1 1 Encounter Details Date Type Department Care Team (Latest Contact Info) Description 10/18/2011 7:18 AM CDT - 10/18/2011 11:59 PM T Hospital Encounter [facility] Laboratory Services [address] [place] [address] Merrick Mir MD [address] [place] [phone] Discharge Disposition: Home or Self Care [...] Priority Date/Time Associated Diagnosis Comments GLUCOSE TOLERANCE, 3 HR Routine 10/18/2011 10:30 AM CDT GLUCOSE TOLERANCE GESTATIONAL 3 HR Routine 10/18/2011 10:30 AM CDT Elevated glucose tolerance test GLUCOSE TOLERANCE, 2 HR Routine 10/18/2011 9:30 AM CDT GLUCOSE TOLERANCE, FASTING Routine 10/18/2011 7:20 AM CDT GLUCOSE TOLERANCE, 1 HR Routine 10/18/2011 7:20 AM CDT documented in this encounter Results * (ABNORMAL) GLUCOSE TOLERANCE, 3 HR (10/18/2011 10:30 AM CDT) GLUCOSE, 3HR 147(H) <=139 mg/dL [facility] Blood specimen (specimen) 10/18/2011 10:30 AM CDT 10/18/2011 2:19 PM CDT Kisha Radha BIOMASS POWER PLANT MANAGER CHEMISTRY ORDERABLES Performing Organization Address [facility]/ZIP Co de Phone Number [employer] [facility] CLIA# [id number] [address] [place] [address] * GLUCOSE TOLERANCE GESTATIONAL 3 HR (10/18/2011 10:30 AM CDT) COMMENT See Additional Orderables [facility] [employer] [facility] Blood specimen (specimen) 10/18/2011 10:30 AM CDT 10/18/2011 2:19 PM CDT Kisha Radha BIOMASS POWER PLANT MANAGER CHEMISTRY ORDERABLES [employer] [facility] CLIA# [id number] [address] [place] [address] * GLUCOSE TOLERANCE, 2 HR (10/18/2011 9:30 AM CDT) GLUCOSE, 2HR 151 <=154 mg/dL [facility] LABORATORY [facility] 10/18/2011 9:30 AM CDT 10/18/2011 2:20 PM CDT Comment:BLOOD Kisha Parkera BIOMASS POWER PLANT MANAGER CHEMISTRY ORDERABLES Performing Organization Address [facility] Co de Phone Number [facility] CLIA# [id number] [address] [place] [address] * GLUCOSE TOLERANCE, 1 HR (10/18/2011 7:20 AM CDT) GLUCOSE, 1HR 167 <=179 mg/dL [facility] Blood specimen (specimen) 10/18/2011 7:20 AM CDT 10/18/2011 2:20 PM CDT Kisha Parkera BIOMASS POWER PLANT MANAGER CHEMISTRY ORDERABLES Performing Organization Address [facility] Co de Phone Number [facility]# [id number] [address] [place] [address] * GLUCOSE TOLERANCE, FASTING (10/18/2011 7:20 AM CDT) GLUCOSE TOLERANCE INTERP Based on 100 g. dose, GDM criteria: ??2 or more specimens must meet or exceed the following: Fasting: ?95 mg/dL 1 hour: ?180 mg/dL 2 hour: ?155 mg/dL 3 hour: ?140 mg/dL [facility] LABORATORY [facility] GLUCOSE FASTING 79 <=94 mg/dL [facility] Blood specimen (specimen) 10/18/2011 7:20 AM CDT 10/18/2011 2:19 PM CDT Kisha Garcia BIOMASS POWER PLANT MANAGER CHEMISTRY ORDERABLES Performing Organization Address City/State/[facility] Co de Phone Number [facility] LABORATORY SERVICES [facility]# [id number] [address] [place] [place] [address] documented in this encounter Visit Diagnoses Diagnosis Elevated glucose tolerance test Impaired glucose tolerance test documented in this encounter Care Teams Claim Service Representative Relationship Specialty Start Date End Date Ervin Tejada MD PCP - General 01/17/08 documented as of this encounter
--- OUTSIDE RECORDS SUMMARY | 2024-02-12 02:19 | XMS_ITS | Encounter Summary ---
Author Organization [facility] Address [address] [place] [address] Care Team Providers Care Watch Crystal Grinder Name Role Phone Ervin Tejada MD Primary Care Provider [phone] Reason for Visit * Reason Comments Ultrasound Encounter Details Date Type Department Care Team (Late st Contact Info) Description 02/20/2014 9:10 AM GENERAL LOT ATTENDANT Office Visit [facility] MED AIDE - Medical [place] [facility] [phone] [facility] [address] [phone] Zee Parson Encounter for anatomic survey (Primary Dx) Social History Tobacco Use Types [...] encounter Progress Notes * Dora Cooney - 02/20/2014 8:24 AM CST Patient seen in office today and Ultrasound exam performed. RAL LOT ATTENDANT documented in this encounter Plan of Treatment Not on file documented as of this encounter Procedures Procedure Name Priority Date/Time Associated Diagnosis Comments US OB 14+ WKS SINGLE GEST Routine 02/20/2014 Encounter for anatomic survey documented in this encounter Results * US OB 14+ WKS SINGLE GEST (02/20/2014) Anatomical Region Laterality Modality Pelvis Other Impressions 02/20/2014 Debi Carrera is a 28 y.o. female who presents for mid trimester ultrasound. IMPRESSION: Today's ultrasound reveals ??single fetus in the BREECH presentation. Placenta is located anteriorly. ??A male gender is suspected. ??The face, heart, spine, stomach, kidneys, bladder were all imaged. ??The heartbeat measured 132 bpm. ??The amniotic fluid volume is normal. There are no obvious markers of aneuploidy. ??Ultrasound would validate an EDC of 06/30/2014. Repeat as indicated. Clinical correlation is recommended. Merirck Mir MD ORDERABLES documented in this encounter Visit Diagnoses Diagnosis Encounter for anatomic survey- Primary documented in this encounter Care Teams Watch Crystal Grinder Relationship Specialty Start Date End Date Ervin Tejada MD PCP - General 01/17/08 documented as of this encounter
--- OUTSIDE RECORDS SUMMARY | 2024-02-12 02:19 | XMS_ITS | Encounter Summary ---
Author Organization [facility] Address [address] [place] [address] Care Team Providers Care Oil Field Pipeline Supervisor Name Role Phone Ervin Tejada MD Primary Care Provider [phone] Reason for Visit * Reason Comments Routine Visit Encounter Details Date Type Department Care Team (Latest Contact Info) Description 12/18/2011 9:00 AM PE TEACHER visit [facility] ADVANCE AGENT - [address] [address] Merrick Mir MD [address] [place] [address] [place] [phone] Supervision of other normal (Primary Dx); Elevated blood pressure reading without diagnosis of hypertension Social History Tobacco Use Types Packs/Day Years [...] Sign Reading Time Taken Comments Blood Pressure 132/90 12/18/2011 8:57 AM PE TEACHER Pulse - - Temperature - - Respiratory Rate - - Oxygen Saturation - - Inhaled Oxygen Concentration - - Weight 78.9 kg (174 lb) 12/18/2011 8:57 AM PE TEACHER Height - - Body Mass Index 29.87 06/19/2011 9:24 AM CDT documented in this encounter Progress Notes * Merrick Mir MD - 12/18/2011 9:17 AM CST Repeat BP 142/98 Increasing edema, reflexes brisk; denies DREW, visual changes, RUQ pain. 10# weight gain over the past 4 weeks. Debi's mom and sister both developed pre-eclampsia. Will send to [facility] forpre-E evaluation. TEACHER documented in this encounter Plan of Treatment Not on file documented as of this encounter Procedures Procedure Name Priority Date/Time Associated Diagnosis Comments (BROTH-ENRICHED) GROUP B STREP DETECTION Routine 12/18/2011 8:57 AM PE TEACHER Supervision of other normal documented in this encounter Results * PROTEIN, 24 HR URINE (12/19/2011 12:59 PM PE TEACHER) PROTEIN CONCENTRATION 6 mg/dL [facility] LABORATORY [facility] PROTEIN TOTAL, 24 HR URINE 0.12 0.00 - 0.15 g/24 hrs [facility] LABORATORY [facility] 24 hour urine specimen (specimen) 12/19/2011 12:59 PM PE TEACHER 12/19/2011 1:41 PM PE TEACHER Comment:URINE, 24 HR Merrick Mir MD URINE ORDERABLES [facility] [employer] [facility]# [id number] [address] [facility] [address] * (ABNORMAL) CBC WITH DIFFERENTIAL (12/19/2011 12:52 PM PE TEACHER) WBC 10.7(H) 4.0 - 9.8 K/uL [facility] LABORATORY SERVICES [facility] RBC 4.23 3.90 - 4.90 M/uL [facility] LABORATORY [facility] HEMOGLOBIN 13.2 11.8 - 14.8 g/dL [facility] LABORATORY [facility] HEMATOCRIT 38.2 35.5 - 44.0 % [facility] LABORATORY [facility] MCV 90.3 82.0 - 99.0 fL [facility] LABORATORY [facility] MCH 31.2 27.2 - 32.6 pg [facility] MCHC 34.6 31.5 - 35.5 % [facility] PLATELETS 191 140 - 350 K/uL [facility] MPV 10.2 9.3 - 12.4 AL [facility] RDW 13.2 11.5 - 14.5 % [facility] RDW-STDEV 42.8 37.1 - 48.7 fL [facility] NEUTROPHILS 72(H) 45 - 70 % [facility] LYMPHOCYTES 20 16 - 45 % [facility] MONOCYTES 7 3 - 13 % [facility] EOSINOPHILS 0 0 - 7 % [facility] - . [facility] BASOPHILS 0 0 - 2 % [facility] NEUTROPHIL ABSOLUTE 7.76(H) 1.90 - 7.00 K/uL [facility] LYMPHOCYTE ABSOLUTE 2.16 0.70 - 4.50 K/uL [facility] MONOCYTE ABSOLUTE 0.73 0.10 - 1.30 K/uL [facility] EOSINOPHIL ABSOLUTE 0.05 0.00 - 0.70 K/uL [facility] - . [facility] BASOPHILS ABSOLUTE 0.02 0.00 - 0.20 K/uL [facility] Blood specimen (specimen) 12/19/2011 12:52 PM PE TEACHER 12/19/2011 3:57 PM PE TEACHER Merrick Mir MD HEMATOLOGY ORDERABLE S [facility] [id number] [address] [facility] [address] [address] * (ABNORMAL) LACTATE DEHYDROGENASE (12/19/2011 12:52 PM PE TEACHER) LD (LACTATE DEHYDROGENASE) 229(H) 135 - 214 U/L [employer] LABORATORY SERVICES [facility] Blood specimen (specimen) 12/19/2011 12:52 PM PE TEACHER 12/19/2011 3:56 PM PE TEACHER Merrick Mir MD CHEMISTRY ORDERABLES Performing Organization Address City/[facility] Co de Phone Number [facility]# [id number] [address] [place] [address] * AST (12/19/2011 12:52 PM PE TEACHER) Pathologist [facility] AST 20 12 - 32 U/L [facility] Blood specimen (specimen) 12/19/2011 12:52 PM PE TEACHER 12/19/2011 4:46 PM PE TEACHER Merrick Mir MD CHEMISTRY ORDERABLES Performing Organization Address [facility] [place] [facility] de Phone Number [facility]# [id number] [address] [place] [address] * STREPTOCOCCUS GROUP B CULTURE (12/18/2011 8:57 AM PE TEACHER) Pathologist [facility] STREPTOCOCCUS GROUP B CULTURE SEE NOTE [facility] Comment: ??STREPTOCOCCUS, GROUP B CULTURE ??MICRO NUMBER: ?[id number] ??TEST STATUS: ? FINAL ??SPECIMEN SOURCE: ?? VAGINA ??SPECIMEN QUALITY: ??ADEQUATE ??RESULT: ?No group B Streptococcus isolated Test Performed at: [facility] [address] [place] [address] ??[phone] ERVIN DO DO [facility] Specimen of unknown material (specimen) (Vaginal) 12/18/2011 8:57 AM PE TEACHER Merrick Mir MD MICROBIOLOGY - GENER AL ORDERABLES Performing Organization Address [facility] [place] [facility] Co de Phone Number INTERFACE SYSTEM Refer to clinic/hospital department [facility] [address] [place] [address] documented in this encounter Visit Diagnoses Diagnosis Supervision of other normal - Primary Elevated blood pressure reading without diagnosis of hypertension Elevated blood pressure reading without diagnosis of hypertension documented in this encounter Care Teams Oil Field Pipeline Supervisor Relationship Specialty Start Date End Date Ervin Tejada MD PCP - General 01/17/08 documented as of this encounter
--- OUTSIDE RECORDS SUMMARY | 2024-02-12 02:19 | XMS_ITS | Encounter Summary ---
Author Organization [facility] Address [address] [place] [address] Care Team Providers Care Histology Technician Name Role Phone Ervin Tejada MD Primary Care Provider [phone] Reason for Visit * Reason Comments Immunization/Injection adacel Encounter Details Date Type Department Care Team (Latest Contact Info) Description 01/19/2011 10:30 AM MEDICAL OFFICE SPECIALIST Clinical Support [facility] - [address] [address] Nurse, Primary Care [place] Vaccin for DTP (Primary Dx) Social History Tobacco Use Types [...] as of this encounter Progress Notes * Pia Frias - 01/19/2011 10:30 AM CST Pt is here for an adacel injection, she signed the abn form [place] OFFICE SPECIALIST documented in this encounter Plan of Treatment Not on file documented as of this encounter Visit Diagnoses Diagnosis Need for prophylactic vaccination with combined fytbzxijnh-yrliepa-gsmncrary (DTP) vaccine- Primary documented in this encounter Care Teams Histology Technician Relationship Specialty Start Date End Date Ervin Tejada MD PCP - General 01/17/08 documented as of this encounter
--- OUTSIDE RECORDS SUMMARY | 2024-02-12 02:19 | XMS_ITS | Encounter Summary ---
Author Organization [facility] Address [address] [place] [address] Care Team Providers Care Flower Planter Name Role Phone Ervin Tejada MD Primary Care Provider [phone] Reason for Referral * Outpatient Services (Routine) - Closed Specialty Diagnoses / Procedures Referred By Contac t Referred To Contact Diagnoses Elevated blood pressure reading without diagnosis of hypertension Procedures US OB LIMITED + NST Merrick Mir MD [address] [place] [phone] Referral ID Status Reason Start Date Expiration Date Visits Re quested Visits Authorized Closed 12/26/2011 12/25/2012 1 1 ICE TECH/WELDER Reason for Visit * Reason Comments Routine Visit Encounter Details Date Type Department Care Team (Latest Contact Info) Description 12/25/2011 9:20 AM SERVICE TECH/WELDER visit [facility] MEDIA TECHNICIAN - [address] [place] [address] Merrick Mir MD [address] [place] [phone] Supervision of other normal (Primary Dx); [...] Sign Reading Time Taken Comments Blood Pressure 142/86 12/25/2011 9:19 AM SERVICE TECH/WELDER Pulse - - Temperature - - Respiratory Rate - - Oxygen Saturation - - Inhaled Oxygen Concentration - - Weight 79.4 kg (175 lb) 12/25/2011 9:19 AM SERVICE TECH/WELDER Height - - Body Mass Index 30.04 12/18/2011 10:43 AM SERVICE TECH/WELDER documented in this encounter Progress Notes * Merrick Mir MD - 12/25/2011 9:56 AM CST Feels well, BP on home rest ususally 120's/70's per ; no sympromts; get MBPP this week, recheck BP/urine in the office at end of week ICE TECH/WELDER documented in this encounter Plan of Treatment Not on file documented as of this encounter Results * US OB LIMITED + NST (12/27/2011 12:01 PM SERVICE TECH/WELDER) Anatomical Region Laterality Modality Pelvis Ultrasound 12/27/2011 10:5 6 AM SERVICE TECH/WELDER Narrative 12/27/2011 12:04 PM SERVICE TECH/WELDER ?Modified Biophysical Profile Pat. Name: LINDSAY DBEI L ?Study Date: ?? 12/27/2011 ??10:56am Pat. No: ?? [id number] ?Referring MD: Merrick Mir MD Site: ?[place] ? Nurse: ?BENSON Davila Height: ?64 in ? , Age: ? 1985, 26 Weight: ?173 lb ?Pregnancies: ?? 1, Para 0000 LMP: ? Unknown ? GA Selected: ??37w5d (From Known E) Hist/Ind: ??Gestational Hypertension ? ICD9: ? 642.33 ? CPT4: ? 16729/74296 ? FRANTZ: ?01/12/2012 Amniotic Fluid Index: 11.7cm [...] week. IMPRESSION: Reactive NST Ervin Gregg MD, [facility] <Electronic Signature> ??12/27/2011 12:04pm Procedure Note Ervin Gregg MD - 12/27/2011 Modified Biophysical Profile Pat. Name: DEBI CARRERA Study Date: 12/27/201110:56am Pat. No: [id number] Referring MD: Merrick Mir MD Site: [place] Nurse: BENSON Davila Height: 64 in , Age: 01 1985, 26 Weight: 173 lb Pregnancies: 1, Adxy1966 LMP: Unknown GA Selected: 37w5d (From KnownE) Hist/Ind: Gestational Hypertension ICD9: 642.33 CPT4: 91599/67081 FRANTZ: 01/12/2012 Amniotic Fluid Index: 11.7cm (07.4-24.0) [...] week. IMPRESSION: Reactive NST Ervin Gregg MD, [facility] <Electronic Signature> 12/27/2011 12:04pm Merrick Mir MD ORDERABLES documented in this encounter Visit Diagnoses Diagnosis Supervision of other normal - Primary Elevated blood pressure reading without diagnosis of hypertension Elevated blood pressure reading without diagnosis of hypertension documented in this encounter Care Teams Flower Planter Relationship Specialty Start Date End Date Ervin Tejada MD PCP - General 01/17/08 documented as of this encounter
--- OUTSIDE RECORDS SUMMARY | 2024-02-12 02:20 | XMS_ITS | Encounter Summary ---
Author Organization [facility] Address [address] [place] [address] Care Team Providers Care Chief Merchandising Officer Name Role Phone Ervin Tejada MD Primary Care Provider [phone] Reason for Visit * Reason Comments Eye Problem red and pus from the right eye since yest Sore Throat Nasal Congestion Encounter Details Date Type Department Care Team (Late st Contact Info) Description 02/14/2008 9:30 AM SYNCHRONOUS MOTOR ASSEMBLER Office Visit [facility] Primary Care - [address] [place] [address] Ervin Tejada MD [address] [facility] [address] [address] Conjunctivitis; Acute Upper Respiratory Infections of Unspecified Site Social History Tobacco Use Types Packs/Day Years Used Date Smoking Tobacco: Never Alcohol Use Standard Drinks/Week Comments Yes 0 (1 standard drink = 0.6 oz pur e alcohol) social Sex and Gender Information Value Date Recorded Sex Assigned at Not on file Gender Identity Not on file Sexual Orientation Not on file documented as of this encounter Last Filed Vital Signs Vital Sign Reading Time Taken Comments Blood Pressure 128/76 02/14/2008 9:36 AM SYNCHRONOUS MOTOR ASSEMBLER Pulse - - Temperature 37.1 ??C (98.8 ??F) 02/14/2008 9:36 AM CS T Respiratory Rate - - Oxygen Saturation - - Inhaled Oxygen Concentration - - Weight 59.6 kg (131 lb 8 oz) 02/14/2008 9:36 AM SYNCHRONOUS MOTOR ASSEMBLER Height - - Body Mass Index - - documented in this encounter Progress Notes * Ervin Tejada MD - 02/14/2008 1:25 PM CST Debi is here with a red, irritated right eye, with some pus drainage and matting this morning. She has had some sore throat and nasal congestion. PHYSICAL EXAM: Her nares are mildly congested. Her TM's are full. Her sinuses are non-tender. Her throat is clear.Lungs are clear. Examination of the right eye reveals marked conjunctival redness and some purulentdrainage. ASSESSMENT: 1) Conjunctivitis. 2) URI. PLAN: We will treat her empirically with Amoxicillin po and Tobramycin eye drops. She will call for problems and return sooner, if need be. Encounter Diagnoses Code Name Primary? Qualifier ??? 372.30F Conjunctivitis Plan: TOBRAMYCIN 0.3 % EYE DROPS ??? 465.9 Acute Upper Respiratory Infections of Unspecified Site Plan: AMOXICILLIN 500 MG TAB HRONOUS MOTOR ASSEMBLER documented in this encounter Plan of Treatment Not on file documented as of this encounter Visit Diagnoses Diagnosis Conjunctivitis Conjunctivitis, unspecified Acute upper respiratory infections of unspecified site documented in this encounter Care Teams Chief Merchandising Officer Relationship Specialty Start Date End Date Ervin Tejada MD PCP - General 01/17/08 documented as of this encounter
--- OUTSIDE RECORDS SUMMARY | 2024-02-12 02:20 | XMS_ITS | Encounter Summary ---
Author Organization [facility] Address [address] [place] [address] Care Team Providers Care Low Heel Builder Name Role Phone Ervin Tejada MD Primary Care Provider [phone] Encounter Details Date Type Department Care Team (Late st Contact Info) Description 12/09/1999 Outpatient Historical [facility] Primary Care - [address] [place] [address] Humberto Diaz MD NO ADDRESS ON FILE Social History Tobacco Use Types Packs/Day Years Used Date Smoking Tobacco: Never Assessed Sex and Gender Information Value Date Recorded Sex Assigned at Not on file Gender Identity Not on file Sexual Orientation Not on file documented as of this encounter Plan of Treatment Not on file documented as of this encounter Visit Diagnoses Not on filedocumented in this encounter Care Teams Low Heel Builder Relationship Specialty Start Date End Date Ervin Tejada MD PCP - General 01/17/08 documented as of this encounter
--- OUTSIDE RECORDS SUMMARY | 2024-02-12 02:20 | XMS_ITS | Encounter Summary ---
Author Organization [facility] Address [address] [place] [address] Care Team Providers Care Dry Lumber Grader Name Role Phone Unavailable Primary Care Provider Unavailabl e Encounter Details Date Type Department Care Team (Late st Contact Info) Description 09/03/2004 Abstract [facility] [place] - [facility] [place] [address] [place] [address] [address] [place] [address] Ervin Tejada MD [address] [facility] [address] [id number] Social History Tobacco Use Types Packs/Day Years [...]
--- OUTSIDE RECORDS SUMMARY | 2024-02-12 02:20 | XMS_ITS | Encounter Summary ---
Author Organization [facility] Address [address] [facility] Attn: Epic Prelude ADT RICHARD SALCEDO [address] Care Team Providers Care Splitting Machine Operator Helper Name Role Phone Unavailable Primary Care Provider Unavailabl e Encounter Details Date Type Department Care Team (Latest Contact Info) Description 04/01/2004 Orders Only Conversion, History Social History Tobacco Use Types Packs/Day Years Used Date Smoking Tobacco: Never Assessed Sex and Gender Information Value Date Recorded Sex Assigned at Not on file Gender Identity Not on file Sexual Orientation Not on file documented as of this encounter Progress Notes * Conversion, History - 07/14/2007 1:30 AM CDT * Conversion, History - 07/02/2007 10:56 AM CDT documented in this encounter Plan of Treatment Not on file documented as of this encounter Visit Diagnoses Not on filedocumented in this encounter
--- OUTSIDE RECORDS SUMMARY | 2024-02-12 02:20 | XMS_ITS | Encounter Summary ---
Author Organization [facility] Address [address] [place] [address] Care Team Providers Care Case Filler Name Role Phone Unavailable Primary Care Provider Unavailabl e Encounter Details Date Type Department Care Team (Late st Contact Info) Description 09/04/2007 Abstract [facility] Primary Care - [facility] [address] [place] [address] [address] [place] [address] Ervin Tejada MD [address] [facility] [address] [id number] Social History Tobacco Use Types Packs/Day Years [...]
--- OUTSIDE RECORDS SUMMARY | 2024-02-12 02:20 | XMS_ITS | Encounter Summary ---
Author Organization [facility] Address [address] [place] [address] Care Team Providers Care Phosphoric Acid Operator Name Role Phone Ervin Tejada MD Primary Care Provider [phone] Encounter Details Date Type Department Care Team (Late st Contact Info) Description 02/15/2005 Outpatient Historical [facility] CONDITIONER TUMBLER OPERATOR - [facility] [address] [facility] [address] [place] [address] Galen Martin MD [address] [facility] [address] [address] Social History Tobacco Use Types Packs/Day Years Used Date Smoking Tobacco: Never Assessed Sex and Gender Information Value Date Recorded Sex Assigned at Not on file Gender Identity Not on file Sexual Orientation Not on file documented as of this encounter Plan of Treatment Not on file documented as of this encounter Visit Diagnoses Not on filedocumented in this encounter Care Teams Phosphoric Acid Operator Relationship Specialty Start Date End Date Ervin Tejada MD PCP - General 01/17/08 documented as of this encounter
--- OUTSIDE RECORDS SUMMARY | 2024-02-12 02:20 | XMS_ITS | Encounter Summary ---
Author Organization [facility] Address [address] [place] [address] Care Team Providers Care Marine Erector Name Role Phone Ervin Tejada MD Primary Care Provider [phone] Encounter Details Date Type Department Care Team (Late st Contact Info) Description 07/28/2003 Outpatient Historical [facility] Primary Care - [address] [place] [address] Ervin Tejada MD [address] [facility] [address] [address] Social History Tobacco Use Types [...] on filedocumented in this encounter Care Teams Marine Erector Relationship Specialty Start Date End Date Ervin Tejada MD PCP - General 01/17/08 documented as of this encounter
--- OUTSIDE RECORDS SUMMARY | 2024-02-12 02:20 | XMS_ITS | Encounter Summary ---
Author Organization [facility] Address [address] [place] [address] Care Team Providers Care English Lecturer Name Role Phone Ervin Tejada MD Primary Care Provider [phone] Encounter Details Date Type Department Care Team (Late st Contact Info) Description 12/21/2005 Outpatient Historical [facility] EXTRACTOR FILLER - [facility] [address] [facility] [address] [place] [address] Galen Martin MD [address] [facility] [address] [address] Social History Tobacco Use Types Packs/Day Years Used Date Smoking Tobacco: Never Assessed Sex and Gender Information Value Date Recorded Sex Assigned at Not on file Gender Identity Not on file Sexual Orientation Not on file documented as of this encounter Plan of Treatment Not on file documented as of this encounter Visit Diagnoses Not on filedocumented in this encounter Care Teams English Lecturer Relationship Specialty Start Date End Date Ervin Tejada MD PCP - General 01/17/08 documented as of this encounter
--- OUTSIDE RECORDS SUMMARY | 2024-02-12 02:20 | XMS_ITS | Encounter Summary ---
Author Organization [facility] Address [address] [place] [address] Care Team Providers Care Instructional Leader Name Role Phone Ervin Tejada MD Primary Care Provider [phone] Reason for Visit * Reason Comments Nodule on labia Encounter Details Date Type Department Care Team (Late st Contact Info) Description 05/17/2010 3:30 PM CDT Office Visit [facility] TUBE BENDER HAND - [address] [place] [address] Merrick Mir MD [address] [place] [address] [place] [phone] Vulvar lesion (Primary Dx) Social History Tobacco Use Types [...] Reading Time Taken Comments Blood Pressure 110/70 05/17/2010 3:28 PM CDT Pulse - - Temperature - - Respiratory Rate - - Oxygen Saturation - - Inhaled Oxygen Concentration - - Weight 59.9 kg (132 lb) 05/17/2010 3:28 PM CDT Height 162.6 cm (5' 4 ) 05/17/2010 3:28 PM CDT Body Mass Index 22.66 05/17/2010 3:28 PM CDT documented in this encounter Progress Notes * Merrick Mir MD - 05/17/2010 3:46 PM CDT Chief Complaint: vulvar lesion Patient presents with above complaint. Symptoms have been present for several weeks. Symptoms include nontender raised lesion on posterior fourchette, not open or draining. This it may be slightly smaller now. No history of STD/vulvar lesions. No history of HPV. ROS: Denies constitutional symptoms of fatigue, weakness, weight loss or gain, fevers, night sweats. The patient denies abdominal or flank pain, anorexia, nausea or vomiting, dysphagia, change in bowel habits or black or bloody stools or weight loss. Patient denies any exertional chest pain, dyspnea, palpitations, syncope, or othopnea, edema or paroxysmal nocturnal dyspnea. PEARL RESTORER as above EXAM: Blood pressure 110/70, height 5' 4 (1.626 m), weight 132 lb (59.875 kg), last menstrual period 04/15/2010. General Appearance: alert, well appearing and in no distress Lungs: clear to auscultation, no wheezes, rales or rhonchi, symmetric air entry Heart: regular rate and rhythm and no murmurs Abdomen: soft, nontender, nondistended, no abnormal masses, no epigastric pain Pelvic exam: External genitalia: On posterior fourchette, slightly to the left, a 5 mm pink fleshy slightly raised linear lesion, appears like a raised ridge of skin, does not appear condylomatous. Possilby resolving folliculitis? Back exam: nor CVA tenderness Extremities: no pedal edema Skin: normal coloration and turgor, no rashes, no suspicious skin lesions noted Assessment: vulvar lesion Plan: nondescript at this time, not particularly c/w any infectious or neoplastic lesion; advised warm compresses and observation at this time; if does not resolve in the next several weeks, should come back for a biopsy. documented in this encounter Plan of Treatment Not on file documented as of this encounter Visit Diagnoses Diagnosis Vulvar lesion- Primary Other specified noninflammatory disorder of vulva and perineum documented in this encounter Care Teams Instructional Leader Relationship Specialty Start Date End Date Ervin Tejada MD PCP - General 01/17/08 documented as of this encounter
--- OUTSIDE RECORDS SUMMARY | 2024-02-12 02:20 | XMS_ITS | Encounter Summary ---
Author Organization [facility] Address [address] [place] [address] Care Team Providers Care Hardness Tester Name Role Phone Ervin Tejada MD Primary Care Provider [phone] Reason for Visit * Reason Comments Well Woman Exam Encounter Details Date Type Department Care Team (Latest Contact Info) Description 03/28/2010 1:15 PM CHIEF MEDICAL PHYSICIST Office Visit [facility] CREPE BOX TENDER - [address] [place] [address] Kisha Garcia NP [address] [facility] [address] [place] [phone] Routine gynecological examination (Primary Dx) Social History Tobacco Use Types [...] Sign Reading Time Taken Comments Blood Pressure 126/52 03/28/2010 1:24 PM CHIEF MEDICAL PHYSICIST Pulse - - Temperature - - Respiratory Rate - - Oxygen Saturation - - Inhaled Oxygen Concentration - - Weight 57.6 kg (127 lb) 03/28/2010 1:24 PM CHIEF MEDICAL PHYSICIST Height 162.6 cm (5' 4 ) 03/28/2010 1:24 PM CHIEF MEDICAL PHYSICIST Body Mass Index 21.8 03/28/2010 1:24 PM CHIEF MEDICAL PHYSICIST documented in this encounter Progress Notes * Kisha Garcia NP - 03/28/2010 1:45 PM CST SUBJECTIVE: 25 y.o. female for annual routine Pap and checkup. Patient's last menstrual period was 03/23/2010. No visual journalist complaints Past Medical History Diagnosis Date ??? Patient denies relevant medical history Past Surgical History Procedure Date ??? Hx cyst removal 12/2007 pilonidial Family History Problem Relation Age of Onset ??? Hypertension Father ??? Hypertension Mother ??? Healthy Sister ??? Colon Cancer Paternal Grandfather dx 49 or 50 ??? Diabetes Paternal Grandmother ??? Diabetes Maternal Grandfather ??? Heart Disease Maternal Grandfather ??? Breast Cancer Neg Hx ??? Ovarian Cancer Neg Hx History Substance Use Topics ??? Smoking status: Never Smoker ??? Smokeless tobacco: Never Used ??? Alcohol Use: Yes social ROS: Feeling well. No dyspnea or chest pain on exertion. No abdominal pain, change in bowel habits,black or bloody stools. No urinary tract symptoms. WEIGHER AND CRUSHER ROS: normal menses, no abnormal bleeding, pelvic pain or discharge, no breast pain or new or enlarging lumps on self exam. No neurological complaints. OBJECTIVE: The patient appears well, alert, oriented x 3, in no distress. BP 126/52 Ht 5' 4 (1.626 m) Wt 127 lb (57.607 kg) LMP 03/23/2010 ENT normal. Neck supple. No adenopathy or thyromegaly. MADELYN. Lungs are clear, good air entry, no wheezes, rhonchi or rales. S1 and S2 normal, no murmurs, regular rate and rhythm. Abdomen soft without tenderness, guarding, mass or organomegaly. Extremities show no edema, normal peripheral pulses. Neurological is normal, no focal findings. BREAST EXAM: breasts appear normal, no suspicious [...] adnexa in size, nontender and no masses ASSESSMENT: well woman no contraindication to continue use of oral contraceptives PLAN: pap smear counseled on breast self exam, use and side effects of OCP's and adequate intake of calcium and vitamin D return annually or prn F MEDICAL PHYSICIST documented in this encounter Plan of Treatment Not on file documented as of this encounter Procedures Procedure Name Priority Date/Time Associated Diagnosis Comments CERV/VAG CYTOPATH, SUREPATH W/RFLX HPV Routine 03/28/2010 12:00 AM CHIEF MEDICAL PHYSICIST Routine gynecological examination documented in this encounter Results * CERV/VAG CYTOPATH, SUREPATH W/RFLX HPV (03/28/2010 12:00 AM CHIEF MEDICAL PHYSICIST) REPORT STATUS FINAL [facility] CLINICAL INFORMATION [facility] Comment:Information not prov ided LAST MENSTRUAL PERIOD [facility] Comment:[id number] PREV PAP: [facility] Comment:Information not prov ided PREV BX: [facility] Comment:Information not prov ided SOURCE [facility] Comment:Endocervix ADEQUACY: [facility] Comment: Satisfactory for evaluation. Endocervical/transformation zone component present. INTERPRETATION [facility] Comment:Negative for intraep ithelial lesion or malignancy. COMMENT [facility] Comment: Based on the cytology result, reflex High Risk HPV DNA testing was not performed. ? FOUNTAIN JERK: [facility] Comment: MLK, CT(ASCP) Test Performed at: [facility] [address] [place], [place] ??[address] ERVIN DO DO Endocervical 03/28/2010 Kisha Garcia NP PATHOLOGY/CYTOLOGY O RDERABLES INTERFACE SYSTEM Refer to clinic/hospital department [facility] [address] [place] [address] documented in this encounter Visit Diagnoses Diagnosis Routine gynecological examination- Primary documented in this encounter Care Teams Hardness Tester Relationship Specialty Start Date End Date Ervin Tejada MD PCP - General 01/17/08 documented as of this encounter
--- OUTSIDE RECORDS SUMMARY | 2024-02-12 02:20 | XMS_ITS | Encounter Summary ---
Author Organization [facility] Address [address] [place] [address] Care Team Providers Care Delivery Clerk Name Role Phone Ervin Tejada MD Primary Care Provider [phone] Encounter Details Date Type Department Care Team (Late st Contact Info) Description 04/01/2004 Outpatient Historical [facility] Primary Care - [address] [place] [phone] Ervin Tejada MD [address] [facility] [address] [address] Social History Tobacco Use Types [...] on filedocumented in this encounter Care Teams Delivery Clerk Relationship Specialty Start Date End Date Ervin Tejada MD PCP - General 01/17/08 documented as of this encounter
--- OUTSIDE RECORDS SUMMARY | 2024-02-12 02:20 | XMS_ITS | Encounter Summary ---
Author Organization [facility] Address [address] [place] [address] Care Team Providers Care Design Chief Name Role Phone Ervin Tejada MD Primary Care Provider [phone] Reason for Visit * Reason Comments Well Woman Exam Encounter Details Date Type Department Care Team (Latest Contact Info) Description 03/11/2009 4:15 PM WORK CHECKER Office Visit [facility] LINSEED CAKE TRIMMER - [address] [place] [address] Kisha Garcia NP [address] [facility] [address] [place] [phone] Routine Gynecological Examination; Screening Examination for Venereal Disease Social History Tobacco Use Types Packs/Day Years [...] Reading Time Taken Comments Blood Pressure 110/70 03/11/2009 4:14 PM WORK CHECKER Pulse - - Temperature - - Respiratory Rate - - Oxygen Saturation - - Inhaled Oxygen Concentration - - Weight 56.7 kg (125 lb) 03/11/2009 4:14 PM WORK CHECKER Height 162.6 cm (5' 4 ) 03/11/2009 4:14 PM WORK CHECKER Body Mass Index 21.46 03/11/2009 4:14 PM WORK CHECKER documented in this encounter Progress Notes * Kisha Garcia NP - 03/11/2009 4:41 PM CST SUBJECTIVE: Debi Carrera is a 23 y.o. who presents for her annual well woman exam. Her last pap smear was was normal. She has never had a mammogram. Patient's last menstrual period was 02/25/2009.. She uses oral contraceptives (estrogen/progesterone) for contraception and is satisfied with this method. GynHx: Menarche at 13. Her periods are regular every month without intermenstrual spotting. She is monogamous and is sexually active. STD history: no past history. ROS: Feeling well. No dyspnea or chest pain on exertion. No abdominal pain, change in bowel habits.No excessive fatigue or significant changes in weight. No urinary tract symptoms. PEOPLESOFT ANALYST ROS: normal menses, no abnormal bleeding, pelvic pain or discharge, no breast pain or new or enlarging lumps on self exam. OBJECTIVE: The patient appears well groomed, well nourished and in no apparent distress. BP 110/70 Ht 5' 4 (1.626 m) Wt 125 lb (56.7 kg) LMP 02/25/2009 HEENT: normocephalic. No thyromegaly palpated. Resp: lungs are clear to auscultation bilaterally. CV: regular rate and rhythm; no murmurs auscultated Abdomen: soft, non-tender; no rebound or guarding; no mass or organomegaly. Extremities: no edema, nontender. Back: no CVAT BREAST EXAM: breasts appear normal, no suspicious masses, no skin or nipple changes or axillary nodes PELVIC EXAM: normal external genitalia, vulva, vagina, cervix, uterus and adnexa ASSESSMENT: 1) Well woman exam 2) PLAN: BSE Recommended Gardasil vaccination; information provided. Encouraged consistent condom use for STD prevention. Orders Placed This Encounter ??? Cerv/vag cytopath, surepath w/rflx hpv ??? Chlamydia and gc, pap vial ??? Levonorgestrel-ethinyl estradiol 0.1 mg-20 mcg tab Orders Placed This Encounter Medication ??? Levonorgestrel-ethinyl estradiol 0.1 mg-20 mcg tab Sig: Take 1 Tab by mouth daily. Dispense: 1 Package Refill: 12 5) Exercise ca vit d enc 6) Return annually or prn. CHECKER documented in this encounter Plan of Treatment Not on file documented as of this encounter Procedures Procedure Name Priority Date/Time Associated Diagnosis Comments CHLAMYDIA AND GC, PAP VIAL Routine 03/20/2009 7:00 PM WORK CHECKER CERV/VAG CYTOPATH, SUREPATH W/RFLX HPV Routine 03/11/2009 4:22 PM WORK CHECKER Routine Gynecological Examination documented in this encounter Results * CHLAMYDIA AND GC, PAP VIAL (03/20/2009 7:00 PM WORK CHECKER) CHLAMYDIA TRACHOMATIS DNA NOT DETECTED [facility] Comment:Reference Range: Not Detected N GONORAE DNA, SDA NOT DETECTED [facility] Comment:Reference Range: Not Detected SEE NOTE [facility] Comment: This test was performed using the [employer] ProbeTeALLGOOB(TM) ET Chlamydia trachomatis and Neisseria gonorrhoeae Amplified DNA Assays. The performance characteristics of this assay have been determined by [employer]. Performance characteristics refer to the analytical performance of the test. Test Performed at: [facility] [address] [place], [place] ??[address] JAMEL GIFFORD MD Kisha Garcia NP BODY FLUIDS AND STOO LS COM INTERFACE SYSTEM Refer to clinic/hospital department [facility] [address] [place] [address] * CERV/VAG CYTOPATH, SUREPATH W/RFLX HPV (03/11/2009 4:22 PM WORK CHECKER) REPORT STATUS FINAL [facility] CLINICAL INFORMATION [facility] Comment:Information not prov ided LAST MENSTRUAL PERIOD [facility] Comment:Information not prov ided PREV PAP: [facility] [employer] [facility] Comment:Information not prov ided PREV BX: [facility] [employer] [facility] Comment:Information not prov ided SOURCE [facility] Comment:Endocervix ADEQUACY: [facility] [employer] [facility] Comment: Satisfactory for evaluation. Endocervical/transformation zone component present. Age and/or menstrual status not provided INTERPRETATION [facility] Comment:Negative for intraep ithelial lesion or malignancy. COMMENT [facility] Comment: Based on the cytology result, reflex High Risk HPV DNA testing was not performed. ? LUMBER PLANER: [facility] Comment: ABC, CT(ASCP) Test Performed at: [facility] [address] [place], [place] ??[phone] JAMEL GIFFORD MD Endocervical 03/11/2009 4:22 PM WORK CHECKER Kisha Garcia NP PATHOLOGY/CYTOLOGY O RDERABLES INTERFACE SYSTEM Refer to clinic/hospital department [facility] [address] [place] [address] documented in this encounter Visit Diagnoses Diagnosis Routine gynecological examination Screening examination for venereal disease documented in this encounter Care Teams Design Chief Relationship Specialty Start Date End Date Ervin Tejada MD PCP - General 01/17/08 documented as of this encounter
--- OUTSIDE RECORDS SUMMARY | 2024-02-12 02:20 | XMS_ITS | Encounter Summary ---
Author Organization [facility] Address [address] [place] [address] Care Team Providers Care Compensation Manager Name Role Phone Ervin Tejada MD Primary Care Provider [phone] Encounter Details Date Type Department Care Team (Latest Contact Info) Description 12/11/2007 Orders Only HIS CONVERSION Conversion, History Social History Tobacco Use Types Packs/Day Years Used Date Smoking Tobacco: Never Assessed Sex and Gender Information Value Date Recorded Sex Assigned at Not on file Gender Identity Not on file Sexual Orientation Not on file documented as of this encounter Progress Notes * Conversion, History - 07/17/2008 8:[address] [place] [address] cc: Teodora Montez MD SURGEON Teodora Montez MD PREOPERATIVE DIAGNOSIS Nonhealing wound, rule out fistula. POSTOPERATIVE DIAGNOSIS Nonhealing wound. There is no fistula found. OPERATION NAME Rectal exam under anesthesia. ANESTHESIA IV sedation by Romulo Morrison CRNA and Dr. Navas. SPECIMEN None. ESTIMATED BLOOD LOSS None. IV FLUIDS 300 mL. COMPLICATIONS None. PROCEDURE After appropriate preoperative workup and consent, the patient was brought to the operating room. She was placed in the prone and jackknife position on the operating table and then she was sedated with IV anesthetic. Her buttocks were taped apart and sterilely prepped and draped. Inferior to her prior pilonidal area and superior to her immediate perirectal skin was a small nonhealing wound. This is about 3 mm x 1 mm in diameter. Its probed with a fistula probe after infiltration of local anesthetic. It goes underneath the perianal skin to about the intersphincteric groove. It does not seem to involve the sphincter muscles. I opened the skin. This does not tract between the sphincter muscles. There is no visible fistula. I used an angiocatheter to try and inject any possible fistula openings with saline. There was really no fistula at all. I used an anoscope to examine the anoderm. There was no internal opening. I used a lacrimal probe and a hook to probe all of her crypts and there is no fistula here. I curetted out a very small amount of granulation tissue in this tiny nonhealing wound and I closed it with interrupted 4-0 chromic. We sterilely dressed the wound with fluffs. The patient was then dressed with mesh panties. She was awakened and rolled back onto the stretcher and taken to the recovery area in excellent condition. Counts were complete x2 at the termination of the case. There were no complications FINDINGS No evidence of fistula, a very small nonhealing wound. KG:MEDQ Dictated by: Teodora Montez MD Teodora Montez MD Result Type: OPERATIVE REPORT Result Date: December 26, 2007 07:54 AM Result Status: UNREVIEWED KER SOLES * Conversion, History - 07/17/2008 7:[address] [place], [place] [address] cc: Teodora Montez MD B CHIEF COMPLAINT Nonhealing perianal wound. HISTORY The patient is a 22-year-old female who had a very low pilonidal cyst which is associated with irritation and rectal bleeding. She underwent an examination under anesthesia and a pilonidal cyst excision. Her wound opened up a small amount after it had been healed for quite some time and now she has an extremely low punctate opening at the outside of her perianal musculature which appears to be external fistula opening. There had been a concern at her prior operation that she had had a fistula but no internal opening could be found. This is not bothering her at all but it has not closed. PAST MEDICAL HISTORY None. PAST SURGICAL HISTORY None except for the examination under anesthesia and excision of pilonidal cyst as above. SOCIAL HISTORY She is a nonsmoker and occasional drinker. ALLERGIES None. MEDICATIONS control pills. FAMILY HISTORY Her grandfather has heart disease, an aunt has lung cancer and maternal grandmother has skin cancer. Both grandparents have diabetes and her mother has high blood pressure. Her grandfather has high blood pressure. Her paternal grandfather had colon cancer in his late 40s. Neither of her parents has had any colon pathology. REVIEW OF SYSTEMS Negative for fevers, chills, malaise, fatigue or weight loss. HEENT: No vision changes, double vision, epistaxis, dysphagia. RESPIRATORY: No cough, cold or wheeze. CARDIOVASCULAR: No chest pain, shortness of breath, palpitations or pedal edema. GI: No nausea, vomiting, diarrhea, constipation or abdominal pain. No heartburn. Occasional rectal bleeding. : No dysuria. No change in her periods. No frequency, hesitancy or nocturia. ENDOCRINE: No diabetes, thyroid dysfunction. PSYCH: No anxiety or depression. MUSCULOSKELETAL: No joint pains or weaknesses. PHYSICAL EXAMINATION GENERAL: She is a well-developed, well-nourished thin female in no apparent distress. NEURO: Cranial nerves II-XII are grossly intact. HEENT: Head is normocephalic, atraumatic. Pupils equally round and reactive to light. Extraocular movements are intact. Oropharynx is clear. Mucous membranes are moist. NECK: Supple with no evidence of lymphadenopathy. LUNGS: Clear to auscultation bilaterally. HEART: Shows a regular rate and rhythm without any murmurs. ABDOMEN: Soft, nontender, thin, nondistended. No herniations. EXTREMITIES: Show no edema. RECTAL: Examination shows a tiny sinus tract near her rectum in the posterior midline. On anoscopy, there is no visible internal opening that I to the rectum. ASSESSMENT A possible fistula in ano on the posterior midline. PLAN To the operating room for examination under anesthesia, possible fistulotomy, possible seton placement. The risks of bleeding, pain, infection, recurrence and incontinence were all explained to the patient. She agrees and understands. Will schedule at her earliest convenience. KG:CARMINA Dictated by: Teodora Montez MD Teodora Montez MD Date/Time No Change Surgeon Initials Or Date/Time Changes Surgeon Initials Result Type: HISTORY AND PHYSICAL Result Date: December 11, 2007 10:08 AM Result Status: UNREVIEWED documented in this encounter Plan of Treatment Not on file documented as of this encounter Visit Diagnoses Not on filedocumented in this encounter Care Teams Compensation Manager Relationship Specialty Start Date End Date Ervin Tejada MD PCP - General 01/17/08 documented as of this encounter
--- OUTSIDE RECORDS SUMMARY | 2024-02-12 02:20 | XMS_ITS | Encounter Summary ---
Author Organization [facility] Address [address] [place] [address] Care Team Providers Care Assistant Store Manager Operations Name Role Phone Ervin Tejada MD Primary Care Provider [phone] Encounter Details Date Type Department Care Team (Late st Contact Info) Description 01/02/2007 Outpatient Historical [facility] SILVERING DEPARTMENT SUPERVISOR - [facility] [address] [facility] [address] [place] [address] Galen Martin MD [address] [facility] [address] [address] Social History Tobacco Use Types Packs/Day Years Used Date Smoking Tobacco: Never Assessed Sex and Gender Information Value Date Recorded Sex Assigned at Not on file Gender Identity Not on file Sexual Orientation Not on file documented as of this encounter Plan of Treatment Not on file documented as of this encounter Visit Diagnoses Not on filedocumented in this encounter Care Teams Assistant Store Manager Operations Relationship Specialty Start Date End Date Ervin Tejada MD PCP - General 01/17/08 documented as of this encounter
--- OUTSIDE RECORDS SUMMARY | 2024-02-12 02:20 | XMS_ITS | Encounter Summary ---
Author Organization [facility] Address [address] [place] [address] Care Team Providers Care Curtain Supervisor Name Role Phone Ervin Tejada MD Primary Care Provider [phone] Encounter Details Date Type Department Care Team (Late st Contact Info) Description 08/20/[address] [facility] Primary Care - [address] [place] [address] Ervin Tejada MD [address] [facility] [address] [address] Social History Tobacco Use Types [...] on filedocumented in this encounter Care Teams Curtain Supervisor Relationship Specialty Start Date End Date Ervin Tejada MD PCP - General 01/17/08 documented as of this encounter
--- OUTSIDE RECORDS SUMMARY | 2024-02-12 02:20 | XMS_ITS | Encounter Summary ---
Author Organization [facility] Address [address] [place] [address] Care Team Providers Care Truck Cleaner Name Role Phone Ervin Tejada MD Primary Care Provider [phone] Encounter Details Date Type Department Care Team (Late st Contact Info) Description 01/31/2008 Abstract [facility] Primary Care - [address] [place] [address] Ervin Tejada MD [address] [facility] [address] [address] Social History Tobacco Use Types [...] on filedocumented in this encounter Care Teams Truck Cleaner Relationship Specialty Start Date End Date Ervin Tejada MD PCP - General 01/17/08 documented as of this encounter
--- OUTSIDE RECORDS SUMMARY | 2024-02-12 02:20 | XMS_ITS | Encounter Summary ---
Author Organization [facility] Address [address] [place] [address] Care Team Providers Care Tea Blender Name Role Phone Ervin Tejada MD Primary Care Provider [phone] Encounter Details Date Type Department Care Team (Late st Contact Info) Description 01/31/2001 Outpatient Historical [facility] Primary Care - [address] [place] [address] Ervin Tejada MD [address] [facility] [address] [address] Social History Tobacco Use Types [...] on filedocumented in this encounter Care Teams Tea Blender Relationship Specialty Start Date End Date Ervin Tejada MD PCP - General 01/17/08 documented as of this encounter
--- OUTSIDE RECORDS SUMMARY | 2024-02-12 02:20 | XMS_ITS | Encounter Summary ---
Author Organization [employer] [facility] Address [address] [place] [address] Care Team Providers Care Business Management Intern Name Role Phone Ervin Tejada MD Primary Care Provider [phone] Encounter Details Date Type Department Care Team (Late st Contact Info) Description 12/11/2007 Outpatient Historical [facility] Teodora Montez MD [address] [facility] [address] [place] [address] Social History Tobacco Use Types Packs/Day Years Used Date Smoking Tobacco: Never Assessed Sex and Gender Information Value Date Recorded Sex Assigned at Not on file Gender Identity Not on file Sexual Orientation Not on file documented as of this encounter Plan of Treatment Not on file documented as of this encounter Procedures Procedure Name Priority Date/Time Associated Diagnosis Comments POC , URINE Routine 12/26/2007 6:20 AM PROJECT CONTROLS SCHEDULER HEMOGLOBIN AND HEMATOCRIT Routine 12/18/2007 2:59 PM PROJECT CONTROLS SCHEDULER documented in this encounter Results * POC , URINE (12/26/2007 6:20 AM PROJECT CONTROLS SCHEDULER) , URINE POC Negative Negative [facility] Urine specimen (specimen) 12/26/2007 6:20 AM PROJECT CONTROLS SCHEDULER 12/26/2007 6:20 AM PROJECT CONTROLS SCHEDULER Teodora Montez MD POINT OF CARE TESTIN G INTERFACE SYSTEM Refer to clinic/hospital department [facility] CLIA# [id number] [address] [place] [id number] * HEMOGLOBIN AND HEMATOCRIT (12/18/2007 2:59 PM PROJECT CONTROLS SCHEDULER) HEMATOCRIT 37.8 35.5 - 44.0 % [facility] HEMOGLOBIN 13.2 11.8 - 14.8 g/dL [facility] Blood specimen (specimen) 12/18/2007 2:59 PM PROJECT CONTROLS SCHEDULER 12/18/2007 3:49 PM PROJECT CONTROLS SCHEDULER Teodora Montez MD HEMATOLOGY ORDERABLE S INTERFACE SYSTEM Refer to clinic/hospital department [facility] CLIA# [id number] [address] [place] [address] documented in this encounter Visit Diagnoses Not on filedocumented in this encounter Care Teams Business Management Intern Relationship Specialty Start Date End Date Ervin Tejada MD PCP - General 01/17/08 documented as of this encounter
--- OUTSIDE RECORDS SUMMARY | 2024-02-12 02:20 | XMS_ITS | Encounter Summary ---
Author Organization [facility] Address [address] [place] [address] Care Team Providers Care Heart Specialist Name Role Phone Unavailable Primary Care Provider Unavailabl e Encounter Details Date Type Department Care Team (Late st Contact Info) Description 06/05/2007 Orders Only [facility] Primary Care - [address] [place] [address] Ervin Tejada MD [address] [facility] [address] [address] Social History Tobacco Use Types Packs/Day Years Used Date Smoking Tobacco: Never Assessed Sex and Gender Information Value Date Recorded Sex Assigned at Not on file Gender Identity Not on file Sexual Orientation Not on file documented as of this encounter Progress Notes * Ervin Tejada MD - 07/19/2007 11:17 AM CDT TIME:08:53 am PATIENT`S HOME PHONE: PATIENT`S WORK PHONE: PATIENT`S INSURANCE: [employer] WHO TOOK THE CALL: Milka Dill K GENERAL INFORMATION PATIENT STATUS: Patient has never been seen in our office. LAST VISIT: 05/31/07 ALTERNATIVE PHONE NUMBER: [phone] WHO CALLED: Patient called. SECTION 1: Pt has cyst above rectum (Pilonidal), Was recommended to see Dr. Jase Figueroa, but [facility] sched, might not be avail to see him REQUESTED ACTION redamritak 06/05/07 at 08:56 am: Pt would like another name of Dr. .........Milka documented in this encounter Plan of Treatment Not on file documented as of this encounter Visit Diagnoses Not on filedocumented in this encounter
--- OUTSIDE RECORDS SUMMARY | 2024-02-12 02:20 | XMS_ITS | Encounter Summary ---
Author Organization [facility] Address [address] [place] [address] Care Team Providers Care Supervisor Cured Meats Name Role Phone Ervin Tejada MD Primary Care Provider [phone] Encounter Details Date Type Department Care Team (Late st Contact Info) Description 02/17/2004 Outpatient Historical [facility] DIAMOND SANDER - [facility] [address] [facility] [facility] [address] [place] [address] Galen Martin MD [address] [facility] [address] [address] Social History Tobacco Use Types Packs/Day Years Used Date Smoking Tobacco: Never Assessed Sex and Gender Information Value Date Recorded Sex Assigned at Not on file Gender Identity Not on file Sexual Orientation Not on file documented as of this encounter Plan of Treatment Not on file documented as of this encounter Visit Diagnoses Not on filedocumented in this encounter Care Teams Supervisor Cured Meats Relationship Specialty Start Date End Date Ervin Tejada MD PCP - General 01/17/08 documented as of this encounter
--- OUTSIDE RECORDS SUMMARY | 2024-02-12 02:20 | XMS_ITS | Encounter Summary ---
Author Organization [facility] Address [address] [place] [address] Care Team Providers Care Delivery Consultant Name Role Phone Ervin Tejada MD Primary Care Provider [phone] Encounter Details Date Type Department Care Team (Late st Contact Info) Description 08/28/2002 Outpatient Historical [facility] Primary Care - [address] [place] [address] Murali Jose Social History Tobacco Use Types Packs/Day Years Used Date Smoking Tobacco: Never Assessed Sex and Gender Information Value Date Recorded Sex Assigned at Not on file Gender Identity Not on file Sexual Orientation Not on file documented as of this encounter Plan of Treatment Not on file documented as of this encounter Visit Diagnoses Not on filedocumented in this encounter Care Teams Delivery Consultant Relationship Specialty Start Date End Date Ervin Tejada MD PCP - General 01/17/08 documented as of this encounter
--- OUTSIDE RECORDS SUMMARY | 2024-02-12 02:20 | XMS_ITS | Encounter Summary ---
Author Organization [facility] Address [address] [place] [address] Care Team Providers Care Trade Show Specialist Name Role Phone Ervin Tejada MD Primary Care Provider [phone] Encounter Details Date Type Department Care Team (Late st Contact Info) Description 05/27/2003 Outpatient Historical [facility] PRODUCE TEAM MEMBER - [facility] [address] [facility] [address] [place] [address] Galen Martin MD [address] [facility] [address] [address] Social History Tobacco Use Types Packs/Day Years Used Date Smoking Tobacco: Never Assessed Sex and Gender Information Value Date Recorded Sex Assigned at Not on file Gender Identity Not on file Sexual Orientation Not on file documented as of this encounter Plan of Treatment Not on file documented as of this encounter Visit Diagnoses Not on filedocumented in this encounter Care Teams Trade Show Specialist Relationship Specialty Start Date End Date Ervin Tejada MD PCP - General 01/17/08 documented as of this encounter
--- OUTSIDE RECORDS SUMMARY | 2024-02-12 02:20 | XMS_ITS | Encounter Summary ---
Author Organization [facility] Address [address] [place] [address] Care Team Providers Care Noise Abatement Engineer Name Role Phone Ervin Tejada MD Primary Care Provider [phone] Encounter Details Date Type Department Care Team (Late st Contact Info) Description 01/31/2008 Abstract [facility] Primary Care - [address] [place] [address] Ervin Tejada MD [address] [facility] [address] [address] Social History Tobacco Use Types [...] on filedocumented in this encounter Care Teams Noise Abatement Engineer Relationship Specialty Start Date End Date Ervin Tejada MD PCP - General 01/17/08 documented as of this encounter
--- OUTSIDE RECORDS SUMMARY | 2024-02-12 02:20 | XMS_ITS | Encounter Summary ---
Author Organization [facility] Address [address] [place] [address] Care Team Providers Care Police Aide Name Role Phone Ervin Tejada MD Primary Care Provider [phone] Encounter Details Date Type Department Care Team (Latest Contact Info) Description 05/31/2007 Orders Only HIS CONVERSION Conversion, History Social History Tobacco Use Types Packs/Day Years Used Date Smoking Tobacco: Never Assessed Sex and Gender Information Value Date Recorded Sex Assigned at Not on file Gender Identity Not on file Sexual Orientation Not on file documented as of this encounter Progress Notes * Conversion, History - 05/06/2008 3:13 PM CDT documented in this encounter Plan of Treatment Not on file documented as of this encounter Visit Diagnoses Not on filedocumented in this encounter Care Teams Police Aide Relationship Specialty Start Date End Date Ervin Tejada MD PCP - General 01/17/08 documented as of this encounter
--- OUTSIDE RECORDS SUMMARY | 2024-02-12 02:20 | XMS_ITS | Encounter Summary ---
Author Organization [facility] Address [address] [place] [address] Care Team Providers Care Feltmaker Name Role Phone Ervin Tejada MD Primary Care Provider [phone] Encounter Details Date Type Department Care Team (Late st Contact Info) Description 05/31/2007 Outpatient Historical [facility] Primary Care - [facility] [address] [facility] [address] [place] [address] Brissa Allison MD [address] [facility] [address] [place] [address] Social History Tobacco Use Types Packs/Day Years Used Date Smoking Tobacco: Never Assessed Sex and Gender Information Value Date Recorded Sex Assigned at Not on file Gender Identity Not on file Sexual Orientation Not on file documented as of this encounter Plan of Treatment Not on file documented as of this encounter Visit Diagnoses Not on filedocumented in this encounter Care Teams Feltmaker Relationship Specialty Start Date End Date Ervin Tejada MD PCP - General 01/17/08 documented as of this encounter
--- OUTSIDE RECORDS SUMMARY | 2024-02-12 02:20 | XMS_ITS | Encounter Summary ---
Author Organization [facility] Address [address] [place] [address] Care Team Providers Care Dye Feeder Name Role Phone Ervin Tejada MD Primary Care Provider [phone] Encounter Details Date Type Department Care Team (Late st Contact Info) Description 11/17/2005 Outpatient Historical [facility] Primary Care - [address] [place] [address] Ervin Tejada MD [address] [facility] [address] [address] Social History Tobacco Use Types Packs/Day Years Used Date Smoking Tobacco: Never Assessed Sex and Gender Information Value Date Recorded Sex Assigned at Not on file Gender Identity Not on file Sexual Orientation Not on file documented as of this encounter Last Filed Vital Signs Vital Sign Reading Time Taken Comments Blood Pressure 120/80 11/17/2005 1:00 PM CDT Pulse - - Temperature 36.7 ??C (98 ??F) 11/17/2005 1:00 PM CDT Respiratory Rate - - Oxygen Saturation - - Inhaled Oxygen Concentration - - Weight 54.9 kg (121 lb) 11/17/2005 1:00 PM CDT Height - - Body Mass Index - - documented in this encounter Plan of Treatment Not on file documented as of this encounter Visit Diagnoses Not on filedocumented in this encounter Care Teams Dye Feeder Relationship Specialty Start Date End Date Ervin Tejada MD PCP - General 01/17/08 documented as of this encounter
--- OUTSIDE RECORDS SUMMARY | 2024-02-12 02:20 | XMS_ITS | Encounter Summary ---
Author Organization [facility] Address [address] [place] [address] Care Team Providers Care Automotive Service Director Name Role Phone Ervin Tejada MD Primary Care Provider [phone] Encounter Details Date Type Department Care Team (Late st Contact Info) Description 08/06/2000 Outpatient Historical [facility] Primary Care - [address] [place] [address] Ervin Tejada MD [address] [facility] [address] [address] Social History Tobacco Use Types [...] on filedocumented in this encounter Care Teams Automotive Service Director Relationship Specialty Start Date End Date Ervin Tejada MD PCP - General 01/17/08 documented as of this encounter
--- OUTSIDE RECORDS SUMMARY | 2024-02-12 02:20 | XMS_ITS | Encounter Summary ---
Author Organization [facility] Address [address] [place] [address] Care Team Providers Care Environmental Web Crawler Name Role Phone Ervin Tejada MD Primary Care Provider [phone] Encounter Details Date Type Department Care Team (Late st Contact Info) Description 12/09/1999 Outpatient Historical [facility] Primary Care - [address] [place] [address] Humberto Diaz MD NO ADDRESS ON [...] on filedocumented in this encounter Care Teams Environmental Web Crawler Relationship Specialty Start Date End Date Ervin Tejada MD PCP - General 01/17/08 documented as of this encounter
--- OUTSIDE RECORDS SUMMARY | 2024-02-12 02:20 | XMS_ITS | Encounter Summary ---
Author Organization [employer] Address [address] [place] [address] Care Team Providers Care Maintenance Worker Swimming Pool Name Role Phone Ervin Tejada MD Primary Care Provider [phone] Encounter Details Date Type Department Care Team (Latest Contact Info) Description 08/08/2007 Outpatient Historical [facility] Ro Montez MD [address] [facility] [address] [place] [address] Pilonidal Cyst without Mention of Abscess Social History Tobacco Use Types Packs/Day Years Used Date Smoking Tobacco: Never Assessed Sex and Gender Information Value Date Recorded Sex Assigned at Not on file Gender Identity Not on file Sexual Orientation Not on file documented as of this encounter Plan of Treatment Not on file documented as of this encounter Procedures Procedure Name Priority Date/Time Associated Diagnosis Comments PATHOLOGY Routine 08/22/2007 10:20 AM CDT POC , URINE Routine 08/22/2007 7:45 AM CDT HEMOGLOBIN AND HEMATOCRIT Routine 08/14/2007 3:12 PM CDT documented in this encounter Results * PATHOLOGY (08/22/2007 10:20 AM CDT) FINAL REPORT ?[facility] ?[address] ? [place], [place] ??[id number] ? Patient: ??DEBI RAHMAN ? : ??1985 ? Procedure Date: ??08/22/2007 ? Accession Date: ??08/22/2007 ? Case No: ??[id number] ? Ordering Dr: ??RO MONTEZ ? Case types AW, BW, FW, NW and SH are performed by [facility] ? [facility], [place], [place] ?SURGICAL PATHOLOGY & NON-GYNECOLOGIC CYTOPATHOLOGY REPORT ? DIAGNOSIS ? SKIN AND SOFT TISSUE, NOT OTHERWISE SPECIFIED, EXCISION:- PILONIDAL ? DISEASE. ? Specimen Description: ? Pilonidal cyst. ? Operative Procedure: ? Excision pilonidal cyst. ? Patient Information/Histor y/Diagnosis: ? Pilonidal cyst, possible anal fistula. ? Gross: ? Received in a single container labeled Debi Rahman, pilonidal cyst is ? a 2 x 0.4 x 1.5-cm unoriented excision of peterson skin and yellow-peterson ? fibrofatty tissue. A hemorrhagic defect is identified on the skin surface, ? 0.8 x 0.5 cm which extends to the skin margin. This defect extends into a ? sinus tract. The sinus tract contains a winters-red glistening material and ? hair. Knitting Machine Operator Helper sections are submitted in cassette A1. ? MARIA ISABEL/EDWIGE 08.22.2007 12:59 pm ? Microscopic: ? The slide is labeled [id number] and Debi Rahman. Sections show a sinus ? tract extending from the epidermis into the subcutaneous tissue lined by ? squamous epithelium and granulation tissue. Hair shafts are present. There ? is surrounding fibrosis and acute and chronic inflammation. ? DJG/SURYAP 08.23.2007 03:02 pm ? Staging Form: ? No. ? ELECTRONIC SIGNATURE FOR ROBERT SPRING M.D.- 08/23/07 04:31 pm INTERFACE SYSTEM 08/22/2007 10:2 0 AM CDT Ro Montez MD PATHOLOGY/CYTOLOGY O RDERABLES Performing Organization Address [facility] Co de Phone Number INTERFACE SYSTEM Refer to clinic/hospital department * POC , URINE (08/22/2007 7:45 AM CDT) , URINE POC Negative Negative [facility] Urine specimen (specimen) 08/22/2007 7:45 AM CDT 08/22/2007 7:45 AM CDT Ro Montez MD POINT OF CARE TESTIN G Performing Organization Address [facility] Co de Phone Number [facility] CLIA# [id number] [address] [place] [address] * HEMOGLOBIN AND HEMATOCRIT (08/14/2007 3:12 PM CDT) HEMOGLOBIN 14.1 11.8 - 14.8 g/dL [facility] HEMATOCRIT 40.9 35.5 - 44.0 % [facility] Blood specimen (specimen) 08/14/2007 3:12 PM CDT 08/14/2007 4:38 PM CDT Ro Montez MD HEMATOLOGY ORDERABLE S Performing Organization Address [facility] Co de Phone Number [facility] CLIA# [id number] [address] [place] [address] documented in this encounter Visit Diagnoses Diagnosis Pilonidal cyst without mention of abscess documented in this encounter Care Teams Maintenance Worker Swimming Pool Relationship Specialty Start Date End Date Ervin Tejada MD PCP - General 01/17/08 documented as of this encounter
--- OUTSIDE RECORDS SUMMARY | 2024-02-12 02:20 | XMS_ITS | Encounter Summary ---
Author Organization [facility] Address [address] [place] [address] Care Team Providers Care Embossing Clerk Name Role Phone Unavailable Primary Care Provider Unavailabl e Encounter Details Date Type Department Care Team (Late st Contact Info) Description 11/16/2005 Orders Only [facility] Primary Care - [address] [place] [address] Ervin Tejada MD [address] [facility] [address] [address] Social History Tobacco Use Types Packs/Day Years Used Date Smoking Tobacco: Never Assessed Sex and Gender Information Value Date Recorded Sex Assigned at Not on file Gender Identity Not on file Sexual Orientation Not on file documented as of this encounter Progress Notes * Ervin Tejada MD - 11/26/2007 8:07 PM CDT TIME:09:40 am PATIENT`S HOME PHONE: PATIENT`S WORK PHONE: PATIENT`S INSURANCE: [employer] WHO TOOK THE CALL: Yue Cardenas M GENERAL INFORMATION PATIENT STATUS: Established Patient. LAST VISIT: 04-01-2004 PCP: doris. ALTERNATIVE PHONE NUMBER: [phone] WHO CALLED: Patient`s mother called. CURRENT ALLERGY LIST: Patient reports no known allergies. PHARMACY NUMBER: [phone] PROBLEMS: pt. c/o a bug bite on her left arm; the redness is the size of a quarter ;with swelling and a white head in the center pt's mother stated the bite is warm to touch and itches pt. has been using benadryl this morning and just noticed the bite yesterday pt. 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 and can't get in until late this pm or tomorrow between noon and 2:30pm............../yue SECTION 2: DOCTOR`S RESPONSE: annabelle 11/16/05 at 09:56 am tomorrow is fine in that time frame, would have her use Cortaid otc cream in meantime BB FINAL ACTION: shola 11/16/05 at 10:00 am Spoke with patient 11/16/05 at 10:00 am. Booked appointment: 11-17 1:00p........Rinku Electronically Signed by: Lupis Garsia on November documented in this encounter Plan of Treatment Not on file documented as of this encounter Visit Diagnoses Not on filedocumented in this encounter
--- OUTSIDE RECORDS SUMMARY | 2024-02-12 02:20 | XMS_ITS | Encounter Summary ---
Author Organization [facility] Address [address] [place] [address] Care Team Providers Care Primary Mill Roller Name Role Phone Ervin Tejada MD Primary Care Provider [phone] Encounter Details Date Type Department Care Team (Late st Contact Info) Description 05/31/2007 Outpatient Historical [facility] Primary Care - [facility] [address] [facility] [address] [place] [address] Brissa Allison MD [address] [place] [address] Social History Tobacco Use Types [...] on filedocumented in this encounter Care Teams Primary Mill Roller Relationship Specialty Start Date End Date Ervin Tejada MD PCP - General 01/17/08 documented as of this encounter
--- OUTSIDE RECORDS SUMMARY | 2024-02-12 02:20 | XMS_ITS | Encounter Summary ---
Author Organization [facility] Address [address] [place] [address] Care Team Providers Care Supervisor Poultry Farm Name Role Phone Ervin Tejada MD Primary Care Provider [phone] Encounter Details Date Type Department Care Team (Latest Contact Info) Description 08/07/2007 Orders Only HIS CONVERSION Conversion, History Social History Tobacco Use Types Packs/Day Years Used Date Smoking Tobacco: Never Assessed Sex and Gender Information Value Date Recorded Sex Assigned at Not on file Gender Identity Not on file Sexual Orientation Not on file documented as of this encounter Progress Notes * Conversion, History - 07/17/2008 5:[address] [place], [place] [address] cc: Teodora Montez MD SURGEON Teodora Montez MD PREOPERATIVE DIAGNOSIS Pilonidal cyst, possible fistula in ano. POSTOPERATIVE DIAGNOSIS Pilonidal cyst to include a sinus tract that extended to the perianal skin near the anal verge. OPERATION NAME Excision of a pilonidal cyst. ANESTHESIA General endotracheal. ANESTHESIOLOGIST Arnold Chilel MD SPECIMEN Pilonidal cyst. ESTIMATED BLOOD LOSS Minimal. CONDITION Stable. DRAINS None. IV FLUIDS 600 cc. COMPLICATIONS None. PROCEDURE After appropriate preoperative workup and consent, the patient was brought to the operating room. She was anesthetized on the stretcher and then rolled into the prone jackknife position and appropriately padded on the operating table. Her buttocks were taped apart and she was sterilely prepped and draped. A bilateral anal block of 1% lidocaine without epinephrine was administered. The anus was gently dilated and a brief anoscopy showed no abnormalities. There was no fistulous connection to the anus visible. Attention was then turned to the gluteal cleft. There were two small pits low in the gluteal cleft. I placed a lacrimal probe into the most inferior pit and it connected to a wide pilonidal cyst cavity with a sinus tract that drained just near the anus. Palpation of the bottom of the cyst cavity could not elicit any connection into the rectum or anal canal. I then made an elliptical incision to include the sinus tract and all the pits and sinuses. I created this incision with a scalpel and took this down into the subcutaneous tissue with Bovie electrocautery. I carefully excised the entire cyst with its entire wall. The superior aspect of cyst touched the tip of the coccyx. The deep wall of the cyst then stayed on top of the external and internal sphincter muscles making a little divot into the intersphincter groove. I palpated this and probed this with a lacrimal probe extensively trying to find any connection into the rectum but there was none. I excised the entire cyst cavity. No external or internal sphincter was taken. Inferiorly, the cyst terminated in the anterior anoderm. It was fully excised. At this point, bleeding was controlled with Bovie electrocautery and the area was copiously irrigated. In visualizing the remaining defect, the space was not actually that large and the skin defect was also not that large. I elected to bring this together primarily. I used interrupted 3-0 Vicryls in two layers to close the deep portion of the wound. I then closed the deep dermal layer with another layer of interrupted 3-0 Vicryl. I closed the skin with an interrupted layer of horizontal mattress stitches of 3-0 nylon. The patient tolerated this very well. I injected additional local anesthetic, dressed the wound with fluffs and mesh panties, and we rolled her back onto the stretcher, awakened, extubated her, and took her to recovery in excellent condition. Counts were complete times two at the termination of the case. There were no complications. KG:MEDQ Dictated by: Teodora Montez MD Teodora Montez MD Result Type: OPERATIVE REPORT Result Date: August 22, 2007 09:35 AM Result Status: UNREVIEWED * Conversion, History - 07/17/2008 5:[address] [place], [place] [address] cc: Teodora Montez MD CHIEF COMPLAINT Rectal bleeding. HISTORY The patient is a 22-year-old female with a very low pilonidal cyst and possible fistula. This is associated with a mild amount of irritation and some rectal bleeding. PAST MEDICAL HISTORY None. PAST SURGICAL HISTORY None. SOCIAL HISTORY She is a nonsmoker, occasional drinker. ALLERGIES No known drug allergies. MEDICATIONS control pills. FAMILY HISTORY Significant for a grandfather with heart disease, an aunt with lung cancer, a maternal grandfather with skin cancer, both grandparents have diabetes, her mother has high blood pressure, her grandfather has high blood pressure, a paternal grandfather had colon cancer in his late 40s. Neither of her parents has any colon pathology. REVIEW OF SYSTEMS No fevers, chills, malaise, fatigue, or weight loss. HEENT: No vision changes, double vision, epistaxis, or dysphasia. RESPIRATORY: No cough, cold, or wheeze. CARDIOVASCULAR: No chest pain, shortness of breath, palpitations, or pedal edema. GI: No nausea, vomiting, diarrhea, or constipation, abdominal pain, or heartburn. Occasional rectal bleeding as per history of present illness. : No dysuria, change in her menstrual periods. No frequency, hesitancy, or nocturia. ENDOCRINE: No diabetes or thyroid dysfunction. PSYCHIATRIC: No anxiety or depression. MUSCULOSKELETAL: No joint pains or weakness. PHYSICAL EXAMINATION GENERAL: She si a well-developed, well-nourished thin female in no apparent distress. NEUROLOGIC: Cranial nerves II-XII are grossly intact. HEENT: Head is normocephalic and atraumatic. Pupils are equally round and reactive to light. Extraocular movements are intact. Oropharynx is clear. Mucous membranes are moist. NECK: Supple with no evidence of lymphadenopathy. LUNGS: Clear to auscultation. HEART: Shows a regular rate and rhythm without any murmurs. ABDOMEN: Soft, nontender, thin, nondistended. No evidence of herniation. EXTREMITIES: Show no edema. RECTAL: External examination shows a sinus tract with a small amount of hair in it just near her rectum. In her posterior midline in the perirectal skin, there is a 0.5 cm opening with granulation tissue which I cannot extend to meet with the sinus. On anoscopy, there is no visible internal openings. ASSESSMENT What seems to be a very low pilonidal cyst with inferior extension. No signs of active abscess at this time. Possible fistula in ano. PLAN We will proceed to the operating room for examination under anesthesia with possible excision of a pilonidal cyst versus seton placement. The risks, benefits, alternatives, and possible complications to include bleeding, pain, infection, recurrence, incontinence were all explained to the patient. She agrees and understands. She will schedule at her earliest convenience. KG:MEDQ Dictated by: Teodora Montez MD Teodora Montez MD Date/Time No Change Surgeon Initials Or Date/Time Changes Surgeon Initials Result Type: HISTORY AND PHYSICAL Result Date: August 07, 2007 09:13 AM Result Status: UNREVIEWED documented in this encounter Plan of Treatment Not on file documented as of this encounter Visit Diagnoses Not on filedocumented in this encounter Care Teams Supervisor Poultry Farm Relationship Specialty Start Date End Date Ervin Tejada MD PCP - General 01/17/08 documented as of this encounter
--- OUTSIDE RECORDS SUMMARY | 2024-02-12 02:20 | XMS_ITS | Encounter Summary ---
Author Organization [facility] Address [address] [place] [address] Care Team Providers Care Marketing Strategy Lead Name Role Phone Ervin Tejada MD Primary Care Provider [phone] Reason for Visit * Reason Onset Date Comments Medication Refill 03/17/2009 Encounter Details Date Type Department Care Team (Late st Contact Info) Description 03/17/2009 Refill [facility] CHIEF OF SERVICE - Medical [address] [address] Kisha Garcia, MICHAEL [address] [facility] [place] [facility] [address] [place] [address] Social History Tobacco Use Types Packs/Day [...] encounter Miscellaneous Notes * Telephone Encounter - Jodie Roman - 03/17/2009 3:57 PM CST [facility] Yanira calling--patient took paper prescription to [facility], patient has changed her mind wants rx to [facility] per [facility], unable to obtain from [facility], rx was deleted. Authorization given. Last WWE 03.11.09 ER DIRECTOR documented in this encounter Plan of Treatment Not on file documented as of this encounter Visit Diagnoses Not on filedocumented in this encounter Care Teams Marketing Strategy Lead Relationship Specialty Start Date End Date Ervin Tejada MD PCP - General 01/17/08 documented as of this encounter
--- OUTSIDE RECORDS SUMMARY | 2024-02-12 02:20 | XMS_ITS | Encounter Summary ---
Author Organization [facility] Address [address] [place] [address] Care Team Providers Care Music Rehabilitation Therapist Name Role Phone Ervin Tejada MD Primary Care Provider [phone] Encounter Details Date Type Department Care Team (Latest Contact Info) Description 01/27/2008 Orders Only HIS CONVERSION Conversion, History Social History Tobacco Use Types Packs/Day Years Used Date Smoking Tobacco: Never Assessed Sex and Gender Information Value Date Recorded Sex Assigned at Not on file Gender Identity Not on file Sexual Orientation Not on file documented as of this encounter Progress Notes * Conversion, History - 07/17/2008 8:[address] [place], [place] [address] cc: MD Ervin Mccoy MD COLONOSCOPY INDICATION Nonhealing perirectal wound. HISTORY The patient is a 22-year-old female who had a very low posterior rectal wound which was thought to be a very low pilonidal cyst. She has undergone two excisions as well as examinations under anesthesia. This is not a fistula in ano. After both procedures, this small area has not fully healed. She is now undergoing colonoscopy to rule out any signs of Crohn's disease, being the thought that this may be a rather bland variant of perianal Crohn's disease. This is minimally symptomatic. Her past medical history is otherwise negative. PAST SURGICAL HISTORY Examination under anesthesia, excision of this nonhealing wound x2. SOCIAL HISTORY She is a nonsmoker, occasional drinker. ALLERGIES None. MEDICATIONS control pills. FAMILY HISTORY A grandfather has heart disease, an aunt has lung cancer, a maternal grandmother has skin cancer. Both grandparents have diabetes. Her mother has high blood pressure. A grandfather has high blood pressure. Her paternal grandfather had colon cancer in his late 40s. Neither of her parents have had any colon pathology. REVIEW OF SYSTEMS CONSTITUTIONAL: Negative for fevers, chills, malaise, fatigue or weight loss. HEENT: No vision changes, double vision, epistaxis, dysphagia. RESPIRATORY: No cough, cold, or wheeze. CARDIOVASCULAR: No chest, shortness of breath, palpitations, or pedal edema. GI: No nausea, vomiting, diarrhea, constipation. No heartburn. Very occasional small rectal bleeding. : No dysuria, no change in her periods. No frequency, hesitancy, nocturia. ENDOCRINE: No diabetes or thyroid dysfunction. PSYCH: No anxiety or depression. MUSCULOSKELETAL: No joint pains or weaknesses. PHYSICAL EXAMINATION GENERAL: She is a well-developed, well-nourished, thin female in no apparent distress. HEENT: Cranial nerves II through XII are grossly intact. Head is normocephalic, atraumatic. Pupils are equally round and reactive to light. Extraocular movements are intact. Oropharynx is clear. Mucous membranes are moist. NECK: Supple with no evidence of lymphadenopathy. LUNGS: Clear bilaterally. HEART: Shows a regular rate and rhythm without any murmurs. ABDOMEN: Soft, nontender, thin, nondistended. No herniations. EXTREMITIES: No edema. : External rectal examination shows a very tiny limited sinus tract near her rectum in the posterior midline. On examination under anesthesia and anoscopy, there was no fistula in ano. PROCEDURE After appropriate sedation by anesthesia with propofol, the patient was turned to the left lateral position and a digital rectal examination was performed. The internal sphincter was not tight nor band like. There no masses. The adult colonoscope was inserted into the patient's rectum and advanced without difficulty to the cecum. The terminal ileum was cannulated. It appeared quite normal for a distance of 10 cm. At the terminal 2 to 3 cm, there was some nodular appearance consistent with lymphoid hyperplasia. This area was multiply biopsied. The scope was pulled back into the colon and irrigated. The colon was insufflated, and a visual inspection of all aspects of the colon mucosa was undertaken, making multiple passes as necessary to see behind haustra. The cecum, ascending colon, hepatic flexure, transverse colon, splenic flexure, descending colon, sigmoid colon, and rectum were all normal. A retroflex view in the anorectum revealed normal internal hemorrhoids and no other abnormalities, including no internal opening consistent with the patient's prior exam. The scope was then straightened. The colon was then desufflated. The scope was removed. The patient was awakened and taken to recovery room in excellent condition. ASSESSMENT Normal-appearing colon and terminal ileum. PLAN 1. Biopsies were taken of some nodular-appearing mucosa of the terminal ileum consistent with lymphoid hyperplasia. We will await pathology. 2. The patient will pursue local wound care for her nonhealing perianal wound. 3. The patient will need a repeat colonoscopy at age 50. KG:MEDQ Dictated by: Teodora Montez MD Teodora Montez MD Result Type: GASTROENTEROLOGY Result Date: January 27, 2008 12:43 PM Result Status: UNREVIEWED SOMNOGRAPH TECH documented in this encounter Plan of Treatment Not on file documented as of this encounter Visit Diagnoses Not on filedocumented in this encounter Care Teams Music Rehabilitation Therapist Relationship Specialty Start Date End Date Ervin Tejada MD PCP - General 01/17/08 documented as of this encounter
--- OUTSIDE RECORDS SUMMARY | 2024-02-12 02:20 | XMS_ITS | Encounter Summary ---
Author Organization [facility] Address [address] [place] [address] Care Team Providers Care Polisher Eyeglass Frames Name Role Phone Ervin Tejada MD Primary Care Provider [phone] Encounter Details Date Type Department Care Team (Late st Contact Info) Description 11/17/2005 Orders Only [facility] Primary Care - [address] [place] [address] Ervin Tejada MD [address] [facility] [address] [address] Social History Tobacco Use Types Packs/Day Years Used Date Smoking Tobacco: Never Assessed Sex and Gender Information Value Date Recorded Sex Assigned at Not on file Gender Identity Not on file Sexual Orientation Not on file documented as of this encounter Progress Notes * Ervin Tejada MD - 11/26/2007 7:58 PM CDT BLOOD PRESSURE: 120/80 Right Arm Sitting TEMPERATURE: 98??f Oral WEIGHT: 121lbs NURSE NAME: Arabella Frias A ALLERGIES: No known drug allergies. MEDICATIONS: Medication list current. CHIEF COMPLAINT Patient complains of. possible spider bite on the left arm...red and warm to the touch PHYSICAL EXAMINATION: SKIN: RASH/LESION #1 LOCATION: Proximal left posterior upper arm. CHARACTERISTICS: The lesion is erythematous. The rash is cystic. The lesion border is asymmetrical. ASSESSMENT Insect bite 919.4. ASSESSMENT/PLAN: 919.4-INSECT BITE, NONVENOMOUS, W/O MENTION OF INFECTION ASSESSMENT: try meds, call with update as needed MEDICATIONS: NOVACORT EXTERNAL GEL(JELLY) 2-1-1 % GRAMS, apply tid, 6 Dispensed, status: NEW PRESCRIPTION, 11/17/2005. RETURN VISIT : Patient instructed to call in 1 week if not improving. Electronically Signed by: Ervin Tejada MD on Saturday, December 10, 2005 documented in this encounter Plan of Treatment Not on file documented as of this encounter Visit Diagnoses Not on filedocumented in this encounter Care Teams Polisher Eyeglass Frames Relationship Specialty Start Date End Date Ervin Tejada MD PCP - General 01/17/08 documented as of this encounter
--- OUTSIDE RECORDS SUMMARY | 2024-02-12 02:20 | XMS_ITS | Encounter Summary ---
Author Organization [facility] Address [address] [place] [address] Care Team Providers Care Looper Fixer Name Role Phone Ervin Tejada MD Primary Care Provider [phone] Reason for Visit * Reason Onset Date Comments Needs Form Or Letter Filled Out 04/22/2010 Encounter Details Date Type Department Care Team (Late st Contact Info) Description 04/22/2010 Telephone [facility] - Medical [address] [place] [address] Kisha Garcia, MICHAEL [address] [facility] [address] [place] [address] Needs Form Or Letter Filled Out Social History Tobacco Use Types Packs/Day Years [...] encounter Miscellaneous Notes * Telephone Encounter - Luma Kiran - 04/22/2010 8:33 AM CST Prior auth for L[employer] has been approved for one year - exp date: 04/20/2011. LAS OMS ENTRY WRITER documented in this encounter Plan of Treatment Not on file documented as of this encounter Visit Diagnoses Not on filedocumented in this encounter Care Teams Looper Fixer Relationship Specialty Start Date End Date Ervin Tejada MD PCP - General 01/17/08 documented as of this encounter
--- OUTSIDE RECORDS SUMMARY | 2024-02-12 02:20 | XMS_ITS | Encounter Summary ---
Author Organization [facility] Address [address] [place] [address] Care Team Providers Care Sleeve Setter Lockstitch Name Role Phone Ervin Tejada MD Primary Care Provider [phone] Encounter Details Date Type Department Care Team (Late st Contact Info) Description 01/27/2008 Outpatient Historical [facility] Ro Montez MD [address] [facility] [address] [place] [address] Hemorrhage of Rectum and Anus Social History Tobacco Use Types Packs/Day Years Used Date Smoking Tobacco: Never Assessed Sex and Gender Information Value Date Recorded Sex Assigned at Not on file Gender Identity Not on file Sexual Orientation Not on file documented as of this encounter Plan of Treatment Not on file documented as of this encounter Procedures Procedure Name Priority Date/Time Associated Diagnosis Comments PATHOLOGY Routine 01/27/2008 1:18 PM BOTTOMING ROOM INSPECTOR POC , URINE Routine 01/27/2008 11:58 AM BOTTOMING ROOM INSPECTOR documented in this encounter Results * PATHOLOGY (01/27/2008 1:18 PM BOTTOMING ROOM INSPECTOR) FINAL REPORT ?[facility] ?[address] ? [place], [place] ??[id number] ? Patient: ??DEBI CARRERA ? : ??1985 ? Procedure Date: ??01/27/2008 ? Accession Date: ??01/27/2008 ? Case No: ??[id number] ? Ordering Dr: ??RO MONTEZ ? Case types AW, BW, FW, NW and SH are performed by [facility], [place], [place] ?SURGICAL PATHOLOGY & NON-GYNECOLOGIC CYTOPATHOLOGY REPORT ? DIAGNOSIS ? SMALL INTESTINE, TERMINAL ILEUM, BIOPSY: ? - FOCAL PIGMENT DEPOSITION (SEE MICROSCOPIC DESCRIPTION). ? Specimen Description: ? Terminal ileum. ? Operative Procedure: ? Colonoscopy. ? Patient Information/Histo ry/Diagnosis: ? Rule out Crohn s versus other. ? Gross: ? The specimen is received in a container labeled ??Debi Carrera, terminal ileum. ? It consists of two pieces of peterson tissue measuring less than 0.1 and 0.3 cm ? in greatest dimension. The specimen is submitted entirely labeled A1. ? MARIA ISABEL/JOANNA 01.27.2008 03:59 pm ? Microscopic: ? The slides are labeled [id number], Debi Carrera. ? Sections of the terminal ileum biopsy show two fragments of small ? intestinal mucosa, one of which has prominent lymphoid tissue, appropriate ? for the site. There is a small amount of granular black pigment within the ? lymphoid tissue; this is thought in some cases to represent titanium ? particles from the use of whitening toothpaste, and is of no clinical ? significance. The villous architecture appears normal. There is no active ? inflammation, nor any increase in chronic inflammatory infiltrates. No ? granulomas, erosions or ulcers are noted. There is no evidence of Crohn s ? disease or other significant pathologic alterations. ? CJ/TMZ 01.28.2008 11:33 am ? Staging Form: ? No. ? ELECTRONIC SIGNATURE FOR JIMBO MCLAUGHLIN MD- 01/28/08 03:37 pm INTERFACE SYSTEM 01/27/2008 1:18 PM BOTTOMING ROOM INSPECTOR Ro Montez MD PATHOLOGY/CYTOLOGY O RDERABLES Performing Organization Address [place] [facility] de Phone Number INTERFACE SYSTEM Refer to clinic/hospital department * POC , URINE (01/27/2008 11:58 AM BOTTOMING ROOM INSPECTOR) , URINE POC Negative Negative [facility] Urine specimen (specimen) 01/27/2008 11:58 AM BOTTOMING ROOM INSPECTOR 01/27/2008 11:58 AM BOTTOMING ROOM INSPECTOR Ro Montez MD POINT OF CARE TESTIN G Performing Organization Address [place] [facility] de Phone Number INTERFACE SYSTEM Refer to clinic/hospital department [facility] CLIA# [id number] [address] [place] [address] documented in this encounter Visit Diagnoses Diagnosis Hemorrhage of rectum and anus documented in this encounter Care Teams Sleeve Setter Lockstitch Relationship Specialty Start Date End Date Ervin Tejada MD PCP - General 01/17/08 documented as of this encounter
--- OUTSIDE RECORDS SUMMARY | 2024-02-12 02:20 | XMS_ITS | Continuity of Care Document ---
Author Organization [facility] Address [address] [place] [address] Phone Care Team Providers Care Business Process Engineer Name Role Phone Unavailable Unavailable Unavailable Advance Directives Directive Yes / No Effective Date File Name No Information Encounters Encounter Description Practice Location Reason(s) For Visit Diagnoses Date Provider Providers Copied on Encounter [facility], [address] [facility], [place], [place], [id number], tel:[phone] [facility] No Information 7 5 No Information Referring Provider: GEMMA Cunningham, [address] [facility] [address], [place], [address]. tel:[phone] Family History Family Member Type Diagnosis Age At Onset No Information Payers Payer name Insurance type Covered constitution party ID Yariel brian(s) [employer] PPO [id number] Social History Type Description Quantity Date Captured Comments Sex Female Smoking Status No Information Chief Complaint And Reason For Visit No Information History Of Present Illness Encounter Date Complaint History Of Prese nt Illness No Information Instructions Date Instruction Additional Infor mation No Information Assessments Type Assessment Date No Information
--- OUTSIDE RECORDS SUMMARY | 2024-02-12 02:20 | XMS_ITS | Encounter Summary ---
Author Organization [facility] Address [address] [place] [address] Care Team Providers Care Tongue Trimmer Name Role Phone Ervin Tejada MD Primary Care Provider [phone] Encounter Details Date Type Department Care Team (Late st Contact Info) Description 01/31/2008 Orders Only [facility] Primary Care - [address] [place] [address] Provider, Historical Social History Tobacco Use Types Packs/Day Years Used Date Smoking Tobacco: Never Assessed Sex and Gender Information Value Date Recorded Sex Assigned at Not on file Gender Identity Not on file Sexual Orientation Not on file documented as of this encounter Plan of Treatment Not on file documented as of this encounter Procedures Procedure Name Priority Date/Time Associated Diagnosis Comments ENDOSCOPY, COLON, DIAGNOSTIC Routine 01/27/2008 ENDOSCOPY, COLON, DIAGNOSTIC Routine 01/27/2008 documented in this encounter Results * ENDOSCOPY, COLON, DIAGNOSTIC (01/27/2008) Historical Provider [facility] * ENDOSCOPY, COLON, DIAGNOSTIC (01/27/2008) Historical Provider GI PROCEDURE [facility] documented in this encounter Visit Diagnoses Not on filedocumented in this encounter Care Teams Tongue Trimmer Relationship Specialty Start Date End Date Ervin Tejada MD PCP - General 01/17/08 documented as of this encounter
--- OUTSIDE RECORDS SUMMARY | 2024-02-12 02:20 | XMS_ITS | Encounter Summary ---
Author Organization [facility] Address [address] [place] [address] Care Team Providers Care Mink Slicer Name Role Phone Ervin Tejada MD Primary Care Provider [phone] Encounter Details Date Type Department Care Team (Late st Contact Info) Description 09/05/1999 Outpatient Historical [facility] Primary Care - [address] [place] [address] Ervin Tejada MD [address] [facility] [address] [address] Social History Tobacco Use Types [...] on filedocumented in this encounter Care Teams Mink Slicer Relationship Specialty Start Date End Date Ervin Tejada MD PCP - General 01/17/08 documented as of this encounter
--- OUTSIDE RECORDS SUMMARY | 2024-02-12 02:20 | XMS_ITS | Encounter Summary ---
Author Organization [facility] Address [address] [place] [address] Care Team Providers Care Facing Baster Name Role Phone Ervin Tejada MD Primary Care Provider [phone] Encounter Details Date Type Department Care Team (Latest Contact Info) Description 06/18/2007 Orders Only [facility] CON[facility] Conversion, History Social History Tobacco Use Types Packs/Day Years Used Date Smoking Tobacco: Never Assessed Sex and Gender Information Value Date Recorded Sex Assigned at Not on file Gender Identity Not on file Sexual Orientation Not on file documented as of this encounter Progress Notes * Conversion, History - 05/05/2008 8:04 AM CDT documented in this encounter Plan of Treatment Not on file documented as of this encounter Visit Diagnoses Not on filedocumented in this encounter Care Teams Facing Baster Relationship Specialty Start Date End Date Ervin Tejada MD PCP - General 01/17/08 documented as of this encounter
--- OUTSIDE RECORDS SUMMARY | 2024-02-12 02:20 | XMS_ITS | Encounter Summary ---
Author Organization [facility] Address [address] [place] [address] Care Team Providers Care Cargo Agent Name Role Phone Unavailable Primary Care Provider Unavailabl e Encounter Details Date Type Department Care Team (Late st Contact Info) Description 05/31/2007 Orders Only [facility] Primary Care - [facility] [address] [facility] [address] [place] [address] Brissa Allison MD [address] [facility] [address] [place] [address] Social History Tobacco Use Types Packs/Day Years Used Date Smoking Tobacco: Never Assessed Sex and Gender Information Value Date Recorded Sex Assigned at Not on file Gender Identity Not on file Sexual Orientation Not on file documented as of this encounter Progress Notes * Brissa Allison MD - 07/19/2007 10:46 AM CDT TEMPERATURE: 97.6??f Oral BLOOD PRESSURE: 120/80 Left Arm Sitting WEIGHT: 123lbs NURSE NAME: Ana Arroyo N ALLERGIES: No known drug allergies. MEDICATIONS: Medication list current. CHIEF COMPLAINT Patient complains of. sore in rectum HISTORY: HISTORY: HISTORY OF PRESENT ILLNESS: Noticed sore spot and irritation on her rectum yesterday, it bled for about 10 min ROS: GENERAL: Normal activity and energy level, no change in appetite. No major weight gain or loss. No malaise, chills, fever, diaphoresis.. ENT: No hearing loss, epistaxis, hoarseness or dysphagia. No sinus congestion.. ENDOCRINE: No heat or cold intolerance, no excessive thirst.. CARDIAC: No chest pain, palpitations, orthopnea, dyspnea on exertion, or paroxysmal nocturnal dyspnea.. RESPIRATORY: No dyspnea, cough, hemoptysis or wheezing.. : No frequency, urgency, hematuria or dysuria.. GI: No abdominal pain, nausea, vomiting, diarrhea, constipation, melena, or hematochezia.. PHYSICAL EXAMINATION: CONSTITUTIONAL: GENERAL APPEARANCE: Healthy appearing patient in no distress. NECK/THYROID: Trachea midline. No thyroid enlargement, tenderness, or mass. No supraclavicular or cervical adenopathy. RESPIRATORY: Clear to auscultation and percussion. Normal respiratory effort. CARDIOVASCULAR: CARDIAC: Regular rhythm. No murmurs, rubs, or gallops. ARTERIAL: No aortic bruits. EDEMA/VARICOSITIES OF EXTREMITIES: No edema or varicosities. GASTROINTESTINAL: ABDOMEN: Soft, non-tender, without masses. Bowel sounds active. LIVER/SPLEEN/KIDNEY: No hepatosplenomegaly, tenderness or nodularity. Kidneys not palpable. RECTAL: PILONIDAL SINUS NOTED. with small amount of blood draining ASSESSMENT/PLAN: 685.1-PILONIDAL CYST PATIENT EDUCATION: The patient was allowed to ask questions to stated satisfaction. SPECIALTY REFERRAL: GASTROENTEROLOGY Dr. Elizabeth Greenfield ph: [phone] fax: [phone]. RETURN VISIT : Patient is to return on an as needed basis. Electronically Signed by: Brissa Allison MD on Thursday, May 31, 2007 documented in this encounter Plan of Treatment Not on file documented as of this encounter Visit Diagnoses Not on filedocumented in this encounter
--- OUTSIDE RECORDS SUMMARY | 2024-02-12 02:20 | XMS_ITS | Encounter Summary ---
Author Organization [facility] Address [address] [place] [address] Care Team Providers Care Chain Maker Machine Name Role Phone Ervin Tejada MD Primary Care Provider [phone] Encounter Details Date Type Department Care Team (Late st Contact Info) Description 08/13/2001 Outpatient Historical [facility] Primary Care - [address] [place] [address] Ervin Tejada MD [address] [facility] [address] [address] Social History Tobacco Use Types [...] on filedocumented in this encounter Care Teams Chain Maker Machine Relationship Specialty Start Date End Date Ervin Tejada MD PCP - General 01/17/08 documented as of this encounter
== END 2024-02-05 13:05 | disposition home or self-care (01) ==
PROVIDERS: Obstetrics & Gynecology; PCP Physician Assistant; Visit Provider Urology
PROC: (CPT 57425; principal; 2024-02-05 07:30)
PROC: (CPT 58542; 2024-02-05 07:30)
DX: N81.4 Uterovaginal prolapse, unspecified (principal); N39.3 Stress incontinence (female) (male); D25.1 Intramural leiomyoma of uterus; D25.2 Subserosal leiomyoma of uterus; Z98.890 Other specified postprocedural states; Z80.0 Family history of malignant neoplasm of digestive organs; Z80.8 Family history of malignant neoplasm of other organs or systems
CPT/HCPCS: 58542; 57425; S2900 ×2; 88307; A9270; C1781; J0690; J1100; J1836; J1885; J2003; J2250; J2270; J2405; J2704; J3010; J7030; J7120